=== PATIENT | female | born 1985 | race African-American/Black ===

== ENCOUNTER 2016-11-08 18:35 | Emergency (ER) | payer SELFPAY ==
[2016-11-08] MEDS ORDERED: METHYLPREDNISOLONE INJ 125 MG/2 ML SDV IV ONE (18:55)
[2016-11-08] MEDS ORDERED: ALBUTEROL SULFATE HFA (90 MCG/PUFF) 8 GM MDI (1 MDI/ER DISP) IH PRN (18:55)
[2016-11-08] MEDS ORDERED: ALBUTEROL SULFATE 0.083% NEB 2.5 MG/3 ML AMPUL NEB ONE (18:56)
--- NOTE | 2016-11-08 18:59 | ER Document Report ---
ED General - General Chief Complaint: Shortness Of Breath Stated Complaint: SHORTNESS OF BREATH Time Seen by Provider: 11/08/16 18:51 Notes: Patient is a 31-year-old female with past medical history of asthma, with prior severe exacerbations including intubation and ICU admission who presents with shortness of breath and wheezing. Patient states this started while she was at work. She was administered several nebulizers by EMS prior to arrival and states that this is significantly improved her symptoms. Nothing was noted to worsen her symptoms beyond attempted exertion. States this feels similar to prior asthma exacerbations but she wanted to come to the ER today due to how severe her asthma has become in the past when she has delayed treatment. She denies any significant symptoms at the time of my initial assessment beyond mild "tightness" in her chest. Denies any cough, fever or constitutional symptoms. States she has been taking her Symbicort as directed. TRAVEL OUTSIDE OF THE [place] IN LAST 30 DAYS: No - Related Data Allergies/Adverse Reactions: No Known Allergies Allergy (Verified 09/28/15 02:35) Past Medical History - General Information source: Patient - Social History Smoking Status: Never Smoker Frequency of alcohol use: Heavy Drug Abuse: None Lives with: Spouse/Significant other Family History: Reviewed & Not Pertinent, Other Pulmonary Medical History: Reports: Hx Asthma, Hx COPD, Hx Intubation, Hx Respiratory Failure Psychiatric Medical History: Denies: Hx Depression - Immunizations Hx Diphtheria, Pertussis, Tetanus Vaccination: Yes Review of Systems - Review of Systems Notes: Constitutional: Negative for fever. HENT: Negative for sore throat. Eyes: Negative for visual changes. Cardiovascular: Negative for chest pain. Respiratory: Positive for shortness of breath. Gastrointestinal: Negative for abdominal pain, vomiting or diarrhea. Genitourinary: Negative for dysuria. Musculoskeletal: Negative for back pain. Skin: Negative for rash. Neurological: Negative for headaches, weakness or numbness. 10 point ROS negative except as marked above and in HPI. Physical Exam - Vital signs Vitals: Temp Pulse Resp BP Pulse Ox 98.1 F 85 16 139/101 H 100 11/08/16 18:45 11/08/16 18:45 11/08/16 18:45 11/08/16 18:45 11/08/16 18:45 Interpretation: Normal Notes: PHYSICAL EXAMINATION: GENERAL: Well-appearing, well-nourished and in no acute distress. HEAD: Atraumatic, normocephalic. EYES: Pupils equal round and reactive to light, extraocular movements intact, sclera anicteric, conjunctiva are normal. ENT: nares patent, oropharynx clear without exudates. Moist mucous membranes. NECK: Normal range of motion, supple without lymphadenopathy LUNGS: Breath sounds clear to auscultation bilaterally and equal. Scant expiratory wheezing. HEART: Regular rate and rhythm without murmurs ABDOMEN: Soft, nontender, normoactive bowel sounds. No guarding, no rebound. No masses appreciated. EXTREMITIES: Normal range of motion, no pitting or edema. No cyanosis. NEUROLOGICAL: No focal neurological deficits. Moves all extremities spontaneously and on command. PSYCH: Normal mood, normal affect. SKIN: Warm, Dry, normal turgor, no rashes or lesions noted. Course - Re-evaluation Re-evalutation: 11/08/16 18:56 Patient presents with a mild exacerbation of their baseline asthma. Mild wheezing at time of presentation but vitals do not show significant hypoxemia or tachypnea. No retractions. Patient did clinically improve after receiving nebulizers here in the emergency department. No infectious symptoms to indicate a need for chest x-ray. Patient able to ambulate without any respiratory distress. Based on patient's overall reassuring assessment, I believe they are stable for outpatient management with steroids. I do not suspect an acute alternative pathology at this time based on history and exam including acute pulmonary embolus, ACS, pneumothorax, or aortic dissection. At this time will discharge with return precautions and follow-up recommendations. Verbal discharge instructions given a the bedside and opportunity for questions given. Medication warnings reviewed. Patient is in agreement with this plan and has verbalized understanding of return precautions and the need for primary care follow-up in the next 24-72 hours. - Vital Signs Vital signs: Temp Pulse Resp BP Pulse Ox 98.1 F 85 18 125/86 H 99 11/08/16 18:45 11/08/16 18:45 11/08/16 20:05 11/08/16 20:05 11/08/16 20:05 Discharge - Discharge Clinical Impression: Asthma exacerbation Condition: Fair Disposition: HOME, SELF-CARE Additional Instructions: You were seen for an asthma exacerbation. Your symptoms improved with treatment here in the emergency department. However, it is very important that you return to the emergency department immediately if you began to have worsening difficulty breathing that does not respond to your normal home nebulizers. You are also being sent home on a five-day course of steroids that you should start taking tomorrow. Please also follow closely with your primary care physician. you should also return to emergency department if you develop fever greater than 101, persistent cough, persistent vomiting, pass out, or any other symptoms that are concerning to you. Prescriptions: Prednisone [Deltasone 20 mg Tablet] 3 tab PO DAILY 5 Days Forms: Return to Work
[2016-11-08] MEDS: MAGNESIUM SULFATE/D5W 100 ML IV SCH ×2 (19:08→19:19)
[2016-11-08 21:16] VITALS: BP 125/86
== END 2016-11-08 21:00 | disposition home or self-care (01) ==
LOC: ER 18:35
DX: O99.519 Diseases of the respiratory system complicating pregnancy, unspecified trimester (principal); J44.9 Chronic obstructive pulmonary disease, unspecified; O26.899 Other specified pregnancy related conditions, unspecified trimester; R06.02 Shortness of breath; R07.89 Other chest pain; Z79.51 Long term (current) use of inhaled steroids; Z3A.00 Weeks of gestation of pregnancy not specified
CPT/HCPCS: 96376; 94640; 99285; 96374; 96375; J2930; J3475; J3490

== ENCOUNTER 2016-11-09 14:26 | Emergency (ER) | payer SELFPAY ==
--- NOTE | 2016-11-09 14:57 | ER Document Report ---
ED Medical Screen (RME) - General Chief Complaint: Nausea/Vomiting Stated Complaint: NAUSEA,DIZZY,ABDOMINAL PAIN Time Seen by Provider: 11/09/16 14:52 Mode of Arrival: Ambulatory Information source: Patient TRAVEL OUTSIDE OF THE [place] IN LAST 30 DAYS: No - HPI Onset: Yesterday Onset/Duration: Gradual Quality of pain: Dull Associated Symptoms: Cough (nonproductive), Hurts to breath, Shortness of breath Exacerbated by: Denies Relieved by: Denies Recently seen / treated by doctor: Yes - CARMELO EAntoine, LAST PM - Related Data Smoking: Non-smoker Frequency of alcohol use: None Drug Abuse: None Allergies/Adverse Reactions: No Known Allergies Allergy (Verified 11/09/16 14:30) Past Medical History - General Information source: Patient - Social History Cigarette use (# per day): No Chew tobacco use (# tins/day): No Frequency of alcohol use: None Drug Abuse: None Lives with: Spouse/Significant other - Past Medical History Cardiac Medical History: Reports: None Denies: Hx DVT, Hx Pulmonary Embolism Pulmonary Medical History: Reports: Hx Asthma, Hx COPD, Hx Intubation, Hx Respiratory Failure Endocrine Medical History: Reports: None Renal/ Medical History: Denies: Hx Peritoneal Dialysis GI Medical History: Reports: None Psychiatric Medical History: Denies: Hx Depression - Immunizations Hx Diphtheria, Pertussis, Tetanus Vaccination: Yes Review of Systems - Review of Systems Constitutional: See HPI EENT: No symptoms reported Cardiovascular: No symptoms reported Respiratory: See HPI Gastrointestinal: No symptoms reported Female Genitourinary: Last menstrual period - 10/05 Physical Exam - Vital signs Vitals: Temp Pulse Resp BP Pulse Ox 98.2 F 90 18 119/77 100 11/09/16 14:32 11/09/16 14:32 11/09/16 14:32 11/09/16 14:32 11/09/16 14:32 Interpretation: No: Tachycardic, Hypoxic, Tachypneic, Febrile - Respiratory Respiratory status: No respiratory distress Breath sounds: Normal. No: Rales, Wheezing Course - Vital Signs Vital signs: Temp Pulse Resp BP Pulse Ox 98.2 F 90 18 119/77 100 11/09/16 14:32 11/09/16 14:32 11/09/16 14:32 11/09/16 14:32 11/09/16 14:32
[2016-11-09 15:14] LABS: ABSOLUTE LYMPHOCYTES (AUTO) 1.9 10^3/uL (0.5-4.7); ABSOLUTE MONOCYTES (AUTO) 0.6 10^3/uL (0.1-1.4); ABSOLUTE NEUT (AUTO) 7.6 10^3/uL (1.7-8.2); BASOPHILS % (AUTO) 0.3 % (0-2); EOSINOPHILS % (AUTO) 0.4 % (0-6); HEMATOCRIT 39.9 % (36.0-47.0); HEMOGLOBIN 13.6 g/dL (12.0-15.5); HGB HCT DIFFERENCE 0.9; LYMPHOCYTES % (AUTO) 18.4 % (13-45); MEAN CORPUSCULAR HEMOGLOBIN 31.7 pg (27.0-33.4); MEAN CORPUSCULAR VOLUME 93 fl (80-97); MONOCYTES % (AUTO) 6.1 % (3-13); RED BLOOD COUNT 4.27 10^6/uL (3.72-5.28); RED CELL DISTRIBUTION WIDTH 12.7 % (11.5-14.0); SEGMENTED NEUTROPHILS % (AUTO) 74.8 % (42-78); WHITE BLOOD COUNT 10.2 10^3/uL (4.0-10.5)
--- NOTE | 2016-11-09 15:31 | ER Document Report ---
ED General - General Mode of Arrival: Ambulatory TRAVEL OUTSIDE OF THE [place] IN LAST 30 DAYS: No - HPI Onset: Other - Refer to HPI notes Similar symptoms previously: No Recently seen / treated by doctor: Yes - 11/08/16 [facility] <ANDRES RAMOS - Last Filed: 11/09/16 16:05> <LIAT KITCHEN - Last Filed: 11/09/16 19:41> - General Chief Complaint: Nausea/Vomiting Stated Complaint: NAUSEA,DIZZY,ABDOMINAL PAIN Time Seen by Provider: 11/09/16 14:52 Notes: Patient is a 31-year-old female presented emergency department with history of asthma with a chief complaint of nausea, vomiting and dizziness. Patient states she woke up this morning feeling like she was "hit by a bus." Patient complains of some nausea and dizziness along with abdominal pain and vomiting 2. Patient also states that her legs were tender/sore and she complains of a cough. Patient's last menstrual period was 10/05/2016 and she states she is not always regular. Patinet is Patient was seen in the emergency department last night (11/08/2016) for asthma exacerbation. Patient was given steroids and magnesium and discharged around 2130 last night. Patient has had asthma exacerbations in the past and was admitted to this facility's ICU with intubation/ventilator on 03/07/2016. Patient states that her breathing right now is normal and at baseline; she describes it as "tight" but states it is always tight. Patient's symptoms were gradually onset. Patient sees Dr. Rothman , pulmonology, for her asthma and does not have a PCP since she is waiting on her insurance card. Patient has no known allergies. (ANDRES RAMOS) - Related Data Allergies/Adverse Reactions: No Known Allergies Allergy (Verified 11/09/16 14:30) Past Medical History - General Information source: Patient - Social History Smoking Status: Never Smoker Cigarette use (# per day): No Chew tobacco use (# tins/day): No Smoking Education Provided: No Frequency of alcohol use: None Drug Abuse: None Lives with: Spouse/Significant other Family History: None - Past Medical History Cardiac Medical History: Reports: None Pulmonary Medical History: Reports: Hx Asthma, Hx COPD, Hx Intubation - 2015, Hx Respiratory Failure Endocrine Medical History: Reports: None GI Medical History: Reports: None Surgical Hx: Negative - Immunizations Hx Diphtheria, Pertussis, Tetanus Vaccination: Yes <ANDRES RAMOS - Last Filed: 11/09/16 16:05> Review of Systems - Review of Systems Constitutional: See HPI, Malaise EENT: No symptoms reported Cardiovascular: See HPI, Dizziness Respiratory: See HPI, Cough Gastrointestinal: See HPI, Abdominal pain, Nausea, Vomiting Genitourinary: No symptoms reported Female Genitourinary: No symptoms reported Musculoskeletal: No symptoms reported Skin: No symptoms reported Hematologic/Lymphatic: No symptoms reported Neurological/Psychological: No symptoms reported -: Yes All other systems reviewed and negative <ANDRES RAMOS - Last Filed: 11/09/16 16:05> Physical Exam - Vital signs Interpretation: Normal <ANDRES RAMOS - Last Filed: 11/09/16 16:05> <LIAT KITCHEN - Last Filed: 11/09/16 19:41> - Vital signs Vitals: Temp Pulse Resp BP Pulse Ox 98.2 F 90 18 119/77 100 11/09/16 14:32 11/09/16 14:32 11/09/16 14:32 11/09/16 14:32 11/09/16 14:32 - Notes Notes: GENERAL: Alert, interacts well. No acute distress. HEAD: Normocephalic, atraumatic. EYES: Appear normal. Pupils equal, round, and reactive to light. ENT: Moist mucus membranes, tongue midline, normal appearing oropharynx, TMs intact. NECK: Full range of motion. Supple. Trachea midline. LUNGS: Clear to auscultation bilaterally, no wheezes, rales, or rhonchi. No respiratory distress. HEART: Regular rate and rhythm. No murmurs, gallops, or rubs. ABDOMEN: Soft, non-tender. Non-distended. Normal bowel sounds. EXTREMITIES: Moves all 4 extremities spontaneously. Normal strength. No edema. NEUROLOGICAL: Alert and oriented x3. Normal speech. No focal neurological deficits. GSC 15. PSYCH: Normal affect, normal mood. SKIN: Warm, dry, normal turgor. No rashes or lesions noted. (ANDRES RAMOS) Course - Laboratory Result Diagrams: 11/09/16 15:05 11/09/16 15:05 <ANDRES RAMOS - Last Filed: 11/09/16 16:05> - Laboratory Result Diagrams: 11/09/16 15:05 11/09/16 15:05 - Diagnostic Test Radiology reviewed: Image reviewed, Reports reviewed - Mildly hyperinflated lungs, otherwise normal chest <LIAT KITCHEN - Last Filed: 11/09/16 19:41> - Vital Signs Vital signs: Temp Pulse Resp BP Pulse Ox 98.2 F 90 18 119/77 100 11/09/16 14:32 11/09/16 14:32 11/09/16 14:32 11/09/16 14:32 11/09/16 14:32 - Laboratory Laboratory results interpreted by me: 11/09/16 11/09/16 11/09/16 15:05 15:05 15:05 Carbon Dioxide 18 L Magnesium 2.4 H Total Protein 9.3 H Serum HCG, Qual POSITIVE H Beta HCG, Quant 88.25 H Discharge <ANDRES RAMOS - Last Filed: 11/09/16 16:05> <LIAT KITCHEN - Last Filed: 11/09/16 19:41> - Discharge Clinical Impression: Viral syndrome, Early stage of Condition: Stable Disposition: HOME, SELF-CARE Additional Instructions: Drink plenty of fluids. Take Tylenol for pain and aches if needed. Continue your regular medications. Follow-up with [facility] or the health department in 2 days to repeat your hormone level. RETURN TO THE EMERGENCY ROOM IF ANY NEW OR WORSENING SYMPTOMS. Referrals: [facility] [Provider Group] - 11/11/16 (Call Thursday for a Thursday appointment.) Scribe Attestation: 11/09/16 19:40 I personally performed the services described in the documentation, reviewed and edited the documentation which was dictated to the scribe in my presence, and it accurately records my words and actions. (LIAT KITCHEN) Scribe Documentation - Scribe Written by Yves:: Yves Joya, 11/09/2016 16:04 acting as scribe for :: Bossman <ANDRES RAMOS - Last Filed: 11/09/16 16:05>
[2016-11-09 15:33] LABS: ALANINE AMINOTRANSFERASE 25 U/L (9-52); ALKALINE PHOSPHATASE 52 U/L (38-126); ANION GAP 16 (5-19); ASPARTATE AMINO TRANSFERASE 20 U/L (14-36); BILIRUBIN,DIRECT 0.3 mg/dL (0.0-0.4); BILIRUBIN,TOTAL 0.4 mg/dL (0.2-1.3); BLOOD UREA NITROGEN 7 mg/dL (7-20); CARBON DIOXIDE 18 mmol/L (22-30); CHLORIDE 107 mmol/L (98-107); CREATININE RESULT 0.73 mg/dL (0.52-1.25); GLUCOSE 97 mg/dL (75-110); MAGNESIUM 2.4 mg/dL (1.6-2.3); POTASSIUM 4.2 mmol/L (3.6-5.0); TOTAL PROTEIN 9.3 g/dL (6.3-8.2)
[2016-11-09 15:42] LABS: ADD ON TESTING BLD IN LAB ACKNOWLEDGE
--- NOTE | 2016-11-09 16:45 | RADIOLOGY REPORT (SQ) ---
EXAM DESCRIPTION: CHEST SINGLE VIEW COMPLETED DATE/TIME: 11/09/2016 4:36 pm REASON FOR STUDY: asthma, SOB, pleuritic CP COMPARISON: 03/10/2016. NUMBER OF VIEWS: One view. TECHNIQUE: Single frontal radiographic view of the chest acquired. LIMITATIONS: None. FINDINGS: LUNGS AND PLEURA: Mildly hyperinflated but otherwise clear lungs. MEDIASTINUM AND HILAR STRUCTURES: No masses. Contour normal. HEART AND VASCULAR STRUCTURES: Heart normal in size. Normal vasculature. BONES: Mild scoliosis. HARDWARE: None in the chest. OTHER: No other significant finding. IMPRESSION: Beyond hyperinflation of the lungs which may be related to the patient's history of asth ma, negative study. TECHNICAL DOCUMENTATION: JOB ID: [id number] [employer]- All Rights Reserved
[2016-11-09 19:06] LABS: APPEARANCE,URINE CLEAR; BILIRUBIN,URINE NEGATIVE (NEGATIVE); GLUCOSE, URINE NEGATIVE (NEGATIVE); KETONES,URINE NEGATIVE (NEGATIVE); LEUKOCYTE ESTERASE,URINE NEGATIVE (NEGATIVE); NITRITE,URINE NEGATIVE (NEGATIVE); PROTEIN,URINE NEGATIVE (NEGATIVE); URINE SPECIFIC GRAVITY 1.023; UROBILINOGEN,URINE NEGATIVE mg/dL (<2.0)
--- NOTE | 2016-11-09 19:25 | RADIOLOGY REPORT (SQ) ---
EXAM DESCRIPTION: U/S OB TRANSVAGINAL W/O DOP COMPLETED DATE/TIME: 11/09/2016 7:16 pm REASON FOR STUDY: abd pain COMPARISON: None. TECHNIQUE: Transvaginal static and realtime grayscale images acquired of the pelvis. Additional jeremy cted spectral and color Doppler images recorded. All images stored on PACs. BHC.25 LIMITATIONS: None. FINDINGS: UTERUS: No visualized intrauterine . Mild fibroid uterus suggested. RIGHT ADNEXA: Normal ovary with normal vascular flow. No adnexal free fluid. No adnexal masses. LEFT ADNEXA: Normal ovary with normal vascular flow. No adnexal free fluid. No adnexal masses. Probable 2.5 cm corpus luteum. No suspicious lesion. FREE FLUID: None. OTHER: No other significant finding. IMPRESSION: NO VISUALIZED INTRA- OR EXTRAUTERINE . bHCG LEVEL TOO LOW TO EXPECT VISUALIZATION OF . ECTOPIC CANNOT BE EXCLUDED. FOLLOW-UP ULTRASOUND AND SERIAL BHCG LEVELS STRONGLY RECOMMENDED TO ACCURATELY ASSESS STATU S. TECHNICAL DOCUMENTATION: JOB ID: [id number]- All Rights Reserved
[2016-11-09 20:15] VITALS: BP 121/85
== END 2016-11-09 20:15 | disposition home or self-care (01) ==
LOC: ER 14:26
DX: B34.9 Viral infection, unspecified (principal); R11.2 Nausea with vomiting, unspecified; R42 Dizziness and giddiness; R10.9 Unspecified abdominal pain; R05 Cough; M79.604 Pain in right leg; M79.605 Pain in left leg; Z3A.01 Less than 8 weeks gestation of pregnancy
CPT/HCPCS: 36415; 71010; 76817; 80053; 81001; 83735; 84702; 84703; 85025; 99284

== ENCOUNTER 2016-12-07 08:36 | Emergency (ER) | payer SELFPAY ==
[2016-12-07 09:18] LABS: ABSOLUTE BASOPHILS # (AUTO) 0.1 10^3/uL (0.0-0.2); ABSOLUTE EOSINOPHILS # (AUTO) 0.4 10^3/uL (0.0-0.6); ABSOLUTE MONOCYTES (AUTO) 0.6 10^3/uL (0.1-1.4); ABSOLUTE NEUT (AUTO) 3.8 10^3/uL (1.7-8.2); BASOPHILS % (AUTO) 0.7 % (0-2); EOSINOPHILS % (AUTO) 5.7 % (0-6); HEMATOCRIT 34.9 % (36.0-47.0); HEMOGLOBIN 12.2 g/dL (12.0-15.5); HGB HCT DIFFERENCE 1.7; LYMPHOCYTES % (AUTO) 28.9 % (13-45); MEAN CORPUSCULAR HEMOGLOBIN 32.3 pg (27.0-33.4); MEAN CORPUSCULAR HGB CONC 34.9 g/dL (32.0-36.0); MEAN CORPUSCULAR VOLUME 92 fl (80-97); MONOCYTES % (AUTO) 9.1 % (3-13); RED BLOOD COUNT 3.78 10^6/uL (3.72-5.28); RED CELL DISTRIBUTION WIDTH 12.1 % (11.5-14.0); SEGMENTED NEUTROPHILS % (AUTO) 55.6 % (42-78); WHITE BLOOD COUNT 6.8 10^3/uL (4.0-10.5)
[2016-12-07 09:32] LABS: ALANINE AMINOTRANSFERASE 21 U/L (9-52); ALBUMIN 4.5 g/dL (3.5-5.0); ALKALINE PHOSPHATASE 65 U/L (38-126); ANION GAP 14 (5-19); ASPARTATE AMINO TRANSFERASE 15 U/L (14-36); BILIRUBIN,DIRECT 0.3 mg/dL (0.0-0.4); BILIRUBIN,TOTAL 0.5 mg/dL (0.2-1.3); BLOOD UREA NITROGEN 7 mg/dL (7-20); CALCIUM 10.3 mg/dL (8.4-10.2); CARBON DIOXIDE 18 mmol/L (22-30); CHLORIDE 105 mmol/L (98-107); CREATININE RESULT 0.64 mg/dL (0.52-1.25); GLUCOSE 87 mg/dL (75-110); POTASSIUM 4.1 mmol/L (3.6-5.0); SODIUM 137.4 mmol/L (137-145); TOTAL PROTEIN 8.6 g/dL (6.3-8.2)
[2016-12-07 09:33] LABS: APPEARANCE,URINE CLEAR; BILIRUBIN,URINE NEGATIVE (NEGATIVE); GLUCOSE, URINE NEGATIVE (NEGATIVE); KETONES,URINE NEGATIVE (NEGATIVE); LEUKOCYTE ESTERASE,URINE TRACE (NEGATIVE); NITRITE,URINE NEGATIVE (NEGATIVE); PROTEIN,URINE NEGATIVE (NEGATIVE); URINE SPECIFIC GRAVITY 1.018; UROBILINOGEN,URINE NEGATIVE mg/dL (<2.0)
[2016-12-07] MEDS ORDERED: ACETAMINOPHEN 325 MG TABLET PO ONE (09:47)
--- NOTE | 2016-12-07 09:47 | ER Document Report ---
ED General - General Chief Complaint: Abdominal Cramping Stated Complaint: ABDOMINAL PAIN Time Seen by Provider: 12/07/16 08:48 Mode of Arrival: Ambulatory Notes: 31 yr old female 7-9 weeks O+ presents with complaints of abd cramping like labor pain as well as spotting on thursday light pink. denies any previous hx of miscarriage, had an ultrasound performed a few weeks ago which was normal TRAVEL OUTSIDE OF THE [place] IN LAST 30 DAYS: No - HPI Onset: Other - 3 days Onset/Duration: Sudden Quality of pain: Cramping Severity: Mild Pain Level: 1 Associated symptoms: Other Exacerbated by: Denies Relieved by: Denies Similar symptoms previously: No Recently seen / treated by doctor: No - Related Data Allergies/Adverse Reactions: No Known Allergies Allergy (Verified 11/09/16 14:30) Past Medical History - Social History Smoking Status: Never Smoker Cigarette use (# per day): No Chew tobacco use (# tins/day): No Smoking Education Provided: No Frequency of alcohol use: Occasional Drug Abuse: None Family History: None - Past Medical History Cardiac Medical History: Denies: Hx DVT, Hx Pulmonary Embolism Pulmonary Medical History: Reports: Hx Asthma, Hx COPD, Hx Intubation - 2015, Hx Respiratory Failure Renal/ Medical History: Denies: Hx Peritoneal Dialysis Psychiatric Medical History: Denies: Hx Depression Surgical Hx: Negative - Immunizations Hx Diphtheria, Pertussis, Tetanus Vaccination: Yes Review of Systems - Review of Systems Notes: REVIEW OF SYSTEMS: CONSTITUTIONAL : Denies fever, chills, or sweats. Denies recent illness. EENT: Denies eye, ear, throat, or mouth pain or symptoms. Denies nasal or sinus congestion or discharge. Denies throat, tongue, or mouth swelling or difficulty swallowing. CARDIOVASCULAR: Denies chest pain. Denies palpitations or racing or irregular heart beat. Denies ankle edema. RESPIRATORY: Denies cough, cold, or chest congestion. Denies shortness of breath, difficulty breathing, or wheezing. GASTROINTESTINAL: Denies abdominal pain or distention. Denies nausea, vomiting , or diarrhea. Denies blood in vomitus, stools, or per rectum. Denies black, tarry stools. Denies constipation. GENITOURINARY: Denies difficulty urinating, painful urination, burning, frequency, blood in urine, or discharge. FEMALE GENITOURINARY: vag spotting , pelvic cramping MUSCULOSKELETAL: Denies back or neck pain or stiffness. Denies joint pain or swelling. SKIN: Denies rash, lesions or sores. HEMATOLOGIC : Denies easy bruising or bleeding. LYMPHATIC: Denies swollen, enlarged glands. NEUROLOGICAL: Denies confusion or altered mental status. Denies passing out or loss of consciousness. Denies dizziness or lightheadedness. Denies headache. Denies weakness or paralysis or loss of use of either side. Denies problems with gait or speech. Denies sensory loss, numbness, or tingling. Denies seizures. PSYCHIATRIC: Denies anxiety or stress. Denies depression, suicidal ideation, or homicidal ideation. ALL OTHER SYSTEMS REVIEWED AND NEGATIVE. PHYSICAL EXAMINATION: GENERAL: Well-appearing, well-nourished and in no acute distress. HEAD: Atraumatic, normocephalic. EYES: Pupils equal round and reactive to light, extraocular movements intact, conjunctiva are normal. ENT: Nares patent, oropharynx clear without exudates. Moist mucous membranes. NECK: Normal range of motion, supple without lymphadenopathy LUNGS: Breath sounds clear to auscultation bilaterally and equal. No wheezes rales or rhonchi. HEART: Regular rate and rhythm without murmurs ABDOMEN: Soft, nontender, nondistended abdomen. No guarding, no rebound. No masses appreciated. Female : deferred Musculoskeletal: Normal range of motion, no pitting or edema. No cyanosis. NEUROLOGICAL: Cranial nerves grossly intact. Normal speech, normal gait. Normal sensory, motor exams PSYCH: Normal mood, normal affect. SKIN: Warm, Dry, normal turgor, no rashes or lesions noted. Dictation was performed using [employer] voice recognition software Physical Exam - Vital signs Vitals: Temp Pulse Resp BP Pulse Ox 98.6 F 78 16 111/70 98 12/07/16 08:40 12/07/16 08:40 12/07/16 08:40 12/07/16 08:40 12/07/16 08:40 Course - Re-evaluation Re-evalutation: 12/07/16 09:50 lab work imaging pending, pt looks well, no rho krystal needed 12/07/16 11:06 Ultrasound notes a 7 week possibility of uterine fibroids noted report is given to patient otherwise she appears well admits to continued cramping but no life-threatening issues After performing a Medical Screening Examination, I estimate there is LOW risk for ACUTE APPENDICITIS, BOWEL OBSTRUCTION, ACUTE CHOLECYSTITIS, PERFORATED DIVERTICULITIS, INCARCERATED HERNIA, PANCREATITIS, PELVIC INFLAMMATORY DISEASE, PERFORATED ULCER, ECTOPIC , or TUBO-OVARIAN ABSCESS, thus I consider the discharge disposition reasonable. Also, there is no evidence or peritonitis , sepsis, or toxicity. I have reevaluated this patient multiple times and no significant life threatening changes are noted. The patient and I have discussed the diagnosis and risks, and we agree with discharging home with close follow-up with the understanding that symptoms and presentations can change. We also discussed returning to the Emergency Department immediately if new or worsening symptoms occur. We have discussed the symptoms which are most concerning (e.g., bloody stool, fever, changing or worsening pain, vomiting) that necessitate immediate return. - Vital Signs Vital signs: Temp Pulse Resp BP Pulse Ox 98.6 F 78 16 111/70 98 12/07/16 08:40 12/07/16 08:40 12/07/16 08:40 12/07/16 08:40 12/07/16 08:40 - Laboratory Result Diagrams: 12/07/16 09:04 12/07/16 09:04 Laboratory results interpreted by me: 12/07/16 12/07/16 12/07/16 09:04 09:04 09:04 Hct 34.9 L Carbon Dioxide 18 L Calcium 10.3 H Total Protein 8.6 H Beta HCG, Quant 465822.00 H Ur Leukocyte Esterase TRACE H - Diagnostic Test Radiology reviewed: Image reviewed, Reports reviewed - Pelvic results given to patient Discharge - Discharge Clinical Impression: Abdominal pain affecting Condition: Stable Disposition: HOME, SELF-CARE Instructions: Abdominal Pain ([facility]), Threatened Miscarriage ([facility]) Referrals: [facility] [Provider Group] - Follow up tomorrow
--- NOTE | 2016-12-07 11:03 | RADIOLOGY REPORT (SQ) ---
EXAM DESCRIPTION: U/S OB TRANSVAGINAL W/O DOP COMPLETED DATE/TIME: 12/07/2016 10:27 am REASON FOR STUDY: + preg pain COMPARISON: None. TECHNIQUE: Transvaginal static and realtime grayscale images acquired of the pelvis. Additional jeremy cted spectral and color Doppler images recorded. All images stored on PACs. bHC,300 LIMITATIONS: None. FINDINGS: FETUS: Living intrauterine . EGA: 7 weeks 2 day MUSA: 07/24/2017 FHR: 154 beats per minute. SUBCHORIONIC BLEED: No SIZE OF BLEED: Not applicable. UTERUS: There are multiple heterogeneous areas in the myometrium. Possibility of uterine fibroids ca nnot be excluded. Followup is recommended. CERVICAL LENGTH: 5.2 cm Closed. RIGHT ADNEXA: Normal ovary with normal vascular flow. No adnexal free fluid. No adnexal masses. LEFT ADNEXA: Normal ovary with normal vascular flow. No adnexal free fluid. Small cyst is identified measuring 1.8 x 1.6 x 1.0 cm FREE FLUID: Minimal amount of free fluid is identified in the posterior cul-de-sac. OTHER: No other significant finding. IMPRESSION: LIVING INTRAUTERINE . EGA 7 weeks 2 days Trimester of : First - 0 to 13 weeks. TECHNICAL DOCUMENTATION: JOB ID: [id number]- All Rights Reserved
[2016-12-07] MEDS ORDERED: CYCLOBENZAPRINE HCL 10 MG TABLET PO ONE (11:12)
[2016-12-07] MEDS ORDERED: METOCLOPRAMIDE HCL ORAL SOLN 10 MG/10 ML UDCUP PO ONE (11:12)
[2016-12-07 11:24] VITALS: BP 113/98
== END 2016-12-07 11:23 | disposition home or self-care (01) ==
LOC: ER 08:36
DX: O26.891 Other specified pregnancy related conditions, first trimester (principal); R10.9 Unspecified abdominal pain; O26.851 Spotting complicating pregnancy, first trimester; O99.511 Diseases of the respiratory system complicating pregnancy, first trimester; J44.9 Chronic obstructive pulmonary disease, unspecified; Z3A.01 Less than 8 weeks gestation of pregnancy
CPT/HCPCS: 36415; 76817; 80053; 81001; 84702; 85025; 99284

== ENCOUNTER 2016-12-08 16:45 | Emergency (ER) | payer BC ==
[2016-12-08] MEDS ORDERED: HYDROCODONE/ACETAMINOPHEN 5-325 MG TABLET PO ONE (17:42)
--- NOTE | 2016-12-08 17:44 | ER Document Report ---
ED Medical Screen (RME) - General Stated Complaint: ABDOMINAL PAIN Time Seen by Provider: 12/08/16 17:35 Notes: This 31-year-old female patient comes emergency room complaining of severe cramping in the pelvic area. She reports this started on Thursday 4 days ago. She was seen in the emergency room yesterday for the same symptoms and had an ultrasound showing a 7 week 2 day . She did not follow-up with [facility] today as she was instructed to. She did come by EMS to the emergency room today. There is no bleeding, there is no discharge. CBC and chemistries were normal yesterday. I have greeted and performed a rapid initial assessment of this patient. A comprehensive ED assessment and evaluation of the patient, analysis of test results and completion of the medical decision making process will be conducted by additional ED providers. TRAVEL OUTSIDE OF THE [place] IN LAST 30 DAYS: No - Related Data Allergies/Adverse Reactions: No Known Allergies Allergy (Verified 11/09/16 14:30) Past Medical History - Past Medical History Cardiac Medical History: Denies: Hx DVT, Hx Pulmonary Embolism Pulmonary Medical History: Reports: Hx Asthma, Hx COPD, Hx Intubation - 2015, Hx Respiratory Failure Renal/ Medical History: Denies: Hx Peritoneal Dialysis Psychiatric Medical History: Denies: Hx Depression - Immunizations Hx Diphtheria, Pertussis, Tetanus Vaccination: Yes Physical Exam - Vital signs Vitals: Temp Pulse Resp BP Pulse Ox 98.5 F 78 22 H 108/75 100 12/08/16 17:06 12/08/16 17:06 12/08/16 17:06 12/08/16 17:06 12/08/16 17:06 Course - Vital Signs Vital signs: Temp Pulse Resp BP Pulse Ox 98.5 F 78 22 H 108/75 100 12/08/16 17:06 12/08/16 17:06 12/08/16 17:06 12/08/16 17:06 12/08/16 17:06
[2016-12-08 19:35] LABS: APPEARANCE,URINE SLIGHTLY-CLOUDY; BILIRUBIN,URINE NEGATIVE (NEGATIVE); GLUCOSE, URINE NEGATIVE (NEGATIVE); KETONES,URINE NEGATIVE (NEGATIVE); LEUKOCYTE ESTERASE,URINE SMALL (NEGATIVE); NITRITE,URINE NEGATIVE (NEGATIVE); PROTEIN,URINE NEGATIVE (NEGATIVE); URINE SPECIFIC GRAVITY 1.028; UROBILINOGEN,URINE NEGATIVE mg/dL (<2.0)
[2016-12-08] MEDS ORDERED: DICYCLOMINE HCL 20 MG TABLET PO ONE (19:39)
--- NOTE | 2016-12-08 19:52 | ER Document Report ---
HPI - HPI Pain Level: 5 Notes: Patient is a 7 week 2-day female who presents the ED complaining of lower pelvic cramping 4-5 days. Patient was evaluated yesterday in the ED and had a negative workup. Patient did not follow-up with the women[facility] clinic as she was directed to. Patient states that the pain has not changed since her appointment yesterday. She is still eating and drinking without any difficulties. She denies any vaginal bleeding. Pt states she does have brown vaginal discharge. She denies any issues with constipation or diarrhea. Patient states that she has been taking Tylenol with minimal relief. He denies any drug allergies. Past medical history significant for asthma. Denies any headache, fever, URI, sore throat, chest pain, palpitations, syncope, cough, shortness of breath, wheeze, dyspnea, nausea/vomiting/diarrhea, urinary retention, dysuria, hematuria, loss of control of bowel or bladder, numbness/ tingling, saddle anesthesia, muscle paralysis/weakness, or rash. - ROS Notes: REVIEW OF SYSTEMS: CONSTITUTIONAL : Denies fever, chills, or sweats. Denies recent illness. EENT: Denies eye, ear, throat, or mouth pain or symptoms. Denies nasal or sinus congestion or discharge. Denies throat, tongue, or mouth swelling or difficulty swallowing. CARDIOVASCULAR: Denies chest pain. Denies palpitations or racing or irregular heart beat. Denies ankle edema. RESPIRATORY: Denies cough, cold, or chest congestion. Denies shortness of breath, difficulty breathing, or wheezing. GASTROINTESTINAL: see hpi GENITOURINARY: Denies difficulty urinating, painful urination, burning, frequency, blood in urine, or discharge. FEMALE GENITOURINARY: see hpi. MUSCULOSKELETAL: Denies back or neck pain or stiffness. Denies joint pain or swelling. SKIN: Denies rash, lesions or sores. NEUROLOGICAL: Denies confusion or altered mental status. Denies passing out or loss of consciousness. Denies dizziness or lightheadedness. Denies headache. Denies weakness or paralysis or loss of use of either side. Denies problems with gait or speech. Denies sensory loss, numbness, or tingling. Denies seizures. PSYCHIATRIC: Denies anxiety or stress. Denies depression, suicidal ideation, or homicidal ideation. ALL OTHER SYSTEMS REVIEWED AND NEGATIVE. Dictation was performed using [employer] voice recognition software - REPRODUCTIVE Reproductive: DENIES: : - DERM Skin Color: Normal Past Medical History - Social History Smoking Status: Unknown if Ever Smoked Family History: None - Past Medical History Cardiac Medical History: Denies: Hx DVT, Hx Pulmonary Embolism Pulmonary Medical History: Reports: Hx Asthma, Hx COPD, Hx Intubation - 2015, Hx Respiratory Failure Renal/ Medical History: Denies: Hx Peritoneal Dialysis Psychiatric Medical History: Denies: Hx Depression - Immunizations Hx Diphtheria, Pertussis, Tetanus Vaccination: Yes Vertical Provider Document - CONSTITUTIONAL Agree With Documented VS: Yes Notes: PHYSICAL EXAMINATION: GENERAL: Well-appearing, well-nourished and in no acute distress. LUNGS: Breath sounds clear to auscultation bilaterally and equal. No wheezes rales or rhonchi. HEART: Regular rate and rhythm without murmurs ABDOMEN: Soft,nondistended abdomen. No guarding, no rebound. No masses appreciated. Normal bowel sounds present. CVA tenderness negative bilaterally. + mild tenderness to Lower quadrants b/l. Female : No inguinal adenopathy. External genitalia without erythema, lesions , or masses. Vaginal mucosa pink with mild white discharge in canal. Cervix parous, pink, and without obvious discharge. Uterus is smooth. + mild b/l adnexal tenderness. Neg CMT. Musculoskeletal: FROM to passive/active. Strength 5+/5. Extremities: No cyanosis/clubbing/edema b/l. Peripheral pulses 2+. Capillary refill less than 3 seconds. NEUROLOGICAL: Normal speech. Normal sensory, motor exams PSYCH: Normal mood, normal affect. SKIN: Warm, Dry, normal turgor, no rashes or lesions noted. - INFECTION CONTROL TRAVEL OUTSIDE OF THE [place] IN LAST 30 DAYS: No - RESPIRATORY O2 Sat by Pulse Oximetry: 100 Course - Re-evaluation Re-evalutation: 12/08/16 21:03 Patient is an afebrile, well-hydrated, 31-year-old female who presents to the ED with trichomoniasis and bacterial vaginosis. Chlamydia and gonorrhea are pending. Vitals are stable. PE otherwise unremarkable at this time. Patient was evaluated yesterday and had an US that was unremarkable for acute pathology. patient is tolerating p.o. intake without any difficulties. Zithromax 1 g, Rocephin 250 mg IM given today due to pending labs. Advised patient to have partner treated as well. Conservative measures otherwise for symptoms. Recheck with the women's clinic in 2-3 days. Return to the ED with any worsening/concerning symptoms otherwise as reviewed in discharge. Patient is in agreement. Low suspicion for any acute appendicitis, bowel obstruction, acute cholecystitis , perforated diverticulitis, incarcerated hernia, pancreatitis, perforated ulcer , ectopic , tubo-ovarian abscess, sepsis, or peritonitis. - Vital Signs Vital signs: Temp Pulse Resp BP Pulse Ox 98.5 F 78 22 H 108/75 100 12/08/16 17:06 12/08/16 17:06 12/08/16 17:06 12/08/16 17:06 12/08/16 17:06 - Laboratory Laboratory results interpreted by me: 12/08/16 17:45 Ur Leukocyte Esterase SMALL H Procedures - Pelvic Exam Pelvic exam Time completed: 20:40 Cultures obtained: Yes Wet prep obtained: Yes Herpes culture obtained: No Bimanual exam performed: Yes Witnessed by: female PCT Discharge - Discharge Clinical Impression: Bacterial vaginosis, Trichomoniasis Instructions: Abdominal Pain ([facility]), Vaginosis, Bacterial ([facility]), Trichomonas Infection ([facility]) Additional Instructions: Maintain adequate fluid intake Take medication as directed Abstain from any sexual intercourse for at least 10 days Recheck with the women's clinic in 2-3 days Return to the ED with any worsening symptoms and/or development of fever, headache, chest pain, palpitations, syncope, shortness of breath, trouble breathing, abdominal pain, n/v/d, blood in stool/urine, vaginal bleeding, worsening pain, or other worsening symptoms that are concerning to you. Prescriptions: Metronidazole [Flagyl 500 mg Tablet] 500 mg PO BID #14 tablet [facility]errals: [facility] [Provider Group] - Follow up in 3-5 days
[2016-12-08] MEDS ORDERED: LIDOCAINE 1% INJ-PF (10 MG/ML) 30 ML SDV INJ ONE (21:02)
[2016-12-08] MEDS ORDERED: AZITHROMYCIN 250 MG TABLET PO ONE (21:02)
[2016-12-08] MEDS ORDERED: CEFTRIAXONE INJ 1000 MG VIAL IM ONE (21:02)
[2016-12-08 21:32] VITALS: BP 122/75
[2016-12-08 22:08] LABS: CHLAM PCR NOT DETECTED (NOT DETECT)
== END 2016-12-08 21:55 | disposition home or self-care (01) ==
LOC: ER 16:45
DX: N76.0 Acute vaginitis (principal); B96.89 Other specified bacterial agents as the cause of diseases classified elsewhere; A59.9 Trichomoniasis, unspecified; R10.2 Pelvic and perineal pain
CPT/HCPCS: 99284; 96372; 87210; 81001; 87491; 87591; J3490 ×2; J0696

== ENCOUNTER 2016-12-13 13:53 | Emergency (ER) | payer SELFPAY ==
[2016-12-13 13:59] VITALS: BP 113/73
[2016-12-13] MEDS ORDERED: NORMAL SALINE 1000 ML 1,000 ML IV ONE ×2 (14:17→17:51)
--- NOTE | 2016-12-13 14:18 | ER Document Report ---
ED GI/ - General Chief Complaint: Abdominal Pain Stated Complaint: ABDOMINAL PAIN Mode of Arrival: Ambulatory Information source: Patient Notes: Patient is currently 8 weeks and complains of lower pelvic cramping. Patient states that she has had the cramping over the past week. Patient states that she has not had a bowel movement in 9 days. Patient is concerned that her cramping is due to constipation. Patient was seen in the emergency department 5 days ago and was diagnosed with bacterial vaginosis and trichomonas. Patient states she has been compliant with taking her Flagyl. Patient also states that her partner has been treated for trichomonas as well. Patient denies any vaginal bleeding, discharge, or urinary symptoms. TRAVEL OUTSIDE OF THE [place] IN LAST 30 DAYS: No - HPI Patient complains to provider of: Pelvic pain, . No: Vaginal discharge , Vomiting Onset: Last week Timing/Duration: Persistent Quality of pain: Cramping Pain Level: 2 Context: Location: Pelvis Vaginal bleeding (Compared to normal period): None Menstrual period history: Sexual history: Active Associated symptoms: denies: Dysuria, Fever, Nausea, Urinary hesitancy, Urinary frequency, Urinary retention, Urinary urgency, Vaginal discharge, Vomiting Exacerbated by: Denies Relieved by: Denies Similar symptoms previously: Yes Recently seen / treated by doctor: Yes - Related Data Allergies/Adverse Reactions: No Known Allergies Allergy (Verified 12/13/16 14:11) Past Medical History - General Information source: Patient - Social History Smoking Status: Never Smoker Chew tobacco use (# tins/day): No Frequency of alcohol use: Occasional Drug Abuse: None 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 denies: Fever EENT: No symptoms reported Cardiovascular: No symptoms reported. denies: Chest pain Respiratory: No symptoms reported Gastrointestinal: Abdominal pain, Constipation. denies: Diarrhea, Nausea, Vomiting Genitourinary: No symptoms reported. denies: Dysuria, Flank pain Female Genitourinary: . denies: Vaginal discharge, Vaginal bleeding Musculoskeletal: No symptoms reported. denies: Back pain Skin: No symptoms reported Hematologic/Lymphatic: No symptoms reported Neurological/Psychological: No symptoms reported Physical Exam - Vital signs Vitals: Temp Pulse Resp BP Pulse Ox 98.6 F 85 14 113/73 100 12/13/16 13:55 12/13/16 13:55 12/13/16 13:55 12/13/16 13:55 12/13/16 13:55 - General General appearance: Appears well, Alert In distress: None - HEENT Head: Normocephalic, Atraumatic Eyes: Normal Nasal: Normal Mouth/Lips: Normal Mucous membranes: Normal Neck: Normal, Supple. No: Lymphadenopathy - Respiratory Respiratory status: No respiratory distress Chest status: Nontender Breath sounds: Normal. No: Rales, Rhonchi, Stridor, Wheezing Chest palpation: Normal - Cardiovascular Rhythm: Regular Heart sounds: S1 appreciated, S2 appreciated Murmur: No - Abdominal Inspection: Normal Distension: No distension Bowel sounds: Normal Tenderness: Tender - Lower pelvic. No: McBurney's point, Guarding Organomegaly: No organomegaly - Genitourinary External exam: Normal Speculum exam: Cervix closed, Vaginal discharge Bimanuel exam: Cervical motion tender. No: Adnexal tenderness - Back Back: Normal, Nontender. No: CVA tenderness - Extremities General upper extremity: Normal inspection, Normal ROM General lower extremity: Normal inspection, Normal ROM - Neurological Neuro grossly intact: Yes Cognition: Normal [place] Coma Scale Eye Opening: Spontaneous [place] Coma Scale Verbal: Oriented [place] Coma Scale Motor: Obeys Commands [place] Coma Scale Total: 15 - Psychological Associated symptoms: Normal affect, Normal mood - Skin Skin Temperature: Warm Skin Moisture: Dry Skin Color: Normal Course - Re-evaluation Re-evalutation: 12/13/16 18:[address] Cooper regarding pt presentation and exam findings. Discussed pt's +trichomonas results. Patient has not finished a full week of treatment at this time. Recommends having patient finish her Flagyl as previously prescribed and following up with her [facility] for further management. 12/13/16 18:52 Offered patient enema, patient declined, offered patient digital disimpaction, patient declined. Discussed worsening signs or symptoms that patient should return for. Patient verbalized understanding and agrees with plan of care. - Vital Signs Vital signs: Temp Pulse Resp BP Pulse Ox 98.6 F 85 14 113/73 100 12/13/16 13:55 12/13/16 13:55 12/13/16 13:55 12/13/16 13:55 12/13/16 13:55 - Laboratory Result Diagrams: 12/13/16 14:22 12/13/16 16:10 Laboratory results interpreted by me: 12/13/16 12/13/16 12/13/16 14:22 14:22 16:10 RBC 3.62 L Hgb 11.6 L Hct 33.4 L Eosinophils % 8.6 H Carbon Dioxide 19 L BUN 4 L Creatinine 0.50 L Beta HCG, Quant 600507.00 H Urine Urobilinogen 2.0 H Ur Leukocyte Esterase TRACE H Labs- Entire Visit 12/13/16 12/13/16 12/13/16 14:22 14:22 14:22 WBC 6.5 RBC 3.62 L Hgb 11.6 L Hct 33.4 L MCV 92 MCH 32.2 MCHC 34.9 RDW 12.1 Plt Count 292 Seg Neutrophils % 52.7 Lymphocytes % 26.0 Monocytes % 11.7 Eosinophils % 8.6 H Basophils % 1.0 Absolute Neutrophils 3.4 Absolute Lymphocytes 1.7 Absolute Monocytes 0.8 Absolute Eosinophils 0.6 Absolute Basophils 0.1 Sodium Cancelled Potassium Cancelled Chloride Cancelled Carbon Dioxide Cancelled Anion Gap Cancelled BUN Cancelled Creatinine Cancelled Est GFR ( Amer) Cancelled Est GFR (Non-Af Amer) Cancelled Glucose Cancelled Calcium Cancelled Total Bilirubin Cancelled Direct Bilirubin Cancelled Indirect Bilirubin Cancelled Neonat Total Bilirubin Cancelled AST Cancelled ALT Cancelled Alkaline Phosphatase Cancelled Total Protein Cancelled Albumin Cancelled Lipase Cancelled TSH Cancelled Beta HCG, Quant Cancelled Total Beta HCG Cancelled Urine Color Urine Appearance Urine pH Ur Specific Dawson Urine Protein Urine Glucose (UA) Urine Ketones Urine Blood Urine Nitrite Urine Bilirubin Urine Urobilinogen Ur Leukocyte Esterase Urine WBC (Auto) Urine RBC (Auto) Urine Bacteria (Auto) Squamous Epi Cells Auto Urine Mucus (Auto) Urine Ascorbic Acid Bacteria (Wet Prep) Trichomonas (Wet Prep) Vaginal WBC Vaginal RBC Vaginal Yeast Chlamydia DNA (PCR) N.gonorrhoeae DNA (PCR) 08/12/13/16 12/13/16 14:22 16:10 16:10 WBC RBC Hgb Hct MCV MCH MCHC RDW Plt Count Seg Neutrophils % Lymphocytes % Monocytes % Eosinophils % Basophils % Absolute Neutrophils Absolute Lymphocytes Absolute Monocytes Absolute Eosinophils Absolute Basophils Sodium 137.8 Potassium 4.3 Chloride 106 Carbon Dioxide 19 L Anion Gap 13 BUN 4 L Creatinine 0.50 L Est GFR ( Amer) > 60 Est GFR (Non-Af Amer) > 60 Glucose 77 Calcium 9.8 Total Bilirubin 0.4 Direct Bilirubin 0.4 Indirect Bilirubin Not Reportable Neonat Total Bilirubin Not Reportable AST 17 ALT 22 Alkaline Phosphatase 74 Total Protein 8.1 Albumin 4.2 Lipase 125.8 TSH 0.71 Beta HCG, Quant 480544.00 H Total Beta HCG POSITIVE Urine Color YELLOW Urine Appearance SLIGHTLY-CLOUDY Urine pH 6.0 Ur Specific Dawson 1.026 Urine Protein NEGATIVE Urine Glucose (UA) NEGATIVE Urine Ketones NEGATIVE Urine Blood NEGATIVE Urine Nitrite NEGATIVE Urine Bilirubin NEGATIVE Urine Urobilinogen 2.0 H Ur Leukocyte Esterase TRACE H Urine WBC (Auto) 3 Urine RBC (Auto) 2 Urine Bacteria (Auto) 1+ Squamous Epi Cells Auto 2 Urine Mucus (Auto) OCC Urine Ascorbic Acid NEGATIVE Bacteria (Wet Prep) Trichomonas (Wet Prep) Vaginal WBC Vaginal RBC Vaginal Yeast Chlamydia DNA (PCR) N.gonorrhoeae DNA (PCR) 12/13/16 12/13/16 16:27 16:27 WBC RBC Hgb Hct MCV MCH MCHC RDW Plt Count Seg Neutrophils % Lymphocytes % Monocytes % Eosinophils % Basophils % Absolute Neutrophils Absolute Lymphocytes Absolute Monocytes Absolute Eosinophils Absolute Basophils Sodium Potassium Chloride Carbon Dioxide Anion Gap BUN Creatinine Est GFR ( Amer) Est GFR (Non-Af Amer) Glucose Calcium Total Bilirubin Direct Bilirubin Indirect Bilirubin Neonat Total Bilirubin AST ALT Alkaline Phosphatase Total Protein Albumin Lipase TSH Beta HCG, Quant Total Beta HCG Urine Color Urine Appearance Urine pH Ur Specific Dawson Urine Protein Urine Glucose (UA) Urine Ketones Urine Blood Urine Nitrite Urine Bilirubin Urine Urobilinogen Ur Leukocyte Esterase Urine WBC (Auto) Urine RBC (Auto) Urine Bacteria (Auto) Squamous Epi Cells Auto Urine Mucus (Auto) Urine Ascorbic Acid Bacteria (Wet Prep) 3+ BACTERIA SEEN Trichomonas (Wet Prep) TRICHOMONAS SEEN Vaginal WBC FEW WBCS SEEN Vaginal RBC RARE RBCS SEEN Vaginal Yeast NO YEAST SEEN Chlamydia DNA (PCR) NOT DETECTED N.gonorrhoeae DNA (PCR) NOT DETECTED - Diagnostic Test Radiology reviewed: Reports reviewed Discharge - Discharge Clinical Impression: Trichomoniasis, Abdominal pain affecting Constipation Qualifiers: Constipation type: unspecified constipation type Qualified Code(s): K59.00 - Constipation, unspecified UTI (urinary tract infection) Qualifiers: Urinary tract infection type: site unspecified Hematuria presence: without hematuria Qualified Code(s): N39.0 - Urinary tract infection, site not specified Condition: Stable Disposition: HOME, SELF-CARE Instructions: Nitrofurantoin ([facility]), Pelvic Pain in ([facility]), Trichomonas Infection ([facility]), Urinary Tract Infection ([facility]) Additional Instructions: Return immediately for any new or worsening symptoms Followup with your primary care provider, call tomorrow to make a followup appointment Finished taking the Flagyl he were previously prescribed. Be certain that your partner has finished their course of treatment as well. No sexual intercourse until symptoms have resolved. Follow-up with your [facility] provider, call Thursday for a recheck. Your SCIENCE [facility]TER may want to recheck your trichomonas test to be certain that the infection has cleared after you have finished the medication. Stay well-hydrated, increase oral fluids and fiber in your diet to help with constipation symptoms Prescriptions: Nitrofurantoin/Nitrofuran Mac [Macrobid 100 mg Capsule] 100 mg PO BID #10 capsule Forms: Return to Work Referrals: [facility] [Provider Group] - 12/15/16
[2016-12-13 14:50] LABS: ABSOLUTE BASOPHILS # (AUTO) 0.1 10^3/uL (0.0-0.2); ABSOLUTE EOSINOPHILS # (AUTO) 0.6 10^3/uL (0.0-0.6); ABSOLUTE LYMPHOCYTES (AUTO) 1.7 10^3/uL (0.5-4.7); ABSOLUTE MONOCYTES (AUTO) 0.8 10^3/uL (0.1-1.4); ABSOLUTE NEUT (AUTO) 3.4 10^3/uL (1.7-8.2); EOSINOPHILS % (AUTO) 8.6 % (0-6); HEMATOCRIT 33.4 % (36.0-47.0); HEMOGLOBIN 11.6 g/dL (12.0-15.5); HGB HCT DIFFERENCE 1.4; MEAN CORPUSCULAR HEMOGLOBIN 32.2 pg (27.0-33.4); MEAN CORPUSCULAR HGB CONC 34.9 g/dL (32.0-36.0); MEAN CORPUSCULAR VOLUME 92 fl (80-97); MONOCYTES % (AUTO) 11.7 % (3-13); RED BLOOD COUNT 3.62 10^6/uL (3.72-5.28); RED CELL DISTRIBUTION WIDTH 12.1 % (11.5-14.0); SEGMENTED NEUTROPHILS % (AUTO) 52.7 % (42-78); WHITE BLOOD COUNT 6.5 10^3/uL (4.0-10.5)
[2016-12-13 16:05] LABS: APPEARANCE,URINE SLIGHTLY-CLOUDY; BILIRUBIN,URINE NEGATIVE (NEGATIVE); GLUCOSE, URINE NEGATIVE (NEGATIVE); KETONES,URINE NEGATIVE (NEGATIVE); LEUKOCYTE ESTERASE,URINE TRACE (NEGATIVE); NITRITE,URINE NEGATIVE (NEGATIVE); PROTEIN,URINE NEGATIVE (NEGATIVE); URINE SPECIFIC GRAVITY 1.026
[2016-12-13 16:39] LABS: ALANINE AMINOTRANSFERASE 22 U/L (9-52); ALBUMIN 4.2 g/dL (3.5-5.0); ALKALINE PHOSPHATASE 74 U/L (38-126); ANION GAP 13 (5-19); ASPARTATE AMINO TRANSFERASE 17 U/L (14-36); BILIRUBIN,DIRECT 0.4 mg/dL (0.0-0.4); BILIRUBIN,TOTAL 0.4 mg/dL (0.2-1.3); BLOOD UREA NITROGEN 4 mg/dL (7-20); CALCIUM 9.8 mg/dL (8.4-10.2); CARBON DIOXIDE 19 mmol/L (22-30); CHLORIDE 106 mmol/L (98-107); GLUCOSE 77 mg/dL (75-110); LIPASE 125.8 U/L (23-300); POTASSIUM 4.3 mmol/L (3.6-5.0); SODIUM 137.8 mmol/L (137-145); TOTAL PROTEIN 8.1 g/dL (6.3-8.2)
--- NOTE | 2016-12-13 18:05 | RADIOLOGY REPORT (SQ) ---
EXAM DESCRIPTION: U/S OB TRANSVAGINAL W/O DOP COMPLETED DATE/TIME: 12/13/2016 5:41 pm REASON FOR STUDY: pelvic pain COMPARISON: Ob ultrasound 11/27/2016, 11/09/2016 TECHNIQUE: Endovaginal static and realtime grayscale images acquired of the pelvis. Additional selec rosa elena spectral and color Doppler images recorded. All images stored on PACs. bHCG: Not available, last menses 10/15/2016 LIMITATIONS: None. FINDINGS: FETUS: Living intrauterine . EGA: 8 weeks 3 days by crown-rump length MUSA: 07/22/2017 FHR: 158 beats per minute. SUBCHORIONIC BLEED: No SIZE OF BLEED: Not applicable. UTERUS: Uterus measures about 14 x 8 x 9 cm in size, with a posterior uterine body fibroid, 6 x 5 cm in size, and anterior uterine body fibroid 2.4 cm in size. CERVICAL LENGTH: 5 cm Closed. RIGHT ADNEXA: Right ovary 4.7 x 2.1 x 2.4 cm in size. Normal ovary with normal vascular flow.No adne xal free fluid.No adnexal masses. LEFT ADNEXA: Left ovary 3.2 x 3.2 x 1.7 cm in size. Normal ovary with normal vascular flow.No adnexa l free fluid.No adnexal masses. FREE FLUID: None. OTHER: No other significant finding. IMPRESSION: LIVING INTRAUTERINE . EGA 8 weeks 3 days, embryo cardiac activity 158 beats per minute Trimester of : First - 0 to 13 weeks. TECHNICAL DOCUMENTATION: JOB ID: [id number] [employer]- All Rights Reserved
[2016-12-13 18:09] LABS: CHLAM PCR NOT DETECTED (NOT DETECT)
[2016-12-13] MEDS ORDERED: MAGNESIUM CITRATE 296 ML BOTTLE PO ONE (18:28)
[2016-12-13] MEDS ORDERED: NITROFURANTOIN MONOHYD/M-CRYST 100 MG CAPSULE PO ONE (18:33)
== END 2016-12-13 18:54 | disposition home or self-care (01) ==
LOC: ER 13:53
DX: O98.311 Other infections with a predominantly sexual mode of transmission complicating pregnancy, first trimester (principal); A59.01 Trichomonal vulvovaginitis; O23.41 Unspecified infection of urinary tract in pregnancy, first trimester; Z3A.09 9 weeks gestation of pregnancy; K59.00 Constipation, unspecified
CPT/HCPCS: 99284; 36415; 87086; 87210; 84702; 83690; 84443; 85025; 80053; 81001; 87491; 87591; 76817; J3490; J7030; J8499

== ENCOUNTER 2016-12-24 16:32 | Emergency (ER) | payer SELFPAY ==
[2016-12-24] MEDS ORDERED: IPRATROPIUM/ALBUTEROL 0.5-2.5 MG/3 ML AMPUL NEB ONE (17:13)
[2016-12-24] MEDS ORDERED: ACETAMINOPHEN 325 MG TABLET PO ONE (17:13)
--- NOTE | 2016-12-24 17:14 | ER Document Report ---
ED Respiratory Problem - General Chief Complaint: Breathing Difficulty Stated Complaint: BREATHING CONCERNS Time Seen by Provider: 12/24/16 17:06 Mode of Arrival: Medic Information source: Patient Notes: Pt is 10 weeks , with asthma who presents to the ER today via EMS with shortness of breath starting this morning and her albuterol inhaler did not help at home. She also complains of abdominal cramping worse on the left side. Denies vaginal bleeding or discharge, denies fever/chills. She admits to wheezing, denies productive cough. TRAVEL OUTSIDE OF THE [place] IN LAST 30 DAYS: No - Related Data Allergies/Adverse Reactions: No Known Allergies Allergy (Verified 12/13/16 14:11) Past Medical History - General Information source: Patient - Social History Smoking Status: Former Smoker Family History: None - Past Medical History Cardiac Medical History: Denies: Hx DVT, Hx Pulmonary Embolism Pulmonary Medical History: Reports: Hx Asthma, Hx COPD, Hx Intubation - 2015, Hx Respiratory Failure Renal/ Medical History: Denies: Hx Peritoneal Dialysis Psychiatric Medical History: Denies: Hx Depression - Immunizations Hx Diphtheria, Pertussis, Tetanus Vaccination: Yes Review of Systems - Review of Systems Constitutional: No symptoms reported EENT: No symptoms reported Cardiovascular: No symptoms reported Respiratory: See HPI Gastrointestinal: No symptoms reported Genitourinary: No symptoms reported Female Genitourinary: See HPI Musculoskeletal: No symptoms reported Skin: No symptoms reported Hematologic/Lymphatic: No symptoms reported Neurological/Psychological: No symptoms reported Physical Exam - Vital signs Vitals: Resp Pulse Ox 23 H 100 12/24/16 16:43 12/24/16 16:43 - Notes Notes: PHYSICAL EXAMINATION: GENERAL: anxious, mildly short of breath, but in no acute distress. HEAD: Atraumatic, normocephalic. EYES: Pupils equal round and reactive to light, extraocular movements intact, sclera anicteric, conjunctiva are normal. ENT: ear canals without erythema or foreign body, TMs pearly armstrong with good bony landmarks, nares patent, oropharynx clear without exudates. Moist mucous membranes. NECK: Normal range of motion, supple without lymphadenopathy LUNGS: mild-moderate wheezes bilaterally, no rales or rhonchi. HEART: Regular rate and rhythm without murmurs ABDOMEN: Soft, no tenderness. No guarding, no rebound BACK: no vertebral tenderness, normal ROM GI/: no CVA tenderness EXTREMITIES: Normal range of motion, no pitting edema. No cyanosis. NEUROLOGICAL: Cranial nerves grossly intact. Normal sensory/motor exams. PSYCH: Normal mood, normal affect. SKIN: Warm, Dry, normal turgor, no rashes or lesions noted Course - Re-evaluation Re-evalutation: 12/24/16 18:59 Ultrasound reveals live uterine gestation at 10 weeks with a rate of 169 bpm, also notes fibroids. No other abnormalities noted. Patient does feel much better and is satting 100% on room air since arrival at the emergency department. She did get another breathing treatment here in the emergency department. Chest x-ray was not performed due to patient's improvement of symptoms in . Vital signs are all normal here. - Vital Signs Vital signs: Temp Pulse Resp BP Pulse Ox 33 H 129/75 H 98 12/24/16 19:01 12/24/16 19:01 12/24/16 19:01 Discharge - Discharge Clinical Impression: Asthma exacerbation, Abdominal cramping affecting Condition: Stable Disposition: HOME, SELF-CARE Additional Instructions: Return immediately for any new or worsening symptoms. Follow up with primary care provider, call tomorrow to make followup appointment. Forms: Return to Work
--- NOTE | 2016-12-24 18:57 | RADIOLOGY REPORT (SQ) ---
EXAM DESCRIPTION: U/S [id number] TRNABD 1GES W/ODOP COMPLETED DATE/TIME: 12/24/2016 6:38 pm REASON FOR STUDY: painful cramping, llq COMPARISON: None. TECHNIQUE: Transabdominal static and realtime grayscale images acquired of the pelvis. Additional se lected spectral and color Doppler images recorded. All images stored on PACs. bHCG: Not available. LIMITATIONS: None. FINDINGS: FETUS: Living intrauterine . EGA: 10 weeks 0 days MUSA: 07/22/2016 FHR: 169 beats per minute. SUBCHORIONIC BLEED: No SIZE OF BLEED: Not applicable. UTERUS: The myometrium is quite heterogeneous with multiple generally small fibroids. The largest is posterior and measures 48 x 39 x 39 mm. CERVICAL LENGTH: 3.8 cm Closed. RIGHT ADNEXA: Normal ovary with normal vascular flow. 23 x 18 x 16 mm. No adnexal free fluid. No adnexal masses. LEFT ADNEXA: Normal ovary with normal vascular flow. 24 x 18 x 16 mm. No adnexal free fluid. No adnexal masses. FREE FLUID: None. OTHER: No other significant finding. IMPRESSION: 1. Live intrauterine gestation of 10 weeks with an estimated date of delivery of 017. 2. There are multiple uterine fibroids. Trimester of : First - 0 to 13 weeks. TECHNICAL DOCUMENTATION: JOB ID: [id number] [employer]- All Rights Reserved
[2016-12-24] MEDS ORDERED: ALBUTEROL SULFATE HFA (90 MCG/PUFF) 8 GM MDI (1 MDI/ER DISP) IH PRN (19:04)
[2016-12-24 19:13] VITALS: BP 129/75
== END 2016-12-24 19:10 | disposition home or self-care (01) ==
LOC: ER 16:32
DX: R06.02 Shortness of breath (principal); R10.9 Unspecified abdominal pain; Z87.891 Personal history of nicotine dependence
CPT/HCPCS: 94640; 99285; 76801; J3490; J7620

== ENCOUNTER 2017-08-02 21:25 | Observation (INO) | payer MEDICAID ==
[2017-08-02] MEDS ORDERED: KETAMINE HCL INJ 500 MG/10 ML VIAL ONE (21:38)
[2017-08-02] MEDS ORDERED: ALBUTEROL SULFATE 0.083% NEB 2.5 MG/3 ML AMPUL NEB ONE ×2 (21:39→21:54)
[2017-08-02] MEDS ORDERED: LORAZEPAM INJ 2 MG/1 ML VIAL ONE (21:45)
[2017-08-02] MEDS: MAGNESIUM SULFATE/D5W 1 GM/100 ML RTUPB IV SCH ×3 (21:50→22:58)
[2017-08-02] MEDS ORDERED: LORAZEPAM INJ 2 MG/1 ML VIAL IV ONE (21:54)
[2017-08-02] MEDS ORDERED: KETAMINE HCL INJ 500 MG/10 ML VIAL IV ONE (21:54)
[2017-08-02] MEDS ORDERED: LIDOCAINE 2% INJ-PF (20 MG/ML) 10 ML AMPUL NEB ONE (21:55)
[2017-08-02] MEDS ORDERED: MAGNESIUM SULFATE INJ 8 MEQ/2 ML IV ONE (21:57)
--- NOTE | 2017-08-02 22:01 | ER Document Report ---
ED General - General Mode of Arrival: Medic Information source: Patient, Emergency Med Personnel TRAVEL OUTSIDE OF THE [place] IN LAST 30 DAYS: No <PACO CRONIN - Last Filed: 08/03/17 00:09> <MEENA DELGADO - Last Filed: 08/03/17 00:39> - General Chief Complaint: Respiratory Distress Stated Complaint: RESPIRATORY DISTRESS Time Seen by Provider: 08/02/17 21:28 Notes: 32 y.o female with a PMHx of asthma, requiring multiple intubations in the past , and a mild HI a couple years ago presents to the ED via EMS with respiratory distress with cough and CP. EMS reports that her asthma had been acting up for the past few days and she has been using at home nebulizer treatments and albuterol. She reported to EMS using 3 albuterol treatments before EMS arrival. EMS reports giving Albuterol, Atrovent and Solumedrol en route. They report wheezing in lower left lung with good airflow en route. (PACO CRONIN) - Related Data Allergies/Adverse Reactions: No Known Allergies Allergy (Verified 12/13/16 14:11) Past Medical History - General Information source: Patient - Social History Smoking Status: Never Smoker Cigarette use (# per day): No Chew tobacco use (# tins/day): No Smoking Education Provided: No Frequency of alcohol use: Occasional Drug Abuse: None Family History: None Pulmonary Medical History: Reports: Hx Asthma, Hx COPD, Hx Intubation - 2015, Hx Respiratory Failure Renal/ Medical History: Denies: Hx Peritoneal Dialysis Psychiatric Medical History: Denies: Hx Depression - Immunizations Hx Diphtheria, Pertussis, Tetanus Vaccination: Yes <PACO CRONIN - Last Filed: 08/03/17 00:09> Review of Systems - Review of Systems Constitutional: No symptoms reported EENT: No symptoms reported Cardiovascular: See HPI, Chest pain Respiratory: See HPI, Cough, Short of breath Gastrointestinal: No symptoms reported Genitourinary: No symptoms reported Female Genitourinary: No symptoms reported Musculoskeletal: No symptoms reported Skin: No symptoms reported Hematologic/Lymphatic: No symptoms reported Neurological/Psychological: No symptoms reported -: Yes All other systems reviewed and negative <PACO CRONIN - Last Filed: 08/03/17 00:09> Physical Exam <PACO CRONIN - Last Filed: 08/03/17 00:09> <MEENA DELGADO - Last Filed: 08/03/17 00:39> - Vital signs Vitals: Resp Pulse Ox 20 100 08/02/17 21:54 08/02/17 21:54 - Notes Notes: PHYSICAL EXAM GENERAL: Alert, anxious. Severe respiratory distress, tripoding. Cannot speak. HEAD: Normocephalic, atraumatic. EYES: Pupils equal, round, and reactive to light. Extraocular movements intact. ENT: Oral mucosa moist, tongue midline. NECK: Full range of motion. Supple. Trachea midline. LUNGS: Moderate air movement. Prolonged expiratory phase. Expiratory wheezing. No rales, or rhonchi. HEART: Tachycardic rate and regular rhythm. No murmurs, gallops, or rubs. ABDOMEN: Soft, non-tender. Non-distended. Bowel sounds present in all 4 quadrants. No guarding, rebound, or rigidity. EXTREMITIES: Moves all 4 extremities spontaneously. No edema, radial and dorsalis pedis pulses 2/4 bilaterally. No cyanosis. NEUROLOGICAL: No facial droop. PSYCH: Anxious. SKIN: Warm, normal turgor. Diaphoretic. No rashes or lesions noted. (PACO CRONIN) Course - Laboratory Result Diagrams: 08/02/17 22:45 08/02/17 22:45 <PACO CRONIN - Last Filed: 08/03/17 00:09> - Laboratory Result Diagrams: 08/02/17 22:45 08/02/17 22:45 <MEENA DELGADO - Last Filed: 08/03/17 00:39> - Re-evaluation Re-evalutation: 08/03/17 00:16 I should have asked nonallergic H just appropriately good weight room patient in acute respiratory distress on arrival, transferred to BiPAP, given 20 mg of ketamine for anxiolysis and to help decrease her bronchospasm, also given 0.5 mg of Ativan for anxiety, given 7.5 more milligrams of albuterol, given 2 g of magnesium IV, patient was maintained on BiPAP, has become much more relaxed, bronchospasm has decreased, lidocaine was nebulized to decrease the bronchospasm as well and she responded well to this. Patient was rechecked and wheezing had resolved, observed for another 45 minutes and wheezing has now returned though she is not in any acute respiratory distress. Albuterol will be given again and hospitalist will be consulted for admission. CBC grossly unremarkable, she does have an eosinophilia, venous blood gas does not show any acidosis, chemistries show hypokalemia with potassium of 2.9, this is repleted IV, cardiac enzymes negative, chest x-ray shows no acute process. (MEENA DELGADO) - Vital Signs Vital signs: Temp Pulse Resp BP Pulse Ox 20 100 08/02/17 21:54 08/02/17 21:54 - Laboratory Laboratory results interpreted by me: 08/02/17 08/02/17 22:45 22:45 Monocytes % 2.0 L Eosinophils % 9.1 H Absolute Eosinophils 0.7 H Potassium 2.9 L* Glucose 165 H Creatine Kinase 258 H - EKG Interpretation by Me Additional EKG results interpreted by me: 08/03/17 00:17 EKG shows sinus tachycardia at a rate of 128, normal axis, normal intervals, no ST segment elevations or depressions, no T-wave inversions per my interpretation. (MEENA DELGADO) Critical Care Note - Critical Care Note Total time excluding time spent on procedures (mins): 45 <MEENA DELGADO - Last Filed: 08/03/17 00:39> Discharge <PACO CRONIN - Last Filed: 08/03/17 00:09> - Discharge Admitting Provider: Hospitalist - [facility] Unit Admitted: IMCU <MEENA DELGADO - Last Filed: 08/03/17 00:39> - Discharge Clinical Impression: Hypokalemia Asthma with status asthmaticus in adult Qualifiers: Asthma severity: severe Asthma persistence: persistent Qualified Code(s): J45.52 - Severe persistent asthma with status asthmaticus Condition: Fair Disposition: ADMITTED INPATIENT Scribe Attestation: 08/03/17 00:39 I personally performed the services described in the documentation, reviewed and edited the documentation which was dictated to the scribe in my presence, and it accurately records my words and actions. (MEENA DELGADO) Scribe Documentation - Scribe Written by Yves:: Yves Champagne 08/02/2017 2201 acting as scribe for :: Claire <PACO CRONIN - Last Filed: 08/03/17 00:09>
[2017-08-02] MEDS ORDERED: MAGNESIUM SULFATE/D5W 2 GM/200 ML RTUPB IV ONE (22:08)
--- NOTE | 2017-08-02 22:22 | RADIOLOGY REPORT (SQ) ---
EXAM DESCRIPTION: CHEST SINGLE VIEW COMPLETED DATE/TIME: 08/02/2017 10:11 pm REASON FOR STUDY: Asthma exacerbation, ?PTX COMPARISON: 11/09/2016. EXAM PARAMETERS: NUMBER OF VIEWS: One view. TECHNIQUE: Single frontal radiographic view of the chest acquired. RADIATION DOSE: NA LIMITATIONS: None. FINDINGS: LUNGS AND PLEURA: No opacities, masses or pneumothorax. No pleural effusion. MEDIASTINUM AND HILAR STRUCTURES: No masses. Contour normal. HEART AND VASCULAR STRUCTURES: Heart normal in size. Normal vasculature. BONES: No acute findings. HARDWARE: None in the chest. OTHER: No other significant finding. IMPRESSION: NO ACUTE RADIOGRAPHIC FINDING IN THE CHEST. TECHNICAL DOCUMENTATION: JOB ID: [id number] [employer]- All Rights Reserved Reading location - IP/workstation name: [email or web address]
--- NOTE | 2017-08-02 22:55 | EKG REPORT ---
SEVERITY:- OTHERWISE NORMAL ECG - SINUS TACHYCARDIA : Confirmed by: Kevin Huff 02-Aug-2017 22:54:27
[2017-08-02 23:09] LABS: VENOUS BLOOD BASE EXCESS -0.9 mmol/L; VENOUS BLOOD PCO2 46.2 mmHg (35-63); VENOUS BLOOD PH 7.35 (7.30-7.42)
[2017-08-02 23:31] LABS: ALANINE AMINOTRANSFERASE 22 U/L (9-52); ALBUMIN 4.6 g/dL (3.5-5.0); ALKALINE PHOSPHATASE 68 U/L (38-126); ANION GAP 12 (5-19); ASPARTATE AMINO TRANSFERASE 31 U/L (14-36); BILIRUBIN,DIRECT 0.3 mg/dL (0.0-0.4); BILIRUBIN,TOTAL 0.4 mg/dL (0.2-1.3); BLOOD UREA NITROGEN 10 mg/dL (7-20); CALCIUM 8.9 mg/dL (8.4-10.2); CARBON DIOXIDE 25 mmol/L (22-30); CHLORIDE 103 mmol/L (98-107); CREATINE KINASE 258 U/L (30-135); GLUCOSE 165 mg/dL (75-110); SODIUM 140.3 mmol/L (137-145); TOTAL PROTEIN 8.1 g/dL (6.3-8.2)
[2017-08-02 23:37] LABS: ABSOLUTE BASOPHILS # (AUTO) 0.1 10^3/uL (0.0-0.2); ABSOLUTE EOSINOPHILS # (AUTO) 0.7 10^3/uL (0.0-0.6); ABSOLUTE LYMPHOCYTES (AUTO) 1.1 10^3/uL (0.5-4.7); ABSOLUTE MONOCYTES (AUTO) 0.2 10^3/uL (0.1-1.4); ABSOLUTE NEUT (AUTO) 6.1 10^3/uL (1.7-8.2); BASOPHILS % (AUTO) 0.6 % (0-2); EOSINOPHILS % (AUTO) 9.1 % (0-6); HEMATOCRIT 40.4 % (36.0-47.0); HEMOGLOBIN 13.7 g/dL (12.0-15.5); LYMPHOCYTES % (AUTO) 13.7 % (13-45); MEAN CORPUSCULAR HEMOGLOBIN 31.6 pg (27.0-33.4); MEAN CORPUSCULAR HGB CONC 33.9 g/dL (32.0-36.0); MEAN CORPUSCULAR VOLUME 93 fl (80-97); PLATELET COUNT 248 10^3/uL (150-450); RED BLOOD COUNT 4.33 10^6/uL (3.72-5.28); RED CELL DISTRIBUTION WIDTH 13.5 % (11.5-14.0); SEGMENTED NEUTROPHILS % (AUTO) 74.6 % (42-78); TOTAL CELLS COUNTED % (AUTO) 100 %; WHITE BLOOD COUNT 8.1 10^3/uL (4.0-10.5)
[2017-08-02 23:38] LABS: POTASSIUM 2.9 mmol/L (3.6-5.0)
[2017-08-02 23:42] LABS: CREATINE KINASE MB 0.99 ng/mL (<4.55)
[2017-08-02 23:44] LABS: TROPONIN I < 0.012 ng/mL
[2017-08-03] MEDS: POTASSI CL 20 MEQ/50 ML RIDER 20 MEQ/50 ML RTUPB IV SCH ×3 (00:29→09:02)
[2017-08-03] MEDS ORDERED: ALBUTEROL SULFATE 0.083% NEB 2.5 MG/3 ML AMPUL NEB ONE (00:38)
[2017-08-03] MEDS ORDERED: IPRATROPIUM/ALBUTEROL 0.5-2.5 MG/3 ML AMPUL NEB PRN (01:15)
--- NOTE | 2017-08-03 02:59 | PDOC H&P ---
History of Present Illness Admission Date/PCP: 08/03/17 00:51 History of Present Illness: SHERLYN GALLOWAY is a 32 year old black female patient brought by EMS with chief complaint of shortness of breath, cough and chest pain. Reports that she has been her baseline state of friends up until several days when she starts to have shortness of breath which is increasing progressively, wheezing cough and chest pain. Patient has been using her home metered-dose inhaler albuterol to no avail. Past medical history significant for multiple intubation related to her asthmatic attacks. Patient started on BiPAP, doing and Solu-Medrol and she shows some improvement. She denies any palpitation, diaphoresis, nausea, vomiting, abdominal pain, diarrhea or any any urinary complaints. No history of orthopnea or paroxysmal nocturnal dyspnea no fascia or leg swelling. No headache or dizziness. Past Medical History Pulmonary Medical History: Reports: Asthma, Intubation - 03/07/2016, Respiratory Failure Psychiatric Medical History: Denies: Depression Past Surgical History Past Surgical History: Reports: None Social History Smoking Status: Never Smoker Frequency of Alcohol Use: Rare Hx Recreational Drug Use: No Drugs: None Hx Prescription Drug Abuse: No Family History Parental Family History Reviewed: Yes Children Family History Reviewed: Yes Sibling(s) Family History Reviewed.: Yes Medication/Allergy Home Medications: Albuterol Sulfate [Proair HFA] 2 puff IH Q4 PRN #3 hfa.aer.ad 03/12/16 Albuterol Sulfate [Ventolin 0.083% Neb 2.5 mg/3 mL Ampul] 2.5 mg NEB Q4HP PRN # 1 pkg 03/12/16 Amlodipine Besylate [Norvasc 2.5 mg Tablet] 2.5 mg PO DAILY #30 tablet 03/12/16 Fluticasone/Salmeterol [Advair 250-50 Diskus 14 Dose/Diskus] 1 inh IH Q12 #1 inhaler 03/12/16 Levofloxacin [Levaquin 750 mg Tablet] 750 mg PO DAILY #3 tablet 03/12/16 Prednisone 20 mg PO ASDIR #21 tablet 03/12/16 Prednisone [Deltasone 20 mg Tablet] 3 tab PO DAILY 5 Days tablet 11/08/16 Metronidazole [Flagyl 500 mg Tablet] 500 mg PO BID #14 tablet 12/08/16 Nitrofurantoin/Nitrofuran Mac [Macrobid 100 mg Capsule] 100 mg PO BID #10 capsule 12/13/16 Allergies/Adverse Reactions: No Known Allergies Allergy (Verified 12/13/16 14:11) Review of Systems Constitutional: PRESENT: as per HPI Eyes: PRESENT: as per HPI Cardiovascular: PRESENT: as per HPI Respiratory: PRESENT: as per HPI Neurological: PRESENT: as per HPI Physical Exam Vital Signs: Temp Pulse Resp BP Pulse Ox 18 99 08/03/17 00:40 08/03/17 00:40 Results Impressions: Chest X-Ray 08/02/17 21:54 IMPRESSION: NO ACUTE RADIOGRAPHIC FINDING IN THE CHEST. Assessment & Plan - Diagnosis (1) Asthma with status asthmaticus in adult Qualifiers: Asthma severity: severe Asthma persistence: persistent Qualified Code(s) : J45.52 - Severe persistent asthma with status asthmaticus Is this a current diagnosis for this admission?: Yes Plan: I will continue the BiPAP which he started in ER. Solu-Medrol 40 mg IV every 8 hours. DuoNeb every 3 hours. Scheduled. - Time Time Spent: 30 to 50 Minutes - Inpatient Certification Medical Necessity: Need Close Monitoring Due to Risk of Patient Decompensation
[2017-08-03] MEDS ORDERED: LANSOPRAZOLE 30 MG TAB.RAP.DR PO SCH (06:00)
[2017-08-03] MEDS ORDERED: METHYLPREDNISOLONE INJ 40 MG/1 ML SDV IV SCH (06:00)
[2017-08-03 07:28] LABS: ANION GAP 16 (5-19); BLOOD UREA NITROGEN 7 mg/dL (7-20); CALCIUM 8.9 mg/dL (8.4-10.2); CARBON DIOXIDE 20 mmol/L (22-30); CHLORIDE 104 mmol/L (98-107); GLUCOSE 188 mg/dL (75-110); SODIUM 139.9 mmol/L (137-145)
[2017-08-03 07:30] LABS: POTASSIUM 3.8 mmol/L (3.6-5.0)
[2017-08-03 09:18] VITALS: BP 140/92
[2017-08-03] MEDS ORDERED: ENOXAPARIN SODIUM INJ 40 MG/0.4 ML DISP.SYRIN SUBCUT SCH (10:00)
--- NOTE | 2017-08-03 15:36 | PDOC DISCHARGE SUMMARY ---
General - Admit/Disc Date/PCP Admission Date/Primary Care Provider: 08/03/17 00:51 Discharge Date: 08/03/17 - Discharge Diagnosis (1) Acute respiratory failure Is this a current diagnosis for this admission?: Yes (2) Asthma exacerbation Is this a current diagnosis for this admission?: Yes (3) Hypokalemia Is this a current diagnosis for this admission?: Yes (4) Anxiety Is this a current diagnosis for this admission?: Yes - Additional Information Resuscitation Status: Full Code Discharge Diet: As Tolerated Discharge Activity: Activity As Tolerated Home Medications: Albuterol Sulfate [Proair HFA Inhalation Aerosol 8.5 gm MDI] 1 puff IH Q4HP PRN 08/03/17 Budesonide/Formoterol Fumarate [Symbicort HFA 160-4.5 mcg Inhaler 6 gm] 1 puff IH BID 08/03/17 History of Present Illness History of Present Illness: SHERLYN GALLOWAY is a 32 year old female patient brought by EMS with chief complaint of shortness of breath, cough and chest pain. Reports that she has been her baseline state of friends up until several days when she starts to have shortness of breath which is increasing progressively, wheezing cough and chest pain. Patient has been using her home metered-dose inhaler albuterol to no avail. Past medical history significant for multiple intubation related to her asthmatic attacks. Patient started on BiPAP, doing and Solu-Medrol and she shows some improvement. She denies any palpitation, diaphoresis, nausea, vomiting, abdominal pain, diarrhea or any any urinary complaints. No history of orthopnea or paroxysmal nocturnal dyspnea no fascia or leg swelling. No headache or dizziness. Has been of long acting inhalers for more than 6 weeks. She has been under a lot of stress recently since relocated back to the area of [place]. She had seen Dr. Rothman Hospital Course Hospital Course: By the time patient was evaluated she reported feeling great and wanting to go home. Turns out that patient had been out of her regular inhalers, that is Symbicort and pro-air for more than 6 months. [place] and things did not worked out for her and her . She then returned back to [place] . Patient's physician is Dr. Rothman however she has not contacted him to get refill of medications. She admits that had been under stress because the tax of her car where still within. She got very upset. However she states that when she came into emergency room she was having an actual asthma attack. Patient therefore reports improvement and being back to baseline and wishes to be discharged. Potassium had been replaced. Since maximum benefit of hospitalization stay prompted to discharge Physical Exam Vital Signs: Temp Pulse Resp BP Pulse Ox 132 H 23 H 135/93 H 98 08/02/17 21:44 08/03/17 08:01 08/03/17 08:01 08/03/17 08:01 Intake & Output 08/02/17 08/03/17 08/04/17 06:59 06:59 06:59 Weight 65.771 kg General appearance: PRESENT: no acute distress, cooperative, thin Head exam: PRESENT: atraumatic, normocephalic Eye exam: PRESENT: conjunctiva pink, EOMI, PERRLA Ear exam: PRESENT: normal external ear exam Neck exam: PRESENT: full ROM. ABSENT: JVD, lymphadenopathy, tenderness Respiratory exam: PRESENT: clear to auscultation lilo Cardiovascular exam: PRESENT: RRR. ABSENT: diastolic murmur, systolic murmur Vascular exam: PRESENT: normal capillary refill GI/Abdominal exam: PRESENT: normal bowel sounds, soft. ABSENT: tenderness Extremities exam: PRESENT: full ROM. ABSENT: pedal edema Musculoskeletal exam: PRESENT: ambulatory Neurological exam: PRESENT: alert, awake, oriented to person, oriented to place , oriented to time, oriented to situation, CN II-XII grossly intact Psychiatric exam: PRESENT: appropriate affect, normal mood Skin exam: PRESENT: intact, normal color Results Laboratory Results: 08/03/17 06:42 08/03/17 06:42 Sodium 139.9 Potassium 3.8 Chloride 104 Carbon Dioxide 20 L Anion Gap 16 BUN 7 Creatinine 0.56 Est GFR ( Amer) > 60 Est GFR (Non-Af Amer) > 60 Glucose 188 H Calcium 8.9 Impressions: Chest X-Ray 08/02/17 21:54 IMPRESSION: NO ACUTE RADIOGRAPHIC FINDING IN THE CHEST. Qualifiers - * PATEINT BEING DISCHARGED WITH ANY OF THE FOLLOWING DIAGNOSIS?: No Plan Discharge Plan: Patient will be discharged home. She has been discharged on long acting and short acting inhalers. Has been instructed to follow up with Dr Rothman. Also to work on anxiety level
== END 2017-08-03 10:22 ==
LOC: ER 21:25 → EH 08-03 00:51 → INTOOBSV 08-03 00:51 → EH 08-03 09:26
PROVIDERS: ADMIT Internal Medicine; ATTEND Internal Medicine
DX: J96.00 Acute respiratory failure, unspecified whether with hypoxia or hypercapnia (principal); J45.51 Severe persistent asthma with (acute) exacerbation; E87.6 Hypokalemia; F41.9 Anxiety disorder, unspecified; Z73.3 Stress, not elsewhere classified; R00.0 Tachycardia, unspecified; D72.1 Eosinophilia; I25.2 Old myocardial infarction
CPT/HCPCS: 93005; 94640 ×2; 99291; 96375; 96365; 96367; 36415 ×2; 82553; 82550; 85025; 80048; 80053; 84484; 82803; 71045; 93010; 94660 ×2; G0378; J3490 ×2; J2920; J2060; J3475; J3480

== ENCOUNTER 2017-08-10 04:14 | Inpatient (IN) | payer MEDICAID ==
[2017-08-10] MEDS ORDERED: ALBUTEROL SULFATE 0.083% NEB 2.5 MG/3 ML AMPUL NEB ONE ×3 (04:19→05:38)
[2017-08-10] MEDS ORDERED: EPINEPHRINE INJ/PF 1 MG/1 ML AMPULE IM ONE (04:23)
[2017-08-10] MEDS ORDERED: KETAMINE HCL INJ 500 MG/10 ML VIAL IV ONE ×3 (04:24→05:18)
[2017-08-10] MEDS ORDERED: KETAMINE HCL INJ 500 MG/10 ML VIAL ONE (04:28)
[2017-08-10] MEDS ORDERED: MAGNESIUM SULFATE/D5W 2 GM/200 ML RTUPB IV ONE (04:28)
[2017-08-10] MEDS ORDERED: EPINEPHRINE INJ/PF 1 MG/1 ML AMPULE ONE (04:28)
[2017-08-10] MEDS: MAGNESIUM SULFATE/D5W 1 GM/100 ML RTUPB IV SCH ×3 (04:30→07:39)
--- NOTE | 2017-08-10 04:30 | ER Document Report ---
ED General - General Chief Complaint: Respiratory Distress Stated Complaint: RESPIRATORY DISTRESS Time Seen by Provider: 08/10/17 04:23 Notes: Patient is a 32-year-old female presents with complaint of difficulty breathing. She has a history of severe asthma. She has been admitted to the hospital many times. She has been intubated twice. Last time she was admitted she was admitted on BiPAP eventually discharged. He was just under a week ago. She denies any fevers. No vomiting. Start having difficulty breathing at night comes in severe distress. When paramedics arrived she was 79% on room air. Patient denies smoking however her her close to smell like marijuana therefore there is a chance that maybe she is around somebody who does smoke. Patient denies any chest pain. Patient does have a lot of anxiety per her records and most times need some anxiolytic control during her asthma exacerbations. TRAVEL OUTSIDE OF THE [place] IN LAST 30 DAYS: No - Related Data Allergies/Adverse Reactions: No Known Allergies Allergy (Verified 12/13/16 14:11) Past Medical History - Social History Smoking Status: Unknown if Ever Smoked Frequency of alcohol use: None Drug Abuse: None Family History: Hypertension - Past Medical History Cardiac Medical History: Reports: Hx Heart Attack Pulmonary Medical History: Reports: Hx Asthma, Hx COPD, Hx Intubation - 2015, Hx Respiratory Failure Renal/ Medical History: Denies: Hx Peritoneal Dialysis Psychiatric Medical History: Denies: Hx Depression - Immunizations Hx Diphtheria, Pertussis, Tetanus Vaccination: Yes Review of Systems - Review of Systems Notes: My Normal Review Basic REVIEW OF SYSTEMS: CONSTITUTIONAL : Denies fever, chills, or sweats. Denies recent illness. EENT: Denies eye, ear, throat, or mouth pain or symptoms. Denies nasal or sinus congestion. CARDIOVASCULAR: Denies chest pain. RESPIRATORY: Wheezing and difficulty breathing. GASTROINTESTINAL: Denies abdominal pain. Denies nausea, vomiting, or diarrhea. MUSCULOSKELETAL: Denies neck or back pain or joint pain or swelling. SKIN: Denies rash or skin lesions. NEUROLOGICAL: Denies altered mental status or loss of consciousness. Denies headache. Denies weakness or paralysis or loss of use of either side. Denies problems with gait or speech. Denies sensory or motor loss. ALL OTHER SYSTEMS REVIEWED AND NEGATIVE. Physical Exam - Vital signs Vitals: Resp Pulse Ox 27 H 99 08/10/17 04:15 08/10/17 04:15 - Notes Notes: General Appearance: Well nourished, alert, cooperative, severe acute distress, no obvious discomfort. Vitals: reviewed, See vital signs table. Head: no swelling or tenderness to the head Eyes: PERRL, EOMI, Conjuctiva clear Mouth: No decreasd moisture Throat: No tonsillar inflammation, No airway obstruction, Neck: Supple, no neck tenderness, No thyromegaly Lungs: She is wheezing. Speaks in 2-3 word sentences. Poor air movement. Accessory muscle use. Heart: Tachycardic rate, Regular rythm, No murmur, no rub Abdomen: Normal BS, soft, No rigidity, No abdominal tenderness, No guarding, no rebound, Extremities: strength 5/5 in all extremities, good pulses in all extremities, no swelling or tenderness in the extremities, no edema. Skin: warm, dry, appropriate color, no rash Neuro: speech clear, oriented x 3, normal affect, responds appropriately to questions. Course - Re-evaluation Re-evalutation: 08/10/17 04:28 Patient presents in severe respiratory distress with tight lung pineda. She able speak in 2-3 word sentences. Received Solu-Medrol from paramedics as well as several DuoNeb treatments. Of immediately placed on BiPAP, gave her 0.5 mg IM of epinephrine, give 50 mg of ketamine, started on ketamine drip, have started magnesium, and will do continuous albuterol treatments. She showed some improvement already with the ketamine. If she does not continue to improve further or if she starts having agitation she may need require intubation as she has required in the past. 08/10/17 04:49 At this time I feel the patient's lung auscultation is improving. She still has tightness and wheezing but she is moving air much better. She is able speak in full sentences but she is extremely anxious and keeps yelling and at times is pulling at her mask. She look at her records she does have previous history of anxiety and sometimes has recurrent medications for anxiolysis to help control her breathing. Her is at bedside. I talked to the patient and her about options such as intubation versus trying some anxiolytic medications. She is receiving ketamine at this is not controlling her anxiety at this time. The says that they would prefer not to intubate her and to try everything that they cannot intubate her. At this time we will trial the Ativan. I informed her this can decrease her respiratory rate and therefore we have to go slow be careful not to cause an adverse problem. I informed that this does not work and if she starts to decompensate in any way then we will have to do intubation. and patient agree with plan and will go forward with a small dose of Ativan try to control her anxiety and hopefully this will allow us to be able to better treat her. 08/10/17 05:45 Reevaluation the patient continued has some wheezing tightness to her lungs. She still has improved air movement compared to when she first arrived. She is a bit somnolent which I think could be related to Ativan however I want to make sure she is not further retaining CO2. The patient and really want to avoid intubation. I informed them that if she is retaining CO2 in any way despite the maximal treatment we have given her than we will most likely have to proceed with intubation. Clinically she is nowhere near the significant amount of stress that she was when she first arrived; however, being that she did not have to require some anxiolytics and her respiratory rate is not as high as I would like, I feel that I need to check a VBG to make sure she is clearing her CO2 appropriately. 08/10/17 06:34 Unfortunately patient's venous blood gas did show what I feared and that she is retaining CO2 and his respiratory acidosis. I did try to call the patient's at [phone]. I called twice and no one picked up. I therefore left a message. The and just left to take the kids to school. I talked to the patient and she still did not want to agree to intubation until I spoke with her mother. I called and spoke with her mother Gali at phone number [phone]. Patient's mother agreed to having her intubated. I went back and spoke the patient informed the patient that her mother agrees with my regulation of intubation and now patient agrees to be intubated. Patient was intubated on first attempt without any difficulty. 08/10/17 06:48 Since the patient patient is getting on the tube which is causing her but the vent. We will give her 6 mg of Versed and also started on a Versed drip on top of the propofol as are running. She still having times where she is getting in the tube. I therefore give her a dose of rocuronium to help control her ventilations. We will then get a repeat blood gas to make sure that she is improving. 08/10/17 06:54 Patient's respirations in a much more controlled. We have the vent set at 16 respirations per minute. Tidal volumes of 400. FiO2 is a 40%. Oxygen saturations are good. Her waveform on the ventilator does not show any signs of breath stacking. We will draw the ABG to make sure that her CO2 is clearing and that her acidosis is resolving. 08/10/17 06:55 08/10/17 07:27 Lung auscultation is improved on the ventilator. Patient is doing well since paralytic given. Just awaiting results of ABG before calling for admission. 08/10/17 07:31 Blood gas has improved significantly but the patient still has some CO2 retention and respiratory acidosis. I will increase the respiratory rate from 16-18. She does not appear to have any concerns or breath stacking her lung pineda are started clear. I did discuss the case with the hospitalist, Dr. Moura, who agrees to admit the patient. - Vital Signs Vital signs: Temp Pulse Resp BP Pulse Ox 21 H 201/149 H 97 08/10/17 04:46 08/10/17 04:46 08/10/17 04:46 - Laboratory Result Diagrams: 08/10/17 04:18 08/10/17 04:18 Laboratory results interpreted by me: 08/10/17 08/10/17 08/10/17 04:18 04:18 05:45 WBC 18.2 H Seg Neutrophils % 35.2 L Eosinophils % 12.5 H Absolute Lymphocytes 7.8 H Absolute Monocytes 1.5 H Absolute Eosinophils 2.3 H Carbonic Acid ABG pH ABG pCO2 VBG pH 7.09 L* VBG pCO2 87.6 H* Glucose 130 H 08/10/17 07:13 WBC Seg Neutrophils % Eosinophils % Absolute Lymphocytes Absolute Monocytes Absolute Eosinophils Carbonic Acid 1.46 H ABG pH 7.28 L ABG pCO2 48.6 H VBG pH VBG pCO2 Glucose - EKG Interpretation by Me Additional EKG results interpreted by me: 08/10/17 04:51 EKG is reviewed and interpreted by me. EKG shows sinus tachycardia with a rate of [address] segment elevation or depression. No ischemic T-wave inversions. [place] interval and QRS duration, QTc intervals are within normal range. Some leads a very difficult to interpret. Especially lead V3 due to large amount of artifact. Procedures - Intubation Orotracheal Airway evaluation: Normal anatomy Mallampati Classification: Class 1 Medications: Etomidate, Succinylcholine Intubation method: Orotracheal Blade type: Trevon Blade size: 3 Equipment used: Glidescope ETT size: 7.5 Breath Sounds after Intubation: Equal End tidal CO2 confirmed: Yes Intubation Complications: No complications Critical Care Note - Critical Care Note Total time excluding time spent on procedures (mins): 100 Comments: Critical care time for this patient not including time spent on procedures approximately 100 minutes due to frequent re-evaluations, discussion with family about treatment options, treatment of severe respiratory distress with asthma exacerbation, management of ventilator, management of sedation. Discharge - Discharge Clinical Impression: Respiratory acidosis Asthma Qualifiers: Asthma severity: severe Asthma persistence: unspecified Asthma complication type: with status asthmaticus Qualified Code(s): J45.902 - Unspecified asthma with status asthmaticus Respiratory failure Qualifiers: Chronicity: acute Respiratory failure complication: hypoxia and hypercapnia Qualified Code(s): J96.01 - Acute respiratory failure with hypoxia; J96.02 - Acute respiratory failure with hypercapnia; J96.02 - Acute respiratory failure with hypercapnia; J96.02 - Acute respiratory failure with hypercapnia Condition: Stable Disposition: ADMITTED INPATIENT Admitting Provider: Hospitalist Unit Admitted: ICU
[2017-08-10] MEDS ORDERED: ETOMIDATE INJ/PF 20 MG/10 ML SDV IV ONE (04:40)
--- NOTE | 2017-08-10 04:40 | RADIOLOGY REPORT (SQ) ---
EXAM DESCRIPTION: CHEST SINGLE VIEW CLINICAL HISTORY: 32 years Female, dyspnea COMPARISON: 4.12.18 NUMBER OF VIEWS/TECHNIQUE: 1/AP FINDINGS: Increased lung volume, clear parenchyma, normal cardiac silhouette, and mild dextroconvexity. IMPRESSION: No acute cardiopulmonary findings.
[2017-08-10 04:45] LABS: ABSOLUTE BASOPHILS # (AUTO) 0.1 10^3/uL (0.0-0.2); ABSOLUTE EOSINOPHILS # (AUTO) 2.3 10^3/uL (0.0-0.6); ABSOLUTE LYMPHOCYTES (AUTO) 7.8 10^3/uL (0.5-4.7); ABSOLUTE MONOCYTES (AUTO) 1.5 10^3/uL (0.1-1.4); ABSOLUTE NEUT (AUTO) 6.4 10^3/uL (1.7-8.2); BASOPHILS % (AUTO) 0.6 % (0-2); EOSINOPHILS % (AUTO) 12.5 % (0-6); HEMATOCRIT 42.5 % (36.0-47.0); HEMOGLOBIN 14.3 g/dL (12.0-15.5); LYMPHOCYTES % (AUTO) 43.2 % (13-45); MEAN CORPUSCULAR HEMOGLOBIN 31.7 pg (27.0-33.4); MEAN CORPUSCULAR HGB CONC 33.6 g/dL (32.0-36.0); MEAN CORPUSCULAR VOLUME 94 fl (80-97); MONOCYTES % (AUTO) 8.5 % (3-13); PLATELET COUNT 301 10^3/uL (150-450); RED CELL DISTRIBUTION WIDTH 13.2 % (11.5-14.0); SEGMENTED NEUTROPHILS % (AUTO) 35.2 % (42-78); TOTAL CELLS COUNTED % (AUTO) 100 %; WHITE BLOOD COUNT 18.2 10^3/uL (4.0-10.5)
[2017-08-10] MEDS ORDERED: LORAZEPAM INJ 2 MG/1 ML VIAL IV ONE ×2 (04:48→19:02)
[2017-08-10] MEDS ORDERED: LORAZEPAM INJ 2 MG/1 ML VIAL ONE (04:50)
[2017-08-10 04:53] LABS: ALANINE AMINOTRANSFERASE 29 U/L (9-52); ALKALINE PHOSPHATASE 60 U/L (38-126); ANION GAP 15 (5-19); ASPARTATE AMINO TRANSFERASE 21 U/L (14-36); BILIRUBIN,DIRECT 0.2 mg/dL (0.0-0.4); BILIRUBIN,TOTAL 0.3 mg/dL (0.2-1.3); BLOOD UREA NITROGEN 10 mg/dL (7-20); CALCIUM 9.2 mg/dL (8.4-10.2); CARBON DIOXIDE 27 mmol/L (22-30); CHLORIDE 103 mmol/L (98-107); GLUCOSE 130 mg/dL (75-110); POTASSIUM 4.6 mmol/L (3.6-5.0); SODIUM 144.7 mmol/L (137-145); TOTAL PROTEIN 8.2 g/dL (6.3-8.2)
[2017-08-10 05:57] LABS: VENOUS BLOOD BASE EXCESS -6.1 mmol/L; VENOUS BLOOD HCO3 25.9 mmol/L (20-32)
[2017-08-10 06:06] LABS: VENOUS BLOOD PCO2 87.6 mmHg (35-63); VENOUS BLOOD PH 7.09 (7.30-7.42)
--- NOTE | 2017-08-10 06:19 | EKG REPORT ---
SEVERITY:- OTHERWISE NORMAL ECG - SINUS TACHYCARDIA : Confirmed by: Jose Zafar MD 10-Aug-2017 06:18:46
[2017-08-10] MEDS ORDERED: PROPOFOL INJ 200 MG/20 ML VIAL IV ONE (06:38)
[2017-08-10] MEDS ORDERED: MIDAZOLAM 2 MG/2 ML INJ ONE (06:42)
[2017-08-10] MEDS ORDERED: MIDAZOLAM HCL 50 MG/100 ML RTUINJ IV ONE (06:44)
[2017-08-10] MEDS ORDERED: MIDAZOLAM 2 MG/2 ML INJ IV ONE ×2 (06:45→06:53)
[2017-08-10] MEDS ORDERED: MIDAZOLAM HCL 50 MG/100 ML RTUINJ IV PRN (06:45)
[2017-08-10] MEDS ORDERED: ROCURONIUM BROMIDE INJ 50 MG/5 ML VIAL IV ONE ×4 (06:48→09:27)
--- NOTE | 2017-08-10 07:06 | RADIOLOGY REPORT (SQ) ---
EXAM DESCRIPTION: CHEST SINGLE VIEW CLINICAL HISTORY: 32 years Female, POST INTUBATION COMPARISON: 08/10/17. NUMBER OF VIEWS/TECHNIQUE: 1/AP LIMITATIONS: None. FINDINGS: Adequate lung volume, clear parenchyma, normal cardiac silhouette, adequate appearing endotracheal tube tip is 3.5 cm from the sue, adequate appearing an enteric tube. No pneumothorax. No acute bone defect. IMPRESSION: Intubation. Else, no significant change.
[2017-08-10 07:20] LABS: ARTERIAL BLOOD BASE EXCESS -4.6 mmol/L; ARTERIAL BLOOD H2CO3 1.46 mmol/L (1.05-1.35); ARTERIAL BLOOD HCO3 22.4 mmol/L (20-26); ARTERIAL BLOOD O2 SATURATION 96.1 % (94-98); ARTERIAL BLOOD PCO2 48.6 mmHg (35-45); ARTERIAL BLOOD PH 7.28 (7.35-7.45); ARTERIAL BLOOD PO2 92.3 mmHg (80-100); ARTERIAL BLOOD TOTAL CO2 23.9 mmol/L (21-25)
[2017-08-10 07:27] LABS: ARTERIAL BLOOD FIO2 40%
[2017-08-10] MEDS: PROPOFOL 100 ML IV PRN ×5 (07:35→21:24)
[2017-08-10] MEDS ORDERED: METHYLPREDNISOLONE INJ 125 MG/2 ML SDV IV ONE (07:45)
[2017-08-10 08:33] LABS: APPEARANCE,URINE CLEAR; BILIRUBIN,URINE NEGATIVE (NEGATIVE); COLOR,URINE STRAW; GLUCOSE, URINE 50 mg/dL (NEGATIVE); KETONES,URINE TRACE mg/dL (NEGATIVE); LEUKOCYTE ESTERASE,URINE NEGATIVE (NEGATIVE); NITRITE,URINE NEGATIVE (NEGATIVE); PROTEIN,URINE NEGATIVE (NEGATIVE); URINE SPECIFIC GRAVITY 1.013; UROBILINOGEN,URINE NEGATIVE mg/dL (<2.0)
[2017-08-10] MEDS ORDERED: SUCCINYLCHOLINE CHLORIDE INJ 200 MG/10 ML VIAL ONE (09:27)
[2017-08-10] MEDS: IPRATROPIUM/ALBUTEROL 0.5-2.5 MG/3 ML AMPUL NEB SCH ×5 (09:44→19:51)
[2017-08-10] MEDS ORDERED: ENOXAPARIN SODIUM INJ 40 MG/0.4 ML DISP.SYRIN SUBCUT ONE (09:45)
--- NOTE | 2017-08-10 09:59 | PDOC H&P ---
History of Present Illness Admission Date/PCP: 08/10/17 07:38 PCP- Not recorded History of Present Illness: SHERLYN GALLOWAY is a 32 year old female with past medical history of Asthma with frequent exacerbations recently discharged on August 07 Anxiety Noncompliance with medication regimen Patient medications: Singulair Symbicort Prednisone Pro-air HFA as needed Albuterol nebulizer as needed She has had 2 recent hospitalizations and on her last admission it was discovered that she had not filled the prescriptions for Symbicort and pro-air. The patient had been instructed to follow-up with Dr. Rothman as an outpatient. She presented back to the hospital on August 10 with shortness of breath and severe distress satting 79% on room air. Per ER physician's report she was in severe respiratory distress with decreased air movement and only able to speak in 2-3 word sentences. She received Solu-Medrol by the paramedics as well as several DuoNeb treatments was placed on BiPAP given 0.5 mg of intramuscular epinephrine 50 mg of ketamine started on a ketamine drip and was given magnesium and continuous albuterol treatments. She improved slightly and the patient's stated that they would prefer not to intubate her. The patient had a lot of anxiety with no improvement with the ketamine drip and she was given Ativan. Reevaluation in approximately 45 minutes later revealed continued wheezing and tightness and venous blood gas showed CO2 retention and respiratory acidosis- and she was intubated. Past Medical History Pulmonary Medical History: Reports: Asthma, Intubation - 03/07/2016, Respiratory Failure Past Surgical History Past Surgical History: Reports: None Social History Information Source: [facility] Records Lives with: Family Smoking Status: Never Smoker Frequency of Alcohol Use: Rare Hx Recreational Drug Use: No Drugs: None Hx Prescription Drug Abuse: No Family History Family History: Other Parental Family History Reviewed: No - Patient intubated Children Family History Reviewed: No Sibling(s) Family History Reviewed.: No Medication/Allergy Home Medications: Albuterol Sulfate [Proair HFA Inhalation Aerosol 8.5 gm MDI] 1 puff IH Q4HP PRN 08/03/17 Budesonide/Formoterol Fumarate [Symbicort HFA 160-4.5 mcg Inhaler 6 gm] 1 puff IH Q12 08/03/17 Albuterol Sulfate [Albuterol Sulfate 2.5mg/3 mL] 1 vial IH RTQ4HP PRN 08/07/17 Montelukast Sodium [Singulair 10 mg Tablet] 10 mg PO QHS #30 tablet 08/07/17 Prednisone [Deltasone 20 mg Tablet] 20 mg PO DAILY 7 Days tab 08/07/17 Allergies/Adverse Reactions: No Known Allergies Allergy (Verified 12/13/16 14:11) Review of Systems ROS unobtainable: Due to endotracheal tube Physical Exam Vital Signs: Temp Pulse Resp BP Pulse Ox 12 163/131 H 96 08/10/17 07:41 08/10/17 07:41 08/10/17 07:41 General appearance: PRESENT: well-developed, well-nourished Head exam: PRESENT: normocephalic Eye exam: PRESENT: PERRLA. ABSENT: scleral icterus Mouth exam: PRESENT: other - Intubated Neck exam: ABSENT: tenderness Respiratory exam: PRESENT: symmetrical, wheezes Cardiovascular exam: PRESENT: RRR GI/Abdominal exam: PRESENT: normal bowel sounds, soft. ABSENT: tenderness Rectal exam: PRESENT: deferred Gentrourinary exam: PRESENT: indwelling catheter Extremities exam: ABSENT: calf tenderness, pedal edema Neurological exam: PRESENT: other - Sedated on vent Results Impressions: Chest X-Ray 08/10/17 06:48 IMPRESSION: Intubation. Else, no significant change. Assessment & Plan - Diagnosis (1) Respiratory failure Qualifiers: Chronicity: acute Respiratory failure complication: hypoxia and hypercapnia Qualified Code(s): J96.01 - Acute respiratory failure with hypoxia ; J96.02 - Acute respiratory failure with hypercapnia; J96.02 - Acute respiratory failure with hypercapnia; J96.02 - Acute respiratory failure with hypercapnia Is this a current diagnosis for this admission?: Yes Plan: Due to asthma exacerbation. See below (2) Anxiety Is this a current diagnosis for this admission?: Yes (3) Asthma with status asthmaticus in adult Qualifiers: Asthma severity: severe Asthma persistence: persistent Qualified Code(s) : J45.52 - Severe persistent asthma with status asthmaticus Is this a current diagnosis for this admission?: Yes Plan: Continue vent management. Pulmonology consult Steroids, bronchodilators. (4) DVT prophylaxis Is this a current diagnosis for this admission?: Yes Plan: Subcutaneous Lovenox (5) Non compliance w medication regimen Is this a current diagnosis for this admission?: No - Time Time Spent: 50 to 70 Minutes
[2017-08-10] MEDS ORDERED: BUDESONIDE/FORMOTEROL 160-4.5 MCG 60 PUFF/6 GM MDI IH SCH (10:00)
[2017-08-10 10:50] LABS: ARTERIAL BLOOD BASE EXCESS -0.6 mmol/L; ARTERIAL BLOOD FIO2 40%; ARTERIAL BLOOD H2CO3 1.18 mmol/L (1.05-1.35); ARTERIAL BLOOD O2 SATURATION 98.3 % (94-98); ARTERIAL BLOOD PCO2 39.1 mmHg (35-45); ARTERIAL BLOOD PH 7.41 (7.35-7.45); ARTERIAL BLOOD PO2 117.5 mmHg (80-100); ARTERIAL BLOOD TOTAL CO2 25.2 mmol/L (21-25)
[2017-08-10] MEDS: MIDAZOLAM HCL 50 MG/100 ML RTUINJ IV PRN ×3 (11:22→21:23)
[2017-08-10] MEDS: FAMOTIDINE INJ/PF 20 MG/2 ML SDV IV SCH ×2 (11:25→21:23)
[2017-08-10] MEDS: ENOXAPARIN SODIUM INJ 40 MG/0.4 ML DISP.SYRIN SUBCUT SCH (11:26)
--- NOTE | 2017-08-10 11:34 | PDOC CONSULTATION ---
Consultation Consult Date: 08/10/17 Attending physician:: JAXSON PETERSON Consult reason:: Acute respiratory failure History of Present Illness Admission Date/PCP: 08/10/17 07:38 History of Present Illness: SHERLYN GALLOWAY is a 32 year old female Well-known to [facility] long history of asthma with limited compliance presented increasing shortness of breath somewhat obtunded extremely tight with decreased air movement which did not respond to initial therapy and she was subsequently intubated. Currently she is intubated and sedated with elevated peak airway pressures and diffuse decrease in breath sounds with insp- exp wheezes Past Medical History Cardiac Medical History: Reports: Myocardial Infarction Pulmonary Medical History: Reports: Asthma, Chronic Obstructive Pulmonary Disease (COPD), Intubation - 03/07/2016, Respiratory Failure Psychiatric Medical History: Denies: Depression Past Surgical History Past Surgical History: Reports: None Social History Information Source: Dr. Rogers, [facility] Records Lives with: Family Smoking Status: Never Smoker Frequency of Alcohol Use: Rare Hx Recreational Drug Use: No Drugs: None Hx Prescription Drug Abuse: No - Advance Directive Resuscitation Status: Full Code Family History Parental Family History Reviewed: No Children Family History Reviewed: No Sibling(s) Family History Reviewed.: No Medication/Allergy Home Medications: Albuterol Sulfate [Proair HFA Inhalation Aerosol 8.5 gm MDI] 1 puff IH Q4HP PRN 08/03/17 Budesonide/Formoterol Fumarate [Symbicort HFA 160-4.5 mcg Inhaler 6 gm] 1 puff IH Q12 08/03/17 Albuterol Sulfate [Albuterol Sulfate 2.5mg/3 mL] 1 vial IH RTQ4HP PRN 08/07/17 Montelukast Sodium [Singulair 10 mg Tablet] 10 mg PO QHS #30 tablet 08/07/17 Prednisone [Deltasone 20 mg Tablet] 20 mg PO DAILY 7 Days tab 08/07/17 Allergies/Adverse Reactions: No Known Allergies Allergy (Verified 12/13/16 14:11) Review of Systems ROS unobtainable: Due to endotracheal tube Physical Exam Vital Signs: Temp Pulse Resp BP Pulse Ox 98.9 F 121 H 25 H 160/123 H 98 08/10/17 09:39 08/10/17 09:39 08/10/17 09:41 08/10/17 09:41 08/10/17 09:41 Intake & Output 08/09/17 08/10/17 08/11/17 06:59 06:59 06:59 Output Total 375 Balance -375 Weight 66.2 kg General appearance: PRESENT: disheveled, mild distress, thin, well-developed, well-nourished. ABSENT: cooperative Head exam: PRESENT: atraumatic, normocephalic Eye exam: PRESENT: conjunctiva pale. ABSENT: EOMI, nystagmus, periorbital swelling, scleral icterus Mouth exam: PRESENT: dry mucosa, neck supple, tongue midline, other - ET tube in place Neck exam: ABSENT: carotid bruit, JVD, lymphadenopathy, thyromegaly, tracheal deviation, tracheostomy Respiratory exam: PRESENT: decreased breath sounds, prolonged expiratory phas, rales, rhonchi, symmetrical, unlabored, wheezes. ABSENT: retraction, stridor, tachypnea Cardiovascular exam: PRESENT: RRR, +S1, +S2, tachycardia Pulses: PRESENT: normal radial pulses GI/Abdominal exam: PRESENT: diminished bowel sounds, soft Extremities exam: ABSENT: calf tenderness, clubbing, joint swelling Musculoskeletal exam: ABSENT: deformity, dislocation Neurological exam: ABSENT: awake, oriented to person Skin exam: PRESENT: dry, warm Results Laboratory Results: 08/10/17 08/10/17 08:10 09:50 Carbonic Acid 1.18 HCO3/H2CO3 Ratio 20:1 ABG pH 7.41 ABG pCO2 39.1 ABG pO2 117.5 H ABG HCO3 24.0 ABG O2 Saturation 98.3 H ABG Base Excess -0.6 FiO2 40% Urine Color STRAW Urine Appearance CLEAR Urine pH 6.0 Ur Specific [place] 1.013 Urine Protein NEGATIVE Urine Glucose (UA) 50 H Urine Ketones TRACE H Urine Blood NEGATIVE Urine Nitrite NEGATIVE Ur Leukocyte Esterase NEGATIVE Urine WBC (Auto) 1 Urine RBC (Auto) 0 Impressions: Chest X-Ray 08/10/17 06:48 IMPRESSION: Intubation. Else, no significant change. Assessment & Plan - Diagnosis (1) Asthma Qualifiers: Asthma severity: severe Asthma persistence: unspecified Asthma complication type: with status asthmaticus Qualified Code(s): J45.902 - Unspecified asthma with status asthmaticus Is this a current diagnosis for this admission?: Yes Plan: Add Pulmicort Generic Name Dose Route Start Last Admin Trade Name Freq PRN Reason Stop Dose Admin Methylprednisolone Sodium Succinate 60 mg 08/10/17 14:00 Solu-Medrol Inj/Pf 125 Mg/2 Ml Sdv IV 09/09/17 13:59 Q8 YURI Albuterol/Ipratropium 3 ml 08/10/17 08:00 08/10/17 09:44 Duoneb 3 Ml Ampul NEB 09/09/17 07:59 3 ml RTQ3 YURI Labs- All tests 24 hr 08/10/17 08/10/17 08/10/17 04:18 05:45 07:13 WBC 18.2 H Seg Neutrophils % 35.2 L Eosinophils % 12.5 H ABG pH 7.28 L ABG pCO2 48.6 H ABG pO2 92.3 VBG pH 7.09 L* VBG pCO2 87.6 H* FiO2 40% 08/10/17 09:50 WBC Seg Neutrophils % Eosinophils % ABG pH 7.41 ABG pCO2 39.1 ABG pO2 117.5 H VBG pH VBG pCO2 FiO2 40% Generic Name Dose Route Start Last Admin Trade Name Freq PRN Reason Stop Dose Admin Famotidine 20 mg 08/10/17 10:00 Pepcid Inj/Pf 20 Mg/2 Ml Sdv IV 09/09/17 09:59 Q12 YURI (2) Acute respiratory failure Qualifiers: Respiratory failure complication: hypoxia Qualified Code(s): J96.01 - Acute respiratory failure with hypoxia Plan: Decreased pulmonary airway pressures ;decreased tidal volume; increased respiratory rate;decrease I-time, normalize pH (3) Non compliance w medication regimen Is this a current diagnosis for this admission?: Yes - Time Total Critical Time (Minutes): 75
[2017-08-10] MEDS ORDERED: METHYLPREDNISOLONE INJ 125 MG/2 ML SDV IV SCH (14:00)
[2017-08-10] MEDS: METHYLPREDNISOLONE INJ 125 MG/2 ML SDV IV SCH ×2 (18:00→23:49)
[2017-08-10] MEDS: ACETAMINOPHEN 325 MG TABLET PO PRN (18:15)
--- NOTE | 2017-08-10 18:43 | RADIOLOGY REPORT (SQ) ---
EXAM DESCRIPTION: CHEST SINGLE VIEW COMPLETED DATE/TIME: 08/10/2017 6:34 pm REASON FOR STUDY: resp failure COMPARISON: None. EXAM PARAMETERS: NUMBER OF VIEWS: One view. TECHNIQUE: Single frontal radiographic view of the chest acquired. RADIATION DOSE: NA LIMITATIONS: None. FINDINGS: LUNGS AND PLEURA: No opacities, masses or pneumothorax. No pleural effusion. MEDIASTINUM AND HILAR STRUCTURES: No masses. Contour normal. HEART AND VASCULAR STRUCTURES: Heart normal in size. Normal vasculature. BONES: Scoliosis. HARDWARE: An endotracheal tube has its tip 3 cm above the sue. OTHER: No other significant finding. IMPRESSION: Intubation. No acute pulmonary findings. TECHNICAL DOCUMENTATION: JOB ID: [id number] [employer]- All Rights Reserved Reading location - IP/workstation name: [email or web address]
[2017-08-10] MEDS: NORMAL SALINE 500 ML with ROCURONIUM BROMIDE 500 MG IV PRN ×2 (18:45)
[2017-08-10 19:12] LABS: ARTERIAL BLOOD BASE EXCESS -2.8 mmol/L; ARTERIAL BLOOD FIO2 30%; ARTERIAL BLOOD H2CO3 0.89 mmol/L (1.05-1.35); ARTERIAL BLOOD O2 SATURATION 94.8 % (94-98); ARTERIAL BLOOD PCO2 29.5 mmHg (35-45); ARTERIAL BLOOD PH 7.45 (7.35-7.45); ARTERIAL BLOOD PO2 69.2 mmHg (80-100); ARTERIAL BLOOD TOTAL CO2 20.9 mmol/L (21-25)
[2017-08-10 19:36] LABS: A TYPE INFLUENZA AG NEGATIVE (NEGATIVE); B INFLUENZA AG NEGATIVE (NEGATIVE)
[2017-08-10] MEDS: BUDESONIDE NEB 0.5 MG/2 ML AMPUL NEB SCH (19:51)
[2017-08-10] MEDS: AMPICILLIN SODIUM/SULBACTAM NA 1.5 GM in NORMAL SALINE 100 ML IV SCH (20:06)
[2017-08-10] MEDS: RINGERS SOLUTION,LACTATED 1,000 ML IV PRN (21:45)
[2017-08-11] MEDS: PROPOFOL 100 ML IV PRN ×5 (01:20→21:30)
[2017-08-11] MEDS: IPRATROPIUM/ALBUTEROL 0.5-2.5 MG/3 ML AMPUL NEB SCH ×4 (02:02→19:44)
[2017-08-11] MEDS: AMPICILLIN SODIUM/SULBACTAM NA 1.5 GM in NORMAL SALINE 100 ML IV SCH ×4 (03:38→21:29)
[2017-08-11] MEDS: MIDAZOLAM HCL 50 MG/100 ML RTUINJ IV PRN ×4 (04:01→21:30)
[2017-08-11 04:06] LABS: HEMATOCRIT 39.5 % (36.0-47.0); HEMOGLOBIN 13.4 g/dL (12.0-15.5); MEAN CORPUSCULAR VOLUME 94 fl (80-97); PLATELET COUNT 201 10^3/uL (150-450); RED BLOOD COUNT 4.19 10^6/uL (3.72-5.28); RED CELL DISTRIBUTION WIDTH 13.3 % (11.5-14.0); WHITE BLOOD COUNT 15.1 10^3/uL (4.0-10.5)
[2017-08-11 04:19] LABS: ALANINE AMINOTRANSFERASE 27 U/L (9-52); ALBUMIN 4.5 g/dL (3.5-5.0); ALKALINE PHOSPHATASE 61 U/L (38-126); ANION GAP 11 (5-19); ASPARTATE AMINO TRANSFERASE 24 U/L (14-36); BILIRUBIN,DIRECT 0.4 mg/dL (0.0-0.4); BILIRUBIN,TOTAL 0.4 mg/dL (0.2-1.3); BLOOD UREA NITROGEN 5 mg/dL (7-20); CALCIUM 9.6 mg/dL (8.4-10.2); CARBON DIOXIDE 24 mmol/L (22-30); CHLORIDE 105 mmol/L (98-107); GLUCOSE 165 mg/dL (75-110); PHOSPHORUS 4.1 mg/dL (2.5-4.5); POTASSIUM 4.6 mmol/L (3.6-5.0); SODIUM 140.2 mmol/L (137-145)
[2017-08-11 04:22] LABS: ABSOLUTE LYMPHOCYTES# (MANUAL) 0.9 10^3/uL (0.5-4.7); ABSOLUTE MONOCYTES # (MANUAL) 0.2 10^3/uL (0.1-1.4); BASOPHILS % (MANUAL) 0 % (0-2); EOSINOPHILS % (MANUAL) 0 % (0-6); LYMPHOCYTES % (MANUAL) 6 % (13-45); MONOCYTES % (MANUAL) 1 % (3-13); SEGMENTED NEUTROPHILS % (MAN) 93 % (42-78); TOTAL CELLS COUNTED 100
[2017-08-11 04:23] LABS: PLATELET COMMENT ADEQUATE
[2017-08-11 04:24] LABS: TOXIC GRANULATION SLIGHT; TOXIC VACUOLATION PRESENT
[2017-08-11 04:25] LABS: RBC MORPHOLOGY COMMENT NORMO-CYTIC/CHROMIC
[2017-08-11] MEDS: METHYLPREDNISOLONE INJ 125 MG/2 ML SDV IV SCH ×3 (05:25→18:00)
[2017-08-11 05:45] LABS: ARTERIAL BLOOD BASE EXCESS -0.7 mmol/L; ARTERIAL BLOOD H2CO3 1.16 mmol/L (1.05-1.35); ARTERIAL BLOOD HCO3 23.7 mmol/L (20-26); ARTERIAL BLOOD O2 SATURATION 99.1 % (94-98); ARTERIAL BLOOD PCO2 38.4 mmHg (35-45); ARTERIAL BLOOD PH 7.41 (7.35-7.45); ARTERIAL BLOOD PO2 167.2 mmHg (80-100); ARTERIAL BLOOD TOTAL CO2 24.9 mmol/L (21-25)
[2017-08-11 05:48] LABS: ARTERIAL BLOOD FIO2 50%
--- NOTE | 2017-08-11 06:28 | RADIOLOGY REPORT (SQ) ---
EXAM DESCRIPTION: CHEST SINGLE VIEW CLINICAL HISTORY: Mechanical ventilation. Endotracheal tube. Respiratory failure. COMPARISON: 08/10/2017 FINDINGS: Single frontal view of the chest. Cardia mediastinal silhouette is stable. Endotracheal tube with tip 5 cm above the sue. NG tube with tip below the diaphragm. No consolidation, pneumothorax, or pleural effusion. No displaced rib fractures identified. Upper abdominal soft tissues are unremarkable. IMPRESSION: 1. No significant interval change.
[2017-08-11] MEDS: BUDESONIDE NEB 0.5 MG/2 ML AMPUL NEB SCH ×2 (08:13→19:44)
[2017-08-11 08:55] LABS: TROPONIN I < 0.012 ng/mL
[2017-08-11] MEDS: FAMOTIDINE INJ/PF 20 MG/2 ML SDV IV SCH ×2 (09:04→21:29)
[2017-08-11] MEDS: ENOXAPARIN SODIUM INJ 40 MG/0.4 ML DISP.SYRIN SUBCUT SCH (09:04)
--- NOTE | 2017-08-11 09:22 | EKG REPORT ---
SEVERITY:- ABNORMAL ECG - SINUS TACHYCARDIA ST ELEVATION SUGGESTS PERICARDITIS VS EARLY REPOL CHANGES : Confirmed by: Kevin Huff 11-Aug-2017 09:20:56
[2017-08-11] MEDS: RINGERS SOLUTION,LACTATED 1,000 ML IV PRN ×2 (13:05→21:29)
--- NOTE | 2017-08-11 17:27 | PDOC PROGRESS REPORT ---
Subjective Progress Note for:: 08/11/17 Subjective:: Remains sedated on vent. EKG from 08/[address] elevations suspicious of possible pericarditis. Repeat EKG from today did not show these. An echocardiogram had been ordered to rule out pericarditis or a pericardial effusion. Reason For Visit: ASTHMA,RESPIRATORY FAILURE,RESPIRATORY ACIDOSIS Physical Exam Vital Signs: Temp Pulse Resp BP Pulse Ox 97.9 F 105 H 20 115/83 93 08/11/17 12:14 08/11/17 13:34 08/11/17 13:34 08/11/17 12:14 08/11/17 16:10 Intake & Output 08/10/17 08/11/17 08/12/17 06:59 06:59 06:59 Intake Total 2945 Output Total 3600 500 Balance -655 -500 Weight 65.1 kg General appearance: PRESENT: well-nourished Head exam: PRESENT: normocephalic Eye exam: ABSENT: scleral icterus Ear exam: PRESENT: normal external ear exam Mouth exam: PRESENT: other - Intubated Neck exam: ABSENT: tenderness Respiratory exam: PRESENT: symmetrical, unlabored, wheezes Cardiovascular exam: PRESENT: RRR GI/Abdominal exam: PRESENT: normal bowel sounds, soft. ABSENT: other Rectal exam: PRESENT: deferred Extremities exam: ABSENT: calf tenderness - sedated on vent, pedal edema Skin exam: ABSENT: rash Results Laboratory Results: 08/11/17 03:58 08/11/17 03:58 08/10/17 08/11/17 08/11/17 18:00 03:58 03:58 WBC 15.1 H RBC 4.19 Hgb 13.4 Hct 39.5 MCV 94 MCH 32.0 MCHC 34.0 RDW 13.3 Plt Count 201 Seg Neutrophils % Not Reportable Lymphocytes % Not Reportable Monocytes % Not Reportable Eosinophils % Not Reportable Basophils % Not Reportable Absolute Neutrophils Not Reportable Absolute Lymphocytes Not Reportable Absolute Monocytes Not Reportable Absolute Eosinophils Not Reportable Absolute Basophils Not Reportable Carbonic Acid 0.89 L HCO3/H2CO3 Ratio 22:1 ABG pH 7.45 ABG pCO2 29.5 L ABG pO2 69.2 L ABG HCO3 20.0 ABG O2 Saturation 94.8 ABG Base Excess -2.8 FiO2 30% Sodium 140.2 Potassium 4.6 Chloride 105 Carbon Dioxide 24 Anion Gap 11 BUN 5 L Creatinine 0.60 Est GFR ( Amer) > 60 Est GFR (Non-Af Amer) > 60 Glucose 165 H Calcium 9.6 Phosphorus 4.1 Magnesium 2.7 H Total Bilirubin 0.4 AST 24 ALT 27 Alkaline Phosphatase 61 Total Protein 8.0 Albumin 4.5 TSH Fluid Type Fluid Source Fluid Color Fluid Appearance Fluid Viscosity Fluid WBC Fluid RBC 08/11/17 08/11/17 08/11/17 03:58 05:35 14:20 WBC RBC Hgb Hct MCV MCH MCHC RDW Plt Count Seg Neutrophils % Lymphocytes % Monocytes % Eosinophils % Basophils % Absolute Neutrophils Absolute Lymphocytes Absolute Monocytes Absolute Eosinophils Absolute Basophils Carbonic Acid 1.16 HCO3/H2CO3 Ratio 20:1 ABG pH 7.41 ABG pCO2 38.4 ABG pO2 167.2 H ABG HCO3 23.7 ABG O2 Saturation 99.1 H ABG Base Excess -0.7 FiO2 50% Sodium Potassium Chloride Carbon Dioxide Anion Gap BUN Creatinine Est GFR ( Amer) Est GFR (Non-Af Amer) Glucose Calcium Phosphorus Magnesium Total Bilirubin AST ALT Alkaline Phosphatase Total Protein Albumin TSH 0.11 L Fluid Type Cancelled Fluid Source Cancelled Fluid Color Cancelled Fluid Appearance Cancelled Fluid Viscosity Cancelled Fluid WBC Cancelled Fluid RBC Cancelled 08/10/17 08:10 Catheterized Urine Urine Culture - Final Group B Beta Streptococcus 08/11/17 08/11/17 08/11/17 03:58 08:16 08:16 Creatine Kinase 452 H CK-MB (CK-2) 3.40 Troponin I < 0.012 NT-Pro-B Natriuret Pep 234 H Impressions: Chest X-Ray 08/11/17 06:00 IMPRESSION: 1. No significant interval change. Assessment & Plan - Diagnosis (1) Respiratory failure Qualifiers: Chronicity: acute Respiratory failure complication: hypoxia and hypercapnia Qualified Code(s): J96.01 - Acute respiratory failure with hypoxia ; J96.02 - Acute respiratory failure with hypercapnia; J96.02 - Acute respiratory failure with hypercapnia; J96.02 - Acute respiratory failure with hypercapnia Is this a current diagnosis for this admission?: Yes Plan: Due to asthma exacerbation. See below (2) Anxiety Is this a current diagnosis for this admission?: Yes (3) Asthma with status asthmaticus in adult Qualifiers: Asthma severity: severe Asthma persistence: persistent Qualified Code(s) : J45.52 - Severe persistent asthma with status asthmaticus Is this a current diagnosis for this admission?: Yes Plan: Continue vent management. Pulmonology consult Steroids, bronchodilators. (4) DVT prophylaxis Is this a current diagnosis for this admission?: Yes Plan: Subcutaneous Lovenox (5) Non compliance w medication regimen Is this a current diagnosis for this admission?: Yes (6) ETOH abuse Is this a current diagnosis for this admission?: Yes Plan: Ativan as needed for signs of withdrawal such as tachycardia. IV thiamine. - Time Time Spent with patient: 35 or more minutes
[2017-08-11] MEDS ORDERED: METHYLPREDNISOLONE INJ 125 MG/2 ML SDV IV SCH (18:00)
[2017-08-11] MEDS ORDERED: FUROSEMIDE INJ/PF 20 MG/2 ML SDV ONE (19:16)
--- NOTE | 2017-08-11 19:21 | XCELERA REPORT ---
[address] [address] Transthoracic Echocardiogram Report Name: SHERLYN GALLOWAY Age: 32 yrs Gender: Female : 1985 Patient Status: Inpatient Patient Location: ICU^606^A Study Date: 08/11/2017 09:07 AM Height: 68 in Weight: 143 lb BSA: 1.8 m2 Procedure: A complete two-dimensional transthoracic echocardiogram was performed (2D, M-mode, spectral and color flow Doppler). The study was technically difficult with many images being suboptimal in quality. Reason For Study: pericarditis abn EKG Ordering Physician: GUILLERMO MADRID Performed By: Kerri Morris Interpretation Summary The left ventricular ejection fraction is normal. There is borderline concentric left ventricular hypertrophy. The left ventricle is grossly normal size. Doppler measurements suggest impaired left ventricular relaxation, which is associated with grade I/IV or mild diastolic dysfunction Wall motion cannot be accurately commented on, but no definite regional wall motion abnormalities noted. Right ventricular function cannot be assessed due to poor image quality. The right ventricle is not well visualized secondary to technical limitations The left atrial size is normal. Right atrium not well visualized secondary to technical limitations There is a trace amount of mitral regurgitation There is no mitral valve stenosis. No aortic regurgitation is present. There is no aortic valve stenosis There is no tricuspid stenosis. No tricuspid regurgitation. The aortic root is not well visualized but is probably normal size. The inferior vena cava was not well visualized There is no pericardial effusion. MMode/2D Measurements & Calculations RVDd: 2.3 cm LVIDd: 3.1 cm FS: 37.5 % Ao root diam: 1.9 cm IVSd: 0.97 cm LVIDs: 2.0 cm EDV(Teich): 38.5 ml LVPWd: 0.75 cm ESV(Teich): 12.0 ml Ao root area: 2.8 cm2 EF(Teich): 69.0 % Doppler Measurements & Calculations MV E max lashay: MV dec slope: Ao V2 max: LV V1 max P.4 cm/sec 115.1 cm/sec 3.7 mmHg MV A max lashay: 425.1 cm/sec2 Ao max PG: LV V1 max: 96.5 cm/sec MV dec time: 5.3 mmHg 96.3 cm/sec MV E/A: 0.70 0.16 sec PA V2 max: 131.8 cm/sec PA max P.9 mmHg Left Ventricle The left ventricle is grossly normal size. There is borderline concentric left ventricular hypertrophy. The left ventricular ejection fraction is normal. Doppler measurements suggest impaired left ventricular relaxation, which is associated with grade I/IV or mild diastolic dysfunction. Wall motion cannot be accurately commented on, but no definite regional wall motion abnormalities noted. Right Ventricle The right ventricle is not well visualized secondary to technical limitations. Right ventricular function cannot be assessed due to poor image quality. Atria Right atrium not well visualized secondary to technical limitations. The left atrial size is normal. Interarterial septum not well visualized and not well dopplered. Cannot comment on ASD/PFO presence. Mitral Valve The mitral valve is grossly normal. There is no mitral valve stenosis. There is a trace amount of mitral regurgitation. Aortic Valve The aortic valve opens well. There is no aortic valve stenosis. No aortic regurgitation is present. Tricuspid Valve The tricuspid valve is not well visualized secondary to technical limitations. There is no tricuspid stenosis. No tricuspid regurgitation. Pulmonic Valve The pulmonic valve is not well visualized. Great Vessels The aortic root is not well visualized but is probably normal size. The inferior vena cava was not well visualized. Effusions There is no pericardial effusion. : GUILLERMO MADRID > Kevin Huff
[2017-08-11] MEDS ORDERED: FUROSEMIDE INJ/PF 20 MG/2 ML SDV IV ONE (20:00)
[2017-08-11] MEDS ORDERED: NOREPINEPHRINE BITARTRATE INJ/PF 4 MG/4 ML SDV IV ONE (20:03)
--- NOTE | 2017-08-11 21:02 | EKG REPORT ---
SEVERITY:- ABNORMAL ECG - SINUS TACHYCARDIA ST ELEVATION SUGGESTS PERICARDITIS VS EARLY REPOL CHANGES : Confirmed by: Kevin Huff 11-Aug-2017 21:01:25
[2017-08-11] MEDS: THIAMINE HCL 100 MG in NORMAL SALINE 50 ML IV SCH (21:29)
[2017-08-12] MEDS: IPRATROPIUM/ALBUTEROL 0.5-2.5 MG/3 ML AMPUL NEB SCH ×4 (01:42→20:13)
[2017-08-12] MEDS: PROPOFOL 100 ML IV PRN ×6 (01:47→21:58)
[2017-08-12] MEDS: METHYLPREDNISOLONE INJ 125 MG/2 ML SDV IV SCH ×3 (02:02→17:35)
[2017-08-12] MEDS: AMPICILLIN SODIUM/SULBACTAM NA 1.5 GM in NORMAL SALINE 100 ML IV SCH ×4 (02:03→20:12)
[2017-08-12 04:21] LABS: ALANINE AMINOTRANSFERASE 24 U/L (9-52); ALKALINE PHOSPHATASE 50 U/L (38-126); ANION GAP 11 (5-19); ASPARTATE AMINO TRANSFERASE 17 U/L (14-36); BILIRUBIN,DIRECT 0.3 mg/dL (0.0-0.4); BILIRUBIN,TOTAL 0.3 mg/dL (0.2-1.3); BLOOD UREA NITROGEN 10 mg/dL (7-20); CALCIUM 9.3 mg/dL (8.4-10.2); CARBON DIOXIDE 26 mmol/L (22-30); CHLORIDE 105 mmol/L (98-107); GLUCOSE 133 mg/dL (75-110); POTASSIUM 4.2 mmol/L (3.6-5.0); SODIUM 142.1 mmol/L (137-145); TOTAL PROTEIN 7.1 g/dL (6.3-8.2)
[2017-08-12 04:30] LABS: HEMATOCRIT 39.3 % (36.0-47.0); HEMOGLOBIN 13.3 g/dL (12.0-15.5); MEAN CORPUSCULAR HEMOGLOBIN 31.7 pg (27.0-33.4); MEAN CORPUSCULAR HGB CONC 33.8 g/dL (32.0-36.0); MEAN CORPUSCULAR VOLUME 94 fl (80-97); PLATELET COUNT 180 10^3/uL (150-450); RED CELL DISTRIBUTION WIDTH 13.5 % (11.5-14.0); WHITE BLOOD COUNT 15.7 10^3/uL (4.0-10.5)
[2017-08-12 04:37] LABS: FREE T4 (FREE THYROXINE) 1.05 ng/dL (0.78-2.19)
[2017-08-12 04:51] LABS: THYROID STIMULATING HORMONE 0.03 uIU/mL (0.47-4.68)
[2017-08-12 04:54] LABS: ABSOLUTE LYMPHOCYTES# (MANUAL) 0.8 10^3/uL (0.5-4.7); ABSOLUTE MONOCYTES # (MANUAL) 0.6 10^3/uL (0.1-1.4); ABSOLUTE NEUTROPHILS# (MANUAL) 14.3 10^3/uL (1.7-8.2); BASOPHILS % (MANUAL) 0 % (0-2); EOSINOPHILS % (MANUAL) 0 % (0-6); LYMPHOCYTES % (MANUAL) 5 % (13-45); MONOCYTES % (MANUAL) 4 % (3-13); SEGMENTED NEUTROPHILS % (MAN) 91 % (42-78); TOTAL CELLS COUNTED 100
[2017-08-12 04:56] LABS: PLATELET COMMENT ADEQUATE; PLATELET LARGE PRESENT; POIKILOCYTOSIS SLIGHT; SCHISTOCYTES SLIGHT; TEAR DROP CELLS SLIGHT; TOXIC GRANULATION 1+; TOXIC VACUOLATION PRESENT
[2017-08-12 05:00] LABS: ARTERIAL BLOOD BASE EXCESS 2.1 mmol/L; ARTERIAL BLOOD FIO2 30%; ARTERIAL BLOOD H2CO3 1.23 mmol/L (1.05-1.35); ARTERIAL BLOOD HCO3 26.6 mmol/L (20-26); ARTERIAL BLOOD O2 SATURATION 96.8 % (94-98); ARTERIAL BLOOD PCO2 40.9 mmHg (35-45); ARTERIAL BLOOD PH 7.43 (7.35-7.45); ARTERIAL BLOOD PO2 86.4 mmHg (80-100); ARTERIAL BLOOD TOTAL CO2 27.9 mmol/L (21-25)
[2017-08-12] MEDS: MIDAZOLAM HCL 50 MG/100 ML RTUINJ IV PRN ×2 (05:48→13:52)
[2017-08-12] MEDS: NORMAL SALINE 500 ML with ROCURONIUM BROMIDE 500 MG IV PRN ×2 (05:49)
--- NOTE | 2017-08-12 07:19 | RADIOLOGY REPORT (SQ) ---
EXAM DESCRIPTION: CHEST SINGLE VIEW CLINICAL HISTORY: resp failure COMPARISON: 08/11/2017 FINDINGS: Single frontal view of the chest. Cardia mediastinal silhouette is stable. Endotracheal tube with tip 5 cm above the sue. NG tube with tip below the diaphragm. No consolidation, pneumothorax, or pleural effusion. No displaced rib fractures identified. Upper abdominal soft tissues are unremarkable. IMPRESSION: 1. Stable appearance of the chest. Electronically signed by: Ger Gonzalez 08/12/2017 6:17 AM
[2017-08-12] MEDS: ACETAMINOPHEN 325 MG TABLET PO PRN ×2 (08:17→21:48)
[2017-08-12] MEDS: BUDESONIDE NEB 0.5 MG/2 ML AMPUL NEB SCH ×2 (08:28→20:13)
--- NOTE | 2017-08-12 08:52 | Operative Report ---
Operative Report DATE OF SURGERY: 08/11/17 Operative Report: hypotensive needs pressor;cvp PREOPERATIVE DIAGNOSIS: resp lailure POSTOPERATIVE DIAGNOSIS: same OPERATION: fiber optic bronchoscopy SURGEON: GUILLERMO MADRID ANESTHESIA: GA TISSUE REMOVED OR ALTERED: LLL lavage fluid COMPLICATIONS: na ESTIMATED BLOOD LOSS: na INTRAOPERATIVE FINDINGS: n/a
[2017-08-12] MEDS: FAMOTIDINE INJ/PF 20 MG/2 ML SDV IV SCH ×2 (09:52→21:36)
[2017-08-12] MEDS: ENOXAPARIN SODIUM INJ 40 MG/0.4 ML DISP.SYRIN SUBCUT SCH (09:52)
[2017-08-12] MEDS ORDERED: NITROGLYCERIN 2% OINTMENT 1 GM PACKET TP ONE (11:00)
--- NOTE | 2017-08-12 11:40 | PDOC PROGRESS REPORT ---
Subjective Progress Note for:: 08/12/17 Subjective:: 32 yr old female with severe asthma and medication non compliance who presented with status asthmaticus requiring intubation. Remains sedated on vent. Continue steroids and antibiotics and vent support. Pulmonology input appreciated. EKG showed some diffuse ST segment elevation concerning for possible pericarditis. Echo showed mild diastolic dysfunction and no pericardial effusion, will request cardiology evaluation Reason For Visit: ASTHMA,RESPIRATORY FAILURE,RESPIRATORY ACIDOSIS Physical Exam Vital Signs: Temp Pulse Resp BP Pulse Ox 98.1 F 98 20 124/87 H 100 08/12/17 10:00 08/12/17 10:00 08/12/17 10:00 08/12/17 10:00 08/12/17 10:00 Intake & Output 08/11/17 08/12/17 08/13/17 06:59 06:59 06:59 Intake Total 2945 4102 Output Total 3600 3075 240 Balance -655 1027 -240 Weight 65.1 kg 66.1 kg 78.8 kg General appearance: PRESENT: well-developed, well-nourished Head exam: PRESENT: normocephalic Eye exam: ABSENT: scleral icterus Ear exam: PRESENT: normal external ear exam Throat exam: PRESENT: other - sedated on vent Neck exam: PRESENT: other - sedated on vent Respiratory exam: PRESENT: rhonchi, symmetrical, wheezes Cardiovascular exam: PRESENT: RRR GI/Abdominal exam: PRESENT: normal bowel sounds, soft. ABSENT: tenderness Rectal exam: PRESENT: deferred Extremities exam: ABSENT: calf tenderness, pedal edema Neurological exam: PRESENT: other - sedated on vent Psychiatric exam: PRESENT: other - sedated on vent Results Laboratory Results: 08/12/17 03:56 08/12/17 03:56 08/11/17 08/12/17 08/12/17 14:20 03:56 03:56 WBC RBC Hgb Hct MCV MCH MCHC RDW Plt Count Seg Neutrophils % Lymphocytes % Monocytes % Eosinophils % Basophils % Absolute Neutrophils Absolute Lymphocytes Absolute Monocytes Absolute Eosinophils Absolute Basophils Carbonic Acid HCO3/H2CO3 Ratio ABG pH ABG pCO2 ABG pO2 ABG HCO3 ABG O2 Saturation ABG Base Excess FiO2 Sodium 142.1 Potassium 4.2 Chloride 105 Carbon Dioxide 26 Anion Gap 11 BUN 10 Creatinine 0.54 Est GFR ( Amer) > 60 Est GFR (Non-Af Amer) > 60 Glucose 133 H Calcium 9.3 Magnesium 2.5 H Total Bilirubin 0.3 AST 17 ALT 24 Alkaline Phosphatase 50 Total Protein 7.1 Albumin 4.0 TSH 0.03 L Free T4 1.05 Fluid Type Cancelled Fluid Source Cancelled Fluid Color Cancelled Fluid Appearance Cancelled Fluid Viscosity Cancelled Fluid WBC Cancelled Fluid RBC Cancelled 08/12/17 08/12/17 03:56 04:40 WBC 15.7 H RBC 4.20 Hgb 13.3 Hct 39.3 MCV 94 MCH 31.7 MCHC 33.8 RDW 13.5 Plt Count 180 Seg Neutrophils % Not Reportable Lymphocytes % Not Reportable Monocytes % Not Reportable Eosinophils % Not Reportable Basophils % Not Reportable Absolute Neutrophils Not Reportable Absolute Lymphocytes Not Reportable Absolute Monocytes Not Reportable Absolute Eosinophils Not Reportable Absolute Basophils Not Reportable Carbonic Acid 1.23 HCO3/H2CO3 Ratio 21:1 ABG pH 7.43 ABG pCO2 40.9 ABG pO2 86.4 ABG HCO3 26.6 H ABG O2 Saturation 96.8 ABG Base Excess 2.1 FiO2 30% Sodium Potassium Chloride Carbon Dioxide Anion Gap BUN Creatinine Est GFR ( Amer) Est GFR (Non-Af Amer) Glucose Calcium Magnesium Total Bilirubin AST ALT Alkaline Phosphatase Total Protein Albumin TSH Free T4 Fluid Type Fluid Source Fluid Color Fluid Appearance Fluid Viscosity Fluid WBC Fluid RBC 08/10/17 18:00 Tracheal Aspirate Gram Stain - Final 08/10/17 18:00 Tracheal Aspirate Sputum Culture - Final NORMAL JOS 08/10/17 08:10 Catheterized Urine Urine Culture - Final Group B Beta Streptococcus 08/11/17 08/11/17 08/11/17 03:58 08:16 08:16 Creatine Kinase 452 H CK-MB (CK-2) 3.40 Troponin I < 0.012 NT-Pro-B Natriuret Pep 234 H 08/12/17 03:56 Creatine Kinase CK-MB (CK-2) Troponin I NT-Pro-B Natriuret Pep 80 Impressions: Chest X-Ray 08/12/17 06:00 IMPRESSION: 1. Stable appearance of the chest. Assessment & Plan - Diagnosis (1) Respiratory failure Qualifiers: Chronicity: acute Respiratory failure complication: hypoxia and hypercapnia Qualified Code(s): J96.01 - Acute respiratory failure with hypoxia ; J96.02 - Acute respiratory failure with hypercapnia; J96.02 - Acute respiratory failure with hypercapnia; J96.02 - Acute respiratory failure with hypercapnia Is this a current diagnosis for this admission?: Yes Plan: Due to asthma exacerbation. Cont vent support with sedation vacations and trials of wean (2) Anxiety Is this a current diagnosis for this admission?: Yes Plan: Ativan IV as needed for tachycardia/agitation (3) Asthma with status asthmaticus in adult Qualifiers: Asthma severity: severe Asthma persistence: persistent Qualified Code(s) : J45.52 - Severe persistent asthma with status asthmaticus Is this a current diagnosis for this admission?: Yes Plan: Continue vent management. Pulmonology consult appreciated Steroids, bronchodilators. (4) DVT prophylaxis Is this a current diagnosis for this admission?: Yes Plan: Subcutaneous Lovenox (5) Non compliance w medication regimen Is this a current diagnosis for this admission?: Yes (6) ETOH abuse Is this a current diagnosis for this admission?: Yes Plan: Ativan as needed for signs of withdrawal such as tachycardia. IV thiamine. - Time Time Spent with patient: 35 or more minutes
--- NOTE | 2017-08-12 11:53 | PDOC CONSULTATION ---
Consultation Consult Date: 08/12/17 Attending physician:: JAXSON PETERSON Consult reason:: Abnormal EKG, suspicion of pericarditis History of Present Illness Admission Date/PCP: 08/10/17 07:38 Patient complains of: Currently intubated because of respiratory distress History of Present Illness: SHERLYN GALLOAWY is a 32 year old female, who was admitted to the emergency department with severe respiratory distress not responding to usual treatment. Patient subsequently was intubated and sedated. Currently also receiving some paralyzing agent. Patient unable to give any history. Yesterday's EKG showed ST segment elevation with concavity upward consistent with pericarditis. However could well be early repolarization changes. I was asked to evaluate patient for possible pericarditis. Patient cannot give any history and not able to indicate whether she has any chest pain or not. A 2D echo which was ordered was reviewed. No evidence of pericardial effusion was noted. Past Medical History Cardiac Medical History: Reports: Myocardial Infarction Pulmonary Medical History: Reports: Asthma, Chronic Obstructive Pulmonary Disease (COPD), Intubation - 03/07/2016, Respiratory Failure Psychiatric Medical History: Denies: Depression Past Surgical History Past Surgical History: Reports: None Social History Information Source: [facility] Records Lives with: Family Smoking Status: Never Smoker Frequency of Alcohol Use: Rare Hx Recreational Drug Use: No Drugs: None Hx Prescription Drug Abuse: No - Advance Directive Resuscitation Status: Full Code Surrogate healthcare decision maker:: Patient's mother is the surrogate decision-maker Family History Family History: Other - No family member available to confirm family history Parental Family History Reviewed: No Children Family History Reviewed: No Sibling(s) Family History Reviewed.: No Medication/Allergy Home Medications: Unobtainable [Unobtainable] 08/14/17 Allergies/Adverse Reactions: No Known Allergies Allergy (Verified 12/13/16 14:11) Review of Systems ROS unobtainable: Due to endotracheal tube Physical Exam Vital Signs: Temp Pulse Resp BP Pulse Ox 97.9 F 98 20 134/96 H 100 08/12/17 11:15 08/12/17 10:00 08/12/17 11:15 08/12/17 11:15 08/12/17 11:15 Intake & Output 08/11/17 08/12/17 08/13/17 06:59 06:59 06:59 Intake Total 2945 4102 Output Total 3600 3075 240 Balance -655 1027 -240 Weight 65.1 kg 66.1 kg 78.8 kg Exam: GENERAL: well-nourished and in no acute distress. Patient is intubated and sedated. Orientation cannot be checked HEAD: Atraumatic, normocephalic. EYES: Pupils equal round and reactive to light, extraocular movements could not be checked, sclera anicteric, conjunctiva are normal. ENT: TMs normal, nares patent, oropharynx clear without exudates. Moist mucous membranes. No oral ulcerations or bleeding gums noted NECK: supple without lymphadenopathy or JVD. Trachea is central. No cervical or axillary lymphadenopathy noted. Carotids are 2+ LUNGS: Breath sounds mostly clear to auscultation patient is noted to have extensive bilateral wheezing and bibasal crackles at the extreme bases CHEST: Palpation of the chest wall shows no significant chest wall tenderness or abnormalities. HEART: [place] [employer], No PSH, 2/6 VAISHNAVI aortic area, 1/6 mae systolic murmur mitral area , no rubs or gallops. ABDOMEN: Soft, no significant tenderness appreciated, normoactive bowel sounds. No guarding, no rebound. No rigidity noted . No masses appreciated. EXTREMITIES: Pedal pulses are 1-2+, no calf tenderness noted, 1+ pedal edema noted. No clubbing or cyanosis. NEUROLOGICAL: The patient cannot participate in the neurological exam but no facial asymmetry noted. Extremities slightly hypotonic PSYCH: This cannot be evaluated. Patient cannot participate. SKIN: No significant ecchymosis, rash, or signs of pruritus noted. MUSCULOSKELETAL EXAM: No significant joint swelling noted. Patient cannot participate in musculoskeletal exam Results Laboratory Results: 08/12/17 03:56 08/12/17 03:56 08/11/17 08/12/17 08/12/17 14:20 03:56 03:56 WBC RBC Hgb Hct MCV MCH MCHC RDW Plt Count Seg Neutrophils % Lymphocytes % Monocytes % Eosinophils % Basophils % Absolute Neutrophils Absolute Lymphocytes Absolute Monocytes Absolute Eosinophils Absolute Basophils Carbonic Acid HCO3/H2CO3 Ratio ABG pH ABG pCO2 ABG pO2 ABG HCO3 ABG O2 Saturation ABG Base Excess FiO2 Sodium 142.1 Potassium 4.2 Chloride 105 Carbon Dioxide 26 Anion Gap 11 BUN 10 Creatinine 0.54 Est GFR ( Amer) > 60 Est GFR (Non-Af Amer) > 60 Glucose 133 H Calcium 9.3 Magnesium 2.5 H Total Bilirubin 0.3 AST 17 ALT 24 Alkaline Phosphatase 50 Total Protein 7.1 Albumin 4.0 TSH 0.03 L Free T4 1.05 Fluid Type Cancelled Fluid Source Cancelled Fluid Color Cancelled Fluid Appearance Cancelled Fluid Viscosity Cancelled Fluid WBC Cancelled Fluid RBC Cancelled 08/12/17 08/12/17 03:56 04:40 WBC 15.7 H RBC 4.20 Hgb 13.3 Hct 39.3 MCV 94 MCH 31.7 MCHC 33.8 RDW 13.5 Plt Count 180 Seg Neutrophils % Not Reportable Lymphocytes % Not Reportable Monocytes % Not Reportable Eosinophils % Not Reportable Basophils % Not Reportable Absolute Neutrophils Not Reportable Absolute Lymphocytes Not Reportable Absolute Monocytes Not Reportable Absolute Eosinophils Not Reportable Absolute Basophils Not Reportable Carbonic Acid 1.23 HCO3/H2CO3 Ratio 21:1 ABG pH 7.43 ABG pCO2 40.9 ABG pO2 86.4 ABG HCO3 26.6 H ABG O2 Saturation 96.8 ABG Base Excess 2.1 FiO2 30% Sodium Potassium Chloride Carbon Dioxide Anion Gap BUN Creatinine Est GFR ( Amer) Est GFR (Non-Af Amer) Glucose Calcium Magnesium Total Bilirubin AST ALT Alkaline Phosphatase Total Protein Albumin TSH Free T4 Fluid Type Fluid Source Fluid Color Fluid Appearance Fluid Viscosity Fluid WBC Fluid RBC 08/10/17 18:00 Tracheal Aspirate Gram Stain - Final 08/10/17 18:00 Tracheal Aspirate Sputum Culture - Final NORMAL JOS 08/10/17 08:10 Catheterized Urine Urine Culture - Final Group B Beta Streptococcus 08/11/17 08/11/17 08/11/17 03:58 08:16 08:16 Creatine Kinase 452 H CK-MB (CK-2) 3.40 Troponin I < 0.012 NT-Pro-B Natriuret Pep 234 H 08/12/17 03:56 Creatine Kinase CK-MB (CK-2) Troponin I NT-Pro-B Natriuret Pep 80 EKG Comments: Sinus tachycardia with ST elevation consistent with pericarditis versus early repolarization. Impressions: Chest X-Ray 08/12/17 06:00 IMPRESSION: 1. Stable appearance of the chest. Assessment & Plan - Diagnosis (1) Acute respiratory failure Qualifiers: Respiratory failure complication: hypoxia Qualified Code(s): J96.01 - Acute respiratory failure with hypoxia (2) Asthma with status asthmaticus in adult Qualifiers: Asthma severity: severe Asthma persistence: persistent Qualified Code(s) : J45.52 - Severe persistent asthma with status asthmaticus Is this a current diagnosis for this admission?: Yes (3) Abnormal electrocardiogram Is this a current diagnosis for this admission?: Yes (4) Pericarditis Qualifiers: Pericarditis type: unspecified type Chronicity: unspecified Qualified Code(s): I31.9 - Disease of pericardium, unspecified Is this a current diagnosis for this admission?: Yes - Notes Notes: Acute respiratory failure: Patient is intubated and being artificially ventilated. Patient also on paralytic agents. Asthma with status asthmaticus: Patient being treated adequately. However still has some wheezing. Abnormal electrocardiogram and suspected acute pericarditis: This abnormalities consistent with acute pericarditis but could well be from early repolarization changes, favor pericarditis however for proper diagnosis, we need to out of 3 criteria being met which includes chest pain, unfortunately this patient is intubated and sedated, EKG changes or a friction rub. I did not hear a friction rub. Therefore cannot establish diagnosis of acute pericarditis. Other way to establish diagnosis would be a contrasted CT or MRI which can sometimes show inflammation. At this point recommend just empiric management. Will recommend repeating EKG every few days to look for any evolving changes. Acute pericarditis usually involves over 1-2 weeks showing T-wave inversion later on. Fortunately cardiac enzymes were noted to be negative. - Time Time Spent: 30 to 50 Minutes - CODE STATUS was discussed, patient remains full code. Surrogate decision-maker unchanged. Multiple medical problems were addressed. More than 50% of the time spent coordinating care, discussing management plans with involved caregivers. Management plans discussed with involved personnels. Medical decision making was of moderate to high complexity , patient's has multiple comorbidities. Medications reviewed and adjusted accordingly: Yes
[2017-08-12] MEDS: RINGERS SOLUTION,LACTATED 1,000 ML IV PRN (12:50)
--- NOTE | 2017-08-12 13:12 | PDOC PROGRESS REPORT ---
Subjective Progress Note for:: 08/11/17 Subjective:: Intubated and sedated Reason For Visit: ASTHMA,RESPIRATORY FAILURE,RESPIRATORY ACIDOSIS Physical Exam Vital Signs: Temp Pulse Resp BP Pulse Ox 97.9 F 105 H 20 115/83 97 08/11/17 12:14 08/11/17 13:34 08/11/17 13:34 08/11/17 12:14 08/11/17 13:34 Intake & Output 08/10/17 08/11/17 08/12/17 06:59 06:59 06:59 Intake Total 2945 Output Total 3600 500 Balance -655 -500 Weight 65.1 kg General appearance: PRESENT: no acute distress, well-developed, well-nourished. ABSENT: cooperative, disheveled Head exam: PRESENT: atraumatic, normocephalic Eye exam: PRESENT: conjunctiva pale. ABSENT: EOMI, nystagmus, periorbital swelling, scleral icterus Mouth exam: PRESENT: dry mucosa, neck supple, tongue midline, other - ET tube in place Neck exam: ABSENT: carotid bruit, JVD, lymphadenopathy, thyromegaly, tracheal deviation, tracheostomy Respiratory exam: PRESENT: decreased breath sounds, prolonged expiratory phas, rhonchi, symmetrical, unlabored, wheezes. ABSENT: rales, retraction, stridor, tachypnea Cardiovascular exam: PRESENT: RRR, +S1, +S2, tachycardia Pulses: PRESENT: normal radial pulses GI/Abdominal exam: PRESENT: diminished bowel sounds, soft Extremities exam: ABSENT: clubbing, joint swelling Musculoskeletal exam: ABSENT: ambulatory, deformity, dislocation Neurological exam: ABSENT: awake, oriented to person Skin exam: PRESENT: dry, warm Results Laboratory Results: 08/11/17 03:58 08/11/17 03:58 08/10/17 08/11/17 08/11/17 18:00 03:58 03:58 WBC 15.1 H RBC 4.19 Hgb 13.4 Hct 39.5 MCV 94 MCH 32.0 MCHC 34.0 RDW 13.3 Plt Count 201 Seg Neutrophils % Not Reportable Lymphocytes % Not Reportable Monocytes % Not Reportable Eosinophils % Not Reportable Basophils % Not Reportable Absolute Neutrophils Not Reportable Absolute Lymphocytes Not Reportable Absolute Monocytes Not Reportable Absolute Eosinophils Not Reportable Absolute Basophils Not Reportable Carbonic Acid 0.89 L HCO3/H2CO3 Ratio 22:1 ABG pH 7.45 ABG pCO2 29.5 L ABG pO2 69.2 L ABG HCO3 20.0 ABG O2 Saturation 94.8 ABG Base Excess -2.8 FiO2 30% Sodium 140.2 Potassium 4.6 Chloride 105 Carbon Dioxide 24 Anion Gap 11 BUN 5 L Creatinine 0.60 Est GFR ( Amer) > 60 Est GFR (Non-Af Amer) > 60 Glucose 165 H Calcium 9.6 Phosphorus 4.1 Magnesium 2.7 H Total Bilirubin 0.4 AST 24 ALT 27 Alkaline Phosphatase 61 Total Protein 8.0 Albumin 4.5 TSH 08/11/17 08/11/17 03:58 05:35 WBC RBC Hgb Hct MCV MCH MCHC RDW Plt Count Seg Neutrophils % Lymphocytes % Monocytes % Eosinophils % Basophils % Absolute Neutrophils Absolute Lymphocytes Absolute Monocytes Absolute Eosinophils Absolute Basophils Carbonic Acid 1.16 HCO3/H2CO3 Ratio 20:1 ABG pH 7.41 ABG pCO2 38.4 ABG pO2 167.2 H ABG HCO3 23.7 ABG O2 Saturation 99.1 H ABG Base Excess -0.7 FiO2 50% Sodium Potassium Chloride Carbon Dioxide Anion Gap BUN Creatinine Est GFR ( Amer) Est GFR (Non-Af Amer) Glucose Calcium Phosphorus Magnesium Total Bilirubin AST ALT Alkaline Phosphatase Total Protein Albumin TSH 0.11 L 08/10/17 08:10 Catheterized Urine Urine Culture - Final Group B Beta Streptococcus 08/11/17 08/11/17 08/11/17 03:58 08:16 08:16 Creatine Kinase 452 H CK-MB (CK-2) 3.40 Troponin I < 0.012 NT-Pro-B Natriuret Pep 234 H Impressions: Chest X-Ray 08/11/17 06:00 IMPRESSION: 1. No significant interval change. Assessment & Plan - Diagnosis (1) Asthma Qualifiers: Asthma severity: severe Asthma persistence: unspecified Asthma complication type: with status asthmaticus Qualified Code(s): J45.902 - Unspecified asthma with status asthmaticus Is this a current diagnosis for this admission?: Yes Plan: Course variable intermittently airway pressures and wheezing decline only to resume again we will maximize steroid therapy and add Singulair (2) Acute respiratory failure Qualifiers: Respiratory failure complication: hypoxia Qualified Code(s): J96.01 - Acute respiratory failure with hypoxia Is this a current diagnosis for this admission?: Yes Plan: Oxygenation and ventilation adequate at this time (3) Non compliance w medication regimen Is this a current diagnosis for this admission?: Yes - Time Total Critical Time (Minutes): 45
--- NOTE | 2017-08-12 13:14 | PDOC PROGRESS REPORT ---
Subjective Progress Note for:: 08/12/17 Subjective:: Intubated and sedated Reason For Visit: ASTHMA,RESPIRATORY FAILURE,RESPIRATORY ACIDOSIS Physical Exam Vital Signs: Temp Pulse Resp BP Pulse Ox 97.2 F 101 H 22 H 103/57 L 98 08/12/17 08:23 08/12/17 08:23 08/12/17 08:23 08/12/17 08:23 08/12/17 08:23 Intake & Output 08/11/17 08/12/17 08/13/17 06:59 06:59 06:59 Intake Total 2945 4102 Output Total 3600 3075 60 Balance -655 1027 -60 Weight 65.1 kg 66.1 kg 78.8 kg General appearance: PRESENT: no acute distress, well-developed, well-nourished. ABSENT: cooperative, disheveled Head exam: PRESENT: atraumatic, normocephalic Eye exam: PRESENT: conjunctiva pale. ABSENT: EOMI, nystagmus, periorbital swelling, scleral icterus Mouth exam: PRESENT: dry mucosa, neck supple, tongue midline, other - ET tube in place Neck exam: ABSENT: carotid bruit, JVD, lymphadenopathy, thyromegaly, tracheal deviation, tracheostomy Respiratory exam: PRESENT: decreased breath sounds, prolonged expiratory phas, rhonchi, symmetrical, unlabored, wheezes. ABSENT: rales, retraction, stridor, tachypnea Cardiovascular exam: PRESENT: RRR, +S1, +S2, tachycardia Pulses: PRESENT: normal radial pulses GI/Abdominal exam: PRESENT: diminished bowel sounds, soft Gentrourinary exam: PRESENT: indwelling catheter Extremities exam: ABSENT: clubbing, full ROM, joint swelling Musculoskeletal exam: ABSENT: ambulatory, deformity, dislocation, full ROM Neurological exam: ABSENT: awake, oriented to person Skin exam: PRESENT: dry, warm Results Laboratory Results: 08/12/17 03:56 08/12/17 03:56 08/11/17 08/12/17 08/12/17 14:20 03:56 03:56 WBC RBC Hgb Hct MCV MCH MCHC RDW Plt Count Seg Neutrophils % Lymphocytes % Monocytes % Eosinophils % Basophils % Absolute Neutrophils Absolute Lymphocytes Absolute Monocytes Absolute Eosinophils Absolute Basophils Carbonic Acid HCO3/H2CO3 Ratio ABG pH ABG pCO2 ABG pO2 ABG HCO3 ABG O2 Saturation ABG Base Excess FiO2 Sodium 142.1 Potassium 4.2 Chloride 105 Carbon Dioxide 26 Anion Gap 11 BUN 10 Creatinine 0.54 Est GFR ( Amer) > 60 Est GFR (Non-Af Amer) > 60 Glucose 133 H Calcium 9.3 Magnesium 2.5 H Total Bilirubin 0.3 AST 17 ALT 24 Alkaline Phosphatase 50 Total Protein 7.1 Albumin 4.0 TSH 0.03 L Free T4 1.05 Fluid Type Cancelled Fluid Source Cancelled Fluid Color Cancelled Fluid Appearance Cancelled Fluid Viscosity Cancelled Fluid WBC Cancelled Fluid RBC Cancelled 08/12/17 08/12/17 03:56 04:40 WBC 15.7 H RBC 4.20 Hgb 13.3 Hct 39.3 MCV 94 MCH 31.7 MCHC 33.8 RDW 13.5 Plt Count 180 Seg Neutrophils % Not Reportable Lymphocytes % Not Reportable Monocytes % Not Reportable Eosinophils % Not Reportable Basophils % Not Reportable Absolute Neutrophils Not Reportable Absolute Lymphocytes Not Reportable Absolute Monocytes Not Reportable Absolute Eosinophils Not Reportable Absolute Basophils Not Reportable Carbonic Acid 1.23 HCO3/H2CO3 Ratio 21:1 ABG pH 7.43 ABG pCO2 40.9 ABG pO2 86.4 ABG HCO3 26.6 H ABG O2 Saturation 96.8 ABG Base Excess 2.1 FiO2 30% Sodium Potassium Chloride Carbon Dioxide Anion Gap BUN Creatinine Est GFR ( Amer) Est GFR (Non-Af Amer) Glucose Calcium Magnesium Total Bilirubin AST ALT Alkaline Phosphatase Total Protein Albumin TSH Free T4 Fluid Type Fluid Source Fluid Color Fluid Appearance Fluid Viscosity Fluid WBC Fluid RBC 08/10/17 08:10 Catheterized Urine Urine Culture - Final Group B Beta Streptococcus 08/11/17 08/11/17 08/11/17 03:58 08:16 08:16 Creatine Kinase 452 H CK-MB (CK-2) 3.40 Troponin I < 0.012 NT-Pro-B Natriuret Pep 234 H 08/12/17 03:56 Creatine Kinase CK-MB (CK-2) Troponin I NT-Pro-B Natriuret Pep 80 Impressions: Chest X-Ray 08/12/17 06:00 IMPRESSION: 1. Stable appearance of the chest. Assessment & Plan - Diagnosis (1) Asthma Qualifiers: Asthma severity: severe Asthma persistence: unspecified Asthma complication type: with status asthmaticus Qualified Code(s): J45.902 - Unspecified asthma with status asthmaticus Is this a current diagnosis for this admission?: Yes Plan: Course variable intermittently airway pressures and wheezing decline only to resume again we will maximize steroid therapy and add Singulair (2) Acute respiratory failure Qualifiers: Respiratory failure complication: hypoxia Qualified Code(s): J96.01 - Acute respiratory failure with hypoxia Is this a current diagnosis for this admission?: Yes Plan: Oxygenation and ventilation adequate at this time (3) Non compliance w medication regimen Is this a current diagnosis for this admission?: Yes - Time Total Critical Time (Minutes): 40
[2017-08-12] MEDS: LORAZEPAM INJ 2 MG/1 ML VIAL IV PRN (20:12)
[2017-08-12] MEDS: THIAMINE HCL 100 MG in NORMAL SALINE 50 ML IV SCH (21:36)
[2017-08-12] MEDS: MONTELUKAST SODIUM 10 MG TABLET PO SCH (21:36)
--- NOTE | 2017-08-12 22:28 | EKG REPORT ---
SEVERITY:- ABNORMAL ECG - SINUS RHYTHM ST ELEVATION SUGGESTS PERICARDITIS : Confirmed by: Kevin Huff 12-Aug-2017 22:28:12
[2017-08-13] MEDS: LORAZEPAM INJ 2 MG/1 ML VIAL IV PRN (00:02)
[2017-08-13] MEDS: MIDAZOLAM HCL 50 MG/100 ML RTUINJ IV PRN ×4 (01:17→17:39)
[2017-08-13] MEDS: RINGERS SOLUTION,LACTATED 1,000 ML IV PRN ×2 (01:17→15:19)
[2017-08-13] MEDS: PROPOFOL 100 ML IV PRN ×5 (01:18→21:46)
[2017-08-13] MEDS: METHYLPREDNISOLONE INJ 125 MG/2 ML SDV IV SCH ×3 (01:19→17:02)
[2017-08-13] MEDS: AMPICILLIN SODIUM/SULBACTAM NA 1.5 GM in NORMAL SALINE 100 ML IV SCH ×4 (02:06→20:51)
[2017-08-13] MEDS: IPRATROPIUM/ALBUTEROL 0.5-2.5 MG/3 ML AMPUL NEB SCH ×4 (02:11→20:06)
[2017-08-13] MEDS: HYDRALAZINE HCL INJ/PF 20 MG/1 ML SDV IV PRN (02:40)
[2017-08-13] MEDS: NORMAL SALINE 500 ML with ROCURONIUM BROMIDE 500 MG IV PRN ×4 (03:02→20:51)
[2017-08-13 05:20] LABS: ALANINE AMINOTRANSFERASE 18 U/L (9-52); ALBUMIN 3.9 g/dL (3.5-5.0); ALKALINE PHOSPHATASE 52 U/L (38-126); ANION GAP 10 (5-19); ASPARTATE AMINO TRANSFERASE 32 U/L (14-36); BILIRUBIN,DIRECT 0.3 mg/dL (0.0-0.4); BILIRUBIN,TOTAL 0.3 mg/dL (0.2-1.3); BLOOD UREA NITROGEN 11 mg/dL (7-20); CALCIUM 9.4 mg/dL (8.4-10.2); CARBON DIOXIDE 30 mmol/L (22-30); CHLORIDE 104 mmol/L (98-107); GLUCOSE 115 mg/dL (75-110); HEMATOCRIT 39.9 % (36.0-47.0); HEMOGLOBIN 13.4 g/dL (12.0-15.5); MEAN CORPUSCULAR HEMOGLOBIN 31.8 pg (27.0-33.4); MEAN CORPUSCULAR HGB CONC 33.6 g/dL (32.0-36.0); MEAN CORPUSCULAR VOLUME 95 fl (80-97); PLATELET COUNT 171 10^3/uL (150-450); RED BLOOD COUNT 4.23 10^6/uL (3.72-5.28); RED CELL DISTRIBUTION WIDTH 13.8 % (11.5-14.0); TOTAL PROTEIN 7.4 g/dL (6.3-8.2); WHITE BLOOD COUNT 14.6 10^3/uL (4.0-10.5)
[2017-08-13 06:12] LABS: ABSOLUTE LYMPHOCYTES# (MANUAL) 0.4 10^3/uL (0.5-4.7); ABSOLUTE MONOCYTES # (MANUAL) 0.9 10^3/uL (0.1-1.4); ABSOLUTE NEUTROPHILS# (MANUAL) 13.3 10^3/uL (1.7-8.2); BAND NEUTROPHILS % (MANUAL) 1 % (3-5); BASOPHILS % (MANUAL) 0 % (0-2); EOSINOPHILS % (MANUAL) 0 % (0-6); LYMPHOCYTES % (MANUAL) 3 % (13-45); MONOCYTES % (MANUAL) 6 % (3-13); SEGMENTED NEUTROPHILS % (MAN) 90 % (42-78); TOTAL CELLS COUNTED 100
[2017-08-13 06:14] LABS: ANISOCYTOSIS SLIGHT; PLATELET COMMENT ADEQUATE; TOXIC GRANULATION SLIGHT
[2017-08-13 06:23] LABS: ARTERIAL BLOOD BASE EXCESS 4.3 mmol/L; ARTERIAL BLOOD FIO2 40%; ARTERIAL BLOOD H2CO3 1.29 mmol/L (1.05-1.35); ARTERIAL BLOOD HCO3 28.8 mmol/L (20-26); ARTERIAL BLOOD O2 SATURATION 98.4 % (94-98); ARTERIAL BLOOD PCO2 42.7 mmHg (35-45); ARTERIAL BLOOD PH 7.45 (7.35-7.45); ARTERIAL BLOOD PO2 117.6 mmHg (80-100); ARTERIAL BLOOD TOTAL CO2 30.1 mmol/L (21-25)
--- NOTE | 2017-08-13 06:38 | RADIOLOGY REPORT (SQ) ---
EXAM DESCRIPTION: CHEST SINGLE VIEW CLINICAL HISTORY: resp fail. Intubated patient. COMPARISON: 08/12/2017 FINDINGS: Single frontal view of the chest. Cardiomediastinal silhouette is stable. Endotracheal tube with tip 5 cm above the sue. NG tube with tip below the diaphragm. No consolidation, pneumothorax, or pleural effusion. No displaced rib fractures identified. Upper abdominal soft tissues are unremarkable. IMPRESSION: 1. Stable appearance of the chest. Electronically signed by: Ger Gonzalez 08/13/2017 5:36 AM CDT
[2017-08-13] MEDS: BUDESONIDE NEB 0.5 MG/2 ML AMPUL NEB SCH ×2 (07:46→20:06)
[2017-08-13] MEDS: FAMOTIDINE INJ/PF 20 MG/2 ML SDV IV SCH ×2 (09:34→21:45)
[2017-08-13] MEDS: LOSARTAN POTASSIUM 25 MG TABLET PO SCH (09:46)
[2017-08-13] MEDS: ENOXAPARIN SODIUM INJ 40 MG/0.4 ML DISP.SYRIN SUBCUT SCH (09:52)
--- NOTE | 2017-08-13 10:59 | PDOC PROGRESS REPORT ---
Subjective Progress Note for:: 08/13/17 Subjective:: Patient about the same and has made some progress. There is no significant change in general condition. Patient having a central line placed today. Patient remains intubated, sedated, patient however looks comfortable and in acute distress. Medications reviewed. Reason For Visit: ASTHMA,RESPIRATORY FAILURE,RESPIRATORY ACIDOSIS Physical Exam Vital Signs: Temp Pulse Resp BP Pulse Ox 98.2 F 95 20 154/109 H 100 08/13/17 10:00 08/13/17 08:00 08/13/17 10:00 08/13/17 09:46 08/13/17 10:00 Intake & Output 08/12/17 08/13/17 08/14/17 06:59 06:59 06:59 Intake Total 4102 4024 Output Total 3075 2220 295 Balance 1027 1804 -295 Weight 66.1 kg 68.3 kg Exam: GENERAL: well-nourished and in no acute distress. Patient is intubated and sedated. Orientation cannot be checked HEAD: Atraumatic, normocephalic. EYES: Pupils equal round and reactive to light, extraocular movements could not be checked, sclera anicteric, conjunctiva are normal. ENT: TMs normal, nares patent, oropharynx clear without exudates. Moist mucous membranes. No oral ulcerations or bleeding gums noted NECK: supple without lymphadenopathy or JVD. Trachea is central. No cervical or axillary lymphadenopathy noted. Carotids are 2+ LUNGS: Breath sounds mostly clear to auscultation patient is noted to have bibasal crackles at the extreme bases. Bilateral wheezing noted. CHEST: Palpation of the chest wall shows no significant chest wall tenderness or abnormalities. HEART: [place] [employer], No PSH, 2/6 VAISHNAVI aortic area, 1/6 mae systolic murmur mitral area , no rubs or gallops. ABDOMEN: Soft, no significant tenderness appreciated, normoactive bowel sounds. No guarding, no rebound. No rigidity noted . No masses appreciated. EXTREMITIES: Pedal pulses are 1-2+, no calf tenderness noted, 1+ pedal edema noted. No clubbing or cyanosis. NEUROLOGICAL: The patient cannot participate in the neurological exam but no facial asymmetry noted. Extremities slightly hypotonic PSYCH: This cannot be evaluated. Patient cannot participate. SKIN: No significant ecchymosis, rash, or signs of pruritus noted. MUSCULOSKELETAL EXAM: No significant joint swelling noted. Patient cannot participate in musculoskeletal exam Results Laboratory Results: 08/13/17 04:45 08/13/17 04:45 08/13/17 08/13/17 08/13/17 04:45 04:45 06:05 WBC 14.6 H RBC 4.23 Hgb 13.4 Hct 39.9 MCV 95 MCH 31.8 MCHC 33.6 RDW 13.8 Plt Count 171 Seg Neutrophils % Not Reportable Lymphocytes % Not Reportable Monocytes % Not Reportable Eosinophils % Not Reportable Basophils % Not Reportable Absolute Neutrophils Not Reportable Absolute Lymphocytes Not Reportable Absolute Monocytes Not Reportable Absolute Eosinophils Not Reportable Absolute Basophils Not Reportable Carbonic Acid 1.29 HCO3/H2CO3 Ratio 22:1 ABG pH 7.45 ABG pCO2 42.7 ABG pO2 117.6 H ABG HCO3 28.8 H ABG O2 Saturation 98.4 H ABG Base Excess 4.3 FiO2 40% Sodium 144.0 Potassium 4.0 Chloride 104 Carbon Dioxide 30 Anion Gap 10 BUN 11 Creatinine 0.54 Est GFR ( Amer) > 60 Est GFR (Non-Af Amer) > 60 Glucose 115 H Calcium 9.4 Magnesium 2.8 H Total Bilirubin 0.3 AST 32 ALT 18 Alkaline Phosphatase 52 Total Protein 7.4 Albumin 3.9 08/11/17 14:20 Bronchial Washings Gram Stain - Final 08/10/17 18:00 Tracheal Aspirate Gram Stain - Final 08/10/17 18:00 Tracheal Aspirate Sputum Culture - Final NORMAL JOS 08/11/17 08/11/17 08/11/17 03:58 08:16 08:16 Creatine Kinase 452 H CK-MB (CK-2) 3.40 Troponin I < 0.012 NT-Pro-B Natriuret Pep 234 H 08/12/17 03:56 Creatine Kinase CK-MB (CK-2) Troponin I NT-Pro-B Natriuret Pep 80 EKG Comments: Shows sinus rhythm with intermittent sinus tachycardia Impressions: Chest X-Ray 08/13/17 06:00 IMPRESSION: 1. Stable appearance of the chest. Assessment & Plan - Diagnosis (1) Acute respiratory failure Qualifiers: Respiratory failure complication: hypoxia Qualified Code(s): J96.01 - Acute respiratory failure with hypoxia (2) Asthma with status asthmaticus in adult Qualifiers: Asthma severity: severe Asthma persistence: persistent Qualified Code(s) : J45.52 - Severe persistent asthma with status asthmaticus Is this a current diagnosis for this admission?: Yes (3) Abnormal electrocardiogram Is this a current diagnosis for this admission?: Yes (4) Pericarditis Qualifiers: Pericarditis type: unspecified type Chronicity: unspecified Qualified Code(s): I31.9 - Disease of pericardium, unspecified Is this a current diagnosis for this admission?: Yes - Notes Notes: Patient continues to be in respiratory failure being intubated and ventilated artificially. Patient still in asthmaticus. Continue current therapy. Pulmonary following. Abnormal EKG with concern of pericarditis. Will continue to repeat EKG every other day to look for any evolving changes. Currently no clinical signs of tamponade or restriction from the pericardium. - Time Time with patient: 15-25 minutes - More than 50% of the time spent coordinating care, discussing management plans with involved caregivers. Management plans discussed with involved personnels. Medical decision making was of moderate to high complexity, patient's has multiple comorbidities. Medications reviewed and adjusted accordingly: Yes
--- NOTE | 2017-08-13 11:40 | PDOC PROGRESS REPORT ---
Subjective Progress Note for:: 08/13/17 Subjective:: 32 yr old female with severe asthma and medication non compliance who presented with status asthmaticus requiring intubation. Remains sedated on vent. Continue steroids and antibiotics and vent support. She is on versed gtt, propofol gtt and rocuronium gtt. Pulmonology input appreciated. EKG showed some diffuse ST segment elevation concerning for possible pericarditis. Echo showed mild diastolic dysfunction and no pericardial effusion, cardiology evaluation appreciated Reason For Visit: ASTHMA,RESPIRATORY FAILURE,RESPIRATORY ACIDOSIS Physical Exam Vital Signs: Temp Pulse Resp BP Pulse Ox 98.2 F 95 20 154/109 H 98 08/13/17 10:00 08/13/17 08:00 08/13/17 10:00 08/13/17 09:46 08/13/17 11:24 Intake & Output 08/12/17 08/13/17 08/14/17 06:59 06:59 06:59 Intake Total 4102 4024 Output Total 3075 2220 295 Balance 1027 1804 -295 Weight 66.1 kg 68.3 kg General appearance: PRESENT: other - sedated on vent Head exam: PRESENT: normocephalic Eye exam: ABSENT: scleral icterus Ear exam: PRESENT: normal external ear exam Mouth exam: PRESENT: other - intubated Neck exam: ABSENT: JVD Respiratory exam: PRESENT: rhonchi, symmetrical, wheezes Cardiovascular exam: PRESENT: RRR GI/Abdominal exam: PRESENT: normal bowel sounds, soft. ABSENT: tenderness Rectal exam: PRESENT: deferred Extremities exam: ABSENT: pedal edema Neurological exam: PRESENT: other - sedated on vent Psychiatric exam: PRESENT: other - sedated on vent Focused psych exam: PRESENT: other - sedated on vent Results Laboratory Results: 08/13/17 04:45 08/13/17 04:45 08/13/17 08/13/17 08/13/17 04:45 04:45 06:05 WBC 14.6 H RBC 4.23 Hgb 13.4 Hct 39.9 MCV 95 MCH 31.8 MCHC 33.6 RDW 13.8 Plt Count 171 Seg Neutrophils % Not Reportable Lymphocytes % Not Reportable Monocytes % Not Reportable Eosinophils % Not Reportable Basophils % Not Reportable Absolute Neutrophils Not Reportable Absolute Lymphocytes Not Reportable Absolute Monocytes Not Reportable Absolute Eosinophils Not Reportable Absolute Basophils Not Reportable Carbonic Acid 1.29 HCO3/H2CO3 Ratio 22:1 ABG pH 7.45 ABG pCO2 42.7 ABG pO2 117.6 H ABG HCO3 28.8 H ABG O2 Saturation 98.4 H ABG Base Excess 4.3 FiO2 40% Sodium 144.0 Potassium 4.0 Chloride 104 Carbon Dioxide 30 Anion Gap 10 BUN 11 Creatinine 0.54 Est GFR ( Amer) > 60 Est GFR (Non-Af Amer) > 60 Glucose 115 H Calcium 9.4 Magnesium 2.8 H Total Bilirubin 0.3 AST 32 ALT 18 Alkaline Phosphatase 52 Total Protein 7.4 Albumin 3.9 08/11/17 14:20 Bronchial Washings Gram Stain - Final 08/10/17 18:00 Tracheal Aspirate Gram Stain - Final 08/10/17 18:00 Tracheal Aspirate Sputum Culture - Final NORMAL JOS 08/11/17 08/11/17 08/11/17 03:58 08:16 08:16 Creatine Kinase 452 H CK-MB (CK-2) 3.40 Troponin I < 0.012 NT-Pro-B Natriuret Pep 234 H 08/12/17 03:56 Creatine Kinase CK-MB (CK-2) Troponin I NT-Pro-B Natriuret Pep 80 Impressions: Chest X-Ray 08/13/17 06:00 IMPRESSION: 1. Stable appearance of the chest. Assessment & Plan - Diagnosis (1) Respiratory failure Qualifiers: Chronicity: acute Respiratory failure complication: hypoxia and hypercapnia Qualified Code(s): J96.01 - Acute respiratory failure with hypoxia ; J96.02 - Acute respiratory failure with hypercapnia; J96.02 - Acute respiratory failure with hypercapnia; J96.02 - Acute respiratory failure with hypercapnia Is this a current diagnosis for this admission?: Yes Plan: Due to asthma exacerbation. Cont vent support with sedation vacations and trials of wean (2) Anxiety Is this a current diagnosis for this admission?: Yes Plan: Ativan IV as needed for tachycardia/agitation (3) Asthma with status asthmaticus in adult Qualifiers: Asthma severity: severe Asthma persistence: persistent Qualified Code(s) : J45.52 - Severe persistent asthma with status asthmaticus Is this a current diagnosis for this admission?: Yes Plan: Continue vent management. Pulmonology consult appreciated Steroid dose increased, continue bronchodilators and antibiotics (4) DVT prophylaxis Is this a current diagnosis for this admission?: Yes Plan: Subcutaneous Lovenox (5) Non compliance w medication regimen Is this a current diagnosis for this admission?: Yes (6) ETOH abuse Is this a current diagnosis for this admission?: Yes Plan: Ativan as needed for signs of withdrawal such as tachycardia. IV thiamine. (7) On tube feeding diet Is this a current diagnosis for this admission?: Yes Plan: Private Security Guard consult - Time Time Spent with patient: 35 or more minutes
--- NOTE | 2017-08-13 12:44 | RADIOLOGY REPORT (SQ) ---
EXAM DESCRIPTION: CHEST SINGLE VIEW COMPLETED DATE/TIME: 08/13/2017 12:14 pm REASON FOR STUDY: Post Attempt Line Placement COMPARISON: 08/13/2017 EXAM PARAMETERS: NUMBER OF VIEWS: One view. TECHNIQUE: Single frontal radiographic view of the chest acquired. RADIATION DOSE: NA LIMITATIONS: None. FINDINGS: LUNGS AND PLEURA: There has been interval development of an approximately 30 to 40% pneumo thorax on the right. The left lung remains clear and well expanded MEDIASTINUM AND HILAR STRUCTURES: No masses. Contour normal. HEART AND VASCULAR STRUCTURES: Heart normal in size. Normal vasculature. BONES: No acute findings. HARDWARE: Endotracheal tube is unchanged in position with its tip the level of the thoracic inlet. N G tube is again seen in course to the abdomen. OTHER: No other significant finding. IMPRESSION: Interval development of an approximately 30 to 40% pneumothorax on the right. Other fin dings as noted above COMMENT: Pertinent findings on the imaging study reported as a CRITICAL RESULT to GUILLERMO MADRID MD at12:35 on 08/13/2017. Category of Critical Result: Right-sided pneumothorax TECHNICAL DOCUMENTATION: JOB ID: [id number] [employer]- All Rights Reserved Reading location - IP/workstation name: [email or web address]
--- NOTE | 2017-08-13 13:45 | Operative Report ---
Bedside Procedure - History of Present Illness History of Present Illness: status asthmaticus poor venous access Indication for Procedure: poor venous access vasoactive drugs Date: 08/13/17 - Central Line Left Internal jugular Time completed: 12:35 Consent obtained: Yes Central line pre-insertion: Sterile PPE donned, Betadine prep applied, Chloraprep applied, Sterile drapes applied Central line lumen type: Triple Anesthetic type: 2% Lidocaine Ultrasound guided: Yes Line secured with sutures: No Complications: Yes - unable to pass dialator f/u cxr 30-40% r pneumothorax surgery -> chest tube Notes: 08/13/17 22:20 chest tube placed per surgery
--- NOTE | 2017-08-13 14:52 | RADIOLOGY REPORT (SQ) ---
EXAM DESCRIPTION: CHEST SINGLE VIEW COMPLETED DATE/TIME: 08/13/2017 2:32 pm REASON FOR STUDY: Central Line Placement Pneumothorax COMPARISON: 08/13/2017 at 1158 hours. EXAM PARAMETERS: NUMBER OF VIEWS: One view. TECHNIQUE: Single frontal radiographic view of the chest acquired. RADIATION DOSE: NA LIMITATIONS: None. FINDINGS: LUNGS AND PLEURA: No opacities, masses or pneumothorax. No pleural effusion. MEDIASTINUM AND HILAR STRUCTURES: No masses. Contour normal. HEART AND VASCULAR STRUCTURES: Heart normal in size. Normal vasculature. BONES: No acute findings. HARDWARE: Right-sided chest tube which makes a sharp 90 bend. Distal end in the right base midline. Stable endotracheal tube, nasogastric tube, and central line. OTHER: No other significant finding. IMPRESSION: INTERVAL PLACEMENT OF RIGHT CHEST TUBE DESCRIBED. THE RIGHT PNEUMOTHORAX HAS RESOLVE D. OTHERWISE STABLE APPEARANCE OF THE CHEST. TECHNICAL DOCUMENTATION: JOB ID: [id number] [employer]- All Rights Reserved Reading location - IP/workstation name: [email or web address]
[2017-08-13] MEDS ORDERED: NORMAL SALINE INJ/PF 0.9% 10 ML SDV IV PRN (16:22)
[2017-08-13] MEDS: MONTELUKAST SODIUM 10 MG TABLET PO SCH (21:45)
[2017-08-13] MEDS: THIAMINE HCL 100 MG in NORMAL SALINE 50 ML IV SCH (21:45)
--- NOTE | 2017-08-13 22:19 | PDOC PROGRESS REPORT ---
Subjective Progress Note for:: 08/13/17 Subjective:: Intubated and sedated Reason For Visit: ASTHMA,RESPIRATORY FAILURE,RESPIRATORY ACIDOSIS Physical Exam Vital Signs: Temp Pulse Resp BP Pulse Ox 98.2 F 95 20 154/109 H 100 08/13/17 10:00 08/13/17 08:00 08/13/17 10:00 08/13/17 09:46 08/13/17 10:00 Intake & Output 08/12/17 08/13/17 08/14/17 06:59 06:59 06:59 Intake Total 4102 4024 Output Total 3075 2220 295 Balance 1027 1804 -295 Weight 66.1 kg 68.3 kg General appearance: PRESENT: no acute distress, well-developed, well-nourished. ABSENT: cooperative, disheveled Head exam: PRESENT: atraumatic, normocephalic Eye exam: PRESENT: conjunctiva pale. ABSENT: EOMI, nystagmus, periorbital swelling, scleral icterus Mouth exam: PRESENT: dry mucosa, neck supple, tongue midline, other - ET tube Neck exam: ABSENT: carotid bruit, JVD, lymphadenopathy, thyromegaly, tracheal deviation, tracheostomy Respiratory exam: PRESENT: decreased breath sounds, prolonged expiratory phas, rales, rhonchi, symmetrical, unlabored, wheezes. ABSENT: retraction, stridor, tachypnea Cardiovascular exam: PRESENT: RRR, +S1, +S2, tachycardia Pulses: PRESENT: normal radial pulses GI/Abdominal exam: PRESENT: diminished bowel sounds, soft Extremities exam: ABSENT: clubbing, full ROM, joint swelling, pedal edema Musculoskeletal exam: ABSENT: deformity, dislocation Neurological exam: ABSENT: awake, oriented to person Skin exam: PRESENT: dry, warm Results Laboratory Results: 08/13/17 04:45 08/13/17 04:45 08/13/17 08/13/17 08/13/17 04:45 04:45 06:05 WBC 14.6 H RBC 4.23 Hgb 13.4 Hct 39.9 MCV 95 MCH 31.8 MCHC 33.6 RDW 13.8 Plt Count 171 Seg Neutrophils % Not Reportable Lymphocytes % Not Reportable Monocytes % Not Reportable Eosinophils % Not Reportable Basophils % Not Reportable Absolute Neutrophils Not Reportable Absolute Lymphocytes Not Reportable Absolute Monocytes Not Reportable Absolute Eosinophils Not Reportable Absolute Basophils Not Reportable Carbonic Acid 1.29 HCO3/H2CO3 Ratio 22:1 ABG pH 7.45 ABG pCO2 42.7 ABG pO2 117.6 H ABG HCO3 28.8 H ABG O2 Saturation 98.4 H ABG Base Excess 4.3 FiO2 40% Sodium 144.0 Potassium 4.0 Chloride 104 Carbon Dioxide 30 Anion Gap 10 BUN 11 Creatinine 0.54 Est GFR ( Amer) > 60 Est GFR (Non-Af Amer) > 60 Glucose 115 H Calcium 9.4 Magnesium 2.8 H Total Bilirubin 0.3 AST 32 ALT 18 Alkaline Phosphatase 52 Total Protein 7.4 Albumin 3.9 08/11/17 14:20 Bronchial Washings Gram Stain - Final 08/10/17 18:00 Tracheal Aspirate Gram Stain - Final 08/10/17 18:00 Tracheal Aspirate Sputum Culture - Final NORMAL JOS 08/11/17 08/11/17 08/11/17 03:58 08:16 08:16 Creatine Kinase 452 H CK-MB (CK-2) 3.40 Troponin I < 0.012 NT-Pro-B Natriuret Pep 234 H 08/12/17 03:56 Creatine Kinase CK-MB (CK-2) Troponin I NT-Pro-B Natriuret Pep 80 Impressions: Chest X-Ray 08/13/17 06:00 IMPRESSION: 1. Stable appearance of the chest. Assessment & Plan - Diagnosis (1) Asthma Qualifiers: Asthma severity: severe Asthma persistence: unspecified Asthma complication type: with status asthmaticus Qualified Code(s): J45.902 - Unspecified asthma with status asthmaticus Is this a current diagnosis for this admission?: Yes Plan: Course variable intermittently airway pressures and wheezing decline only to resume again we will maximize steroid therapy and add Singulair (2) Acute respiratory failure Qualifiers: Respiratory failure complication: hypoxia Qualified Code(s): J96.01 - Acute respiratory failure with hypoxia Is this a current diagnosis for this admission?: Yes Plan: Oxygenation and ventilation adequate at this time (3) Non compliance w medication regimen Is this a current diagnosis for this admission?: Yes (4) Pneumothorax on right Is this a current diagnosis for this admission?: Yes Plan: chest tube placed per surgery - Time Total Critical Time (Minutes): 55
[2017-08-14] MEDS: LEVALBUTEROL HCL NEB 0.63 MG/3 ML AMPUL NEB PRN ×2 (00:07→23:59)
[2017-08-14] MEDS: IPRATROPIUM/ALBUTEROL 0.5-2.5 MG/3 ML AMPUL NEB SCH ×4 (01:39→20:26)
[2017-08-14] MEDS: RINGERS SOLUTION,LACTATED 1,000 ML IV PRN ×2 (01:47→17:07)
[2017-08-14] MEDS: MIDAZOLAM HCL 50 MG/100 ML RTUINJ IV PRN ×5 (01:47→21:34)
[2017-08-14] MEDS: METHYLPREDNISOLONE INJ 125 MG/2 ML SDV IV SCH ×3 (01:48→17:08)
[2017-08-14] MEDS: AMPICILLIN SODIUM/SULBACTAM NA 1.5 GM in NORMAL SALINE 100 ML IV SCH ×3 (02:05→14:54)
[2017-08-14] MEDS: PROPOFOL 100 ML IV PRN ×3 (02:05→23:10)
[2017-08-14] MEDS: HYDRALAZINE HCL INJ/PF 20 MG/1 ML SDV IV PRN ×2 (03:22→22:22)
[2017-08-14 05:42] LABS: ARTERIAL BLOOD BASE EXCESS 2.3 mmol/L; ARTERIAL BLOOD H2CO3 1.19 mmol/L (1.05-1.35); ARTERIAL BLOOD HCO3 26.5 mmol/L (20-26); ARTERIAL BLOOD O2 SATURATION 95.5 % (94-98); ARTERIAL BLOOD PCO2 39.6 mmHg (35-45); ARTERIAL BLOOD PH 7.44 (7.35-7.45); ARTERIAL BLOOD PO2 74.3 mmHg (80-100); ARTERIAL BLOOD TOTAL CO2 27.7 mmol/L (21-25)
[2017-08-14 05:46] LABS: ARTERIAL BLOOD FIO2 40%; HEMATOCRIT 36.6 % (36.0-47.0); HEMOGLOBIN 12.3 g/dL (12.0-15.5); MEAN CORPUSCULAR HEMOGLOBIN 31.5 pg (27.0-33.4); MEAN CORPUSCULAR HGB CONC 33.6 g/dL (32.0-36.0); MEAN CORPUSCULAR VOLUME 94 fl (80-97); PLATELET COUNT 180 10^3/uL (150-450); RED CELL DISTRIBUTION WIDTH 13.2 % (11.5-14.0)
[2017-08-14 06:00] LABS: ALANINE AMINOTRANSFERASE 26 U/L (9-52); ALBUMIN 3.6 g/dL (3.5-5.0); ALKALINE PHOSPHATASE 44 U/L (38-126); ANION GAP 10 (5-19); ASPARTATE AMINO TRANSFERASE 17 U/L (14-36); BILIRUBIN,DIRECT 0.2 mg/dL (0.0-0.4); BILIRUBIN,TOTAL 0.2 mg/dL (0.2-1.3); BLOOD UREA NITROGEN 13 mg/dL (7-20); CALCIUM 9.1 mg/dL (8.4-10.2); CARBON DIOXIDE 26 mmol/L (22-30); CHLORIDE 107 mmol/L (98-107); GLUCOSE 125 mg/dL (75-110); POTASSIUM 3.8 mmol/L (3.6-5.0); TOTAL PROTEIN 6.7 g/dL (6.3-8.2)
[2017-08-14 06:23] LABS: ABSOLUTE LYMPHOCYTES# (MANUAL) 0.2 10^3/uL (0.5-4.7); ABSOLUTE MONOCYTES # (MANUAL) 0.3 10^3/uL (0.1-1.4); ABSOLUTE NEUTROPHILS# (MANUAL) 10.5 10^3/uL (1.7-8.2); BASOPHILS % (MANUAL) 0 % (0-2); EOSINOPHILS % (MANUAL) 0 % (0-6); LYMPHOCYTES % (MANUAL) 2 % (13-45); MONOCYTES % (MANUAL) 3 % (3-13); SEGMENTED NEUTROPHILS % (MAN) 95 % (42-78); TOTAL CELLS COUNTED 100
[2017-08-14 06:25] LABS: PLATELET COMMENT ADEQUATE; PLATELET LARGE PRESENT; TOXIC GRANULATION SLIGHT
--- NOTE | 2017-08-14 07:25 | RADIOLOGY REPORT (SQ) ---
EXAM DESCRIPTION: CHEST SINGLE VIEW CLINICAL HISTORY: resp failure. Intubated patient. COMPARISON: 08/12/2017 FINDINGS: Single frontal view of the chest. Cardiomediastinal silhouette is stable. Endotracheal tube with tip 5 cm above the sue. NG tube with tip below the diaphragm. Right-sided chest tube is unchanged. No consolidation, pneumothorax, or pleural effusion. No displaced rib fractures identified. Upper abdominal soft tissues are unremarkable. IMPRESSION: 1. Support tubes and lines are unchanged. No right-sided pneumothorax identified. Electronically signed by: Ger Gonzalez 08/14/2017 6:24 AM CDT
[2017-08-14] MEDS: BUDESONIDE NEB 0.5 MG/2 ML AMPUL NEB SCH ×2 (08:19→20:26)
--- NOTE | 2017-08-14 09:32 | RADIOLOGY REPORT (SQ) ---
EXAM DESCRIPTION: CHEST SINGLE VIEW COMPLETED DATE/TIME: 08/14/2017 9:18 am REASON FOR STUDY: pneumothorax COMPARISON: 08/14/2017 at 0634 hours. EXAM PARAMETERS: NUMBER OF VIEWS: One view. TECHNIQUE: Single frontal radiographic view of the chest acquired. RADIATION DOSE: NA LIMITATIONS: None. FINDINGS: LUNGS AND PLEURA: Small right apical pneumothorax, less than 10%. Lungs otherwise clear. No pleural effusion. MEDIASTINUM AND HILAR STRUCTURES: No masses. Contour normal. HEART AND VASCULAR STRUCTURES: Heart normal in size. Normal vasculature. BONES: No acute findings. Scoliosis. HARDWARE: Stable right chest tube. Stable endotracheal tube, nasogastric tube, and central line. OTHER: No other significant finding. IMPRESSION: STABLE LIFE LINES AND HARDWARE. STABLE RIGHT CHEST TUBE. SMALL LESS THAN 10 % RIGHT AP ICAL PNEUMOTHORAX. TECHNICAL DOCUMENTATION: JOB ID: [id number] [employer]- All Rights Reserved Reading location - IP/workstation name: [facility]
[2017-08-14] MEDS: LOSARTAN POTASSIUM 25 MG TABLET PO SCH (10:02)
[2017-08-14] MEDS: ENOXAPARIN SODIUM INJ 40 MG/0.4 ML DISP.SYRIN SUBCUT SCH (10:03)
[2017-08-14] MEDS: FAMOTIDINE INJ/PF 20 MG/2 ML SDV IV SCH ×2 (10:06→21:40)
--- NOTE | 2017-08-14 10:21 | EKG REPORT ---
SEVERITY:- ABNORMAL ECG - SINUS TACHYCARDIA NONSPECIFIC T ABNORMALITIES, ANTERIOR LEADS : Confirmed by: Kevin Huff 14-Aug-2017 10:20:31
[2017-08-14] MEDS: ACETAMINOPHEN 325 MG TABLET PO PRN (12:56)
--- NOTE | 2017-08-14 13:14 | PDOC PROGRESS REPORT ---
Subjective Progress Note for:: 08/14/17 Subjective:: This is a 32 years old black female patient with recurrent admission for respiratory distress. Patient has history of asthma which is poorly controlled. Patient has also history of status asthmaticus and respiratory failure for which she had been intubated twice. During this admission patient presented with severe respiratory distress with O2 saturation of 79% she was given several rounds of DuoNeb Solu-Medrol she was put on BiPAP despite all of this major patient continued to desaturate and at this point emergency intubation was done. Currently patient is intubated and she is on medical mechanical ventilation. Reason For Visit: ASTHMA,RESPIRATORY FAILURE,RESPIRATORY ACIDOSIS Physical Exam Vital Signs: Temp Pulse Resp BP Pulse Ox 98.1 F 95 20 162/117 H 99 08/14/17 12:00 08/14/17 12:00 08/14/17 12:00 08/14/17 12:00 08/14/17 12:00 Intake & Output 08/13/17 08/14/17 08/15/17 06:59 06:59 06:59 Intake Total 4024 4305 Output Total 2220 2320 750 Balance 1804 1984 -750 Weight 68.3 kg 70 kg General appearance: PRESENT: mild distress Neck exam: PRESENT: other - Mild subcutaneous emphysema at the insertion site of central catheter. Respiratory exam: PRESENT: rhonchi - Bilateral Cardiovascular exam: PRESENT: tachycardia - Heart rate of 130 Results Laboratory Results: 08/14/17 05:25 08/14/17 05:25 08/14/17 08/14/17 08/14/17 05:25 05:25 05:25 WBC 11.0 H RBC 3.90 Hgb 12.3 Hct 36.6 MCV 94 MCH 31.5 MCHC 33.6 RDW 13.2 Plt Count 180 Seg Neutrophils % Not Reportable Lymphocytes % Not Reportable Monocytes % Not Reportable Eosinophils % Not Reportable Basophils % Not Reportable Absolute Neutrophils Not Reportable Absolute Lymphocytes Not Reportable Absolute Monocytes Not Reportable Absolute Eosinophils Not Reportable Absolute Basophils Not Reportable Carbonic Acid 1.19 HCO3/H2CO3 Ratio 22:1 ABG pH 7.44 ABG pCO2 39.6 ABG pO2 74.3 L ABG HCO3 26.5 H ABG O2 Saturation 95.5 ABG Base Excess 2.3 FiO2 40% Sodium 143.0 Potassium 3.8 Chloride 107 Carbon Dioxide 26 Anion Gap 10 BUN 13 Creatinine 0.48 L Est GFR ( Amer) > 60 Est GFR (Non-Af Amer) > 60 Glucose 125 H Calcium 9.1 Magnesium 2.6 H Total Bilirubin 0.2 AST 17 ALT 26 Alkaline Phosphatase 44 Total Protein 6.7 Albumin 3.6 08/11/17 14:20 Bronchial Washings Gram Stain - Final 08/11/17 14:20 Bronchial Washings Bronchial Washings Culture - Final Streptococcus Pneumoniae Normal Jody 08/11/17 20:45 Cade Catheter Legionella Urinary Antigen - Final 08/11/17 14:20 Bronchial Washings Fungal Smear - Final 08/11/17 14:20 Bronchial Washings Fungal Smear - Final 08/11/17 14:20 Bronchial Washings Chlamydia pneumoniae (PCR) - Final 08/11/17 14:20 Bronchial Washings AFB Smear Concentration - Final 08/11/17 14:20 Bronchial Washings Acid Fast Bacilli Smear - Final 08/11/17 08/11/17 08/11/17 03:58 08:16 08:16 Creatine Kinase 452 H CK-MB (CK-2) 3.40 Troponin I < 0.012 NT-Pro-B Natriuret Pep 234 H 08/12/17 03:56 Creatine Kinase CK-MB (CK-2) Troponin I NT-Pro-B Natriuret Pep 80 Impressions: Chest X-Ray 08/14/17 08:00 IMPRESSION: STABLE LIFE LINES AND HARDWARE. STABLE RIGHT CHEST TUBE. SMALL LESS THAN 10 % RIGHT APICAL PNEUMOTHORAX. Assessment & Plan - Diagnosis (1) ETOH abuse Is this a current diagnosis for this admission?: Yes Plan: I will associate professor of counseling the patient when she is extubated (2) Pneumothorax on right Is this a current diagnosis for this admission?: Yes Plan: Resolving (3) Acute respiratory failure Qualifiers: Respiratory failure complication: hypoxia Qualified Code(s): J96.01 - Acute respiratory failure with hypoxia Is this a current diagnosis for this admission?: Yes Plan: Patient has been intubated and on mechanical ventilation. She is being followed by baby stroller rental clerk. (4) Asthma with status asthmaticus in adult Qualifiers: Asthma severity: severe Asthma persistence: persistent Qualified Code(s) : J45.52 - Severe persistent asthma with status asthmaticus Is this a current diagnosis for this admission?: Yes Plan: Has subsided with intubation and mechanical ventilation.
[2017-08-14] MEDS: NORMAL SALINE 500 ML with ROCURONIUM BROMIDE 500 MG IV PRN ×2 (13:38)
[2017-08-14] MEDS ORDERED: METOPROLOL TARTRATE 50 MG TABLET NG SCH (18:00)
[2017-08-14] MEDS: AMPICILLIN SODIUM/SULBACTAM NA 1.5 GM in NORMAL SALINE 50 ML IV SCH (20:47)
[2017-08-14] MEDS ORDERED: MIDAZOLAM HCL 50 MG/100 ML RTUINJ IV ONE (21:35)
[2017-08-14] MEDS: THIAMINE HCL 100 MG in NORMAL SALINE 50 ML IV SCH (21:36)
[2017-08-14] MEDS: METOPROLOL TARTRATE 50 MG TABLET NG SCH (21:37)
[2017-08-14] MEDS: MONTELUKAST SODIUM 10 MG TABLET PO SCH (21:39)
[2017-08-14] MEDS: FENTANYL CITRATE INJ/PF 100 MCG/2 ML AMPUL IV PRN (23:38)
[2017-08-15] MEDS: MIDAZOLAM HCL 50 MG/100 ML RTUINJ IV PRN ×2 (00:05→06:08)
[2017-08-15] MEDS: IPRATROPIUM/ALBUTEROL 0.5-2.5 MG/3 ML AMPUL NEB SCH ×4 (01:59→20:02)
[2017-08-15] MEDS: AMPICILLIN SODIUM/SULBACTAM NA 1.5 GM in NORMAL SALINE 50 ML IV SCH ×4 (02:08→22:23)
[2017-08-15] MEDS: METHYLPREDNISOLONE INJ 125 MG/2 ML SDV IV SCH ×3 (02:10→17:01)
[2017-08-15] MEDS: PROPOFOL 100 ML IV PRN ×4 (04:27→21:02)
[2017-08-15 04:43] LABS: ALANINE AMINOTRANSFERASE 25 U/L (9-52); ALBUMIN 3.3 g/dL (3.5-5.0); ALKALINE PHOSPHATASE 37 U/L (38-126); ANION GAP 11 (5-19); ASPARTATE AMINO TRANSFERASE 17 U/L (14-36); BILIRUBIN,DIRECT 0.2 mg/dL (0.0-0.4); BILIRUBIN,TOTAL 0.2 mg/dL (0.2-1.3); BLOOD UREA NITROGEN 15 mg/dL (7-20); CALCIUM 8.8 mg/dL (8.4-10.2); CARBON DIOXIDE 26 mmol/L (22-30); CHLORIDE 106 mmol/L (98-107); GLUCOSE 124 mg/dL (75-110); HEMATOCRIT 34.6 % (36.0-47.0); HEMOGLOBIN 11.8 g/dL (12.0-15.5); MEAN CORPUSCULAR HGB CONC 33.9 g/dL (32.0-36.0); MEAN CORPUSCULAR VOLUME 94 fl (80-97); PLATELET COUNT 182 10^3/uL (150-450); POTASSIUM 3.8 mmol/L (3.6-5.0); RED BLOOD COUNT 3.67 10^6/uL (3.72-5.28); RED CELL DISTRIBUTION WIDTH 13.6 % (11.5-14.0); SODIUM 143.2 mmol/L (137-145); TOTAL PROTEIN 6.1 g/dL (6.3-8.2); WHITE BLOOD COUNT 8.1 10^3/uL (4.0-10.5)
[2017-08-15 04:44] LABS: INTERNATIONAL RATION (INR) 0.94; PARTIAL THROMBOPLASTIN TIME 23.5 SEC (23.5-35.8); PROTHROMBIN TIME 13.1 SEC (11.4-15.4)
[2017-08-15 05:09] LABS: ABSOLUTE LYMPHOCYTES# (MANUAL) 0.8 10^3/uL (0.5-4.7); ABSOLUTE MONOCYTES # (MANUAL) 0.4 10^3/uL (0.1-1.4); ABSOLUTE NEUTROPHILS# (MANUAL) 6.9 10^3/uL (1.7-8.2); BASOPHILS % (MANUAL) 0 % (0-2); EOSINOPHILS % (MANUAL) 0 % (0-6); LYMPHOCYTES % (MANUAL) 10 % (13-45); MONOCYTES % (MANUAL) 5 % (3-13); SEGMENTED NEUTROPHILS % (MAN) 85 % (42-78); TOTAL CELLS COUNTED 100
[2017-08-15 05:10] LABS: PLATELET COMMENT ADEQUATE; RBC MORPHOLOGY COMMENT NORMO-CYTIC/CHROMIC
[2017-08-15 05:16] LABS: ARTERIAL BLOOD BASE EXCESS 0.8 mmol/L; ARTERIAL BLOOD H2CO3 1.11 mmol/L (1.05-1.35); ARTERIAL BLOOD HCO3 24.7 mmol/L (20-26); ARTERIAL BLOOD O2 SATURATION 95.4 % (94-98); ARTERIAL BLOOD PCO2 36.9 mmHg (35-45); ARTERIAL BLOOD PH 7.44 (7.35-7.45); ARTERIAL BLOOD PO2 73.4 mmHg (80-100); ARTERIAL BLOOD TOTAL CO2 25.8 mmol/L (21-25)
[2017-08-15 05:18] LABS: ARTERIAL BLOOD FIO2 35%
[2017-08-15] MEDS: RINGERS SOLUTION,LACTATED 1,000 ML IV PRN ×2 (06:06→17:00)
[2017-08-15] MEDS: NORMAL SALINE 500 ML with ROCURONIUM BROMIDE 500 MG IV PRN ×4 (06:10→23:29)
--- NOTE | 2017-08-15 06:59 | RADIOLOGY REPORT (SQ) ---
EXAM DESCRIPTION: CHEST SINGLE VIEW CLINICAL HISTORY: resp failure/pneumo. Intubated patient. COMPARISON: 08/14/2017 FINDINGS: Single frontal view of the chest. Cardiomediastinal silhouette is stable. Endotracheal tube with tip 5 cm above the sue. NG tube with tip below the diaphragm. Right subclavian central venous catheter with tip in the SVC. Right-sided chest tube is unchanged. No consolidation, pneumothorax, or pleural effusion. No displaced rib fractures identified. Upper abdominal soft tissues are unremarkable. IMPRESSION: 1. Support tubes and lines are unchanged. No right-sided pneumothorax identified. Electronically signed by: Ger Gonzalez 08/15/2017 5:57 AM CDT
[2017-08-15] MEDS: FENTANYL CITRATE INJ/PF 100 MCG/2 ML AMPUL IV PRN ×3 (08:12→22:28)
[2017-08-15] MEDS: BUDESONIDE NEB 0.5 MG/2 ML AMPUL NEB SCH ×2 (08:32→20:02)
--- NOTE | 2017-08-15 09:54 | PDOC PROGRESS REPORT ---
Subjective Progress Note for:: 08/14/17 Subjective:: Patient was seen on morning rounds on the of this month. Patient about the same and has made some progress. There is no significant change in general condition. Patient remains intubated, sedated, patient however looks comfortable and in acute distress. Telemetry strips shows patient maintaining sinus tachycardia. Medications reviewed. Reason For Visit: ASTHMA,RESPIRATORY FAILURE,RESPIRATORY ACIDOSIS Physical Exam Vital Signs: Temp Pulse Resp BP Pulse Ox 98.4 F 103 H 24 H 129/88 H 93 08/15/17 06:19 08/15/17 08:32 08/15/17 08:32 08/15/17 06:19 08/15/17 08:32 Intake & Output 08/14/17 08/15/17 08/16/17 06:59 06:59 06:59 Intake Total 4305 4209 Output Total 2320 2757 Balance 1984 145 Weight 70 kg 71.2 kg Exam: GENERAL: well-nourished and in no acute distress. Patient is intubated and sedated. Orientation cannot be checked HEAD: Atraumatic, normocephalic. EYES: Pupils equal round and reactive to light, extraocular movements could not be checked, sclera anicteric, conjunctiva are normal. ENT: TMs normal, nares patent, oropharynx clear without exudates. Moist mucous membranes. No oral ulcerations or bleeding gums noted NECK: supple without lymphadenopathy or JVD. Trachea is central. No cervical or axillary lymphadenopathy noted. Carotids are 2+ LUNGS: Breath sounds mostly clear to auscultation patient is noted to have bilateral mild wheezing, improved since yesterday CHEST: Palpation of the chest wall shows no significant chest wall tenderness or abnormalities. HEART: [employer], No PSH, 2/6 VAISHNAVI aortic area, 1/6 mae systolic murmur mitral area , no rubs or gallops. ABDOMEN: Soft, no significant tenderness appreciated, normoactive bowel sounds. No guarding, no rebound. No rigidity noted . No masses appreciated. EXTREMITIES: Pedal pulses are 1-2+, no calf tenderness noted, 1+ pedal edema noted. No clubbing or cyanosis. NEUROLOGICAL: The patient cannot participate in the neurological exam but no facial asymmetry noted. Extremities slightly hypotonic PSYCH: This cannot be evaluated. Patient cannot participate. SKIN: No significant ecchymosis, rash, or signs of pruritus noted. MUSCULOSKELETAL EXAM: No significant joint swelling noted. Patient cannot participate in musculoskeletal exam Results Laboratory Results: 08/15/17 04:18 08/15/17 04:18 08/15/17 08/15/17 08/15/17 04:18 04:18 05:00 WBC 8.1 RBC 3.67 L Hgb 11.8 L Hct 34.6 L MCV 94 MCH 32.0 MCHC 33.9 RDW 13.6 Plt Count 182 Seg Neutrophils % Not Reportable Lymphocytes % Not Reportable Monocytes % Not Reportable Eosinophils % Not Reportable Basophils % Not Reportable Absolute Neutrophils Not Reportable Absolute Lymphocytes Not Reportable Absolute Monocytes Not Reportable Absolute Eosinophils Not Reportable Absolute Basophils Not Reportable Carbonic Acid 1.11 HCO3/H2CO3 Ratio 22:1 ABG pH 7.44 ABG pCO2 36.9 ABG pO2 73.4 L ABG HCO3 24.7 ABG O2 Saturation 95.4 ABG Base Excess 0.8 FiO2 35% Sodium 143.2 Potassium 3.8 Chloride 106 Carbon Dioxide 26 Anion Gap 11 BUN 15 Creatinine 0.51 L Est GFR ( Amer) > 60 Est GFR (Non-Af Amer) > 60 Glucose 124 H Calcium 8.8 Magnesium 2.3 Total Bilirubin 0.2 AST 17 ALT 25 Alkaline Phosphatase 37 L Total Protein 6.1 L Albumin 3.3 L 08/10/17 08:44 Blood Blood Culture - Final NO GROWTH IN 5 DAYS 08/11/17 14:20 Bronchial Washings Gram Stain - Final 08/11/17 14:20 Bronchial Washings Bronchial Washings Culture - Final Streptococcus Pneumoniae Normal Jody 08/11/17 08/11/17 08/11/17 03:58 08:16 08:16 Creatine Kinase 452 H CK-MB (CK-2) 3.40 Troponin I < 0.012 NT-Pro-B Natriuret Pep 234 H 08/12/17 03:56 Creatine Kinase CK-MB (CK-2) Troponin I NT-Pro-B Natriuret Pep 80 EKG Comments: Twelve-lead EKG reviewed. Showed some evolving T-wave changes indicative of acute pericarditis. Impressions: Chest X-Ray 08/15/17 06:00 IMPRESSION: 1. Support tubes and lines are unchanged. No right-sided pneumothorax identified. Assessment & Plan - Diagnosis (1) Acute respiratory failure Qualifiers: Respiratory failure complication: hypoxia Qualified Code(s): J96.01 - Acute respiratory failure with hypoxia Is this a current diagnosis for this admission?: Yes (2) Asthma with status asthmaticus in adult Qualifiers: Asthma severity: severe Asthma persistence: persistent Qualified Code(s) : J45.52 - Severe persistent asthma with status asthmaticus Is this a current diagnosis for this admission?: Yes (3) Abnormal electrocardiogram Is this a current diagnosis for this admission?: Yes (4) Pericarditis Qualifiers: Pericarditis type: unspecified type Chronicity: unspecified Qualified Code(s): I31.9 - Disease of pericardium, unspecified Is this a current diagnosis for this admission?: Yes (5) Hypertension Qualifiers: Hypertension type: essential hypertension Qualified Code(s): I10 - Essential (primary) hypertension Is this a current diagnosis for this admission?: Yes (6) Tachycardia Is this a current diagnosis for this admission?: Yes - Notes Notes: Patient still had significant respiratory distress and is still intubated and sedated. Patient still has significant wheezing. Pericarditis: This is being suspected. Patient is showing some EKG changes indicative of pericarditis but will repeat EKG every other day. Patient being intubated is not able to complain of any chest pain. Tachycardia: Secondary to respiratory distress and metabolic reason. Possible withdrawal. Hypertension: Blood pressure under reasonable control. - Time Time with patient: 15-25 minutes - CODE STATUS was discussed, patient remains full code. Surrogate decision-maker unchanged. Multiple medical problems were addressed. More than 50% of the time spent coordinating care, discussing management plans with involved caregivers. Management plans discussed with involved personnels. Medical decision making was of moderate to high complexity , patient's has multiple comorbidities. Medications reviewed and adjusted accordingly: Yes
[2017-08-15] MEDS: FAMOTIDINE INJ/PF 20 MG/2 ML SDV IV SCH ×2 (10:15→22:25)
[2017-08-15] MEDS: METOPROLOL TARTRATE 50 MG TABLET NG SCH ×2 (10:15→22:26)
[2017-08-15] MEDS: ENOXAPARIN SODIUM INJ 40 MG/0.4 ML DISP.SYRIN SUBCUT SCH (10:16)
[2017-08-15] MEDS: LOSARTAN POTASSIUM 25 MG TABLET PO SCH (10:16)
--- NOTE | 2017-08-15 12:03 | PDOC PROGRESS REPORT ---
Subjective Progress Note for:: 08/15/17 Subjective:: I see patient lying in bed. She is intubated and she is on full mechanical support. She tried to open her eyes when I called him. Currently patient is off propofol. Her repeat chest x-ray reported as no residual pneumothorax. Reason For Visit: ASTHMA,RESPIRATORY FAILURE,RESPIRATORY ACIDOSIS Physical Exam Vital Signs: Temp Pulse Resp BP Pulse Ox 98.4 F 103 H 24 H 129/88 H 93 08/15/17 06:19 08/15/17 08:32 08/15/17 08:32 08/15/17 06:19 08/15/17 08:32 Intake & Output 08/14/17 08/15/17 08/16/17 06:59 06:59 06:59 Intake Total 4305 4209 Output Total 2320 2757 300 Balance 1985 1452 -300 Weight 70 kg 71.2 kg General appearance: PRESENT: no acute distress Head exam: PRESENT: atraumatic, normocephalic Respiratory exam: PRESENT: clear to auscultation lilo. ABSENT: rales, rhonchi, wheezes Cardiovascular exam: PRESENT: RRR Results Laboratory Results: 08/15/17 04:18 08/15/17 04:18 08/15/17 08/15/17 08/15/17 04:18 04:18 05:00 WBC 8.1 RBC 3.67 L Hgb 11.8 L Hct 34.6 L MCV 94 MCH 32.0 MCHC 33.9 RDW 13.6 Plt Count 182 Seg Neutrophils % Not Reportable Lymphocytes % Not Reportable Monocytes % Not Reportable Eosinophils % Not Reportable Basophils % Not Reportable Absolute Neutrophils Not Reportable Absolute Lymphocytes Not Reportable Absolute Monocytes Not Reportable Absolute Eosinophils Not Reportable Absolute Basophils Not Reportable Carbonic Acid 1.11 HCO3/H2CO3 Ratio 22:1 ABG pH 7.44 ABG pCO2 36.9 ABG pO2 73.4 L ABG HCO3 24.7 ABG O2 Saturation 95.4 ABG Base Excess 0.8 FiO2 35% Sodium 143.2 Potassium 3.8 Chloride 106 Carbon Dioxide 26 Anion Gap 11 BUN 15 Creatinine 0.51 L Est GFR ( Amer) > 60 Est GFR (Non-Af Amer) > 60 Glucose 124 H Calcium 8.8 Magnesium 2.3 Total Bilirubin 0.2 AST 17 ALT 25 Alkaline Phosphatase 37 L Total Protein 6.1 L Albumin 3.3 L 08/10/17 08:44 Blood Blood Culture - Final NO GROWTH IN 5 DAYS 08/11/17 14:20 Bronchial Washings Gram Stain - Final 08/11/17 14:20 Bronchial Washings Bronchial Washings Culture - Final Streptococcus Pneumoniae Normal Jody 08/11/17 08/11/17 08/11/17 03:58 08:16 08:16 Creatine Kinase 452 H CK-MB (CK-2) 3.40 Troponin I < 0.012 NT-Pro-B Natriuret Pep 234 H 08/12/17 03:56 Creatine Kinase CK-MB (CK-2) Troponin I NT-Pro-B Natriuret Pep 80 Impressions: Chest X-Ray 08/15/17 06:00 IMPRESSION: 1. Support tubes and lines are unchanged. No right-sided pneumothorax identified. Assessment & Plan - Diagnosis (1) ETOH abuse Is this a current diagnosis for this admission?: Yes Plan: I will aids counselor the patient when she is extubated (2) Pneumothorax on right Is this a current diagnosis for this admission?: Yes Plan: Her latest chest x-ray reported as no residual pneumothorax. (3) Acute respiratory failure Qualifiers: Respiratory failure complication: hypoxia Qualified Code(s): J96.01 - Acute respiratory failure with hypoxia Is this a current diagnosis for this admission?: Yes Plan: Patient has been intubated and on mechanical ventilation. She is being followed by mill representative. (4) Asthma with status asthmaticus in adult Qualifiers: Asthma severity: severe Asthma persistence: persistent Qualified Code(s) : J45.52 - Severe persistent asthma with status asthmaticus Is this a current diagnosis for this admission?: Yes Plan: Has subsided with intubation and mechanical ventilation.
[2017-08-15] MEDS: NITROGLYCERIN 2% OINTMENT 1 GM PACKET TP SCH (17:01)
[2017-08-15] MEDS: MONTELUKAST SODIUM 10 MG TABLET PO SCH (22:27)
[2017-08-15] MEDS: THIAMINE HCL 100 MG in NORMAL SALINE 50 ML IV SCH (22:27)
[2017-08-15] MEDS: LORAZEPAM INJ 2 MG/1 ML VIAL IV PRN (22:28)
[2017-08-15] MEDS: HYDRALAZINE HCL INJ/PF 20 MG/1 ML SDV IV PRN (22:28)
[2017-08-16] MEDS: IPRATROPIUM/ALBUTEROL 0.5-2.5 MG/3 ML AMPUL NEB SCH ×4 (02:01→19:56)
[2017-08-16] MEDS: NITROGLYCERIN 2% OINTMENT 1 GM PACKET TP SCH ×4 (02:08→17:09)
[2017-08-16] MEDS: METHYLPREDNISOLONE INJ 125 MG/2 ML SDV IV SCH ×3 (02:09→17:09)
[2017-08-16] MEDS: PROPOFOL 100 ML IV PRN ×5 (02:09→21:54)
[2017-08-16] MEDS: AMPICILLIN SODIUM/SULBACTAM NA 1.5 GM in NORMAL SALINE 50 ML IV SCH ×4 (02:09→21:54)
[2017-08-16] MEDS: MIDAZOLAM HCL 50 MG/100 ML RTUINJ IV PRN ×2 (05:44→15:26)
[2017-08-16] MEDS: RINGERS SOLUTION,LACTATED 1,000 ML IV PRN ×2 (05:45→17:15)
[2017-08-16 05:49] LABS: ARTERIAL BLOOD BASE EXCESS 0.7 mmol/L; ARTERIAL BLOOD H2CO3 1.04 mmol/L (1.05-1.35); ARTERIAL BLOOD HCO3 24.1 mmol/L (20-26); ARTERIAL BLOOD O2 SATURATION 97.5 % (94-98); ARTERIAL BLOOD PCO2 34.4 mmHg (35-45); ARTERIAL BLOOD PH 7.46 (7.35-7.45); ARTERIAL BLOOD PO2 91.8 mmHg (80-100); ARTERIAL BLOOD TOTAL CO2 25.2 mmol/L (21-25)
[2017-08-16 05:54] LABS: ARTERIAL BLOOD FIO2 35%
[2017-08-16 05:55] LABS: HEMATOCRIT 32.3 % (36.0-47.0); HEMOGLOBIN 10.9 g/dL (12.0-15.5); MEAN CORPUSCULAR HEMOGLOBIN 32.1 pg (27.0-33.4); MEAN CORPUSCULAR HGB CONC 33.8 g/dL (32.0-36.0); MEAN CORPUSCULAR VOLUME 95 fl (80-97); PLATELET COUNT 176 10^3/uL (150-450); RED CELL DISTRIBUTION WIDTH 13.1 % (11.5-14.0)
[2017-08-16 06:03] LABS: ALANINE AMINOTRANSFERASE 31 U/L (9-52); ALBUMIN 3.1 g/dL (3.5-5.0); ALKALINE PHOSPHATASE 38 U/L (38-126); ANION GAP 8 (5-19); ASPARTATE AMINO TRANSFERASE 19 U/L (14-36); BLOOD UREA NITROGEN 14 mg/dL (7-20); CALCIUM 8.4 mg/dL (8.4-10.2); CARBON DIOXIDE 26 mmol/L (22-30); CHLORIDE 108 mmol/L (98-107); GLUCOSE 110 mg/dL (75-110); POTASSIUM 3.4 mmol/L (3.6-5.0); TOTAL PROTEIN 5.7 g/dL (6.3-8.2)
[2017-08-16 06:07] LABS: BILIRUBIN,TOTAL < 0.1 mg/dL (0.2-1.3)
[2017-08-16 06:17] LABS: ABSOLUTE LYMPHOCYTES# (MANUAL) 1.3 10^3/uL (0.5-4.7); ABSOLUTE MONOCYTES # (MANUAL) 1.2 10^3/uL (0.1-1.4); ABSOLUTE NEUTROPHILS# (MANUAL) 7.5 10^3/uL (1.7-8.2); BASOPHILS % (MANUAL) 0 % (0-2); EOSINOPHILS % (MANUAL) 0 % (0-6); LYMPHOCYTES % (MANUAL) 13 % (13-45); MONOCYTES % (MANUAL) 12 % (3-13); SEGMENTED NEUTROPHILS % (MAN) 75 % (42-78); TOTAL CELLS COUNTED 100
[2017-08-16 06:19] LABS: BURR CELLS SLIGHT; OVALOCYTES SLIGHT; PLATELET COMMENT ADEQUATE; POIKILOCYTOSIS 1+; TEAR DROP CELLS SLIGHT
--- NOTE | 2017-08-16 07:00 | RADIOLOGY REPORT (SQ) ---
EXAM DE EXAM DESCRIPTION: CHEST SINGLE VIEW CLINICAL HISTORY: resp failure status asmaticus. Intubated patient. COMPARISON: 08/15/2017 FINDINGS: Single frontal view of the chest. Cardiomediastinal silhouette is stable. Endotracheal tube with tip 5 cm above the sue. NG tube with tip below the diaphragm. Right subclavian central venous catheter with tip in the SVC. Right-sided chest tube is unchanged. No consolidation, pneumothorax, or pleural effusion. No displaced rib fractures identified. Upper abdominal soft tissues are unremarkable. IMPRESSION: 1. Support tubes and lines are unchanged. No right-sided pneumothorax identified. Electronically signed by: Ger Gonzalez 08/16/2017 5:58 AM CDT [employer]- All Rights Reserved
[2017-08-16] MEDS: BUDESONIDE NEB 0.5 MG/2 ML AMPUL NEB SCH ×2 (08:19→19:56)
[2017-08-16] MEDS: ENOXAPARIN SODIUM INJ 40 MG/0.4 ML DISP.SYRIN SUBCUT SCH (09:00)
[2017-08-16] MEDS: FAMOTIDINE INJ/PF 20 MG/2 ML SDV IV SCH ×2 (09:00→23:23)
[2017-08-16] MEDS: LOSARTAN POTASSIUM 50 MG TABLET PO SCH (09:24)
--- NOTE | 2017-08-16 09:30 | EKG REPORT ---
SEVERITY:- ABNORMAL ECG - SINUS RHYTHM ST ELEVATION SUGGESTS PERICARDITIS VS EARLY REPOLARIZATION CHANGES : Confirmed by: Kevin Huff 16-Aug-2017 09:30:05
[2017-08-16] MEDS ORDERED: METOPROLOL TARTRATE 50 MG TABLET PO SCH (10:00)
[2017-08-16] MEDS ORDERED: CLONIDINE HCL 0.2 MG TABLET PO ONE (12:30)
[2017-08-16] MEDS: FENTANYL CITRATE INJ/PF 100 MCG/2 ML AMPUL IV PRN (13:25)
[2017-08-16] MEDS: HYDRALAZINE HCL INJ/PF 20 MG/1 ML SDV IV PRN (13:26)
--- NOTE | 2017-08-16 13:49 | PDOC PROGRESS REPORT ---
Subjective Progress Note for:: 08/16/17 Subjective:: Patient was seen on morning rounds on the of this month. Patient about the same and has made some progress. There is no significant change in general condition. Wheezing is noted to be much less. Patient remains intubated, sedated, patient however looks comfortable and in acute distress. Telemetry strips shows patient maintaining sinus tachycardia. This is improved. Twelve-lead EKG reviewed. Shows upright T waves now. Therefore difficult to say if patient has acute pericarditis on not. Medications reviewed. Reason For Visit: ASTHMA,RESPIRATORY FAILURE,RESPIRATORY ACIDOSIS Physical Exam Vital Signs: Temp Pulse Resp BP Pulse Ox 97.3 F 101 H 20 147/107 H 96 08/16/17 10:01 08/16/17 08:20 08/16/17 10:01 08/16/17 10:01 08/16/17 12:00 Intake & Output 08/15/17 08/16/17 08/17/17 06:59 06:59 06:59 Intake Total 4209 3861 Output Total 2757 3730 775 Balance 1452 131 -775 Weight 71.2 kg 72.3 kg Exam: GENERAL: well-nourished and in no acute distress. Patient is intubated and sedated. Orientation cannot be checked HEAD: Atraumatic, normocephalic. EYES: Pupils equal round and reactive to light, extraocular movements could not be checked, sclera anicteric, conjunctiva are normal. ENT: TMs normal, nares patent, oropharynx clear without exudates. Moist mucous membranes. No oral ulcerations or bleeding gums noted NECK: supple without lymphadenopathy or JVD. Trachea is central. No cervical or axillary lymphadenopathy noted. Carotids are 2+ LUNGS: Breath sounds mostly clear to auscultation patient is noted to have bibasal crackles at the extreme bases CHEST: Palpation of the chest wall shows no significant chest wall tenderness or abnormalities. HEART: [place] HOT SHOT, No PSH, 2/6 VAISHNAVI aortic area, 1/6 mae systolic murmur mitral area , no rubs or gallops. ABDOMEN: Soft, no significant tenderness appreciated, normoactive bowel sounds. No guarding, no rebound. No rigidity noted . No masses appreciated. EXTREMITIES: Pedal pulses are 1-2+, no calf tenderness noted, 1+ pedal edema noted. No clubbing or cyanosis. NEUROLOGICAL: The patient cannot participate in the neurological exam but no facial asymmetry noted. Extremities slightly hypotonic PSYCH: This cannot be evaluated. Patient cannot participate. SKIN: No significant ecchymosis, rash, or signs of pruritus noted. MUSCULOSKELETAL EXAM: No significant joint swelling noted. Patient cannot participate in musculoskeletal exam Results Laboratory Results: 08/16/17 05:33 08/16/17 05:33 08/16/17 08/16/17 08/16/17 05:33 05:33 05:33 WBC 10.0 RBC 3.40 L Hgb 10.9 L Hct 32.3 L MCV 95 MCH 32.1 MCHC 33.8 RDW 13.1 Plt Count 176 Seg Neutrophils % Not Reportable Lymphocytes % Not Reportable Monocytes % Not Reportable Eosinophils % Not Reportable Basophils % Not Reportable Absolute Neutrophils Not Reportable Absolute Lymphocytes Not Reportable Absolute Monocytes Not Reportable Absolute Eosinophils Not Reportable Absolute Basophils Not Reportable Carbonic Acid 1.04 L HCO3/H2CO3 Ratio 23:1 ABG pH 7.46 H ABG pCO2 34.4 L ABG pO2 91.8 ABG HCO3 24.1 ABG O2 Saturation 97.5 ABG Base Excess 0.7 FiO2 35% Sodium 142.0 Potassium 3.4 L Chloride 108 H Carbon Dioxide 26 Anion Gap 8 BUN 14 Creatinine 0.49 L Est GFR ( Amer) > 60 Est GFR (Non-Af Amer) > 60 Glucose 110 Calcium 8.4 Magnesium 2.2 Total Bilirubin < 0.1 L AST 19 ALT 31 Alkaline Phosphatase 38 Total Protein 5.7 L Albumin 3.1 L 08/11/17 08/11/17 08/11/17 03:58 08:16 08:16 Creatine Kinase 452 H CK-MB (CK-2) 3.40 Troponin I < 0.012 NT-Pro-B Natriuret Pep 234 H 08/12/17 03:56 Creatine Kinase CK-MB (CK-2) Troponin I NT-Pro-B Natriuret Pep 80 Impressions: Chest X-Ray 08/16/17 06:00 IMPRESSION: 1. Support tubes and lines are unchanged. No right-sided pneumothorax identified. Assessment & Plan - Diagnosis (1) Acute respiratory failure Qualifiers: Respiratory failure complication: hypoxia Qualified Code(s): J96.01 - Acute respiratory failure with hypoxia Is this a current diagnosis for this admission?: Yes (2) Asthma with status asthmaticus in adult Qualifiers: Asthma severity: severe Asthma persistence: persistent Qualified Code(s) : J45.52 - Severe persistent asthma with status asthmaticus Is this a current diagnosis for this admission?: Yes (3) Abnormal electrocardiogram Is this a current diagnosis for this admission?: Yes (4) Pericarditis Qualifiers: Pericarditis type: unspecified type Chronicity: unspecified Qualified Code(s): I31.9 - Disease of pericardium, unspecified Is this a current diagnosis for this admission?: Yes (5) Hypertension Qualifiers: Hypertension type: essential hypertension Qualified Code(s): I10 - Essential (primary) hypertension Is this a current diagnosis for this admission?: Yes (6) Tachycardia Is this a current diagnosis for this admission?: Yes - Notes Notes: Twelve-lead EKGs were obtained. Multiple were obtained. Its difficult to assess based on EKG whether patient had acute pericarditis or not. Cannot rule it out completely. As regards hypertension, blood pressure seems reasonably well controlled. As regards pulmonary status, this is being well managed by the hospitalist in conjunction with digital data analyst. At this point will sign off. Please reconsult if needed. Will recommend obtaining an EKG sometimes next week to look for any evolving changes. - Time Time with patient: 15-25 minutes - CODE STATUS was discussed, patient remains full code. Surrogate decision-maker unchanged. Multiple medical problems were addressed. More than 50% of the time spent coordinating care, discussing management plans with involved caregivers. Management plans discussed with involved personnels. Medical decision making was of moderate to high complexity , patient's has multiple comorbidities. Medications reviewed and adjusted accordingly: Yes
--- NOTE | 2017-08-16 13:57 | PDOC PROGRESS REPORT ---
Subjective Subjective:: This is a 32 years old black female patient with recurrent admission for respiratory distress. Patient has history of asthma which is poorly controlled due to medical noncompliance. Patient has also history of alcohol abuse, status asthmaticus and respiratory failure for which she had been intubated at different occasions. During this admission patient presented with severe respiratory distress with O2 saturation of 79% she was given several rounds of DuoNeb Solu-Medrol she was put on BiPAP despite all of this major patient continued to desaturate and at this point emergency intubation was required. Currently patient is intubated and she is on medical mechanical ventilation. Reason For Visit: ASTHMA,RESPIRATORY FAILURE,RESPIRATORY ACIDOSIS Physical Exam Vital Signs: Temp Pulse Resp BP Pulse Ox 97.3 F 101 H 20 147/107 H 96 08/16/17 10:01 08/16/17 08:20 08/16/17 10:01 08/16/17 10:01 08/16/17 12:00 Intake & Output 08/15/17 08/16/17 08/17/17 06:59 06:59 06:59 Intake Total 4209 3861 Output Total 2757 3730 775 Balance 1452 131 -775 Weight 71.2 kg 72.3 kg Respiratory exam: PRESENT: clear to auscultation lilo Cardiovascular exam: PRESENT: tachycardia Results Laboratory Results: 08/16/17 05:33 08/16/17 05:33 08/16/17 08/16/17 08/16/17 05:33 05:33 05:33 WBC 10.0 RBC 3.40 L Hgb 10.9 L Hct 32.3 L MCV 95 MCH 32.1 MCHC 33.8 RDW 13.1 Plt Count 176 Seg Neutrophils % Not Reportable Lymphocytes % Not Reportable Monocytes % Not Reportable Eosinophils % Not Reportable Basophils % Not Reportable Absolute Neutrophils Not Reportable Absolute Lymphocytes Not Reportable Absolute Monocytes Not Reportable Absolute Eosinophils Not Reportable Absolute Basophils Not Reportable Carbonic Acid 1.04 L HCO3/H2CO3 Ratio 23:1 ABG pH 7.46 H ABG pCO2 34.4 L ABG pO2 91.8 ABG HCO3 24.1 ABG O2 Saturation 97.5 ABG Base Excess 0.7 FiO2 35% Sodium 142.0 Potassium 3.4 L Chloride 108 H Carbon Dioxide 26 Anion Gap 8 BUN 14 Creatinine 0.49 L Est GFR ( Amer) > 60 Est GFR (Non-Af Amer) > 60 Glucose 110 Calcium 8.4 Magnesium 2.2 Total Bilirubin < 0.1 L AST 19 ALT 31 Alkaline Phosphatase 38 Total Protein 5.7 L Albumin 3.1 L 08/11/17 08/11/17 08/11/17 03:58 08:16 08:16 Creatine Kinase 452 H CK-MB (CK-2) 3.40 Troponin I < 0.012 NT-Pro-B Natriuret Pep 234 H 08/12/17 03:56 Creatine Kinase CK-MB (CK-2) Troponin I NT-Pro-B Natriuret Pep 80 Impressions: Chest X-Ray 08/16/17 06:00 IMPRESSION: 1. Support tubes and lines are unchanged. No right-sided pneumothorax identified. Assessment & Plan - Diagnosis (1) ETOH abuse Is this a current diagnosis for this admission?: Yes Plan: I will prison classification counselor the patient when she is extubated (2) Pneumothorax on right Is this a current diagnosis for this admission?: Yes Plan: Her latest chest x-ray reported as no residual pneumothorax. (3) Acute respiratory failure Qualifiers: Respiratory failure complication: hypoxia Qualified Code(s): J96.01 - Acute respiratory failure with hypoxia Is this a current diagnosis for this admission?: Yes Plan: Patient has been intubated and on mechanical ventilation. She is being followed by loader helper sorting yard. (4) Asthma with status asthmaticus in adult Qualifiers: Asthma severity: severe Asthma persistence: persistent Qualified Code(s) : J45.52 - Severe persistent asthma with status asthmaticus Is this a current diagnosis for this admission?: Yes Plan: Has subsided with intubation and mechanical ventilation.
--- NOTE | 2017-08-16 15:44 | PDOC PROGRESS REPORT ---
Subjective Progress Note for:: 08/14/17 Subjective:: Intubated and sedated Reason For Visit: ASTHMA,RESPIRATORY FAILURE,RESPIRATORY ACIDOSIS Physical Exam Vital Signs: Temp Pulse Resp BP Pulse Ox 98.8 F 100 20 129/88 H 100 08/14/17 07:50 08/14/17 07:50 08/14/17 07:50 08/14/17 07:50 08/14/17 07:50 Intake & Output 08/13/17 08/14/17 08/15/17 06:59 06:59 06:59 Intake Total 4024 4305 Output Total 2220 2320 375 Balance [id number] Weight 68.3 kg 70 kg General appearance: PRESENT: no acute distress, thin. ABSENT: cooperative, disheveled Head exam: PRESENT: atraumatic, normocephalic Eye exam: PRESENT: conjunctiva pale. ABSENT: nystagmus, periorbital swelling, scleral icterus Mouth exam: PRESENT: neck supple, tongue midline, other - ET tube in placeET tube in place Neck exam: PRESENT: tracheal deviation, tracheostomy. ABSENT: carotid bruit, JVD, lymphadenopathy, thyromegaly Respiratory exam: PRESENT: decreased breath sounds, prolonged expiratory phas, rales, rhonchi, symmetrical, unlabored, wheezes. ABSENT: retraction, stridor Cardiovascular exam: PRESENT: RRR, +S1, +S2, tachycardia Pulses: PRESENT: normal radial pulses GI/Abdominal exam: PRESENT: diminished bowel sounds, soft Extremities exam: ABSENT: clubbing, joint swelling Musculoskeletal exam: ABSENT: deformity, dislocation Neurological exam: ABSENT: awake, oriented to person Skin exam: PRESENT: dry, warm Results Laboratory Results: 08/14/17 05:25 08/14/17 05:25 08/14/17 08/14/17 08/14/17 05:25 05:25 05:25 WBC 11.0 H RBC 3.90 Hgb 12.3 Hct 36.6 MCV 94 MCH 31.5 MCHC 33.6 RDW 13.2 Plt Count 180 Seg Neutrophils % Not Reportable Lymphocytes % Not Reportable Monocytes % Not Reportable Eosinophils % Not Reportable Basophils % Not Reportable Absolute Neutrophils Not Reportable Absolute Lymphocytes Not Reportable Absolute Monocytes Not Reportable Absolute Eosinophils Not Reportable Absolute Basophils Not Reportable Carbonic Acid 1.19 HCO3/H2CO3 Ratio 22:1 ABG pH 7.44 ABG pCO2 39.6 ABG pO2 74.3 L ABG HCO3 26.5 H ABG O2 Saturation 95.5 ABG Base Excess 2.3 FiO2 40% Sodium 143.0 Potassium 3.8 Chloride 107 Carbon Dioxide 26 Anion Gap 10 BUN 13 Creatinine 0.48 L Est GFR ( Amer) > 60 Est GFR (Non-Af Amer) > 60 Glucose 125 H Calcium 9.1 Magnesium 2.6 H Total Bilirubin 0.2 AST 17 ALT 26 Alkaline Phosphatase 44 Total Protein 6.7 Albumin 3.6 08/11/17 14:20 Bronchial Washings Gram Stain - Final 08/11/17 14:20 Bronchial Washings Bronchial Washings Culture - Final Streptococcus Pneumoniae Normal Jody 08/11/17 20:45 Cade Catheter Legionella Urinary Antigen - Final 08/11/17 14:20 Bronchial Washings Fungal Smear - Final 08/11/17 14:20 Bronchial Washings Fungal Smear - Final 08/11/17 14:20 Bronchial Washings Chlamydia pneumoniae (PCR) - Final 08/11/17 14:20 Bronchial Washings AFB Smear Concentration - Final 08/11/17 14:20 Bronchial Washings Acid Fast Bacilli Smear - Final 08/11/17 08/11/17 08/11/17 03:58 08:16 08:16 Creatine Kinase 452 H CK-MB (CK-2) 3.40 Troponin I < 0.012 NT-Pro-B Natriuret Pep 234 H 08/12/17 03:56 Creatine Kinase CK-MB (CK-2) Troponin I NT-Pro-B Natriuret Pep 80 Impressions: Chest X-Ray 08/14/17 06:00 IMPRESSION: 1. Support tubes and lines are unchanged. No right-sided pneumothorax identified. Assessment & Plan - Diagnosis (1) Asthma Qualifiers: Asthma severity: severe Asthma persistence: unspecified Asthma complication type: with status asthmaticus Qualified Code(s): J45.902 - Unspecified asthma with status asthmaticus Is this a current diagnosis for this admission?: Yes Plan: Increased breath sounds wheezing waxes and wanes but it remains persistent (2) Acute respiratory failure Qualifiers: Respiratory failure complication: hypoxia Qualified Code(s): J96.01 - Acute respiratory failure with hypoxia Is this a current diagnosis for this admission?: Yes Plan: Oxygenation(Still requires high FiO2) and ventilation adequate at this time (3) Non compliance w medication regimen Is this a current diagnosis for this admission?: Yes (4) Pneumothorax on right Is this a current diagnosis for this admission?: Yes Plan: No air leak Pleur-evac to waterseal - Time Total Critical Time (Minutes): 45 Within: within 72 hours
--- NOTE | 2017-08-16 15:47 | PDOC PROGRESS REPORT ---
Subjective Progress Note for:: 08/15/17 Subjective:: Intubated and sedated Reason For Visit: ASTHMA,RESPIRATORY FAILURE,RESPIRATORY ACIDOSIS Physical Exam Vital Signs: Temp Pulse Resp BP Pulse Ox 98.4 F 103 H 24 H 129/88 H 93 08/15/17 06:19 08/15/17 08:32 08/15/17 08:32 08/15/17 06:19 08/15/17 08:32 Intake & Output 08/14/17 08/15/17 08/16/17 06:59 06:59 06:59 Intake Total 4305 4209 Output Total 2320 2757 300 Balance 1984 1452 -300 Weight 70 kg 71.2 kg General appearance: PRESENT: no acute distress, thin. ABSENT: cooperative Head exam: PRESENT: atraumatic, normocephalic Eye exam: PRESENT: conjunctiva pale. ABSENT: nystagmus, periorbital swelling, scleral icterus Mouth exam: PRESENT: dry mucosa, neck supple, tongue midline, other - ET tube in place Neck exam: ABSENT: carotid bruit, JVD, lymphadenopathy, thyromegaly, tracheal deviation, tracheostomy Respiratory exam: PRESENT: decreased breath sounds, prolonged expiratory phas, rales, rhonchi, symmetrical, unlabored, wheezes. ABSENT: retraction, stridor Cardiovascular exam: PRESENT: RRR, +S1, +S2, tachycardia Pulses: PRESENT: normal radial pulses GI/Abdominal exam: PRESENT: diminished bowel sounds, soft Extremities exam: ABSENT: clubbing, joint swelling Musculoskeletal exam: ABSENT: deformity, dislocation Neurological exam: ABSENT: awake, oriented to person Skin exam: PRESENT: dry, warm Results Laboratory Results: 08/15/17 04:18 08/15/17 04:18 08/15/17 08/15/17 08/15/17 04:18 04:18 05:00 WBC 8.1 RBC 3.67 L Hgb 11.8 L Hct 34.6 L MCV 94 MCH 32.0 MCHC 33.9 RDW 13.6 Plt Count 182 Seg Neutrophils % Not Reportable Lymphocytes % Not Reportable Monocytes % Not Reportable Eosinophils % Not Reportable Basophils % Not Reportable Absolute Neutrophils Not Reportable Absolute Lymphocytes Not Reportable Absolute Monocytes Not Reportable Absolute Eosinophils Not Reportable Absolute Basophils Not Reportable Carbonic Acid 1.11 HCO3/H2CO3 Ratio 22:1 ABG pH 7.44 ABG pCO2 36.9 ABG pO2 73.4 L ABG HCO3 24.7 ABG O2 Saturation 95.4 ABG Base Excess 0.8 FiO2 35% Sodium 143.2 Potassium 3.8 Chloride 106 Carbon Dioxide 26 Anion Gap 11 BUN 15 Creatinine 0.51 L Est GFR ( Amer) > 60 Est GFR (Non-Af Amer) > 60 Glucose 124 H Calcium 8.8 Magnesium 2.3 Total Bilirubin 0.2 AST 17 ALT 25 Alkaline Phosphatase 37 L Total Protein 6.1 L Albumin 3.3 L 08/10/17 08:44 Blood Blood Culture - Final NO GROWTH IN 5 DAYS 08/11/17 14:20 Bronchial Washings Gram Stain - Final 08/11/17 14:20 Bronchial Washings Bronchial Washings Culture - Final Streptococcus Pneumoniae Normal Jody 08/11/17 08/11/17 08/11/17 03:58 08:16 08:16 Creatine Kinase 452 H CK-MB (CK-2) 3.40 Troponin I < 0.012 NT-Pro-B Natriuret Pep 234 H 08/12/17 03:56 Creatine Kinase CK-MB (CK-2) Troponin I NT-Pro-B Natriuret Pep 80 Impressions: Chest X-Ray 08/15/17 06:00 IMPRESSION: 1. Support tubes and lines are unchanged. No right-sided pneumothorax identified. Assessment & Plan - Diagnosis (1) Asthma Qualifiers: Asthma severity: severe Asthma persistence: unspecified Asthma complication type: with status asthmaticus Qualified Code(s): J45.902 - Unspecified asthma with status asthmaticus Is this a current diagnosis for this admission?: Yes Plan: Increased breath sounds wheezing waxes and wanes but it remains persistent Airway pressures in the mid to upper 20s initially had been high 40s (2) Acute respiratory failure Qualifiers: Respiratory failure complication: hypoxia Qualified Code(s): J96.01 - Acute respiratory failure with hypoxia Is this a current diagnosis for this admission?: Yes Plan: Oxygenation(Still requires high FiO2) and ventilation adequate at this time (3) Non compliance w medication regimen Is this a current diagnosis for this admission?: Yes (4) Pneumothorax on right Is this a current diagnosis for this admission?: Yes Plan: No air leak Pleur-evac to waterseal - Time Total Critical Time (Minutes): 45
--- NOTE | 2017-08-16 15:51 | PDOC PROGRESS REPORT ---
Subjective Progress Note for:: 08/16/17 Subjective:: Intubated and sedated;Becomes tachypneic and increased tachycardic during sedation vacation Reason For Visit: ASTHMA,RESPIRATORY FAILURE,RESPIRATORY ACIDOSIS Physical Exam Vital Signs: Temp Pulse Resp BP Pulse Ox 98.1 F 84 20 162/116 H 99 08/16/17 06:01 08/16/17 02:01 08/16/17 06:01 08/16/17 06:01 08/16/17 06:01 Intake & Output 08/15/17 08/16/17 08/17/17 06:59 06:59 06:59 Intake Total 4209 3861 Output Total 2757 3730 Balance 1452 131 Weight 71.2 kg 72.3 kg General appearance: PRESENT: no acute distress, disheveled, thin. ABSENT: cooperative Head exam: PRESENT: atraumatic, normocephalic Eye exam: PRESENT: conjunctiva pale. ABSENT: EOMI, nystagmus, periorbital swelling, scleral icterus Mouth exam: PRESENT: dry mucosa, neck supple, tongue midline, other - ET tube in place Neck exam: ABSENT: carotid bruit, JVD, lymphadenopathy, thyromegaly, tracheal deviation, tracheostomy Respiratory exam: PRESENT: decreased breath sounds, prolonged expiratory phas, rales, rhonchi, symmetrical, wheezes. ABSENT: retraction, stridor, tachypnea Cardiovascular exam: PRESENT: RRR, +S1, +S2, tachycardia Pulses: PRESENT: normal radial pulses GI/Abdominal exam: PRESENT: diminished bowel sounds, soft Extremities exam: ABSENT: clubbing, joint swelling Musculoskeletal exam: ABSENT: deformity, dislocation Neurological exam: ABSENT: awake, oriented to person Skin exam: PRESENT: dry, warm Results Laboratory Results: 08/16/17 05:33 08/16/17 05:33 08/16/17 08/16/17 08/16/17 05:33 05:33 05:33 WBC 10.0 RBC 3.40 L Hgb 10.9 L Hct 32.3 L MCV 95 MCH 32.1 MCHC 33.8 RDW 13.1 Plt Count 176 Seg Neutrophils % Not Reportable Lymphocytes % Not Reportable Monocytes % Not Reportable Eosinophils % Not Reportable Basophils % Not Reportable Absolute Neutrophils Not Reportable Absolute Lymphocytes Not Reportable Absolute Monocytes Not Reportable Absolute Eosinophils Not Reportable Absolute Basophils Not Reportable Carbonic Acid 1.04 L HCO3/H2CO3 Ratio 23:1 ABG pH 7.46 H ABG pCO2 34.4 L ABG pO2 91.8 ABG HCO3 24.1 ABG O2 Saturation 97.5 ABG Base Excess 0.7 FiO2 35% Sodium 142.0 Potassium 3.4 L Chloride 108 H Carbon Dioxide 26 Anion Gap 8 BUN 14 Creatinine 0.49 L Est GFR ( Amer) > 60 Est GFR (Non-Af Amer) > 60 Glucose 110 Calcium 8.4 Magnesium 2.2 Total Bilirubin < 0.1 L AST 19 ALT 31 Alkaline Phosphatase 38 Total Protein 5.7 L Albumin 3.1 L 08/10/17 08:44 Blood Blood Culture - Final NO GROWTH IN 5 DAYS 08/11/17 08/11/17 08/11/17 03:58 08:16 08:16 Creatine Kinase 452 H CK-MB (CK-2) 3.40 Troponin I < 0.012 NT-Pro-B Natriuret Pep 234 H 08/12/17 03:56 Creatine Kinase CK-MB (CK-2) Troponin I NT-Pro-B Natriuret Pep 80 Impressions: Chest X-Ray 08/16/17 06:00 IMPRESSION: 1. Support tubes and lines are unchanged. No right-sided pneumothorax identified. Assessment & Plan - Diagnosis (1) Asthma Qualifiers: Asthma severity: severe Asthma persistence: unspecified Asthma complication type: with status asthmaticus Qualified Code(s): J45.902 - Unspecified asthma with status asthmaticus Is this a current diagnosis for this admission?: Yes Plan: Increased breath sounds wheezing waxes and wanes but it remains persistent Airway pressures in the mid to upper 20s initially had been high 40s (2) Acute respiratory failure Qualifiers: Respiratory failure complication: hypoxia Qualified Code(s): J96.01 - Acute respiratory failure with hypoxia Is this a current diagnosis for this admission?: Yes Plan: Oxygenation(Still requires high FiO2) and ventilation adequate at this time (3) Non compliance w medication regimen Is this a current diagnosis for this admission?: Yes (4) Pneumothorax on right Is this a current diagnosis for this admission?: Yes Plan: No air leak Pleur-evac to waterseal - Time Total Critical Time (Minutes): 40
[2017-08-16] MEDS: CLONIDINE HCL 0.2 MG TABLET PO SCH (23:23)
[2017-08-16] MEDS: MONTELUKAST SODIUM 10 MG TABLET PO SCH (23:24)
[2017-08-16] MEDS: THIAMINE HCL 100 MG in NORMAL SALINE 50 ML IV SCH (23:24)
[2017-08-17] MEDS: IPRATROPIUM/ALBUTEROL 0.5-2.5 MG/3 ML AMPUL NEB SCH ×4 (01:31→20:22)
[2017-08-17] MEDS: NITROGLYCERIN 2% OINTMENT 1 GM PACKET TP SCH ×3 (05:02→12:05)
[2017-08-17] MEDS: AMPICILLIN SODIUM/SULBACTAM NA 1.5 GM in NORMAL SALINE 50 ML IV SCH ×3 (05:05→14:34)
[2017-08-17] MEDS: CLONIDINE HCL 0.2 MG TABLET PO SCH ×3 (05:07→22:14)
[2017-08-17] MEDS: METHYLPREDNISOLONE INJ 125 MG/2 ML SDV IV SCH ×3 (05:08→18:11)
[2017-08-17 05:29] LABS: ARTERIAL BLOOD BASE EXCESS 2.9 mmol/L; ARTERIAL BLOOD O2 SATURATION 98.9 % (94-98); ARTERIAL BLOOD PH 7.54 (7.35-7.45); ARTERIAL BLOOD TOTAL CO2 25.9 mmol/L (21-25)
[2017-08-17 05:30] LABS: ARTERIAL BLOOD FIO2 35%
[2017-08-17 05:32] LABS: HEMATOCRIT 29.3 % (36.0-47.0); HEMOGLOBIN 10.1 g/dL (12.0-15.5); MEAN CORPUSCULAR HEMOGLOBIN 32.4 pg (27.0-33.4); MEAN CORPUSCULAR HGB CONC 34.5 g/dL (32.0-36.0); MEAN CORPUSCULAR VOLUME 94 fl (80-97); PLATELET COUNT 179 10^3/uL (150-450); RED BLOOD COUNT 3.12 10^6/uL (3.72-5.28); RED CELL DISTRIBUTION WIDTH 13.2 % (11.5-14.0); WHITE BLOOD COUNT 9.3 10^3/uL (4.0-10.5)
[2017-08-17 05:40] LABS: ANION GAP 10 (5-19); BLOOD UREA NITROGEN 13 mg/dL (7-20); CALCIUM 8.5 mg/dL (8.4-10.2); CARBON DIOXIDE 25 mmol/L (22-30); CHLORIDE 106 mmol/L (98-107); GLUCOSE 113 mg/dL (75-110); POTASSIUM 3.3 mmol/L (3.6-5.0)
[2017-08-17 05:56] LABS: ABSOLUTE LYMPHOCYTES# (MANUAL) 1.4 10^3/uL (0.5-4.7); ABSOLUTE MONOCYTES # (MANUAL) 0.6 10^3/uL (0.1-1.4); ABSOLUTE NEUTROPHILS# (MANUAL) 7.3 10^3/uL (1.7-8.2); BASOPHILS % (MANUAL) 0 % (0-2); EOSINOPHILS % (MANUAL) 0 % (0-6); LYMPHOCYTES % (MANUAL) 15 % (13-45); MONOCYTES % (MANUAL) 6 % (3-13); SEGMENTED NEUTROPHILS % (MAN) 79 % (42-78); TOTAL CELLS COUNTED 100
[2017-08-17 05:59] LABS: PLATELET CLUMPS PRESENT; PLATELET COMMENT ADEQUATE; SCHISTOCYTES SLIGHT; TOXIC GRANULATION SLIGHT; TOXIC VACUOLATION PRESENT
[2017-08-17] MEDS: PROPOFOL 100 ML IV PRN ×2 (07:17→11:47)
[2017-08-17] MEDS: BUDESONIDE NEB 0.5 MG/2 ML AMPUL NEB SCH ×2 (07:52→20:22)
--- NOTE | 2017-08-17 08:57 | RADIOLOGY REPORT (SQ) ---
EXAM DESCRIPTION: CHEST SINGLE VIEW COMPLETED DATE/TIME: 08/17/2017 6:09 am REASON FOR STUDY: resp failure COMPARISON: 08/16/2017 EXAM PARAMETERS: NUMBER OF VIEWS: One view. TECHNIQUE: Single frontal radiographic view of the chest acquired. RADIATION DOSE: NA LIMITATIONS: None. FINDINGS: LUNGS AND PLEURA: No opacities, masses or pneumothorax. No pleural effusion. MEDIASTINUM AND HILAR STRUCTURES: No masses. Contour normal. HEART AND VASCULAR STRUCTURES: Heart normal in size. Normal vasculature. BONES: No acute findings. HARDWARE: Right sided chest tube, right subclavian central venous cathete, endotracheal and nasogast fadi tubes, unchanged findings. OTHER: Bilateral nipple rings, unchanged findings. IMPRESSION: 1 Stable examination of the chest. No change in the support tubes and lines. 2. No right-sided pneumothorax identified. TECHNICAL DOCUMENTATION: JOB ID: [id number] [employer]- All Rights Reserved Reading location - IP/workstation name: [email or web address]
[2017-08-17] MEDS: LOSARTAN POTASSIUM 50 MG TABLET PO SCH (09:15)
[2017-08-17] MEDS: ENOXAPARIN SODIUM INJ 40 MG/0.4 ML DISP.SYRIN SUBCUT SCH (09:16)
[2017-08-17] MEDS: FAMOTIDINE INJ/PF 20 MG/2 ML SDV IV SCH ×2 (09:16→22:15)
[2017-08-17] MEDS ORDERED: DEXAMETHASONE SOD PHOSPHATE INJ 4 MG/1 ML VIAL ONE (09:56)
[2017-08-17] MEDS ORDERED: POTASSIUM CHLORIDE 20 MEQ/15 ML UDCUP NG SCH (10:00)
[2017-08-17] MEDS ORDERED: DEXAMETHASONE SOD PHOSPHATE INJ 4 MG/1 ML VIAL IV ONE (10:30)
[2017-08-17] MEDS ORDERED: DEXTROSE 5%-NORMAL SALINE 1,000 ML IV PRN (11:47)
[2017-08-17] MEDS ORDERED: LEVALBUTEROL HCL NEB 1.25 MG/3 ML AMPUL NEB ONE (13:30)
[2017-08-17] MEDS ORDERED: MAGNESIUM SULFATE/D5W 1 GM/100 ML RTUPB IV ONE (13:30)
[2017-08-17] MEDS ORDERED: POTASSI CL 40 MEQ/D5-1/2NS 1L 1000 ML IV PRN (14:00)
--- NOTE | 2017-08-17 14:00 | PDOC PROGRESS REPORT ---
Subjective Progress Note for:: 08/17/17 Subjective:: Intubated and sedated but arousable Reason For Visit: ASTHMA,RESPIRATORY FAILURE,RESPIRATORY ACIDOSIS Physical Exam Vital Signs: Temp Pulse Resp BP Pulse Ox 97.3 F 68 20 135/102 H 99 08/17/17 08:00 08/17/17 08:00 08/17/17 08:00 08/17/17 08:00 08/17/17 08:00 Intake & Output 08/16/17 08/17/17 08/18/17 06:59 06:59 06:59 Intake Total 3861 2472 Output Total 3739 2359 145 Balance 131 -913 -145 Weight 72.3 kg 72.7 kg General appearance: PRESENT: no acute distress, disheveled, thin. ABSENT: cooperative Head exam: PRESENT: atraumatic, normocephalic Eye exam: PRESENT: conjunctiva pale, EOMI. ABSENT: nystagmus, periorbital swelling, scleral icterus Mouth exam: PRESENT: dry mucosa, neck supple, tongue midline, other - ET tube in place Neck exam: ABSENT: carotid bruit, JVD, lymphadenopathy, thyromegaly, tracheal deviation Respiratory exam: PRESENT: prolonged expiratory phas, rhonchi, symmetrical, unlabored. ABSENT: decreased breath sounds, rales, retraction, stridor, tachypnea, wheezes Cardiovascular exam: PRESENT: RRR, +S1, +S2, systolic murmur Pulses: PRESENT: normal radial pulses GI/Abdominal exam: PRESENT: diminished bowel sounds, soft Extremities exam: ABSENT: calf tenderness, clubbing, joint swelling Musculoskeletal exam: ABSENT: ambulatory, deformity, dislocation Neurological exam: PRESENT: awake. ABSENT: oriented to person, oriented to place, oriented to time, oriented to situation Skin exam: PRESENT: dry, warm Results Laboratory Results: 08/17/17 05:15 08/17/17 05:15 08/17/17 08/17/17 08/17/17 05:15 05:15 05:15 WBC 9.3 RBC 3.12 L Hgb 10.1 L Hct 29.3 L MCV 94 MCH 32.4 MCHC 34.5 RDW 13.2 Plt Count 179 Seg Neutrophils % Not Reportable Lymphocytes % Not Reportable Monocytes % Not Reportable Eosinophils % Not Reportable Basophils % Not Reportable Absolute Neutrophils Not Reportable Absolute Lymphocytes Not Reportable Absolute Monocytes Not Reportable Absolute Eosinophils Not Reportable Absolute Basophils Not Reportable Carbonic Acid 0.90 L HCO3/H2CO3 Ratio 27:1 ABG pH 7.54 H ABG pCO2 30.0 L ABG pO2 129.0 H ABG HCO3 25.0 ABG O2 Saturation 98.9 H ABG Base Excess 2.9 FiO2 35% Sodium 141.0 Potassium 3.3 L Chloride 106 Carbon Dioxide 25 Anion Gap 10 BUN 13 Creatinine 0.49 L Est GFR ( Amer) > 60 Est GFR (Non-Af Amer) > 60 Glucose 113 H Calcium 8.5 Magnesium 1.9 08/11/17 08/11/17 08/11/17 03:58 08:16 08:16 Creatine Kinase 452 H CK-MB (CK-2) 3.40 Troponin I < 0.012 NT-Pro-B Natriuret Pep 234 H 08/12/17 03:56 Creatine Kinase CK-MB (CK-2) Troponin I NT-Pro-B Natriuret Pep 80 Assessment & Plan - Diagnosis (1) Asthma Qualifiers: Asthma severity: severe Asthma persistence: unspecified Asthma complication type: with status asthmaticus Qualified Code(s): J45.902 - Unspecified asthma with status asthmaticus Is this a current diagnosis for this admission?: Yes Plan: No wheezing significantly improved (2) Acute respiratory failure Qualifiers: Respiratory failure complication: hypoxia Qualified Code(s): J96.01 - Acute respiratory failure with hypoxia Is this a current diagnosis for this admission?: Yes Plan: Respiratory rate, airway pressures, minute ventilation, FiO2 all suggest successful extubation will proceed with extubation assessment of weaning parameters would be difficult as demonstrated by patient's mental status( agitation) during sedation medications (3) Non compliance w medication regimen Is this a current diagnosis for this admission?: Yes (4) Pneumothorax on right Is this a current diagnosis for this admission?: Yes Plan: No air leak Pleur-evac to waterseal - Time Total Critical Time (Minutes): 55
--- NOTE | 2017-08-17 17:28 | PDOC PROGRESS REPORT ---
Subjective Progress Note for:: 08/17/17 Subjective:: Unable to obtain since intubated and sedated Review of system Unable to obtain since intubated and sedated All significant laboratories and diagnostics have been reviewed Reason For Visit: ASTHMA,RESPIRATORY FAILURE,RESPIRATORY ACIDOSIS Physical Exam Vital Signs: Temp Pulse Resp BP Pulse Ox 97.3 F 68 20 135/102 H 99 08/17/17 08:00 08/17/17 08:00 08/17/17 08:00 08/17/17 08:00 08/17/17 08:00 Intake & Output 08/16/17 08/17/17 08/18/17 06:59 06:59 06:59 Intake Total 3861 3882 Output Total 3730 2015 145 Balance 131 -913 -145 Weight 72.3 kg 72.7 kg General appearance: PRESENT: other - Sedated Head exam: PRESENT: atraumatic, normocephalic Eye exam: PRESENT: conjunctiva pink, EOMI, PERRLA Ear exam: PRESENT: normal external ear exam Mouth exam: PRESENT: moist Neck exam: ABSENT: JVD, lymphadenopathy, thyromegaly Respiratory exam: PRESENT: clear to auscultation lilo Cardiovascular exam: PRESENT: RRR. ABSENT: diastolic murmur, systolic murmur Vascular exam: PRESENT: normal capillary refill GI/Abdominal exam: PRESENT: normal bowel sounds, soft. ABSENT: tenderness Extremities exam: ABSENT: joint swelling, pedal edema Neurological exam: PRESENT: other - Sedated Psychiatric exam: PRESENT: other - Sedated Skin exam: PRESENT: normal color Results Laboratory Results: 08/17/17 05:15 08/17/17 05:15 08/17/17 08/17/17 08/17/17 05:15 05:15 05:15 WBC 9.3 RBC 3.12 L Hgb 10.1 L Hct 29.3 L MCV 94 MCH 32.4 MCHC 34.5 RDW 13.2 Plt Count 179 Seg Neutrophils % Not Reportable Lymphocytes % Not Reportable Monocytes % Not Reportable Eosinophils % Not Reportable Basophils % Not Reportable Absolute Neutrophils Not Reportable Absolute Lymphocytes Not Reportable Absolute Monocytes Not Reportable Absolute Eosinophils Not Reportable Absolute Basophils Not Reportable Carbonic Acid 0.90 L HCO3/H2CO3 Ratio 27:1 ABG pH 7.54 H ABG pCO2 30.0 L ABG pO2 129.0 H ABG HCO3 25.0 ABG O2 Saturation 98.9 H ABG Base Excess 2.9 FiO2 35% Sodium 141.0 Potassium 3.3 L Chloride 106 Carbon Dioxide 25 Anion Gap 10 BUN 13 Creatinine 0.49 L Est GFR ( Amer) > 60 Est GFR (Non-Af Amer) > 60 Glucose 113 H Calcium 8.5 Magnesium 1.9 08/11/17 08/11/17 08/11/17 03:58 08:16 08:16 Creatine Kinase 452 H CK-MB (CK-2) 3.40 Troponin I < 0.012 NT-Pro-B Natriuret Pep 234 H 08/12/17 03:56 Creatine Kinase CK-MB (CK-2) Troponin I NT-Pro-B Natriuret Pep 80 Assessment & Plan - Diagnosis (1) Asthma exacerbation Qualifiers: Asthma severity: severe Asthma persistence: persistent Qualified Code(s) : J45.51 - Severe persistent asthma with (acute) exacerbation Is this a current diagnosis for this admission?: Yes Plan: Patient again was released from the hospital and did not get her medications filled in. His states that patient has been under a lot of stress. At present time patient is intubated and being managed by Dr. Rothman who knows patient very well (2) Acute respiratory failure Qualifiers: Respiratory failure complication: hypoxia Qualified Code(s): J96.01 - Acute respiratory failure with hypoxia Is this a current diagnosis for this admission?: Yes Plan: Continue his ventilatory support and Dr. Rothman managing ventilator (3) Pneumothorax on right Is this a current diagnosis for this admission?: Yes Plan: As per Dr. Rothman (4) Anxiety Is this a current diagnosis for this admission?: Yes Plan: Will be referred to psych once of ventilatory support (5) Hypokalemia Is this a current diagnosis for this admission?: Yes Plan: Replace orally and trend (6) Hypertension Qualifiers: Hypertension type: essential hypertension Qualified Code(s): I10 - Essential (primary) hypertension Is this a current diagnosis for this admission?: Yes Plan: Discontinue losartan since week hyper sensitive in the black population. To place patient on Norvasc and hydralazine orally. Will keep hydralazine IV for rescue. Will decrease clonidine interval to every 12 hours - Time Time Spent with patient: 15-24 minutes Medications reviewed and adjusted accordingly: Yes Anticipated discharge: Home Within: within 72 hours - Inpatient Certification Based on my medical assessment, after consideration of the patient's comorbidities, presenting symptoms, or acuity I expect that the services needed warrant INPATIENT care.: Yes I certify that my determination is in accordance with my understanding of Medicare's requirements for reasonable and necessary INPATIENT services [42 CFR 412.3e].: Yes Medical Necessity: Need Close Monitoring Due to Risk of Patient Decompensation, Need for Nebulizer Therapy and Monitoring of Response
[2017-08-17] MEDS: AMLODIPINE BESYLATE 10 MG TABLET PO SCH (18:10)
[2017-08-17] MEDS: HYDRALAZINE HCL 25 MG TABLET PO SCH (22:14)
[2017-08-17] MEDS: THIAMINE HCL 100 MG in NORMAL SALINE 50 ML IV SCH (22:15)
[2017-08-17] MEDS: MONTELUKAST SODIUM 10 MG TABLET PO SCH (22:15)
[2017-08-18] MEDS: IPRATROPIUM/ALBUTEROL 0.5-2.5 MG/3 ML AMPUL NEB SCH ×4 (02:10→20:11)
[2017-08-18] MEDS: METHYLPREDNISOLONE INJ 125 MG/2 ML SDV IV SCH (02:59)
[2017-08-18] MEDS: HYDRALAZINE HCL 25 MG TABLET PO SCH (05:49)
[2017-08-18 06:11] LABS: ABSOLUTE LYMPHOCYTES (AUTO) 0.9 10^3/uL (0.5-4.7); ABSOLUTE MONOCYTES (AUTO) 0.6 10^3/uL (0.1-1.4); ABSOLUTE NEUT (AUTO) 9.5 10^3/uL (1.7-8.2); BASOPHILS % (AUTO) 0.1 % (0-2); HEMATOCRIT 33.3 % (36.0-47.0); HEMOGLOBIN 11.1 g/dL (12.0-15.5); LYMPHOCYTES % (AUTO) 7.9 % (13-45); MEAN CORPUSCULAR HEMOGLOBIN 31.7 pg (27.0-33.4); MEAN CORPUSCULAR HGB CONC 33.5 g/dL (32.0-36.0); MEAN CORPUSCULAR VOLUME 95 fl (80-97); MONOCYTES % (AUTO) 5.6 % (3-13); PLATELET COUNT 207 10^3/uL (150-450); RED BLOOD COUNT 3.52 10^6/uL (3.72-5.28); SEGMENTED NEUTROPHILS % (AUTO) 86.4 % (42-78); TOTAL CELLS COUNTED % (AUTO) 100 %; WHITE BLOOD COUNT 10.9 10^3/uL (4.0-10.5)
[2017-08-18 06:16] LABS: ARTERIAL BLOOD BASE EXCESS 1.5 mmol/L; ARTERIAL BLOOD H2CO3 1.02 mmol/L (1.05-1.35); ARTERIAL BLOOD HCO3 24.7 mmol/L (20-26); ARTERIAL BLOOD O2 SATURATION 98.2 % (94-98); ARTERIAL BLOOD PCO2 33.8 mmHg (35-45); ARTERIAL BLOOD PH 7.48 (7.35-7.45); ARTERIAL BLOOD PO2 105.9 mmHg (80-100); ARTERIAL BLOOD TOTAL CO2 25.7 mmol/L (21-25)
[2017-08-18 06:17] LABS: ARTERIAL BLOOD FIO2 ROOM AIR
[2017-08-18 06:30] LABS: ANION GAP 10 (5-19); BLOOD UREA NITROGEN 5 mg/dL (7-20); CALCIUM 9.2 mg/dL (8.4-10.2); CARBON DIOXIDE 28 mmol/L (22-30); CHLORIDE 103 mmol/L (98-107); GLUCOSE 134 mg/dL (75-110); POTASSIUM 3.4 mmol/L (3.6-5.0); SODIUM 141.2 mmol/L (137-145)
[2017-08-18] MEDS ORDERED: METHYLPREDNISOLONE INJ 125 MG/2 ML SDV IV SCH (08:11)
[2017-08-18] MEDS ORDERED: HYDRALAZINE HCL 25 MG TABLET PO SCH (08:11)
[2017-08-18] MEDS: BUDESONIDE NEB 0.5 MG/2 ML AMPUL NEB SCH (08:23)
--- NOTE | 2017-08-18 08:42 | RADIOLOGY REPORT (SQ) ---
EXAM DESCRIPTION: CHEST SINGLE VIEW CLINICAL HISTORY: 32 years Female, asthma/pneumothorax COMPARISON: 4.23.18 NUMBER OF VIEWS/TECHNIQUE: 1/AP LIMITATIONS: None. FINDINGS: Mild patchiness of the left lower lung field. 78 degree kinked appearance of the right chest tube. Right subclavian central line tip at the SVC. Interval extubation. No pneumothorax. No acute bone defect. IMPRESSION: New small left lower lobar pneumonia/atelectasis. Kinked appearance of the right chest tube. No pneumothorax. Interval extubation.
[2017-08-18] MEDS ORDERED: HYDRALAZINE HCL 50 MG TABLET PO ONE (09:30)
[2017-08-18] MEDS: MULTIVITAMIN TABLET PO SCH (11:13)
[2017-08-18] MEDS: THIAMINE HCL 100 MG TABLET PO SCH (11:13)
[2017-08-18] MEDS: METHYLPREDNISOLONE INJ 40 MG/1 ML SDV IV SCH ×2 (11:18→17:48)
[2017-08-18] MEDS: ENOXAPARIN SODIUM INJ 40 MG/0.4 ML DISP.SYRIN SUBCUT SCH (11:19)
[2017-08-18] MEDS: CLONIDINE HCL 0.2 MG TABLET PO SCH ×2 (11:23→21:07)
[2017-08-18] MEDS: FLUTICASONE/SALMETEROL DISKUS 250-50 MCG/DOSE IH SCH ×2 (11:33→21:05)
[2017-08-18] MEDS ORDERED: POTASSIUM CHLORIDE 10 MEQ TABLET.SA PO ONE (13:30)
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
[2017-08-18] MEDS: HYDRALAZINE HCL 50 MG TABLET PO SCH ×2 (15:29→21:06)
[2017-08-18] MEDS: AMLODIPINE BESYLATE 10 MG TABLET PO SCH (17:48)
--- NOTE | 2017-08-18 18:16 | PDOC PROGRESS REPORT ---
Subjective Progress Note for:: 08/18/17 Subjective:: Awake alert Reason For Visit: ASTHMA,RESPIRATORY FAILURE,RESPIRATORY ACIDOSIS Physical Exam Vital Signs: Temp Pulse Resp BP Pulse Ox 98.2 F 85 18 132/97 H 99 08/18/17 08:00 08/18/17 08:25 08/18/17 08:25 08/18/17 08:00 08/18/17 08:25 Intake & Output 08/17/17 08/18/17 08/19/17 06:59 06:59 06:59 Intake Total 2472 2481 Output Total 3385 7415 500 Balance -913 -4934 -500 Weight 72.7 kg 68.2 kg General appearance: PRESENT: no acute distress, cooperative, disheveled, thin, well-developed Head exam: PRESENT: atraumatic, normocephalic Eye exam: PRESENT: conjunctiva pale, EOMI. ABSENT: nystagmus, periorbital swelling, scleral icterus Mouth exam: PRESENT: moist, neck supple, tongue midline Neck exam: ABSENT: carotid bruit, JVD, lymphadenopathy, thyromegaly, tracheal deviation, tracheostomy Respiratory exam: PRESENT: decreased breath sounds, prolonged expiratory phas, rales, rhonchi, unlabored, other - Right chest tube to waterseal Cardiovascular exam: PRESENT: RRR, +S1, +S2, systolic murmur, tachycardia Pulses: PRESENT: normal radial pulses GI/Abdominal exam: PRESENT: diminished bowel sounds, soft Extremities exam: ABSENT: calf tenderness, clubbing, joint swelling, pedal edema Musculoskeletal exam: ABSENT: deformity, dislocation Neurological exam: PRESENT: alert, awake Psychiatric exam: PRESENT: other - Remorseful over recent events Skin exam: PRESENT: dry, warm Results Laboratory Results: 08/18/17 06:00 08/18/17 06:00 08/18/17 08/18/17 08/18/17 06:00 06:00 06:00 WBC 10.9 H RBC 3.52 L Hgb 11.1 L Hct 33.3 L MCV 95 MCH 31.7 MCHC 33.5 RDW 13.0 Plt Count 207 Seg Neutrophils % 86.4 H Lymphocytes % 7.9 L Monocytes % 5.6 Eosinophils % 0.0 Basophils % 0.1 Absolute Neutrophils 9.5 H Absolute Lymphocytes 0.9 Absolute Monocytes 0.6 Absolute Eosinophils 0.0 Absolute Basophils 0.0 Carbonic Acid 1.02 L HCO3/H2CO3 Ratio 24:1 ABG pH 7.48 H ABG pCO2 33.8 L ABG pO2 105.9 H ABG HCO3 24.7 ABG O2 Saturation 98.2 H ABG Base Excess 1.5 FiO2 ROOM AIR Sodium 141.2 Potassium 3.4 L Chloride 103 Carbon Dioxide 28 Anion Gap 10 BUN 5 L Creatinine 0.43 L Est GFR ( Amer) > 60 Est GFR (Non-Af Amer) > 60 Glucose 134 H Calcium 9.2 08/11/17 08/11/17 08/11/17 03:58 08:16 08:16 Creatine Kinase 452 H CK-MB (CK-2) 3.40 Troponin I < 0.012 NT-Pro-B Natriuret Pep 234 H 08/12/17 03:56 Creatine Kinase CK-MB (CK-2) Troponin I NT-Pro-B Natriuret Pep 80 Assessment & Plan - Diagnosis (1) Asthma Qualifiers: Asthma severity: severe Asthma persistence: unspecified Asthma complication type: with status asthmaticus Qualified Code(s): J45.902 - Unspecified asthma with status asthmaticus Is this a current diagnosis for this admission?: Yes (2) Acute respiratory failure Qualifiers: Respiratory failure complication: hypoxia Qualified Code(s): J96.01 - Acute respiratory failure with hypoxia Is this a current diagnosis for this admission?: Yes (3) Non compliance w medication regimen Is this a current diagnosis for this admission?: Yes (4) Pneumothorax on right Is this a current diagnosis for this admission?: Yes - Time Total Critical Time (Minutes): 35
--- NOTE | 2017-08-18 19:34 | PDOC PROGRESS REPORT ---
Subjective Progress Note for:: 08/18/17 Subjective:: Feels well. No complaints Reason For Visit: ASTHMA,RESPIRATORY FAILURE,RESPIRATORY ACIDOSIS Physical Exam Vital Signs: Temp Pulse Resp BP Pulse Ox 98.4 F 90 20 131/90 H 99 08/18/17 18:00 08/18/17 16:00 08/18/17 18:00 08/18/17 17:12 08/18/17 18:00 Intake & Output 08/17/17 08/18/17 08/19/17 06:59 06:59 06:59 Intake Total 2472 2481 60 Output Total 3385 7415 2145 Balance -913 -4934 -2085 Weight 72.7 kg 68.2 kg General appearance: PRESENT: no acute distress, cooperative Respiratory exam: PRESENT: clear to auscultation lilo, other - Right sided chest tube in place. No air leak. Site looks clean. Cardiovascular exam: PRESENT: RRR Results Laboratory Results: 08/18/17 06:00 08/18/17 06:00 08/18/17 08/18/17 08/18/17 06:00 06:00 06:00 WBC 10.9 H RBC 3.52 L Hgb 11.1 L Hct 33.3 L MCV 95 MCH 31.7 MCHC 33.5 RDW 13.0 Plt Count 207 Seg Neutrophils % 86.4 H Lymphocytes % 7.9 L Monocytes % 5.6 Eosinophils % 0.0 Basophils % 0.1 Absolute Neutrophils 9.5 H Absolute Lymphocytes 0.9 Absolute Monocytes 0.6 Absolute Eosinophils 0.0 Absolute Basophils 0.0 Carbonic Acid 1.02 L HCO3/H2CO3 Ratio 24:1 ABG pH 7.48 H ABG pCO2 33.8 L ABG pO2 105.9 H ABG HCO3 24.7 ABG O2 Saturation 98.2 H ABG Base Excess 1.5 FiO2 ROOM AIR Sodium 141.2 Potassium 3.4 L Chloride 103 Carbon Dioxide 28 Anion Gap 10 BUN 5 L Creatinine 0.43 L Est GFR ( Amer) > 60 Est GFR (Non-Af Amer) > 60 Glucose 134 H Calcium 9.2 08/11/17 08/11/17 08/11/17 03:58 08:16 08:16 Creatine Kinase 452 H CK-MB (CK-2) 3.40 Troponin I < 0.012 NT-Pro-B Natriuret Pep 234 H 04/18/18 03:56 Creatine Kinase CK-MB (CK-2) Troponin I NT-Pro-B Natriuret Pep 80 Impressions: Chest X-Ray 08/18/17 06:00 IMPRESSION: Right lower chest tube unchanged. No right pneumothorax. Assessment & Plan - Diagnosis (1) Pneumothorax on right Is this a current diagnosis for this admission?: Yes Plan: Resolved. Chest tube without air leak. Patient extubated. Right-sided chest tube removed without difficulty. Dressings applied. Stat portable chest x-ray was ordered.
--- NOTE | 2017-08-18 20:08 | RADIOLOGY REPORT (SQ) ---
EXAM DESCRIPTION: CHEST SINGLE VIEW COMPLETED DATE/TIME: 08/18/2017 7:49 pm REASON FOR STUDY: s/p chest tube pull COMPARISON: 08/18/2017 EXAM PARAMETERS: NUMBER OF VIEWS: One view. TECHNIQUE: Single frontal radiographic view of the chest acquired. RADIATION DOSE: NA LIMITATIONS: None. FINDINGS: LUNGS AND PLEURA: No pneumothorax. No infiltrate. Subsegmental atelectasis in the left b ase. MEDIASTINUM AND HILAR STRUCTURES: No masses. Contour normal. HEART AND VASCULAR STRUCTURES: Heart normal in size. Normal vasculature. BONES: No acute findings. HARDWARE: Chest tube is been removed on the right. A right subclavian catheter has its tip in the prater perior vena cava. OTHER: No other significant finding. IMPRESSION: No pneumothorax status post chest tube removal. Right subclavian catheter remains in pl [place]. TECHNICAL DOCUMENTATION: JOB ID: [id number] [employer]- All Rights Reserved Reading location - IP/workstation name: [email or web address]
[2017-08-18] MEDS: MONTELUKAST SODIUM 10 MG TABLET PO SCH (21:06)
[2017-08-19] MEDS: METHYLPREDNISOLONE INJ 40 MG/1 ML SDV IV SCH ×3 (01:10→23:35)
[2017-08-19] MEDS: IPRATROPIUM/ALBUTEROL 0.5-2.5 MG/3 ML AMPUL NEB SCH ×4 (02:16→20:40)
[2017-08-19] MEDS: HYDRALAZINE HCL 50 MG TABLET PO SCH ×3 (05:38→22:45)
[2017-08-19 06:02] LABS: ABSOLUTE LYMPHOCYTES (AUTO) 1.5 10^3/uL (0.5-4.7); ABSOLUTE MONOCYTES (AUTO) 0.7 10^3/uL (0.1-1.4); ABSOLUTE NEUT (AUTO) 12.6 10^3/uL (1.7-8.2); BASOPHILS % (AUTO) 0.2 % (0-2); HEMATOCRIT 34.4 % (36.0-47.0); HEMOGLOBIN 11.6 g/dL (12.0-15.5); MEAN CORPUSCULAR HEMOGLOBIN 31.9 pg (27.0-33.4); MEAN CORPUSCULAR HGB CONC 33.7 g/dL (32.0-36.0); MEAN CORPUSCULAR VOLUME 95 fl (80-97); MONOCYTES % (AUTO) 4.9 % (3-13); PLATELET COUNT 250 10^3/uL (150-450); RED BLOOD COUNT 3.63 10^6/uL (3.72-5.28); RED CELL DISTRIBUTION WIDTH 12.9 % (11.5-14.0); SEGMENTED NEUTROPHILS % (AUTO) 84.9 % (42-78); TOTAL CELLS COUNTED % (AUTO) 100 %; WHITE BLOOD COUNT 14.8 10^3/uL (4.0-10.5)
[2017-08-19 06:24] LABS: ANION GAP 11 (5-19); BLOOD UREA NITROGEN 13 mg/dL (7-20); CALCIUM 9.5 mg/dL (8.4-10.2); CARBON DIOXIDE 28 mmol/L (22-30); CHLORIDE 101 mmol/L (98-107); GLUCOSE 118 mg/dL (75-110); POTASSIUM 4.2 mmol/L (3.6-5.0); SODIUM 139.7 mmol/L (137-145)
[2017-08-19] MEDS ORDERED: METHYLPREDNISOLONE INJ 40 MG/1 ML SDV IV SCH (07:00)
--- NOTE | 2017-08-19 07:26 | RADIOLOGY REPORT (SQ) ---
EXAM DESCRIPTION: CHEST SINGLE VIEW CLINICAL HISTORY: 32 years Female, resp fail COMPARISON: One day prior. NUMBER OF VIEWS/TECHNIQUE: 1/AP FINDINGS: Moderate bandlike opacity of the left lower lobe. Moderate scoliotic curvature. Right subclavian central line tip at the SVC. No pneumothorax. No acute bone defect. IMPRESSION: No significant change.
[2017-08-19] MEDS ORDERED: POTASSIUM CHLORIDE 10 MEQ TABLET.SA PO SCH (10:00)
[2017-08-19] MEDS: MULTIVITAMIN TABLET PO SCH (10:08)
[2017-08-19] MEDS: ENOXAPARIN SODIUM INJ 40 MG/0.4 ML DISP.SYRIN SUBCUT SCH (10:08)
[2017-08-19] MEDS: CLONIDINE HCL 0.2 MG TABLET PO SCH ×2 (10:09→22:46)
[2017-08-19] MEDS: POTASSIUM CHLORIDE 10 MEQ TABLET.SA PO SCH (10:09)
[2017-08-19] MEDS: THIAMINE HCL 100 MG TABLET PO SCH (10:09)
[2017-08-19] MEDS: FLUTICASONE/SALMETEROL DISKUS 250-50 MCG/DOSE IH SCH ×2 (10:11→23:33)
--- NOTE | 2017-08-19 11:36 | PDOC PROGRESS REPORT ---
Subjective Progress Note for:: 08/19/17 Subjective:: Awake alert emotional petulant Reason For Visit: ASTHMA,RESPIRATORY FAILURE,RESPIRATORY ACIDOSIS Physical Exam Vital Signs: Temp Pulse Resp BP Pulse Ox 98.2 F 85 12 120/80 98 08/19/17 06:00 08/19/17 02:16 08/19/17 06:00 08/19/17 04:00 08/19/17 06:00 Intake & Output 08/18/17 08/19/17 08/20/17 06:59 06:59 06:59 Intake Total 2481 70 Output Total 7415 3195 Balance -4826 -4448 Weight 68.2 kg 66.8 kg General appearance: PRESENT: no acute distress, disheveled, thin, well-developed Head exam: PRESENT: atraumatic, normocephalic Eye exam: PRESENT: conjunctiva pale, EOMI. ABSENT: nystagmus, periorbital swelling, scleral icterus Mouth exam: PRESENT: moist, neck supple Neck exam: ABSENT: carotid bruit, JVD, lymphadenopathy, thyromegaly, tracheal deviation, tracheostomy Respiratory exam: PRESENT: decreased breath sounds, prolonged expiratory phas, rhonchi, symmetrical, unlabored, wheezes. ABSENT: rales, retraction, stridor, tachypnea Cardiovascular exam: PRESENT: RRR, +S1, +S2 Pulses: PRESENT: normal radial pulses GI/Abdominal exam: PRESENT: diminished bowel sounds, soft Extremities exam: ABSENT: calf tenderness, clubbing, joint swelling Musculoskeletal exam: PRESENT: dislocation. ABSENT: deformity Neurological exam: PRESENT: alert, awake Psychiatric exam: PRESENT: anxious Focused psych exam: PRESENT: restlessness Skin exam: PRESENT: dry, warm Results Laboratory Results: 08/19/17 05:22 08/19/17 05:22 08/19/17 08/19/17 05:22 05:22 WBC 14.8 H RBC 3.63 L Hgb 11.6 L Hct 34.4 L MCV 95 MCH 31.9 MCHC 33.7 RDW 12.9 Plt Count 250 Seg Neutrophils % 84.9 H Lymphocytes % 10.0 L Monocytes % 4.9 Eosinophils % 0.0 Basophils % 0.2 Absolute Neutrophils 12.6 H Absolute Lymphocytes 1.5 Absolute Monocytes 0.7 Absolute Eosinophils 0.0 Absolute Basophils 0.0 Sodium 139.7 Potassium 4.2 Chloride 101 Carbon Dioxide 28 Anion Gap 11 BUN 13 Creatinine 0.45 L Est GFR ( Amer) > 60 Est GFR (Non-Af Amer) > 60 Glucose 118 H Calcium 9.5 08/11/17 08/11/17 08/11/17 03:58 08:16 08:16 Creatine Kinase 452 H CK-MB (CK-2) 3.40 Troponin I < 0.012 NT-Pro-B Natriuret Pep 234 H 08/12/17 03:56 Creatine Kinase CK-MB (CK-2) Troponin I NT-Pro-B Natriuret Pep 80 Impressions: Chest X-Ray 08/19/17 06:00 IMPRESSION: No significant change. Assessment & Plan - Diagnosis (1) Asthma Qualifiers: Asthma severity: severe Asthma persistence: unspecified Asthma complication type: with status asthmaticus Qualified Code(s): J45.902 - Unspecified asthma with status asthmaticus Is this a current diagnosis for this admission?: Yes Plan: significantly improved (2) Acute respiratory failure Qualifiers: Respiratory failure complication: hypoxia Qualified Code(s): J96.01 - Acute respiratory failure with hypoxia Is this a current diagnosis for this admission?: No (3) Non compliance w medication regimen Is this a current diagnosis for this admission?: Yes (4) Pneumothorax on right Is this a current diagnosis for this admission?: Yes - Time Total Critical Time (Minutes): 35
--- NOTE | 2017-08-19 17:26 | PDOC PROGRESS REPORT ---
Subjective Progress Note for:: 08/19/17 Subjective:: Patient extubated on August 17 and has been doing well afterwards. Patient is insisting that wants to go home. Started crying and throwing a fit. Patient was made aware that due to her recurrent admissions and her not following advice , in addition of being concern of her returning back under similar circumstances , we were moving his lower. Had to exit the room since she was upset. Talk to Dr. Rothman and he is requesting a psychiatric consult and agree Review of system All organ systems evaluated and negative except as in subjective All significant laboratories and diagnostics have been reviewed Reason For Visit: ASTHMA,RESPIRATORY FAILURE,RESPIRATORY ACIDOSIS Physical Exam Vital Signs: Temp Pulse Resp BP Pulse Ox 98.2 F 85 12 120/80 98 08/19/17 06:00 08/19/17 02:16 08/19/17 06:00 08/19/17 04:00 08/19/17 06:00 Intake & Output 08/17/17 08/18/17 08/19/17 06:59 06:59 06:59 Intake Total 2472 2481 70 Output Total 3385 7415 3195 [facility] -[phone] Weight 72.7 kg 68.2 kg 66.8 kg General appearance: PRESENT: well-developed, well-nourished Head exam: PRESENT: atraumatic, normocephalic Eye exam: PRESENT: conjunctiva pink, EOMI, PERRLA Ear exam: PRESENT: normal external ear exam Mouth exam: PRESENT: moist Neck exam: PRESENT: full ROM. ABSENT: JVD, lymphadenopathy, tenderness Respiratory exam: PRESENT: crackles, decreased breath sounds Cardiovascular exam: PRESENT: RRR. ABSENT: diastolic murmur, systolic murmur Vascular exam: PRESENT: normal capillary refill GI/Abdominal exam: PRESENT: normal bowel sounds, soft. ABSENT: tenderness Extremities exam: PRESENT: full ROM. ABSENT: pedal edema Musculoskeletal exam: PRESENT: ambulatory Neurological exam: PRESENT: alert, awake, oriented to person, oriented to place , oriented to time, oriented to situation, CN II-XII grossly intact Psychiatric exam: PRESENT: appropriate affect, normal mood Skin exam: PRESENT: normal color Results Laboratory Results: 08/19/17 05:22 08/19/17 05:22 08/19/17 08/19/17 05:22 05:22 WBC 14.8 H RBC 3.63 L Hgb 11.6 L Hct 34.4 L MCV 95 MCH 31.9 MCHC 33.7 RDW 12.9 Plt Count 250 Seg Neutrophils % 84.9 H Lymphocytes % 10.0 L Monocytes % 4.9 Eosinophils % 0.0 Basophils % 0.2 Absolute Neutrophils 12.6 H Absolute Lymphocytes 1.5 Absolute Monocytes 0.7 Absolute Eosinophils 0.0 Absolute Basophils 0.0 Sodium 139.7 Potassium 4.2 Chloride 101 Carbon Dioxide 28 Anion Gap 11 BUN 13 Creatinine 0.45 L Est GFR ( Amer) > 60 Est GFR (Non-Af Amer) > 60 Glucose 118 H Calcium 9.5 08/11/17 08/11/17 08/11/17 03:58 08:16 08:16 Creatine Kinase 452 H CK-MB (CK-2) 3.40 Troponin I < 0.012 NT-Pro-B Natriuret Pep 234 H 08/12/17 03:56 Creatine Kinase CK-MB (CK-2) Troponin I NT-Pro-B Natriuret Pep 80 Assessment & Plan - Diagnosis (1) Asthma exacerbation Qualifiers: Asthma severity: severe Asthma persistence: persistent Qualified Code(s) : J45.51 - Severe persistent asthma with (acute) exacerbation Is this a current diagnosis for this admission?: Yes Plan: Patient again was released from the hospital and did not get her medications filled in. Continue weaning off IV steroids. Continue Advair on DuoNeb's as needed (2) Acute respiratory failure Qualifiers: Respiratory failure complication: hypoxia Qualified Code(s): J96.01 - Acute respiratory failure with hypoxia Is this a current diagnosis for this admission?: Yes Plan: Resolved (3) Pneumothorax on right Is this a current diagnosis for this admission?: Yes Plan: Chest tube removed on August 18 and tolerated procedure well (4) Anxiety Is this a current diagnosis for this admission?: Yes Plan: Will be referred to psych (5) Hypokalemia Is this a current diagnosis for this admission?: Yes Plan: Replaced (6) Hypertension Qualifiers: Hypertension type: essential hypertension Qualified Code(s): I10 - Essential (primary) hypertension Is this a current diagnosis for this admission?: Yes Plan: Continue Norvasc and hydralazine since good response (7) Cocaine abuse Is this a current diagnosis for this admission?: Yes Plan: Patient educated about effects of cocaine use such as heart attack, stroke, intestinal infarction inclusive (8) ETOH abuse Is this a current diagnosis for this admission?: Yes Plan: Patient motivated to drink. She was educated about quitting drinking alcohol - Time Time Spent with patient: 15-24 minutes Medications reviewed and adjusted accordingly: Yes Anticipated discharge: Home Within: within 48 hours - Inpatient Certification Based on my medical assessment, after consideration of the patient's comorbidities, presenting symptoms, or acuity I expect that the services needed warrant INPATIENT care.: Yes I certify that my determination is in accordance with my understanding of Medicare's requirements for reasonable and necessary INPATIENT services [42 CFR 412.3e].: Yes Medical Necessity: Need Close Monitoring Due to Risk of Patient Decompensation, Need for Nebulizer Therapy and Monitoring of Response
[2017-08-19] MEDS: AMLODIPINE BESYLATE 10 MG TABLET PO SCH (18:08)
[2017-08-19] MEDS ORDERED: MAGNESIUM HYDROXIDE SUSP 30 ML UDCUP PO PRN (20:27)
[2017-08-19] MEDS ORDERED: DOCUSATE SODIUM 100 MG CAPSULE PO ONE (21:00)
[2017-08-19] MEDS: MONTELUKAST SODIUM 10 MG TABLET PO SCH (23:34)
[2017-08-20] MEDS: IPRATROPIUM/ALBUTEROL 0.5-2.5 MG/3 ML AMPUL NEB SCH ×4 (02:46→20:09)
[2017-08-20] MEDS: HYDRALAZINE HCL 50 MG TABLET PO SCH ×3 (05:45→21:03)
[2017-08-20 06:11] LABS: HEMOGLOBIN 11.4 g/dL (12.0-15.5); MEAN CORPUSCULAR HEMOGLOBIN 31.4 pg (27.0-33.4); MEAN CORPUSCULAR HGB CONC 33.5 g/dL (32.0-36.0); MEAN CORPUSCULAR VOLUME 94 fl (80-97); PLATELET COUNT 267 10^3/uL (150-450); RED BLOOD COUNT 3.63 10^6/uL (3.72-5.28); RED CELL DISTRIBUTION WIDTH 12.9 % (11.5-14.0); WHITE BLOOD COUNT 12.9 10^3/uL (4.0-10.5)
[2017-08-20 06:25] LABS: ANION GAP 10 (5-19); BLOOD UREA NITROGEN 15 mg/dL (7-20); CALCIUM 9.4 mg/dL (8.4-10.2); CARBON DIOXIDE 28 mmol/L (22-30); CHLORIDE 100 mmol/L (98-107); GLUCOSE 113 mg/dL (75-110); POTASSIUM 4.4 mmol/L (3.6-5.0); SODIUM 138.3 mmol/L (137-145)
[2017-08-20 06:42] LABS: ABSOLUTE LYMPHOCYTES# (MANUAL) 2.1 10^3/uL (0.5-4.7); ABSOLUTE MONOCYTES # (MANUAL) 0.6 10^3/uL (0.1-1.4); ABSOLUTE NEUTROPHILS# (MANUAL) 10.2 10^3/uL (1.7-8.2); BAND NEUTROPHILS % (MANUAL) 1 % (3-5); BASOPHILS % (MANUAL) 0 % (0-2); EOSINOPHILS % (MANUAL) 0 % (0-6); LYMPHOCYTES % (MANUAL) 16 % (13-45); METAMYELOCYTES % (MANUAL) 1 % (0); MONOCYTES % (MANUAL) 5 % (3-13); SEGMENTED NEUTROPHILS % (MAN) 77 % (42-78); TOTAL CELLS COUNTED 100
[2017-08-20 06:48] LABS: ANISOCYTOSIS SLIGHT; HYPOCHROMASIA SLIGHT; PLATELET COMMENT ADEQUATE; TOXIC VACUOLATION PRESENT
[2017-08-20] MEDS ORDERED: PREDNISONE 20 MG TABLET PO SCH (10:00)
[2017-08-20] MEDS: MULTIVITAMIN TABLET PO SCH (10:05)
[2017-08-20] MEDS: ENOXAPARIN SODIUM INJ 40 MG/0.4 ML DISP.SYRIN SUBCUT SCH (10:05)
[2017-08-20] MEDS: POTASSIUM CHLORIDE 10 MEQ TABLET.SA PO SCH (10:09)
[2017-08-20] MEDS: DOCUSATE SODIUM 100 MG CAPSULE PO SCH ×2 (10:09→17:37)
[2017-08-20] MEDS: THIAMINE HCL 100 MG TABLET PO SCH (10:10)
[2017-08-20] MEDS: FLUTICASONE/SALMETEROL DISKUS 250-50 MCG/DOSE IH SCH ×2 (10:16→21:02)
[2017-08-20] MEDS: METHYLPREDNISOLONE INJ 40 MG/1 ML SDV IV SCH (10:16)
[2017-08-20] MEDS: CLONIDINE HCL 0.2 MG TABLET PO SCH ×2 (10:16→21:02)
--- NOTE | 2017-08-20 11:47 | PDOC PROGRESS REPORT ---
Subjective Progress Note for:: 08/20/17 Subjective:: Awake alert emotional petulant Reason For Visit: ASTHMA,RESPIRATORY FAILURE,RESPIRATORY ACIDOSIS Physical Exam Vital Signs: Temp Pulse Resp BP Pulse Ox 98.0 F 72 16 94/54 L 98 08/20/17 04:00 08/20/17 02:45 08/20/17 04:00 08/20/17 04:00 08/20/17 04:00 Intake & Output 08/19/17 08/20/17 08/21/17 06:59 06:59 06:59 Intake Total 70 Output Total 3195 1420 Balance -3125 -1420 Weight 66.8 kg 65.4 kg General appearance: PRESENT: no acute distress, cooperative, thin, well- developed, well-nourished Head exam: PRESENT: atraumatic, normocephalic Eye exam: PRESENT: conjunctiva pale, EOMI. ABSENT: nystagmus, periorbital swelling, scleral icterus Mouth exam: PRESENT: moist, neck supple, tongue midline Neck exam: ABSENT: carotid bruit, JVD, lymphadenopathy, thyromegaly, tracheal deviation, tracheostomy Respiratory exam: PRESENT: prolonged expiratory phas, rhonchi, symmetrical, unlabored. ABSENT: rales, retraction, stridor, tachypnea Cardiovascular exam: PRESENT: RRR, +S1, +S2, systolic murmur. ABSENT: tachycardia Pulses: PRESENT: normal radial pulses GI/Abdominal exam: PRESENT: diminished bowel sounds, soft Extremities exam: PRESENT: full ROM. ABSENT: calf tenderness, clubbing, joint swelling Musculoskeletal exam: PRESENT: ambulatory. ABSENT: deformity, dislocation Neurological exam: PRESENT: alert, awake Psychiatric exam: PRESENT: normal mood Skin exam: PRESENT: dry, warm Results Laboratory Results: 08/20/17 05:50 08/20/17 05:50 08/20/17 08/20/17 05:50 05:50 WBC 12.9 H RBC 3.63 L Hgb 11.4 L Hct 34.0 L MCV 94 MCH 31.4 MCHC 33.5 RDW 12.9 Plt Count 267 Seg Neutrophils % Not Reportable Lymphocytes % Not Reportable Monocytes % Not Reportable Eosinophils % Not Reportable Basophils % Not Reportable Absolute Neutrophils Not Reportable Absolute Lymphocytes Not Reportable Absolute Monocytes Not Reportable Absolute Eosinophils Not Reportable Absolute Basophils Not Reportable Sodium 138.3 Potassium 4.4 Chloride 100 Carbon Dioxide 28 Anion Gap 10 BUN 15 Creatinine 0.37 L Est GFR ( Amer) > 60 Est GFR (Non-Af Amer) > 60 Glucose 113 H Calcium 9.4 Magnesium 2.0 08/11/17 08/11/17 08/11/17 03:58 08:16 08:16 Creatine Kinase 452 H CK-MB (CK-2) 3.40 Troponin I < 0.012 NT-Pro-B Natriuret Pep 234 H 08/12/17 03:56 Creatine Kinase CK-MB (CK-2) Troponin I NT-Pro-B Natriuret Pep 80 Impressions: Chest X-Ray 08/19/17 06:00 IMPRESSION: No significant change. Assessment & Plan - Diagnosis (1) Asthma Qualifiers: Asthma severity: severe Asthma persistence: unspecified Asthma complication type: with status asthmaticus Qualified Code(s): J45.902 - Unspecified asthma with status asthmaticus Is this a current diagnosis for this admission?: Yes Plan: improved (2) Acute respiratory failure Qualifiers: Respiratory failure complication: hypoxia Qualified Code(s): J96.01 - Acute respiratory failure with hypoxia Is this a current diagnosis for this admission?: Yes Plan: Resolved (3) Non compliance w medication regimen Is this a current diagnosis for this admission?: Yes (4) Pneumothorax on right Is this a current diagnosis for this admission?: Yes - Time Total Critical Time (Minutes): 35
--- NOTE | 2017-08-20 14:55 | PDOC PROGRESS REPORT ---
Subjective Progress Note for:: 08/20/17 Subjective:: Patient extubated on August 17 and has been doing well afterwards. No complaints and is amenable to stay at least one day extra . Review of system All organ systems evaluated and negative except as in subjective All significant laboratories and diagnostics have been reviewed Reason For Visit: ASTHMA,RESPIRATORY FAILURE,RESPIRATORY ACIDOSIS Physical Exam Vital Signs: Temp Pulse Resp BP Pulse Ox 98.0 F 72 16 94/54 L 98 08/20/17 04:00 08/20/17 02:45 08/20/17 04:00 08/20/17 04:00 08/20/17 04:00 Intake & Output 08/19/17 08/20/17 08/21/17 06:59 06:59 06:59 Intake Total 70 Output Total 3195 1420 Balance -3125 -1420 Weight 66.8 kg 65.4 kg General appearance: PRESENT: no acute distress, cooperative, well-developed, well-nourished Head exam: PRESENT: atraumatic, normocephalic Eye exam: PRESENT: conjunctiva pink, EOMI, periorbital swelling, PERRLA Mouth exam: PRESENT: moist Neck exam: PRESENT: full ROM. ABSENT: JVD, lymphadenopathy, tenderness Respiratory exam: PRESENT: clear to auscultation lilo Cardiovascular exam: PRESENT: RRR. ABSENT: diastolic murmur, systolic murmur Vascular exam: PRESENT: normal capillary refill GI/Abdominal exam: PRESENT: normal bowel sounds, soft. ABSENT: tenderness Extremities exam: PRESENT: full ROM. ABSENT: pedal edema Musculoskeletal exam: PRESENT: ambulatory Neurological exam: PRESENT: alert, awake, oriented to person, oriented to place , oriented to time, oriented to situation, CN II-XII grossly intact Psychiatric exam: PRESENT: depressed Skin exam: PRESENT: normal color Results Laboratory Results: 08/20/17 05:50 08/20/17 05:50 08/20/17 08/20/17 05:50 05:50 WBC 12.9 H RBC 3.63 L Hgb 11.4 L Hct 34.0 L MCV 94 MCH 31.4 MCHC 33.5 RDW 12.9 Plt Count 267 Seg Neutrophils % Not Reportable Lymphocytes % Not Reportable Monocytes % Not Reportable Eosinophils % Not Reportable Basophils % Not Reportable Absolute Neutrophils Not Reportable Absolute Lymphocytes Not Reportable Absolute Monocytes Not Reportable Absolute Eosinophils Not Reportable Absolute Basophils Not Reportable Sodium 138.3 Potassium 4.4 Chloride 100 Carbon Dioxide 28 Anion Gap 10 BUN 15 Creatinine 0.37 L Est GFR ( Amer) > 60 Est GFR (Non-Af Amer) > 60 Glucose 113 H Calcium 9.4 Magnesium 2.0 08/11/17 08/11/17 08/11/17 03:58 08:16 08:16 Creatine Kinase 452 H CK-MB (CK-2) 3.40 Troponin I < 0.012 NT-Pro-B Natriuret Pep 234 H 08/12/17 03:56 Creatine Kinase CK-MB (CK-2) Troponin I NT-Pro-B Natriuret Pep 80 Impressions: Chest X-Ray 08/19/17 06:00 IMPRESSION: No significant change. Assessment & Plan - Diagnosis (1) Asthma exacerbation Qualifiers: Asthma severity: severe Asthma persistence: persistent Qualified Code(s) : J45.51 - Severe persistent asthma with (acute) exacerbation Is this a current diagnosis for this admission?: Yes Plan: Patient again was released from the hospital and did not get her medications filled in. Transition to oral steroids. Continue Advair and DuoNeb's as needed (2) Acute respiratory failure Qualifiers: Respiratory failure complication: hypoxia Qualified Code(s): J96.01 - Acute respiratory failure with hypoxia Is this a current diagnosis for this admission?: Yes Plan: Resolved (3) Pneumothorax on right Is this a current diagnosis for this admission?: Yes Plan: Chest tube removed on August 18 and tolerated procedure well (4) Anxiety Is this a current diagnosis for this admission?: Yes Plan: Will order effexor (5) Hypokalemia Is this a current diagnosis for this admission?: Yes Plan: Replaced (6) Hypertension Qualifiers: Hypertension type: essential hypertension Qualified Code(s): I10 - Essential (primary) hypertension Is this a current diagnosis for this admission?: Yes Plan: Continue Norvasc and decrease hydralazine since good response (7) Cocaine abuse Is this a current diagnosis for this admission?: Yes Plan: Patient educated about effects of cocaine use such as heart attack, stroke, intestinal infarction inclusive (8) ETOH abuse Is this a current diagnosis for this admission?: Yes Plan: Patient motivated to drink. She was educated about quitting drinking alcohol - Time Time Spent with patient: 15-24 minutes Medications reviewed and adjusted accordingly: Yes Anticipated discharge: Home Within: within 48 hours - Inpatient Certification Based on my medical assessment, after consideration of the patient's comorbidities, presenting symptoms, or acuity I expect that the services needed warrant INPATIENT care.: Yes I certify that my determination is in accordance with my understanding of Medicare's requirements for reasonable and necessary INPATIENT services [42 CFR 412.3e].: Yes Medical Necessity: Need Close Monitoring Due to Risk of Patient Decompensation, Need for Nebulizer Therapy and Monitoring of Response
--- NOTE | 2017-08-20 16:37 | PSYCHOLOGICAL NOTE ---
Psych Note - Psych Note Psych Note: Reason for consult: manipulative, self destructive Patient spoke with attending nurse who disclosed that the patient became very upset when hearing that she would not be discharged started kicking her feet and having a temper tantrum. Patient disclosed at "I had a temper tantrum... a Hissy fit because I am a big baby.... I wanted to go home... but I know I have to stay her for another 3 days." She states that she is an only child and identifies as the reasoning behind her concerning behavior when told that she would not be discharged today. Patient disclosed that she only takes albuterol and Symbicort unless prednisone is prescribed to her. Patient denies suicidal and homicidal ideation. Patient correctly answers orientation questions. Patient states that she just does not like being in the hospital. Chart review conducted Patient's chart indicates she has [place] events and has signed out AMA on multiple occasions because she felt better. Patient is alert and orientated to person, place, time and circumstance. Mood is euthymic with congruent affect. Delusions are absent and behaviors congruent with intact reality based presentation i.e. organized and linear thought processes. Eye contact was well-maintained. Conversational speech was within normal rate, tone and prosody. Intellectual abilities appear to be within the average range. Attention and concentration are good. Insight, judgment, impulse control are fair. V15.81 (Z91.19) nonadherence to medical treatment Impression\\plan: Patient is considered cleared from acute psychiatric services. Patient does not meet IVC criteria per [place] GS 122C. Patient denies suicidal and homicidal ideation. Patient discloses that she had a "temper tantrum" when she found out she was not able to leave and identifies this as normal behavior because she is a "only child." Patient appears to have a similar trend in past visits to other hospitals signing out AMA after she feels she is been there long enough. Patient was able to answer all orientation questions correctly. There is no behaviors indicating psychosis. Dr. Bowman was consulted and the care and management this patient; attending physician is in agreement with recommendations and disposition.
[2017-08-20] MEDS ORDERED: VENLAFAXINE HCL 37.5 MG CAP.SR.24H PO ONE (17:00)
[2017-08-20] MEDS: AMLODIPINE BESYLATE 10 MG TABLET PO SCH (17:07)
[2017-08-20] MEDS: MONTELUKAST SODIUM 10 MG TABLET PO SCH (21:02)
[2017-08-20] MEDS ORDERED: QUETIAPINE FUMARATE 25 MG TABLET PO SCH (22:00)
[2017-08-21] MEDS: IPRATROPIUM/ALBUTEROL 0.5-2.5 MG/3 ML AMPUL NEB SCH ×2 (02:35→08:49)
[2017-08-21] MEDS: HYDRALAZINE HCL 50 MG TABLET PO SCH (05:51)
[2017-08-21] MEDS ORDERED: LEVOFLOXACIN 500 MG TABLET PO ONE (09:02)
[2017-08-21] MEDS ORDERED: ALBUTEROL SULFATE HFA (90 MCG/PUFF) 200 PUFF/8.5 GM MDI IH PRN (09:27)
[2017-08-21] MEDS: DOCUSATE SODIUM 100 MG CAPSULE PO SCH (09:29)
[2017-08-21] MEDS: ENOXAPARIN SODIUM INJ 40 MG/0.4 ML DISP.SYRIN SUBCUT SCH (09:29)
[2017-08-21] MEDS ORDERED: ALBUTEROL SULFATE HFA (90 MCG/PUFF) 200 PUFF/8.5 GM MDI IH SCH (09:30)
[2017-08-21] MEDS: FLUTICASONE/SALMETEROL DISKUS 250-50 MCG/DOSE IH SCH (09:31)
[2017-08-21] MEDS: POTASSIUM CHLORIDE 10 MEQ TABLET.SA PO SCH (09:35)
[2017-08-21] MEDS: MULTIVITAMIN TABLET PO SCH (09:35)
[2017-08-21] MEDS: THIAMINE HCL 100 MG TABLET PO SCH (09:35)
[2017-08-21] MEDS: CLONIDINE HCL 0.2 MG TABLET PO SCH (09:40)
[2017-08-21 09:52] VITALS: BP 116/76
[2017-08-21] MEDS ORDERED: VENLAFAXINE HCL 37.5 MG CAP.SR.24H PO SCH (10:00)
[2017-08-21] MEDS ORDERED: PREDNISONE 10 MG TABLET PO SCH (10:00)
[2017-08-21] MEDS ORDERED: LEVOFLOXACIN 500 MG TABLET PO SCH (10:00)
--- NOTE | 2017-08-21 10:43 | PDOC PROGRESS REPORT ---
Subjective Progress Note for:: 08/21/17 Subjective:: Awake alert emotional petulant Reason For Visit: ASTHMA,RESPIRATORY FAILURE,RESPIRATORY ACIDOSIS Physical Exam Vital Signs: Temp Pulse Resp BP Pulse Ox 98.1 F 72 17 116/76 100 08/21/17 09:56 08/21/17 09:56 08/21/17 09:56 08/21/17 09:56 08/21/17 09:56 Intake & Output 08/20/17 08/21/17 08/22/17 06:59 06:59 06:59 Intake Total 1400 Output Total 1420 2000 Balance -1420 -600 Weight 65.4 kg 65.5 kg General appearance: PRESENT: no acute distress, cooperative, thin. ABSENT: disheveled Head exam: PRESENT: atraumatic, normocephalic Eye exam: PRESENT: conjunctiva pale, EOMI. ABSENT: nystagmus, periorbital swelling, scleral icterus Mouth exam: PRESENT: dry mucosa, neck supple, tongue midline Neck exam: ABSENT: carotid bruit, JVD, lymphadenopathy, thyromegaly, tracheal deviation, tracheostomy Respiratory exam: PRESENT: prolonged expiratory phas, symmetrical, unlabored. ABSENT: rales, retraction, rhonchi, stridor, tachypnea, wheezes Cardiovascular exam: PRESENT: RRR, +S1, +S2 Pulses: PRESENT: normal radial pulses GI/Abdominal exam: PRESENT: diminished bowel sounds, soft Extremities exam: PRESENT: full ROM. ABSENT: calf tenderness, clubbing, joint swelling, pedal edema Musculoskeletal exam: PRESENT: ambulatory, full ROM, normal inspection Neurological exam: PRESENT: alert, awake Psychiatric exam: PRESENT: normal mood Skin exam: PRESENT: dry, warm Results Laboratory Results: 08/20/17 05:50 08/20/17 05:50 08/11/17 08/11/17 08/11/17 03:58 08:16 08:16 Creatine Kinase 452 H CK-MB (CK-2) 3.40 Troponin I < 0.012 NT-Pro-B Natriuret Pep 234 H 08/12/17 03:56 Creatine Kinase CK-MB (CK-2) Troponin I NT-Pro-B Natriuret Pep 80 Impressions: Chest X-Ray 08/19/17 06:00 IMPRESSION: No significant change. Assessment & Plan - Diagnosis (1) Asthma Qualifiers: Asthma severity: severe Asthma persistence: unspecified Asthma complication type: with status asthmaticus Qualified Code(s): J45.902 - Unspecified asthma with status asthmaticus Is this a current diagnosis for this admission?: Yes Plan: improved (2) Acute respiratory failure Qualifiers: Respiratory failure complication: hypoxia Qualified Code(s): J96.01 - Acute respiratory failure with hypoxia Is this a current diagnosis for this admission?: No (3) Non compliance w medication regimen Is this a current diagnosis for this admission?: Yes (4) Pneumothorax on right Is this a current diagnosis for this admission?: Yes
[2017-08-21] MEDS ORDERED: HYDRALAZINE HCL 10 MG TABLET PO SCH (14:00)
--- NOTE | 2017-08-21 18:47 | PDOC DISCHARGE SUMMARY ---
General - Admit/Disc Date/PCP Admission Date/Primary Care Provider: 08/10/17 07:38 Discharge Date: 08/21/17 - Discharge Diagnosis (1) Streptococcus pneumoniae infection Is this a current diagnosis for this admission?: Yes Summary: Streptococcus pneumoniae grew from tracheal aspirate. Patient went bronchoscopy while intubated. She is being discharged with 5 days of Levaquin. He states she is back to her baseline from a respiratory perspective. (2) Acute respiratory failure Is this a current diagnosis for this admission?: Yes Summary: Multifactorial, hypoxemic respiratory failure acute. She was admitted with status asthmaticus and was intubated. She also was found to have a pneumonia. He was followed closely by pulmonology. He underwent bronchoscopy secondary to slow improvement. She is now doing well postextubation and ready for discharge. (3) Anxiety Is this a current diagnosis for this admission?: Yes Summary: Patient uses cocaine. It is difficult to know whether anxiety is related to cocaine use or an underlying psychiatric disorder. Patient states that she has a mental health provider locally and that she will seek care from the provider (4) Asthma with status asthmaticus in adult Is this a current diagnosis for this admission?: Yes Summary: Status post extubation, patient cannot afford any of her medications, she will present to Dr. Rothman's office after discharge to see if there are samples available. I have written her prescriptions for Singulair, duo nebs, albuterol inhaler, prednisone. (5) Cocaine abuse Is this a current diagnosis for this admission?: Yes Summary: Importance of cessation was discussed with patient. It is unclear how receptive she is at this time. (6) ETOH abuse Is this a current diagnosis for this admission?: Yes Summary: Importance of cessation was discussed with this patient. Unclear how receptive she has at this time. (7) Hypertension Is this a current diagnosis for this admission?: Yes Summary: Patient states that she has underlying hypertension and has been diagnosed with and treated for this in the past. Blood pressure was extremely elevated during this hospitalization and this morning the patient was on hydralazine 50 mg p.o. every 8 hours, clonidine 0.2 mg every 12 hours and Norvasc 10 mg daily. She was slightly hypotensive so I discharged her on Norvasc 5 mg daily, hydralazine 10 mg p.o. every 8 hours and clonidine 0.2 every 12 hours. I have asked her to go to the local drugstore and check her blood pressure daily. We have given her parameters for what constitutes low and high blood pressure. She is asked to hold her blood pressure medications if her pressures are low. We have also tried to strategize with her about how to get into primary care. (8) Pneumothorax on right Is this a current diagnosis for this admission?: Yes Summary: After central line placement, she had chest tube placed for the pneumothorax. Chest tube has been discontinued. Wound site is clean dry and intact. Wound care instructions have been given to the patient. She is stable from the surgical perspective for discharge. (9) Poverty status Is this a current diagnosis for this admission?: Yes Summary: Patient has very few resources. We have tried to help her with Medicaid application. Her mother is going to try to help her obtain some of her medications. He also tried to assist her with how to seek out primary care given her lack of resources. Dr. Rothman's office will help with sample medications if he can. We have asked her to return to medical care with any concerning symptoms or if she cannot get her prescription since filled. - Additional Information Resuscitation Status: Full Code Discharge Diet: Regular Discharge Activity: Balance Activity w/Rest Prescriptions: Albuterol Sulfate [Proair HFA Inhalation Aerosol 8.5 gm MDI] 2 puff IH Q6HP PRN 30 Days #1 hfa.[email or web address] PRN Reason: Albuterol Sulfate [Proair HFA Inhalation Aerosol 8.5 gm MDI] 2 puff IH Q4 20 Days hfa.aer.ad Amlodipine Besylate [Norvasc 10 mg Tablet] 5 mg PO QPM 30 Days tablet Clonidine HCl [Catapres 0.2 mg Tablet] 0.2 mg PO Q12 30 Days tablet Hydralazine HCl [Apresoline 10 mg Tablet] 10 mg PO Q8 15 Days #45 tablet Ipratropium/Albuterol Sulfate [Duoneb 3 ml Ampul] 3 ml NEB RTQ6 15 Days #60 vial.neb Levofloxacin [Levaquin 500 mg Tablet] 500 mg PO DAILY 4 Days #4 tablet Montelukast Sodium [Singulair 10 mg Tablet] 10 mg PO QHS 30 Days #30 tablet Prednisone [Deltasone 10 mg Tablet] 20 mg PO DAILY 5 Days #5 tablet Home Medications: Albuterol Sulfate [Proair HFA Inhalation Aerosol 8.5 gm MDI] 2 puff IH Q4 20 Days hfa.aer.ad 08/21/17 Albuterol Sulfate [Proair HFA Inhalation Aerosol 8.5 gm MDI] 2 puff IH Q6HP PRN 30 Days #1 hfa.aer.ad 08/21/17 Amlodipine Besylate [Norvasc 10 mg Tablet] 5 mg PO QPM 30 Days tablet 08/21/17 Clonidine HCl [Catapres 0.2 mg Tablet] 0.2 mg PO Q12 30 Days tablet 08/21/17 Hydralazine HCl [Apresoline 10 mg Tablet] 10 mg PO Q8 15 Days #45 tablet Ipratropium/Albuterol Sulfate [Duoneb 3 ml Ampul] 3 ml NEB RTQ6 15 Days #60 vial.neb 08/21/17 Levofloxacin [Levaquin 500 mg Tablet] 500 mg PO DAILY 4 Days #4 tablet 08/21/17 Montelukast Sodium [Singulair 10 mg Tablet] 10 mg PO QHS 30 Days #30 tablet Prednisone [Deltasone 10 mg Tablet] 20 mg PO DAILY 5 Days #5 tablet 08/21/17 History of Present Illness Patient complains of: Severe respiratory distress History of Present Illness: SHERLYN GALLOWAY is a 32 year old female with past medical history of Asthma with frequent exacerbations recently discharged on August 07 Anxiety Noncompliance with medication regimen Patient medications: Singulair Symbicort Prednisone Pro-air HFA as needed Albuterol nebulizer as needed She has had 2 recent hospitalizations and on her last admission it was discovered that she had not filled the prescriptions for Symbicort and pro-air. The patient had been instructed to follow-up with Dr. Rothman as an outpatient. She presented back to the hospital on August 10 with shortness of breath and severe distress satting 79% on room air. Per ER physician's report she was in severe respiratory distress with decreased air movement and only able to speak in 2-3 word sentences. She received Solu-Medrol by the paramedics as well as several DuoNeb treatments was placed on BiPAP given 0.5 mg of intramuscular epinephrine 50 mg of ketamine started on a ketamine drip and was given magnesium and continuous albuterol treatments. She improved slightly and the patient's stated that they would prefer not to intubate her. The patient had a lot of anxiety with no improvement with the ketamine drip and she was given Ativan. Reevaluation in approximately 45 minutes later revealed continued wheezing and tightness and venous blood gas showed CO2 retention and respiratory acidosis- and she was intubated. Physical Exam Vital Signs: Temp Pulse Resp BP Pulse Ox 98.1 F 72 17 116/76 100 08/21/17 09:56 08/21/17 09:56 08/21/17 09:56 08/21/17 09:56 08/21/17 09:56 Intake & Output 08/20/17 08/21/17 08/22/17 06:59 06:59 06:59 Intake Total 1400 Output Total 1420 2000 Balance -1420 -600 Weight 65.4 kg 65.5 kg General appearance: PRESENT: no acute distress, cooperative Head exam: PRESENT: atraumatic, normocephalic Eye exam: PRESENT: EOMI. ABSENT: scleral icterus Ear exam: PRESENT: normal external ear exam Mouth exam: PRESENT: moist, neck supple, other - Right IJ central line in place without complication Neck exam: ABSENT: lymphadenopathy, tenderness Respiratory exam: PRESENT: clear to auscultation lilo, decreased breath sounds, unlabored. ABSENT: rales, rhonchi, wheezes Cardiovascular exam: PRESENT: RRR. ABSENT: systolic murmur Pulses: PRESENT: normal radial pulses GI/Abdominal exam: PRESENT: normal bowel sounds, soft. ABSENT: distended, tenderness Rectal exam: PRESENT: deferred Extremities exam: ABSENT: pedal edema, tenderness Musculoskeletal exam: PRESENT: other - Extremities normal. Patient has dressing in place over site of right sided chest tube that has been removed. No complications around the site. Neurological exam: PRESENT: alert, awake, oriented to person, oriented to place , oriented to situation, CN II-XII grossly intact Psychiatric exam: PRESENT: agitated Skin exam: PRESENT: dry, warm Results Laboratory Results: 08/20/17 05:50 08/20/17 05:50 08/11/17 08/11/17 08/11/17 03:58 08:16 08:16 Creatine Kinase 452 H CK-MB (CK-2) 3.40 Troponin I < 0.012 NT-Pro-B Natriuret Pep 234 H 08/12/17 03:56 Creatine Kinase CK-MB (CK-2) Troponin I NT-Pro-B Natriuret Pep 80 Impressions: Chest X-Ray 08/19/17 06:00 IMPRESSION: No significant change. Qualifiers - * PATIENT BEING DISCHARGED WITH ANY OF THE FOLLOWING DIAGNOSIS: No
--- NOTE | 2017-10-08 09:44 | Operative Report ---
Operative Report DATE OF SURGERY: 08/11/17 Operative Report: patient intubated;status asthmatics poorly responding to medical treatment, patient may have a atypical infection PREOPERATIVE DIAGNOSIS: resp lailure POSTOPERATIVE DIAGNOSIS: same OPERATION: fiber optic bronchoscopy SURGEON: GUILLERMO MADRID ANESTHESIA: GA TISSUE REMOVED OR ALTERED: LLL lavage fluid non purulent may contain viral, fungal or orther elements not yet diagnosed COMPLICATIONS: none ESTIMATED BLOOD LOSS: na INTRAOPERATIVE FINDINGS: n/a
--- NOTE | 2017-10-08 14:53 | Operative Report ---
Bedside Procedure - History of Present Illness History of Present Illness: This addendum to the original note on 08/13/2017 regarding central line placement right anterior cervical triangle was prepped and draped in a sterile fashion the area was anesthetized after 3 attempts to identify and penetrate the right internal jugular artery no success was obtained therefore we stopped the procedure. We surgery to inserted central line subsequent chest x-ray did show a pneumothorax on the right and this was resolved with chest tube placement per surgery Indication for Procedure: addendum poor venous Date: 08/13/17 Surgeon: GUILLERMO MADRID
== END 2017-08-21 10:15 | disposition home or self-care (01) | DRG 167 ==
LOC: ER 04:14 → EH 07:38 → ICU 09:52
PROVIDERS: ADMIT Internal Medicine; ATTEND Internal Medicine
PROC: 5A1955Z Respiratory Ventilation, Greater than 96 Consecutive Hours (ICD-10-PCS; principal; 2017-08-10)
PROC: 0BH17EZ Insertion of Endotracheal Airway into Trachea, Via Natural or Artificial Opening (ICD-10-PCS; 2017-08-10)
PROC: 0B9J8ZX Drainage of Left Lower Lung Lobe, Via Natural or Artificial Opening Endoscopic, Diagnostic (ICD-10-PCS; 2017-08-11)
PROC: 02HV33Z Insertion of Infusion Device into Superior Vena Cava, Percutaneous Approach (ICD-10-PCS; 2017-08-13)
PROC: 0W9930Z Drainage of Right Pleural Cavity with Drainage Device, Percutaneous Approach (ICD-10-PCS; 2017-08-13)
PROC: 0WJ63ZZ Inspection of Neck, Percutaneous Approach (ICD-10-PCS; 2017-08-13)
DX: J96.01 Acute respiratory failure with hypoxia (principal); J45.52 Severe persistent asthma with status asthmaticus; J93.9 Pneumothorax, unspecified; J96.02 Acute respiratory failure with hypercapnia; B95.3 Streptococcus pneumoniae as the cause of diseases classified elsewhere; F41.9 Anxiety disorder, unspecified; F10.10 Alcohol abuse, uncomplicated; J44.9 Chronic obstructive pulmonary disease, unspecified; E87.6 Hypokalemia; I10 Essential (primary) hypertension; F14.10 Cocaine abuse, uncomplicated; I87.2 Venous insufficiency (chronic) (peripheral); Z79.51 Long term (current) use of inhaled steroids; Z91.14 Patient's other noncompliance with medication regimen; Z59.6 Low income; Z59.7 Insufficient social insurance and welfare support; Z79.52 Long term (current) use of systemic steroids; Z79.899 Other long term (current) drug therapy; I25.2 Old myocardial infarction
CPT/HCPCS: 36415; 51702; 71045; 80048; 80053; 81001; 81025; 82550; 82553; 82803; 82962; 83036; 83735; 83880; 84100; 84439; 84443; 84484; 85025; 85610; 85730; 86701; 87015; 87040; 87070; 87086; 87088; 87101; 87116; 87186; 87205; 87206; 87486; 87804; 88104; 93005; 93010; 93306; 94002; 94003; 94640; 94660; 94799; 96365; 96366; 96372; 96375; 99291; 99292; C1751; J0171; J0295; J0330; J0360; J1100; J1642; J1650; J1940; J2060; J2250; J2704; J2920; J2930; J3010; J3411; J3475; J3480; J3490; J7040; J7120; J7512; J7614; J7620; S0028

== ENCOUNTER 2017-10-24 15:32 | Emergency (ER) | payer SELFPAY ==
[2017-10-24] MEDS ORDERED: LIDOCAINE 1% INJ-PF (10 MG/ML) 30 ML SDV INJ ONE (16:23)
[2017-10-24] MEDS ORDERED: AZITHROMYCIN 250 MG TABLET PO ONE (16:23)
[2017-10-24] MEDS ORDERED: CEFTRIAXONE INJ 250 MG VIAL IM ONE (16:23)
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
[2017-10-24 17:18] LABS: ABSOLUTE EOSINOPHILS # (AUTO) 0.3 10^3/uL (0.0-0.6); ABSOLUTE LYMPHOCYTES (AUTO) 2.2 10^3/uL (0.5-4.7); ABSOLUTE MONOCYTES (AUTO) 0.4 10^3/uL (0.1-1.4); ABSOLUTE NEUT (AUTO) 2.2 10^3/uL (1.7-8.2); BASOPHILS % (AUTO) 0.8 % (0-2); EOSINOPHILS % (AUTO) 6.3 % (0-6); HEMATOCRIT 35.9 % (36.0-47.0); HEMOGLOBIN 12.3 g/dL (12.0-15.5); LYMPHOCYTES % (AUTO) 42.7 % (13-45); MEAN CORPUSCULAR HEMOGLOBIN 31.1 pg (27.0-33.4); MEAN CORPUSCULAR HGB CONC 34.2 g/dL (32.0-36.0); MEAN CORPUSCULAR VOLUME 91 fl (80-97); MONOCYTES % (AUTO) 7.5 % (3-13); PLATELET COUNT 221 10^3/uL (150-450); RED BLOOD COUNT 3.95 10^6/uL (3.72-5.28); RED CELL DISTRIBUTION WIDTH 13.3 % (11.5-14.0); SEGMENTED NEUTROPHILS % (AUTO) 42.7 % (42-78); TOTAL CELLS COUNTED % (AUTO) 100 %; WHITE BLOOD COUNT 5.2 10^3/uL (4.0-10.5)
[2017-10-24 17:32] LABS: ANION GAP 13 (5-19)
[2017-10-24 18:15] LABS: ALANINE AMINOTRANSFERASE 25 U/L (9-52); ALBUMIN 4.5 g/dL (3.5-5.0); ALKALINE PHOSPHATASE 54 U/L (38-126); ASPARTATE AMINO TRANSFERASE 25 U/L (14-36); BILIRUBIN,DIRECT 0.2 mg/dL (0.0-0.4); BILIRUBIN,TOTAL 0.2 mg/dL (0.2-1.3); BLOOD UREA NITROGEN 9 mg/dL (7-20); CALCIUM 8.8 mg/dL (8.4-10.2); CARBON DIOXIDE 27 mmol/L (22-30); CHLORIDE 109 mmol/L (98-107); GLUCOSE 91 mg/dL (75-110); POTASSIUM 3.6 mmol/L (3.6-5.0); SODIUM 148.8 mmol/L (137-145)
[2017-10-24 18:46] LABS: RBCS (WET MOUNT) NO RBCS SEEN; T.VAGINALIS (WET MOUNT) NO TRICHOMONAS SEEN; WBCS (WET MOUNT) RARE WBCS SEEN; YEAST (WET MOUNT) NO YEAST SEEN
[2017-10-24] MEDS ORDERED: RALTEGRAVIR 400 MG TAB (6 TAB/ER DISP) PO PRN (18:46)
[2017-10-24] MEDS ORDERED: EMTRICITABINE/TENOFOVIR 200-300 MG TAB (3 TAB/ER DISP) PO PRN (18:46)
[2017-10-24] MEDS ORDERED: METRONIDAZOLE 500 MG TABLET PO ONE (18:47)
[2017-10-24] MEDS ORDERED: PROMETHAZINE HCL 25 MG TABLET PO ONE (18:51)
[2017-10-24 20:17] LABS: CHLAM PCR NOT DETECTED (NOT DETECT); GON PCR NOT DETECTED (NOT DETECT)
[2017-10-24 21:04] VITALS: BP 137/96
[2017-10-26 14:38] LABS: HEPATITIS A AB IGM Negative (Negative); HEPATITIS B CORE AB IGM Negative (Negative); HEPATITS B SURFACE ANTIGEN Negative (Negative)
[2017-10-26 14:55] LABS: HEPATITIS C VIRUS ANTIBODY <0.1 s/co ratio (0.0-0.9)
== END 2017-10-24 19:40 | disposition home or self-care (01) ==
LOC: ER 15:32
DX: T76.21XA Adult sexual abuse, suspected, initial encounter (principal); R11.0 Nausea; J44.9 Chronic obstructive pulmonary disease, unspecified
CPT/HCPCS: 99285; 96372; 36415; 87210; 84703; 85025; 80053; 86701; 87491; 87591; 80074; J3490; J0696

== ENCOUNTER 2018-01-22 12:14 | Emergency (ER) | payer SELFPAY ==
--- NOTE | 2018-01-22 12:46 | ER Document Report ---
ED General - General Chief Complaint: Shortness Of Breath Stated Complaint: DIFFICULTY BREATHING Time Seen by Provider: 01/22/18 12:43 TRAVEL OUTSIDE OF THE [place] IN LAST 30 DAYS: No - HPI Notes: Patient is a 33-year-old female that presents to the emergency department for chief complaint of asthma exacerbation. Patient presents by EMS with asthma exacerbation. She has history of asthma and has been intubated in the past. Her last admission with intubation was July 2017. She states she has had increased shortness of breath over the last few days but it became more severe today. She used 8 nebulized albuterol treatments at home this morning and 1 around 1130 with minimal improvement. Patient was given DuoNeb, Solu-Medrol, and magnesium by EMS and states she is feeling much better now. She denies any recent illness, fevers, cough and congestion. She denies any chest pain. Past Medical History: Asthma Past Surgical History: Negative Social History: Denies tobacco and drug use. 4-6 alcohol beverages daily Family History: Reviewed and noncontributory for presenting illness Allergies: Reviewed, see documented allergy list. REVIEW OF SYSTEMS: CONSTITUTIONAL : No fever No chills No diaphoresis No recent illness EENT: No vision changes No congestion No sore throat CARDIOVASCULAR: No chest pain No palpitations RESPIRATORY: shortness of breath No cough No difficulty breathing GASTROINTESTINAL: No abdominal pain No nausea No vomiting No diarrhea GENITOURINARY: No dysuria No hematuria No difficulty urinating MUSCULOSKELETAL: No back pain No leg pain No arm pain SKIN: No rashes No lesions LYMPHATIC: No swollen, enlarged glands. NEUROLOGICAL: No lightheadedness No headache No weakness No paresthesias PSYCHIATRIC: No anxiety No depression PHYSICAL EXAMINATION: Vital signs reviewed, nursing noted reviewed. GENERAL: Well-appearing, well-nourished and in no acute distress. HEAD: Atraumatic, normocephalic. EYES: Eyes appear normal, extraocular movements intact, sclera anicteric, conjunctiva are normal. ENT: nares patent, oropharynx clear without exudates. Moist mucous membranes. NECK: Normal range of motion, supple without lymphadenopathy LUNGS: Diffuse wheezing and diminished breath sounds bilaterally. No accessory muscle use. Speaking in full sentences. HEART: Regular rate and rhythm without murmurs ABDOMEN: Soft, nontender, normoactive bowel sounds. No rebound, guarding, or rigidity. No masses appreciated. EXTREMITIES: Nontender, good range of motion, no pitting or edema. NEUROLOGICAL: No focal neurological deficits. Moves all extremities spontaneously Motor and sensory grossly intact on exam. PSYCH: Normal mood, normal affect. SKIN: Warm, Dry, normal turgor, no rashes or lesions noted on exposed skin - Related Data Allergies/Adverse Reactions: No Known Allergies Allergy (Verified 10/24/17 15:36) Past Medical History - Social History Smoking Status: Never Smoker Chew tobacco use (# tins/day): No Frequency of alcohol use: None Drug Abuse: None Family History: Reviewed & Not Pertinent, Other - No family member available to confirm family history Patient has suicidal ideation: No Patient has homicidal ideation: No - Past Medical History Cardiac Medical History: Reports: Hx Heart Attack Pulmonary Medical History: Reports: Hx Asthma, Hx COPD, Hx Intubation - 2015, Hx Respiratory Failure Renal/ Medical History: Denies: Hx Peritoneal Dialysis Psychiatric Medical History: Denies: Hx Depression Past Surgical History: Reports: Other - Chest tube - Immunizations Hx Diphtheria, Pertussis, Tetanus Vaccination: Yes Review of Systems - Review of Systems Notes: Dictated Physical Exam - Vital signs Vitals: Temp Resp Pulse Ox 98.7 F 11 L 100 01/22/18 12:18 01/22/18 12:18 01/22/18 12:18 - Notes Notes: Dictated Course - Re-evaluation Re-evalutation: 01/22/18 12:45 Vitals reviewed and stable. Nursing notes reviewed. Patient is oxygenating at 100% on room air. She is conversational and laughing in the room and in no acute distress. She received Solu-Medrol and DuoNeb by EMS just prior to arrival 01/22/18 13:27 Patient reevaluated and is still oxygenating at 100% on room air. She is in no acute respiratory distress. She is speaking in full sentences and appears comfortable. I did offer her admission to the hospital because of the quantity of albuterol she required for symptomatic improvement and her history of intubation in the past. She does not wish to be admitted to the hospital at this time. She was told to continue using her albuterol inhaler every 2-4 hours for the next day and then every 4 hours after that. She will return to the emergency room if she is having any increase in her shortness of breath. She will start taking prednisone daily. Chest x-ray today showed no pneumonia and she is not having any symptoms of pneumonia, antibiotics not currently indicated. Patient discharged home in stable condition. Chest X-Ray 01/22/18 12:43 IMPRESSION: NO ACUTE RADIOGRAPHIC FINDING IN THE CHEST. - Vital Signs Vital signs: Temp Pulse Resp BP Pulse Ox 98.7 F 11 L 100 01/22/18 12:18 01/22/18 12:18 01/22/18 12:18 Discharge - Discharge Clinical Impression: Asthma exacerbation Qualifiers: Asthma severity: moderate Asthma persistence: unspecified Qualified Code(s): J45.901 - Unspecified asthma with (acute) exacerbation Condition: Stable Disposition: HOME, SELF-CARE Instructions: Asthma ([facility]) Additional Instructions: Please return to the emergency department if you have any worsening, or concern of your symptoms. Please return to the emergency department if you develop chest pain, difficulty breathing, severe abdominal pain, or ongoing vomiting. Please follow-up with your primary care physician in 2-3 days and any other recommended physicians. If prescribed, take all medications as directed. If you have any questions or concerns do not hesitate to return the emergency department for evaluation. Use your albuterol nebulized inhaler at home every 2-4 hours for the next 24 hours and then every 4 hours as needed after that. Begin taking prednisone prescription tomorrow morning Prescriptions: Prednisone [Deltasone 20 mg Tablet] 2 tab PO DAILY 5 Days tablet Referrals: NAHOMI BLACK FNP-C [Primary Care Provider] - Follow up in 3-5 days
--- NOTE | 2018-01-22 13:19 | RADIOLOGY REPORT (SQ) ---
EXAM DESCRIPTION: CHEST SINGLE VIEW COMPLETED DATE/TIME: 01/22/2018 1:09 pm REASON FOR STUDY: shortness of breath COMPARISON: 03/10/2016 EXAM PARAMETERS: NUMBER OF VIEWS: One view. TECHNIQUE: Single frontal radiographic view of the chest acquired. RADIATION DOSE: NA LIMITATIONS: None. FINDINGS: LUNGS AND PLEURA: No opacities, masses or pneumothorax. No pleural effusion. MEDIASTINUM AND HILAR STRUCTURES: No masses. Contour normal. HEART AND VASCULAR STRUCTURES: Heart normal in size. Normal vasculature. BONES: Scoliosis. HARDWARE: None in the chest. OTHER: No other significant finding. IMPRESSION: NO ACUTE RADIOGRAPHIC FINDING IN THE CHEST. TECHNICAL DOCUMENTATION: JOB ID: [id number] [email or web address]- All Rights Reserved Reading location - IP/workstation name: [email or web address]
[2018-01-22 14:39] VITALS: BP 128/68
== END 2018-01-22 14:05 | disposition home or self-care (01) ==
LOC: ER 12:14
DX: J45.901 Unspecified asthma with (acute) exacerbation (principal); I25.2 Old myocardial infarction
CPT/HCPCS: 71045; 99285

== ENCOUNTER 2018-02-20 22:00 | Emergency (ER) | payer SELFPAY ==
[2018-02-20] MEDS ORDERED: MAGNESIUM SULFATE/D5W 1 GM/100 ML RTUPB IV ONE (22:12)
[2018-02-20] MEDS ORDERED: IPRATROPIUM/ALBUTEROL 0.5-2.5 MG/3 ML AMPUL NEB ONE (22:12)
--- NOTE | 2018-02-20 22:12 | ER Document Report ---
ED Respiratory Problem - General Stated Complaint: SHORTNESS OF BREATH Time Seen by Provider: 02/20/18 22:03 Information source: Patient Cannot obtain history due to: Unstable vital signs Notes: Patient is a 33-year-old female with a history of asthma who comes in with respiratory distress. Patient was in severe distress according to EMS. She was given 1 DuoNeb, 1 albuterol nebulizer, Solu-Medrol, and magnesium. Patient is improved but still has some wheezing. She has been intubated 3 times in the past for asthma exacerbations. She does not smoke and she never has. Denies any other medical problems. Denies fever or cough. States that she gets triggered by certain environmental things which she is not sure what did at this time. Denies any upper respiratory symptoms recently. No new medications or other triggers identified by patient. TRAVEL OUTSIDE OF THE [place] IN LAST 30 DAYS: No - HPI Patient complains to provider of: Short of breath Onset: This evening Duration: Continuous Quality of pain: Dull Severity: Mild Pain Level: 1 Context: Hx asthma Short of Breath: Moderate Associated symptoms: None Similar symptoms previously: Yes Recently seen / treated by doctor: Yes - Sees Dr. Rothman - Related Data Allergies/Adverse Reactions: No Known Allergies Allergy (Verified 10/24/17 15:36) Past Medical History - Social History Smoking Status: Never Smoker Cigarette use (# per day): No Chew tobacco use (# tins/day): No Frequency of alcohol use: None Drug Abuse: None Family History: Reviewed & Not Pertinent, Other - No family member available to confirm family history - Past Medical History Cardiac Medical History: Reports: Hx Heart Attack Pulmonary Medical History: Reports: Hx Asthma, Hx COPD, Hx Intubation - 2015, Hx Respiratory Failure Renal/ Medical History: Denies: Hx Peritoneal Dialysis Psychiatric Medical History: Denies: Hx Depression Past Surgical History: Reports: Other - Chest tube - Immunizations Hx Diphtheria, Pertussis, Tetanus Vaccination: Yes Review of Systems - Review of Systems Constitutional: No symptoms reported EENT: No symptoms reported Cardiovascular: See HPI, Chest pain Respiratory: See HPI Gastrointestinal: No symptoms reported Genitourinary: No symptoms reported Female Genitourinary: No symptoms reported Musculoskeletal: No symptoms reported Skin: No symptoms reported Hematologic/Lymphatic: No symptoms reported Neurological/Psychological: No symptoms reported Physical Exam - Vital signs Vitals: Resp Pulse Ox 16 99 02/20/18 22:10 02/20/18 22:10 Interpretation: Normal - General General appearance: Appears well, Alert - HEENT Head: Normocephalic, Atraumatic Eyes: Normal Pupils: PERRL - Respiratory Respiratory status: Respiratory distress - mild Chest status: Nontender Breath sounds: Decreased air movement, Wheezing Chest palpation: Normal - Cardiovascular Rhythm: Regular Heart sounds: Normal auscultation Murmur: No - Abdominal Inspection: Normal Distension: No distension Bowel sounds: Normal Tenderness: Nontender Organomegaly: No organomegaly - Back Back: Normal, Nontender - Extremities General upper extremity: Normal inspection, Nontender, Normal color, Normal ROM , Normal temperature General lower extremity: Normal inspection, Nontender, Normal color, Normal ROM , Normal temperature, Normal weight bearing. No: Ramya's sign - Neurological Neuro grossly intact: Yes Cognition: Normal Orientation: AAOx4 Duane Coma Scale Eye Opening: Spontaneous Clear Coma Scale Verbal: Oriented Duane Coma Scale Motor: Obeys Commands Duane Coma Scale Total: 15 Speech: Normal Motor strength normal: LUE, RUE, LLE, RLE Sensory: Normal - Psychological Associated symptoms: Normal affect, Normal mood - Skin Skin Temperature: Warm Skin Moisture: Diaphoretic Skin Color: Normal Course - Re-evaluation Re-evalutation: 02/20/18 23:20 Patient still wheezing. Received Solu-Medrol, nebs, magnesium about an hour and 40 minutes ago. Walk to the department and drops her oxygen saturation to 85% becomes very short of breath. She will be given another nebulizer treatment. Given her current respiratory status and history of severe asthma with patient, will need to be admitted until her symptoms have resolved. Patient is agreeable to this plan. Discussed with the hospitalist will admit the patient. - Vital Signs Vital signs: Temp Pulse Resp BP Pulse Ox 17 138/99 H 99 02/20/18 22:19 02/20/18 22:19 02/20/18 22:19 - Laboratory Result Diagrams: 02/20/18 22:10 02/20/18 22:10 Laboratory results interpreted by me: 02/20/18 02/20/18 02/20/18 22:10 22:10 22:10 Seg Neutrophils % 23.0 L Lymphocytes % 57.5 H Eosinophils % 12.1 H Absolute Neutrophils 1.4 L Absolute Eosinophils 0.7 H VBG pH 7.28 L Sodium 148.3 H Chloride 108 H Carbon Dioxide 21 L Total Protein 9.2 H Albumin 5.2 H Critical Care Note - Critical Care Note Total time excluding time spent on procedures (mins): 35 - Evaluation and management of respiratory distress with multiple re-evaluations, coordination of admission, counseling of patient Discharge - Discharge Clinical Impression: Hypoxia Asthma exacerbation Qualifiers: Asthma severity: moderate Asthma persistence: persistent Qualified Code(s): J45.41 - Moderate persistent asthma with (acute) exacerbation Condition: Stable Disposition: ADMITTED INPATIENT Admitting Provider: Hospitalist Unit Admitted: Telemetry Referrals: NAHOMI LBACK FNP-C [Primary Care Provider] - Follow up as needed
[2018-02-20 22:31] LABS: ABSOLUTE BASOPHILS # (AUTO) 0.1 10^3/uL (0.0-0.2); ABSOLUTE EOSINOPHILS # (AUTO) 0.7 10^3/uL (0.0-0.6); ABSOLUTE LYMPHOCYTES (AUTO) 3.5 10^3/uL (0.5-4.7); ABSOLUTE MONOCYTES (AUTO) 0.4 10^3/uL (0.1-1.4); ABSOLUTE NEUT (AUTO) 1.4 10^3/uL (1.7-8.2); BASOPHILS % (AUTO) 1.3 % (0-2); EOSINOPHILS % (AUTO) 12.1 % (0-6); HEMATOCRIT 39.4 % (36.0-47.0); HEMOGLOBIN 13.6 g/dL (12.0-15.5); LYMPHOCYTES % (AUTO) 57.5 % (13-45); MEAN CORPUSCULAR HEMOGLOBIN 32.3 pg (27.0-33.4); MEAN CORPUSCULAR HGB CONC 34.5 g/dL (32.0-36.0); MEAN CORPUSCULAR VOLUME 94 fl (80-97); MONOCYTES % (AUTO) 6.1 % (3-13); PLATELET COUNT 254 10^3/uL (150-450); RED CELL DISTRIBUTION WIDTH 13.9 % (11.5-14.0); TOTAL CELLS COUNTED % (AUTO) 100 %; WHITE BLOOD COUNT 6.1 10^3/uL (4.0-10.5)
[2018-02-20 22:32] LABS: VENOUS BLOOD BASE EXCESS -0.9 mmol/L; VENOUS BLOOD HCO3 26.9 mmol/L (20-32); VENOUS BLOOD PCO2 58.1 mmHg (35-63); VENOUS BLOOD PH 7.28 (7.30-7.42)
[2018-02-20 22:53] LABS: ALANINE AMINOTRANSFERASE 18 U/L (9-52); ALBUMIN 5.2 g/dL (3.5-5.0); ALKALINE PHOSPHATASE 67 U/L (38-126); ASPARTATE AMINO TRANSFERASE 27 U/L (14-36); BILIRUBIN,DIRECT 0.2 mg/dL (0.0-0.4); BILIRUBIN,TOTAL 0.4 mg/dL (0.2-1.3); BLOOD UREA NITROGEN 10 mg/dL (7-20); CALCIUM 9.8 mg/dL (8.4-10.2); CARBON DIOXIDE 21 mmol/L (22-30); GLUCOSE 93 mg/dL (75-110); POTASSIUM 3.8 mmol/L (3.6-5.0); TOTAL PROTEIN 9.2 g/dL (6.3-8.2)
[2018-02-20 22:58] LABS: ANION GAP 19 (5-19); CHLORIDE 108 mmol/L (98-107); SODIUM 148.3 mmol/L (137-145)
[2018-02-20] MEDS ORDERED: ALBUTEROL SULFATE 0.083% NEB 2.5 MG/3 ML AMPUL NEB ONE (23:17)
[2018-02-20] MEDS ORDERED: ACETAMINOPHEN 325 MG TABLET PO PRN (23:37)
[2018-02-20] MEDS ORDERED: IPRATROPIUM/ALBUTEROL 0.5-2.5 MG/3 ML AMPUL NEB PRN (23:37)
[2018-02-20] MEDS ORDERED: MAG HYDROX/AL HYDROX/SIMETH SUSP 30 ML UDCUP PO PRN (23:37)
[2018-02-20] MEDS ORDERED: CLONIDINE HCL 0.2 MG TABLET PO ONE (23:45)
[2018-02-20] MEDS ORDERED: SULFAMETHOXAZOLE/TRIMETHOPRIM 800-160 MG TABLET PO ONE (23:45)
[2018-02-20] MEDS ORDERED: FLUTICASONE NASAL SPRAY 50 MCG/SPRY 120 SPRAY/16 GM NASL ONE (23:45)
--- NOTE | 2018-02-20 23:48 | RADIOLOGY REPORT (SQ) ---
CLINICAL HISTORY: SOB COMPARISON: None. TECHNIQUE: XR CHEST 1 VIEW 02/20/2018 10:04 PM CDT FINDINGS: Cardiac silhouette is normal in size. Lungs are clear without consolidation, atelectasis, mass or edema. There is no pleural effusion. There is no pneumothorax. There are no acute osseous findings. IMPRESSION: Clear lungs.
[2018-02-21] MEDS ORDERED: ALBUTEROL SULFATE HFA (90 MCG/PUFF) 200 PUFF/8.5 GM MDI IH ONE (00:28)
[2018-02-21 01:08] VITALS: BP 118/80
--- NOTE | 2018-02-21 01:09 | ER Document Report ---
ED General - General Chief Complaint: Breathing Difficulty Stated Complaint: SHORTNESS OF BREATH Time Seen by Provider: 02/20/18 22:03 Notes: This patient was seen and evaluated by Dr. Eason. This is her patient. I have a note on her chart. All the discharge information should be on that other note that was performed by Dr. Mcpherson. He is referred to Dr. King' s note for full H&P and progress and disposition notes. TRAVEL OUTSIDE OF THE [place] IN LAST 30 DAYS: No - Related Data Allergies/Adverse Reactions: No Known Allergies Allergy (Verified 10/24/17 15:36) Past Medical History - General Information source: Patient - Social History Smoking Status: Never Smoker Cigarette use (# per day): No Chew tobacco use (# tins/day): No Frequency of alcohol use: None Drug Abuse: None Family History: Reviewed & Not Pertinent, Other - No family member available to confirm family history Patient has suicidal ideation: No Patient has homicidal ideation: No - Past Medical History Cardiac Medical History: Reports: Hx Heart Attack Pulmonary Medical History: Reports: Hx Asthma, Hx COPD, Hx Intubation - 2015, Hx Respiratory Failure Renal/ Medical History: Denies: Hx Peritoneal Dialysis Psychiatric Medical History: Denies: Hx Depression Past Surgical History: Reports: Other - Chest tube - Immunizations Hx Diphtheria, Pertussis, Tetanus Vaccination: Yes Physical Exam - Vital signs Vitals: Resp Pulse Ox 16 99 02/20/18 22:10 02/20/18 22:10 Course - Vital Signs Vital signs: Temp Pulse Resp BP Pulse Ox 18 118/80 100 02/21/18 01:01 02/21/18 00:01 02/21/18 01:01 - Laboratory Result Diagrams: 02/20/18 22:10 02/20/18 22:10 Laboratory results interpreted by me: 02/20/18 02/20/18 02/20/18 22:10 22:10 22:10 Seg Neutrophils % 23.0 L Lymphocytes % 57.5 H Eosinophils % 12.1 H Absolute Neutrophils 1.4 L Absolute Eosinophils 0.7 H VBG pH 7.28 L Sodium 148.3 H Chloride 108 H Carbon Dioxide 21 L Total Protein 9.2 H Albumin 5.2 H Discharge - Discharge Clinical Impression: Asthma exacerbation Qualifiers: Asthma severity: moderate Asthma persistence: unspecified Qualified Code(s): J45.901 - Unspecified asthma with (acute) exacerbation Condition: Good Disposition: HOME, SELF-CARE Additional Instructions: Please use your inhaler as 2 puffs every 2-4 hours for wheezing. please return to the ER immediately if you have wheezing not improved with your inhaler, difficulty breathing, fevers, or feel unwell. Prescriptions: Prednisone [Deltasone 20 mg Tablet] 3 tab PO DAILY 4 Days tablet Referrals: NAHOMI BLACK FNP-C [NO LOCAL MD] - 02/22/18
[2018-02-21] MEDS ORDERED: HEPARIN SOD (PORCINE) 5,000 UNIT/ML 1 ML SYRINGE SUBCUT SCH (06:00)
[2018-02-21] MEDS ORDERED: HYDRALAZINE HCL 10 MG TABLET PO SCH (06:00)
--- NOTE | 2018-02-21 09:52 | EKG REPORT ---
SEVERITY:- NORMAL ECG - SINUS RHYTHM : Confirmed by: Kevin Huff 21-Feb-2018 09:51:45
[2018-02-21] MEDS ORDERED: EMTRICITABINE/TENOFOVIR 200-300 MG TABLET PO SCH (10:00)
[2018-02-21] MEDS ORDERED: FLUTICASONE NASAL SPRAY 50 MCG/SPRY 120 SPRAY/16 GM NASL SCH (10:00)
[2018-02-21] MEDS ORDERED: CLONIDINE HCL 0.2 MG TABLET PO SCH (10:00)
[2018-02-21] MEDS ORDERED: PREDNISONE 20 MG TABLET PO SCH (10:00)
[2018-02-21] MEDS ORDERED: SULFAMETHOXAZOLE/TRIMETHOPRIM 800-160 MG TABLET PO SCH (10:00)
[2018-02-21] MEDS ORDERED: AMLODIPINE BESYLATE 10 MG TABLET PO SCH (18:00)
[2018-02-21] MEDS ORDERED: MONTELUKAST SODIUM 10 MG TABLET PO SCH (22:00)
== END 2018-02-21 01:16 | disposition home or self-care (01) ==
LOC: ER 22:00 → INTOOBSV 23:55 → EH 23:55 → UNDOADMOB 23:55 → ER 02-21 01:16
DX: J45.41 Moderate persistent asthma with (acute) exacerbation (principal); J44.9 Chronic obstructive pulmonary disease, unspecified; Z79.899 Other long term (current) drug therapy; R09.02 Hypoxemia; R07.9 Chest pain, unspecified; R61 Generalized hyperhidrosis
CPT/HCPCS: 93005; 94640 ×2; 99291; 36415; 82962; 85025; 80053; 84484; 82803; 83605; 71045; 93010; J7620

== ENCOUNTER 2018-08-04 11:06 | Inpatient (IN) | payer MEDICAID ==
[2018-08-04] MEDS ORDERED: IPRATROPIUM/ALBUTEROL 0.5-2.5 MG/3 ML AMPUL NEB ONE ×4 (11:20→13:18)
--- NOTE | 2018-08-04 11:23 | ER Document Report ---
ED Medical Screen (RME) - General Chief Complaint: Asthma Exacerbation Stated Complaint: COUGH Time Seen by Provider: 08/04/18 11:18 Mode of Arrival: Ambulatory Information source: Patient Notes: Patient presents emergency department with difficulty breathing. Reports history of severe asthma. Has been intubated multiple times. Patient reports the symptoms for the past 4 days and now she is coughing up blood. Unsure of fever no complaints of vomiting diarrhea. Patient is 13 weeks . O2 sat is 99% on room air at this time posterior wheezes. I have greeted and performed a rapid initial assessment of this patient. A comprehensive ED assessment and evaluation of the patient, analysis of test results and completion of the medical decision making process will be conducted by additional ED providers. Dictation of this chart was performed using voice recognition software; therefore, there may be some unintended grammatical errors. TRAVEL OUTSIDE OF THE [place] IN LAST 30 DAYS: No - Related Data Allergies/Adverse Reactions: No Known Allergies Allergy (Verified 10/24/17 15:36) Past Medical History - Past Medical History Cardiac Medical History: Reports: Hx Heart Attack Pulmonary Medical History: Reports: Hx Asthma, Hx COPD, Hx Intubation - 03/07/2016, Hx Respiratory Failure Renal/ Medical History: Denies: Hx Peritoneal Dialysis Psychiatric Medical History: Denies: Hx Depression Past Surgical History: Reports: Other - Chest tube - Immunizations Hx Diphtheria, Pertussis, Tetanus Vaccination: Yes History of Influenza Vaccine for 01/2017 - 06/2017 Season: Refused Physical Exam - Vital signs Vitals: Temp Pulse Resp BP Pulse Ox 98.8 F 126 H 24 H 108/71 99 08/04/18 11:13 08/04/18 11:13 08/04/18 11:13 08/04/18 11:13 08/04/18 11:13 Course - Vital Signs Vital signs: Temp Pulse Resp BP Pulse Ox 98.8 F 126 H 24 H 108/71 99 08/04/18 11:13 08/04/18 11:13 08/04/18 11:13 08/04/18 11:13 08/04/18 11:13
[2018-08-04 11:50] LABS: ABSOLUTE EOSINOPHILS # (AUTO) 0.5 10^3/uL (0.0-0.6); ABSOLUTE LYMPHOCYTES (AUTO) 1.3 10^3/uL (0.5-4.7); ABSOLUTE MONOCYTES (AUTO) 0.7 10^3/uL (0.1-1.4); ABSOLUTE NEUT (AUTO) 5.8 10^3/uL (1.7-8.2); BASOPHILS % (AUTO) 0.5 % (0-2); EOSINOPHILS % (AUTO) 6.5 % (0-6); HEMATOCRIT 34.1 % (36.0-47.0); LYMPHOCYTES % (AUTO) 15.4 % (13-45); MEAN CORPUSCULAR HEMOGLOBIN 32.5 pg (27.0-33.4); MEAN CORPUSCULAR HGB CONC 35.4 g/dL (32.0-36.0); MEAN CORPUSCULAR VOLUME 92 fl (80-97); PLATELET COUNT 209 10^3/uL (150-450); RED BLOOD COUNT 3.71 10^6/uL (3.72-5.28); RED CELL DISTRIBUTION WIDTH 11.9 % (11.5-14.0); SEGMENTED NEUTROPHILS % (AUTO) 69.6 % (42-78); TOTAL CELLS COUNTED % (AUTO) 100 %; WHITE BLOOD COUNT 8.4 10^3/uL (4.0-10.5)
[2018-08-04 12:59] LABS: ALANINE AMINOTRANSFERASE 13 U/L (9-52); ALBUMIN 4.1 g/dL (3.5-5.0); ALKALINE PHOSPHATASE 61 U/L (38-126); ASPARTATE AMINO TRANSFERASE 23 U/L (14-36); BILIRUBIN,DIRECT 0.2 mg/dL (0.0-0.4); BILIRUBIN,TOTAL 0.4 mg/dL (0.2-1.3); BLOOD UREA NITROGEN 8 mg/dL (7-20); CALCIUM 9.3 mg/dL (8.4-10.2); CARBON DIOXIDE 19 mmol/L (22-30); CHLORIDE 107 mmol/L (98-107); GLUCOSE 88 mg/dL (75-110); POTASSIUM 3.7 mmol/L (3.6-5.0); TOTAL PROTEIN 8.2 g/dL (6.3-8.2)
[2018-08-04 13:01] LABS: ANION GAP 11 (5-19); SODIUM 137.1 mmol/L (137-145)
[2018-08-04] MEDS ORDERED: MAGNESIUM SULFATE/D5W 1 GM/100 ML RTUPB IV ONE (13:13)
[2018-08-04] MEDS: MAGNESIUM SULFATE/D5W 1 GM/100 ML RTUPB IV SCH ×2 (13:25→14:39)
[2018-08-04] MEDS ORDERED: METHYLPREDNISOLONE INJ 125 MG/2 ML SDV IV ONE (13:27)
--- NOTE | 2018-08-04 13:42 | ER Document Report ---
ED General - General Mode of Arrival: Ambulatory TRAVEL OUTSIDE OF THE [place] IN LAST 30 DAYS: No <KIARRA CARBAJAL - Last Filed: 08/04/18 17:09> <DERIAN NOLASCO - Last Filed: 08/04/18 17:45> - General Chief Complaint: Asthma Exacerbation Stated Complaint: COUGH Time Seen by Provider: 08/04/18 11:18 Notes: 33-year-old female with history of severe asthma currently 13 weeks presents to the emergency department with difficulty breathing. Has been intubated multiple times. Patient reports the symptoms for the past 4 days and now she is coughing up blood-tinged sputum. SpO2 99% on room air at this time. Patient has been using her albuterol nebulizer excessively for the last 36 hours. In triage she got DuoNeb x1. I immediately went into the room to do an assessment and she was moving air, her left side was clear to auscultation in her right side she had inspiratory and expiratory wheezing but was moving air. Unsure of fever but no complaints of vomiting or diarrhea. No shortness of breath or chest pain (KIARRA CARBAJAL) - Related Data Allergies/Adverse Reactions: No Known Allergies Allergy (Verified 08/04/18 11:28) Past Medical History - General Information source: Patient - Social History Smoking Status: Never Smoker Chew tobacco use (# tins/day): No Frequency of alcohol use: None Drug Abuse: None Family History: Reviewed & Not Pertinent, Other - No family member available to confirm family history Patient has suicidal ideation: No Patient has homicidal ideation: No - Past Medical History Cardiac Medical History: Reports: Hx Heart Attack Pulmonary Medical History: Reports: Hx Asthma, Hx COPD, Hx Intubation - 03/07/2016, Hx Respiratory Failure Renal/ Medical History: Denies: Hx Peritoneal Dialysis Psychiatric Medical History: Denies: Hx Depression Past Surgical History: Reports: Other - Chest tube - Immunizations Hx Diphtheria, Pertussis, Tetanus Vaccination: Yes <KIARRA CARBAJAL - Last Filed: 08/04/18 17:09> Review of Systems - Review of Systems Constitutional: See HPI EENT: No symptoms reported Cardiovascular: See HPI Respiratory: See HPI Gastrointestinal: See HPI Genitourinary: No symptoms reported Female Genitourinary: No symptoms reported Musculoskeletal: No symptoms reported Skin: No symptoms reported Hematologic/Lymphatic: No symptoms reported Neurological/Psychological: No symptoms reported <RAVENKIARRA - Last Filed: 08/04/18 17:09> Physical Exam <RAVENKIARRA - Last Filed: 08/04/18 17:09> - Vital signs Vitals: Temp Pulse Resp BP Pulse Ox 98.8 F 126 H 24 H 108/71 99 08/04/18 11:13 08/04/18 11:13 08/04/18 11:13 08/04/18 11:13 08/04/18 11:13 - Notes Notes: PHYSICAL EXAMINATION: Reviewed vital signs and charting by RN GENERAL: Alert, interacts well. No acute distress. HEAD: Normocephalic, atraumatic. EYES: Pupils equal and round. Extraocular movements intact. ENT: Oral mucosa moist, tongue midline. NECK: Full range of motion. Supple. Trachea midline. LUNGS: Clear to auscultation left side, right side with inspiratory and expiratory wheezing. No respiratory distress. HEART: Regular rate and rhythm. No murmur ABDOMEN: soft, non-tender. Non-distended. Bowel sounds present. no McBurney's point tenderness, no Whiteside sign. EXTREMITIES: Moves all 4 extremities spontaneously. No edema, No cyanosis. Normal distal neurovascular exam BACK: No CVAT NEUROLOGIC: Oriented and appropriate. Normal speech. PSYCH: Normal affect, normal mood. SKIN: Warm, dry, normal turgor. No rashes or lesions noted. (KIARRA CARBAJAL) Course - Laboratory Result Diagrams: 08/04/18 11:35 08/04/18 12:30 <KIARRA CARBAJAL - Last Filed: 08/04/18 17:09> - Laboratory Result Diagrams: 08/04/18 11:35 08/04/18 12:30 <DERIAN NOLASCO - Last Filed: 08/04/18 17:45> - Re-evaluation Re-evalutation: 08/04/18 13:43 Overall well-appearing and not currently in acute respiratory distress. She is not tripoding or nasal flaring or starving for air. She received DuoNeb x1 in triage and I ordered an additional 2 duo nebs. I ordered Solu-Medrol 125 mg IV 1 time. I ordered magnesium 2 g IV. Discussed with Dr. Nolasco who agrees with plan. 08/04/18 16:33 Dr. Lopez saw the patient. Plan is to admit her to the hospital based on her history. I did call the on-call CONTINUING EDUCATION INSTRUCTOR Dr. Sorin Marte who agreed to consult the case and worst case admit her under his service if there are any issues. I then called the hospitalist who requested an ABG and is going to come and see the patient. 08/04/18 17:08 Dr. Obrien saw the patient accepted for observation to the medical floor. He requested OB consult. (KIARRA CARBAJAL) 08/04/18 17:42 I have seen and examined the patient. This is a 33-year-old female with a long history of asthma who is 13 weeks and presents with worsening shortness of breath over the last week, cough productive of sputum and subjective fever and chills. Patient was treated with several nebulizers in the emergency room, IV steroids, IV magnesium. She still feels tight. She has a good handle on her own asthmatic disease and feels that that she will only bounce back to the [facility] if discharged. Based upon the whole clinical picture, I recommended the patient come in for admission. On physical exam, she is alert and oriented x3, she is tachycardic with a heart rate of 133, she does have diffuse wheezing but she is having good air movement at this time, heart is tachycardic, abdomen is soft and nontender. Plan will be to continue the nebulizers, IV steroids, IV antibiotics. (DERIAN NOLASCO) - Vital Signs Vital signs: Temp Pulse Resp BP Pulse Ox 98.8 F 126 H 20 103/76 100 08/04/18 11:13 08/04/18 11:13 08/04/18 17:01 08/04/18 17:01 08/04/18 17:01 - Laboratory Laboratory results interpreted by me: 08/04/18 08/04/18 08/04/18 11:35 12:30 17:10 RBC 3.71 L Hct 34.1 L Eosinophils % 6.5 H Carbonic Acid 0.81 L ABG pCO2 27.0 L ABG HCO3 18.1 L ABG Total CO2 19.0 L Carbon Dioxide 19 L Creatinine 0.51 L Discharge - Discharge Admitting Provider: Eloy (Hospitalist) Unit Admitted: Medical Floor <KIARRA CARBAJAL - Last Filed: 08/04/18 17:09> <DERIAN NOLASCO - Last Filed: 08/04/18 17:45> - Discharge Clinical Impression: Asthma exacerbation Qualifiers: Asthma severity: moderate Asthma persistence: persistent Qualified Code(s): J45.41 - Moderate persistent asthma with (acute) exacerbation Condition: Stable Disposition: ADMITTED OBSERVATION
[2018-08-04] MEDS ORDERED: CEFTRIAXONE 1 GM/D5W RTU 1 GM/50 ML RTUPB IV ONE (15:59)
[2018-08-04 16:56] LABS: A TYPE INFLUENZA AG NEGATIVE (NEGATIVE); B INFLUENZA AG NEGATIVE (NEGATIVE)
[2018-08-04] MEDS ORDERED: ACETAMINOPHEN 325 MG TABLET PO PRN (17:30)
--- NOTE | 2018-08-04 17:30 | PDOC H&P ---
History of Present Illness History of Present Illness: SHERLYN GALLOWAY is a 33 year old black female with past medical history of long- standing bronchial asthma presented with chief complaint of shortness of breath and wheezing for the last 4 days. Reports no improvement despite using her albuterol nebulizer repeatedly. Notes patient has multiple hospitalization and intubation for her asthma. Her last intubation and mechanical ventilation was in July 2017 when she presented with status asthmaticus which failed to respond to several doses of DuoNeb steroid and magnesium sulfate. Her blood work is unremarkable. And her chest x-ray reported as no acute finding. Patient denies any chills, fever, chest pain, palpitation or diaphoresis. No nausea, vomiting, abdominal pain or diarrhea. No urinary complaints. Reportedly patient is 13 w eeks . 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 Past Medical History Cardiac Medical History: Reports: Myocardial Infarction Pulmonary Medical History: Reports: Asthma, Chronic Obstructive Pulmonary Disease (COPD), Intubation - 03/07/2016, Respiratory Failure Psychiatric Medical History: Denies: Depression Past Surgical History Past Surgical History: Reports: Other - Chest tube Social History Smoking Status: Never Smoker Frequency of Alcohol Use: Rare Hx Recreational Drug Use: No Drugs: None Hx Prescription Drug Abuse: No - Advance Directive Resuscitation Status: Full Code Family History Family History: Reviewed & Not Pertinent, Other - No family member available to confirm family history Parental Family History Reviewed: Yes Children Family History Reviewed: Yes Sibling(s) Family History Reviewed.: Yes Medication/Allergy Allergies/Adverse Reactions: No Known Allergies Allergy (Verified 08/04/18 11:28) Review of Systems Cardiovascular: PRESENT: as per HPI Respiratory: PRESENT: cough Gastrointestinal: PRESENT: as per HPI Neurological: PRESENT: as per HPI Psychiatric: PRESENT: as per HPI Hematologic/Lymphatic: PRESENT: as per HPI Physical Exam Vital Signs: Temp Pulse Resp BP Pulse Ox 98.8 F 126 H 22 H 107/73 99 08/04/18 11:13 08/04/18 11:13 08/04/18 15:01 08/04/18 15:01 08/04/18 15:01 Intake & Output 08/03/18 08/04/18 08/05/18 06:59 06:59 06:59 Intake Total 200 Balance 200 Weight 70 kg General appearance: PRESENT: no acute distress, well-developed, well-nourished Head exam: PRESENT: atraumatic, normocephalic Eye exam: PRESENT: conjunctiva pink, EOMI, PERRLA. ABSENT: scleral icterus Ear exam: PRESENT: normal external ear exam Mouth exam: PRESENT: moist, tongue midline Neck exam: ABSENT: carotid bruit, JVD, lymphadenopathy, thyromegaly Respiratory exam: PRESENT: wheezes Cardiovascular exam: PRESENT: RRR. ABSENT: diastolic murmur, rubs, systolic murmur Pulses: PRESENT: normal dorsalis pedis pul Vascular exam: PRESENT: normal capillary refill GI/Abdominal exam: PRESENT: normal bowel sounds, soft. ABSENT: distended, guarding, mass, organolmegaly, rebound, tenderness Rectal exam: PRESENT: deferred Extremities exam: PRESENT: full ROM. ABSENT: calf tenderness, clubbing, pedal edema Neurological exam: PRESENT: alert, awake, oriented to person, oriented to place, oriented to time, oriented to situation, CN II-XII grossly intact. ABSENT: motor sensory deficit Psychiatric exam: PRESENT: appropriate affect, normal mood. ABSENT: homicidal ideation, suicidal ideation Skin exam: PRESENT: dry, intact, warm. ABSENT: cyanosis, rash Results Laboratory Results: 08/04/18 11:35 08/04/18 12:30 08/04/18 08/04/18 08/04/18 11:35 11:35 12:30 WBC 8.4 RBC 3.71 L Hgb 12.0 Hct 34.1 L MCV 92 MCH 32.5 MCHC 35.4 RDW 11.9 Plt Count 209 Seg Neutrophils % 69.6 Lymphocytes % 15.4 Monocytes % 8.0 Eosinophils % 6.5 H Basophils % 0.5 Absolute Neutrophils 5.8 Absolute Lymphocytes 1.3 Absolute Monocytes 0.7 Absolute Eosinophils 0.5 Absolute Basophils 0.0 Sodium Cancelled 137.1 Potassium Cancelled 3.7 Chloride Cancelled 107 Carbon Dioxide Cancelled 19 L Anion Gap Cancelled 11 BUN Cancelled 8 Creatinine Cancelled 0.51 L Est GFR ( Amer) Cancelled > 60 Est GFR (Non-Af Amer) Cancelled > 60 Glucose Cancelled 88 Calcium Cancelled 9.3 Magnesium Total Bilirubin Cancelled 0.4 AST Cancelled 23 ALT Cancelled 13 Alkaline Phosphatase Cancelled 61 Total Protein Cancelled 8.2 Albumin Cancelled 4.1 08/04/18 12:30 WBC RBC Hgb Hct MCV MCH MCHC RDW Plt Count Seg Neutrophils % Lymphocytes % Monocytes % Eosinophils % Basophils % Absolute Neutrophils Absolute Lymphocytes Absolute Monocytes Absolute Eosinophils Absolute Basophils Sodium Potassium Chloride Carbon Dioxide Anion Gap BUN Creatinine Est GFR ( Amer) Est GFR (Non-Af Amer) Glucose Calcium Magnesium 1.8 Total Bilirubin AST ALT Alkaline Phosphatase Total Protein Albumin Assessment and Plan - Diagnosis (1) Acute asthma exacerbation Qualifiers: Asthma severity: moderate Is this a current diagnosis for this admission?: Yes Plan: Patient has been given a dose of Solu-Medrol, DuoNeb and magnesium sulfate. We will keep her on DuoNeb and Solu-Medrol. Since patient has history of multiple intubation I think it is appropriate to admit her for observation. 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
[2018-08-04 17:32] LABS: ARTERIAL BLOOD BASE EXCESS -4.4 mmol/L; ARTERIAL BLOOD H2CO3 0.81 mmol/L (1.05-1.35); ARTERIAL BLOOD HCO3 18.1 mmol/L (20-24); ARTERIAL BLOOD O2 SATURATION 97.2 % (94-98); ARTERIAL BLOOD PH 7.45 (7.35-7.45)
[2018-08-04 17:37] LABS: ARTERIAL BLOOD FIO2 ROOM AIR
[2018-08-04] MEDS: ENOXAPARIN SODIUM INJ 40 MG/0.4 ML DISP.SYRIN SUBCUT SCH (18:28)
[2018-08-04] MEDS: IPRATROPIUM/ALBUTEROL 0.5-2.5 MG/3 ML AMPUL NEB SCH ×2 (19:42→23:57)
[2018-08-04] MEDS: METHYLPREDNISOLONE INJ 40 MG/1 ML SDV IV SCH (22:22)
[2018-08-05] MEDS ORDERED: DIPHENHYDRAMINE HCL 25 MG/10 ML UDC PO PRN (00:57)
[2018-08-05] MEDS: IPRATROPIUM/ALBUTEROL 0.5-2.5 MG/3 ML AMPUL NEB SCH ×6 (03:27→23:48)
[2018-08-05] MEDS: METHYLPREDNISOLONE INJ 40 MG/1 ML SDV IV SCH ×3 (06:43→23:02)
[2018-08-05] MEDS: ENOXAPARIN SODIUM INJ 40 MG/0.4 ML DISP.SYRIN SUBCUT SCH (10:01)
[2018-08-05] MEDS: FLUTICASONE NASAL SPRAY 50 MCG/SPRY 120 SPRAY/16 GM NASL SCH ×2 (10:01→23:02)
--- NOTE | 2018-08-05 16:03 | RADIOLOGY REPORT (SQ) ---
EXAM DESCRIPTION: U/S [id number] TRNABD 1GES W/ODOP COMPLETED DATE/TIME: 08/05/2018 3:25 pm REASON FOR STUDY: Feeling pressure COMPARISON: None. TECHNIQUE: Transabdominal static and realtime grayscale images acquired of the pelvis. Additional se lected spectral and color Doppler images recorded. All images stored on PACs. bHCG: Not available. CLINICAL DATES: 13 weeks 5 days LIMITATIONS: None. FINDINGS: FETUS: Single Living intrauterine . ULTRASOUND EGA: 13 weeks 4 days ULTRASOUND MUSA: 02/06/2019 EFW: Not applicable less than 20 weeks. CRL: 7.4 cm FHR: 165 beats per minute. SURVEY: No visualized anomalies. AMNIOTIC FLUID: Adequate amount. PLACENTA: Not yet developed due to early gestation. SUBCHORIONIC BLEED: No. SIZE OF BLEED: Not applicable. UTERUS: 3 cm fibroid. CERVICAL LENGTH: 3.7 cm. Closed. RIGHT ADNEXA: Ovary not identified due to poor acoustical window. No adnexal free fluid. No adnexal masses. LEFT ADNEXA: Ovary not identified due to poor acoustical window. No adnexal free fluid. No adnexal masses. FREE FLUID: None. OTHER: No other significant finding. IMPRESSION: LIVING INTRAUTERINE . EGA 13 weeks 4 days. Trimester of : First - 0 to 13 weeks. TECHNICAL DOCUMENTATION: JOB ID: [id number] [employer]- All Rights Reserved Reading location - IP/workstation name: [email or web address]
--- NOTE | 2018-08-05 16:40 | PDOC PROGRESS REPORT ---
Subjective Progress Note for:: 08/05/18 Subjective:: This 33 year old with an IUP at 13 weeks presented to [facility] c/o an asthma attack. Pt states that she has dealt with asthma her whole life and was intubated in 2016. She states that she went to [place] a few days ago and started feeling as if her meds were not working. She drove home and got worse. She has a Pulmanologist and an Reflexologist managing her asthma. She states that does not make it worse. Reason For Visit: ASTHMA,EXACERBATION Physical Exam - Physical Exam Vital Signs: Temp Pulse Resp BP Pulse Ox 98.3 F 105 H 18 110/80 97 08/05/18 10:59 08/05/18 12:21 08/05/18 12:21 08/05/18 10:59 08/05/18 12:21 Intake & Output 08/04/18 08/05/18 08/06/18 06:59 06:59 06:59 Intake Total 730 680 Output Total 0 Balance 730 680 Weight 70 kg General appearance: PRESENT: no acute distress Respiratory exam: PRESENT: stridor - inhalation wheezing with speaking, wheezes Cardiovascular exam: PRESENT: RRR GI/Abdominal exam: PRESENT: normal bowel sounds, soft Extremities exam: ABSENT: calf tenderness, clubbing, full ROM, joint swelling, pedal edema, tenderness, +1 edema, +2 edema, other Result Laboratory Results: 08/04/18 11:35 08/04/18 12:30 08/04/18 17:10 Carbonic Acid 0.81 L HCO3/H2CO3 Ratio 22:1 ABG pH 7.45 ABG pCO2 27.0 L ABG pO2 89.0 ABG HCO3 18.1 L ABG O2 Saturation 97.2 ABG Base Excess -4.4 FiO2 ROOM AIR Impressions: Obstetrics Ultrasound 08/05/18 00:00 IMPRESSION: LIVING INTRAUTERINE . EGA 13 weeks 4 days. Trimester of : First - 0 to 13 weeks. Assessment & Plan - Diagnosis (1) Second trimester Is this a current diagnosis for this admission?: Yes (2) Asthma exacerbation Qualifiers: Asthma severity: moderate Asthma persistence: persistent Qualified Code(s): J45.41 - Moderate persistent asthma with (acute) exacerbation Is this a current diagnosis for this admission?: Yes (3) Asthma with status asthmaticus in adult Qualifiers: Asthma severity: severe Asthma persistence: persistent Qualified Code(s): J45.52 - Severe persistent asthma with status asthmaticus Is this a current diagnosis for this admission?: Yes - Time Time Spent with patient: 15-24 minutes - Plan Summary Plan Summary: continue current care
--- NOTE | 2018-08-05 19:28 | PDOC PROGRESS REPORT ---
Subjective Progress Note for:: 08/05/18 Subjective:: No adverse events overnight. No new complaints. Vital signs been stable. Her SPO2 on room air is been good. As long as she is at rest her breathing is fairly comfortable. She said when she gets up to go to the bathroom she gets pretty short of breath and it takes her a few minutes to recover. She has not had much of a cough. No fever. No sputum production. Reason For Visit: ACUTE ASTHMA EXACERBATION Physical Exam Vital Signs: Temp Pulse Resp BP Pulse Ox 98.3 F 102 H 18 109/71 97 08/05/18 14:44 08/05/18 14:44 08/05/18 14:44 08/05/18 14:44 08/05/18 14:44 Intake & Output 08/04/18 08/05/18 08/06/18 06:59 06:59 06:59 Intake Total 730 1568 Output Total 0 Balance 730 1568 Weight 70 kg General appearance: PRESENT: no acute distress, cooperative, disheveled Respiratory exam: PRESENT: prolonged expiratory phas, rhonchi, symmetrical, unlabored, wheezes. ABSENT: accessory muscle use, crackles, tachypnea Cardiovascular exam: PRESENT: RRR, +S1, +S2 Pulses: PRESENT: normal carotid pulses Vascular exam: PRESENT: normal capillary refill GI/Abdominal exam: PRESENT: normal bowel sounds, soft. ABSENT: distended, guarding, rebound, tenderness Extremities exam: ABSENT: clubbing, pedal edema Musculoskeletal exam: PRESENT: normal inspection. ABSENT: deformity Neurological exam: PRESENT: alert, awake, oriented to person, oriented to place, oriented to time, oriented to situation Psychiatric exam: PRESENT: appropriate affect, normal mood Skin exam: PRESENT: dry, warm Results Laboratory Results: 08/04/18 11:35 08/04/18 12:30 Impressions: Obstetrics Ultrasound 08/05/18 00:00 IMPRESSION: LIVING INTRAUTERINE . EGA 13 weeks 4 days. Trimester of : First - 0 to 13 weeks. Assessment and Plan - Diagnosis (1) Acute asthma exacerbation Qualifiers: Asthma severity: moderate Is this a current diagnosis for this admission?: Yes Plan: We will continue with current treatment regimen. She says she is feeling better. She still sounds pretty coarse. We will continue IV steroids and bronchodilators. Will taper the steroids depending on her clinical improvement. (2) First trimester Is this a current diagnosis for this admission?: Yes Plan: Follow-up with her deputy head. - Time Time Spent with patient: 15-24 minutes
[2018-08-06] MEDS: IPRATROPIUM/ALBUTEROL 0.5-2.5 MG/3 ML AMPUL NEB SCH ×3 (04:10→12:28)
[2018-08-06] MEDS: METHYLPREDNISOLONE INJ 40 MG/1 ML SDV IV SCH (06:55)
[2018-08-06] MEDS ORDERED: PRENATAL VITAMIN W DHA CAPSULE PO SCH (10:00)
[2018-08-06] MEDS ORDERED: (PENDING PHARMACY ID) (Prenatal Vits96/Iron Fum/Folic [Prenatal Tablet] 1 TAB) PO SCH (10:00)
[2018-08-06] MEDS: FLUTICASONE NASAL SPRAY 50 MCG/SPRY 120 SPRAY/16 GM NASL SCH (10:10)
[2018-08-06] MEDS ORDERED: METHYLPREDNISOLONE INJ 40 MG/1 ML SDV IV SCH (14:00)
[2018-08-06 15:26] VITALS: BP 117/80
[2018-08-06] MEDS ORDERED: SODIUM CHLORIDE NASAL SPRAY 44 ML NASL SCH (16:00)
--- NOTE | 2018-08-10 10:55 | PDOC DISCHARGE SUMMARY ---
General - Admit/Disc Date/PCP Admission Date/Primary Care Provider: 08/05/18 15:56 Discharge Date: 08/06/18 - Discharge Diagnosis (1) Acute asthma exacerbation Is this a current diagnosis for this admission?: Yes Summary: Patient was admitted to the medical floor and supported with supplemental oxygen, scheduled and as needed nebulizer treatments, and IV Solu-Medrol. Her symptoms gradually improved and steroid therapy reduced. On day of discharge, patient continued to have a lower right expiratory wheeze, which the patient reports is typical for her to have "linger" for a week or more following exacerbations. She is otherwise asymptomatic and ambulatory on room air with dyspnea. She is discharged to home in stable condition and advised to follow up with her PCP within 1 week. She is provided prescriptions for flonase, chlorphineramine, ocean nasal spray and a prednisone taper. She reports that she does not require a refill of her rescue inhaler or nebulized medications. She is instructed to return to the emergency department immediately for concerning symptoms. (2) First trimester Is this a current diagnosis for this admission?: Yes Summary: Ob U/S confirms a 13+5 IUP. Recommend continued vitamin. Follow up with OBGYN as scheduled. - Additional Information Resuscitation Status: Full Code Discharge Diet: Regular Discharge Activity: Activity As Tolerated, Balance Activity w/Rest, Slowly Increase Activity Prescriptions: Chlorpheniramine Maleate [Chlortabs] 1 tab PO Q6 #1 pkg Fluticasone Propionate [Flonase Nasal [place] 50 Mcg/[place] 16 gm] 2 spray NASL Q12 #1 spray.pump Prednisone [Deltasone 20 mg Tablet] 20 mg PO ASDIR PRN #20 tablet PRN Reason: Home Medications: Albuterol Sulfate [Proair HFA Inhalation Aerosol 8.5 gm MDI] 2 puff IH Q4HP PRN 08/04/18 Albuterol Sulfate [Ventolin 0.083% Neb 2.5 mg/3 mL Ampul] 2.5 mg NEB RTTID 08/04/18 Budesonide/Formoterol Fumarate [Symbicort HFA 160-4.5 mcg Inhaler 6 gm] 2 puff IH Q12 08/04/18 Vits96/Iron Fum/Folic [ Tablet] 1 tab PO DAILY 08/04/18 Acetaminophen [Tylenol 325 mg Tablet] 650 mg PO Q4HP PRN tablet 08/06/18 Chlorpheniramine Maleate [Chlortabs] 1 tab PO Q6 #1 pkg 08/06/18 Fluticasone Propionate [Flonase Nasal [place] 50 Mcg/[place] 16 gm] 2 spray NASL Q12 #1 spray.pump 08/06/18 Prednisone [Deltasone 20 mg Tablet] 20 mg PO ASDIR PRN #20 tablet 08/06/18 Sodium Chloride [[place] Nasal [place] 44 ml Bottle] 1 spray NASL ACHS bottle 08/06/18 History of Present Illness History of Present Illness: Per H&P by Dr. barbour: SHERLYN GALLOWAY is a 33 year old black female with past medical history of long-standing bronchial asthma presented with chief complaint of shortness of breath and wheezing for the last 4 days. Reports no improvement despite using her albuterol nebulizer repeatedly. Notes patient has multiple hospitalization and intubation for her asthma. Her last intubation and mechanical ventilation was in July 2017 when she presented with status asthmaticus which failed to respond to several doses of DuoNeb steroid and magnesium sulfate. Her blood work is unremarkable. And her chest x-ray reported as no acute finding. Patient denies any chills, fever, chest pain, palpitation or diaphoresis. No nausea, vomiting, abdominal pain or diarrhea. No urinary complaints. Reportedly patient is 13 weeks . PROGRAM [employer]ING [employer] consulted by the ER attending. Physical Exam Vital Signs: Temp Pulse Resp BP Pulse Ox 98.2 F 120 H 20 117/80 96 08/06/18 15:23 08/06/18 15:23 08/06/18 15:23 08/06/18 15:23 08/06/18 15:23 General appearance: PRESENT: no acute distress, well-developed, well-nourished Head exam: PRESENT: atraumatic, normocephalic Eye exam: PRESENT: conjunctiva pink, EOMI, PERRLA. ABSENT: scleral icterus Ear exam: PRESENT: normal external ear exam Mouth exam: PRESENT: moist, tongue midline Neck exam: ABSENT: carotid bruit, JVD, lymphadenopathy, thyromegaly Respiratory exam: PRESENT: clear to auscultation lilo, wheezes - slight Right side expiratory weeze. ABSENT: rales, rhonchi Cardiovascular exam: PRESENT: RRR. ABSENT: diastolic murmur, rubs, systolic murmur Pulses: PRESENT: normal dorsalis pedis pul Vascular exam: PRESENT: normal capillary refill GI/Abdominal exam: PRESENT: normal bowel sounds, soft. ABSENT: distended, guarding, mass, organolmegaly, rebound, tenderness Rectal exam: PRESENT: deferred Extremities exam: PRESENT: full ROM. ABSENT: calf tenderness, clubbing, pedal edema Musculoskeletal exam: PRESENT: ambulatory Neurological exam: PRESENT: alert, awake, oriented to person, oriented to place, oriented to time, oriented to situation, CN II-XII grossly intact. ABSENT: motor sensory deficit Psychiatric exam: PRESENT: appropriate affect, normal mood. ABSENT: homicidal ideation, suicidal ideation Skin exam: PRESENT: dry, intact, warm. ABSENT: cyanosis, rash Results Laboratory Results: 08/04/18 11:35 08/04/18 12:30 Impressions: Obstetrics Ultrasound 08/05/18 00:00 IMPRESSION: LIVING INTRAUTERINE . EGA 13 weeks 4 days. Trimester of : First - 0 to 13 weeks. Qualifiers - * PATIENT BEING DISCHARGED WITH ANY OF THE FOLLOWING DIAGNOSIS: No Plan Discharge Plan: Follow up with primary care provider within 1 week. Follow up with your OBGYN as scheduled. Avoid asthma triggers (pollen, dust, pet dander, smoke). Return to the emergency department as needed for concerning symptoms. Time Spent: Less than 30 Minutes
== END 2018-08-06 15:44 | disposition home or self-care (01) | DRG 832 ==
LOC: ER 11:06 → EH 17:43 → 4N 21:43 → OBSVTOIN 08-05 15:56 → 2N 08-05 19:05
PROVIDERS: ADMIT Family Medicine; ATTEND Internal Medicine
PROC: 3E0F73Z Introduction of Anti-inflammatory into Respiratory Tract, Via Natural or Artificial Opening (ICD-10-PCS; principal; 2018-08-04)
DX: O99.511 Diseases of the respiratory system complicating pregnancy, first trimester (principal); J45.41 Moderate persistent asthma with (acute) exacerbation; Z3A.13 13 weeks gestation of pregnancy
CPT/HCPCS: 36415; 76801; 80053; 82803; 83735; 85025; 87804; 94640; 96365; 96366; 96367; 96375; 99285; J0696; J1650; J2920; J2930; J3475; J3490; J7620

== ENCOUNTER 2018-09-09 15:47 | Emergency (ER) | payer MEDICAID ==
[2018-09-09] MEDS ORDERED: NORMAL SALINE 1000 ML 1,000 ML IV ONE (17:32)
--- NOTE | 2018-09-09 17:51 | ER Document Report ---
ED General - General Chief Complaint: OB Problem (<20wks) Stated Complaint: OB PROBLEM Time Seen by Provider: 09/09/18 17:30 Primary Care Provider: NAHOMI BLACK FNP-C [Primary Care Provider] - Follow up as needed Mode of Arrival: Ambulatory Information source: Patient TRAVEL OUTSIDE OF THE [place] IN LAST 30 DAYS: No - HPI Patient complains to provider of: Low abdominal tenderness and pressure and less movement Onset: Other - Past 3 days Onset/Duration: Gradual Quality of pain: Pressure Severity: Moderate Pain Level: 3 Associated symptoms: None Exacerbated by: Denies Relieved by: Denies Similar symptoms previously: No Recently seen / treated by doctor: No Notes: 33-year-old -Citizen Of [place] female who is 6 para 4 with a spontaneous here at 18 weeks +5 days gestation with low abdominal pressure and decreased movements. No vaginal bleeding. Concerned about possible miscarriage as this is the same presentation she had when she miscarried. - Related Data Allergies/Adverse Reactions: No Known Allergies Allergy (Verified 09/09/18 15:47) Past Medical History - General Information source: Patient - Social History Smoking Status: Never Smoker Family History: Reviewed & Not Pertinent, Other - No family member available to confirm family history Patient has suicidal ideation: No Patient has homicidal ideation: No - Past Medical History Cardiac Medical History: Reports: Hx Heart Attack Pulmonary Medical History: Reports: Hx Asthma, Hx COPD, Hx Intubation - 03/07/2016, Hx Respiratory Failure Renal/ Medical History: Denies: Hx Peritoneal Dialysis Psychiatric Medical History: Denies: Hx Depression Past Surgical History: Reports: Other - Chest tube - Immunizations Hx Diphtheria, Pertussis, Tetanus Vaccination: Yes Review of Systems - Review of Systems Notes: Constitutional: No fevers. No chills. EENT: No eye redness. No eye pain. No ear pain. No sore throat. Cardiovascular: No chest pain. No palpitations. Respiratory: No cough. No shortness of breath. No respiratory distress. Gastrointestinal: No abdominal pain. No nausea, vomiting, or diarrhea. Genitourinary: Lower abdomen and pelvic pressure Musculoskeletal: Atraumatic. No swelling. No deformities. Skin: No rash or lesions. Lymphatic: No swollen lymph nodes. Neurologic: No headache. No syncope. Psychiatric: No suicidal or homicidal ideation. Physical Exam - Vital signs Vitals: Temp Pulse Resp BP Pulse Ox 98.1 F 79 16 111/71 100 09/09/18 15:56 09/09/18 15:56 09/09/18 15:56 09/09/18 15:56 09/09/18 15:56 - Notes Notes: General: Well-developed, well-nourished. In no acute distress. Non-toxic appearing. Cardiac: Well-perfused. Regular rate and rhythm. No murmurs, rubs, or gallops. Pulmonary: No respiratory distress. No cyanosis. Bilateral lung fiels are clear to auscultation. Abdominal: Non-distended. Non-rigid. Bowels sounds are present in all four quadrants. No guarding or rebound. HEENT: Head is atraumatic. Conjunctivae not reddened. No tearing. PERRL. EOMI. Orbits atraumatic. No periorbital swelling or erythema. Oropharynx is without erythema, swelling, or exudates. Neck: Supple. No adenopathy. No meningismus. Dermatologic: Warm with good turgor. No rash. Atraumatic. Chest: Atraumatic. No chest wall tenderness to palpation. Musculoskeletal: Moves all extremities well. No range of motion deficits. no muscular or joint tenderness. No paraspinal muscle tenderness. no midline spinal tenderness or step-off. Genitourinary: Chaperoned by Pat. External genitalia normal. Speculum exam reveals a moderate yellow-green vaginal discharge which is cultured. No motion tenderness. Cervix is closed. No evidence of bleeding. Neurologic: No gross neurologic deficits. Psychiatric: Normal mood. Course - Re-evaluation Re-evalutation: 09/09/18 21:23 Wet prep does not show any trichomoniasis or yeast. However it is suggestive of bacterial vaginosis. Given the heavy discharge that the patient is having, I think it is appropriate to treat at least before BV. We will contact her if her gonorrhea and chlamydia comes back positive in any way. She has a happy healthy intrauterine with no further complications. - Vital Signs Vital signs: Temp Pulse Resp BP Pulse Ox 98.1 F 79 16 111/71 100 09/09/18 15:56 09/09/18 15:56 09/09/18 15:56 09/09/18 15:56 09/09/18 15:56 - Laboratory Result Diagrams: 09/09/18 20:07 09/09/18 20:07 Laboratory results interpreted by me: 09/09/18 09/09/18 20:07 20:07 RBC 3.61 L Hgb 11.4 L Hct 33.2 L Carbon Dioxide 21 L Creatinine 0.48 L Beta HCG, Quant 8827.20 H Discharge - Discharge Clinical Impression: Bacterial vaginosis Abdominal pain during Qualifiers: Trimester: second trimester Qualified Code(s): O26.892 - Other specified related conditions, second trimester; R10.9 - Unspecified abdominal pain Condition: Good Disposition: HOME, SELF-CARE Instructions: Pelvic Pain in ([facility]), Vaginosis, Bacterial ([facility]) Additional Instructions: Take the Flagyl 3 times a day for a week. We will contact you if any of your vaginal cultures test positive for any kind of bacterial infection. Otherwise you have a healthy looking at this time. Prescriptions: Metronidazole [Flagyl 500 mg Tablet] 500 mg PO TID 7 Days #21 tablet Referrals: NAHOMI BLACK FNP-C [Primary Care Provider] - Follow up as needed
--- NOTE | 2018-09-09 19:27 | RADIOLOGY REPORT (SQ) ---
EXAM DESCRIPTION: U/S OB LIMITED COMPLETED DATE/TIME: 09/09/2018 7:12 pm REASON FOR STUDY: low abd pain decreased mvmt COMPARISON: OB ultrasound 08/05/2018 TECHNIQUE: Limited transabdominal grayscale ultrasound for evaluation of specific requested obstetri sean parameters. LIMITATIONS: None. FINDINGS: CERVICAL LENGTH: 2.9 cm Closed. RADHA: Largest pocket 4.5 cm. FHR: 140 beats per minute. PRESENTATION: Breech PLACENTA: Posterior, low lying. ANATOMY: Not assessed OTHER: Peripherally calcified 3 cm uterine fibroid IMPRESSION: LIMITED OBSTETRICAL ULTRASOUND WITH MEASURED PARAMETERS DELINEATED ABOVE. Trimester of : Second trimester - 13 weeks 1 day to 27 weeks 6 days. TECHNICAL DOCUMENTATION: JOB ID: [id number] [employer]- All Rights Reserved Reading location - IP/workstation name: [email or web address]
[2018-09-09 20:22] LABS: ABSOLUTE EOSINOPHILS # (AUTO) 0.3 10^3/uL (0.0-0.6); ABSOLUTE MONOCYTES (AUTO) 0.7 10^3/uL (0.1-1.4); ABSOLUTE NEUT (AUTO) 4.4 10^3/uL (1.7-8.2); BASOPHILS % (AUTO) 0.5 % (0-2); EOSINOPHILS % (AUTO) 4.1 % (0-6); HEMATOCRIT 33.2 % (36.0-47.0); HEMOGLOBIN 11.4 g/dL (12.0-15.5); LYMPHOCYTES % (AUTO) 26.8 % (13-45); MEAN CORPUSCULAR HEMOGLOBIN 31.6 pg (27.0-33.4); MEAN CORPUSCULAR HGB CONC 34.4 g/dL (32.0-36.0); MEAN CORPUSCULAR VOLUME 92 fl (80-97); MONOCYTES % (AUTO) 8.8 % (3-13); PLATELET COUNT 189 10^3/uL (150-450); RED BLOOD COUNT 3.61 10^6/uL (3.72-5.28); RED CELL DISTRIBUTION WIDTH 12.7 % (11.5-14.0); SEGMENTED NEUTROPHILS % (AUTO) 59.8 % (42-78); TOTAL CELLS COUNTED % (AUTO) 100 %; WHITE BLOOD COUNT 7.4 10^3/uL (4.0-10.5)
[2018-09-09 20:34] LABS: APPEARANCE,URINE SLIGHTLY-CLOUDY; BILIRUBIN,URINE NEGATIVE (NEGATIVE); COLOR,URINE YELLOW; GLUCOSE, URINE NEGATIVE (NEGATIVE); KETONES,URINE NEGATIVE (NEGATIVE); LEUKOCYTE ESTERASE,URINE NEGATIVE (NEGATIVE); NITRITE,URINE NEGATIVE (NEGATIVE); PROTEIN,URINE NEGATIVE (NEGATIVE); URINE SPECIFIC GRAVITY 1.026; UROBILINOGEN,URINE NEGATIVE mg/dL (<2.0)
[2018-09-09 20:37] LABS: ALANINE AMINOTRANSFERASE 19 U/L (9-52); ALBUMIN 3.7 g/dL (3.5-5.0); ALKALINE PHOSPHATASE 47 U/L (38-126); ANION GAP 10 (5-19); ASPARTATE AMINO TRANSFERASE 14 U/L (14-36); BILIRUBIN,DIRECT 0.2 mg/dL (0.0-0.4); BILIRUBIN,TOTAL 0.2 mg/dL (0.2-1.3); BLOOD UREA NITROGEN 11 mg/dL (7-20); CALCIUM 9.7 mg/dL (8.4-10.2); CARBON DIOXIDE 21 mmol/L (22-30); CHLORIDE 107 mmol/L (98-107); GLUCOSE 80 mg/dL (75-110); POTASSIUM 4.1 mmol/L (3.6-5.0); SODIUM 138.3 mmol/L (137-145); TOTAL PROTEIN 6.8 g/dL (6.3-8.2)
[2018-09-09 21:10] LABS: BACTERIA (WET MOUNT) 3+ BACTERIA SEEN; EPITHELIALS (WET MOUNT) 3+ EPITHELIALS SEEN; T.VAGINALIS (WET MOUNT) NO TRICHOMONAS SEEN; WBCS (WET MOUNT) 1+ WBCS SEEN; YEAST (WET MOUNT) NO YEAST SEEN
[2018-09-09 21:30] VITALS: BP 121/80
[2018-09-09 22:29] LABS: CHLAM PCR NOT DETECTED (NOT DETECT); GON PCR NOT DETECTED (NOT DETECT)
== END 2018-09-09 21:53 | disposition home or self-care (01) ==
LOC: ER 15:47
DX: O23.592 Infection of other part of genital tract in pregnancy, second trimester (principal); B96.89 Other specified bacterial agents as the cause of diseases classified elsewhere; O26.892 Other specified pregnancy related conditions, second trimester; R10.9 Unspecified abdominal pain; R10.819 Abdominal tenderness, unspecified site; R19.8 Other specified symptoms and signs involving the digestive system and abdomen; O36.8120 Decreased fetal movements, second trimester, not applicable or unspecified; O99.512 Diseases of the respiratory system complicating pregnancy, second trimester; J44.9 Chronic obstructive pulmonary disease, unspecified; Z3A.18 18 weeks gestation of pregnancy; Z87.59 Personal history of other complications of pregnancy, childbirth and the puerperium
CPT/HCPCS: 36415; 76815; 80053; 81001; 84702; 85025; 87210; 87491; 87591; 99284

== ENCOUNTER 2018-11-01 20:53 | Emergency (ER) | payer MEDICAID ==
[2018-11-01] MEDS ORDERED: IPRATROPIUM/ALBUTEROL 0.5-2.5 MG/3 ML AMPUL NEB ONE (22:14)
[2018-11-01] MEDS ORDERED: ALBUTEROL SULFATE HFA (90 MCG/PUFF) 8 GM MDI (1 MDI/ER DISP) IH ONE (23:11)
--- NOTE | 2018-11-01 23:14 | ER Document Report ---
ED General - General Chief Complaint: Asthma Exacerbation Stated Complaint: DIFFICULTY BREATHING Time Seen by Provider: 11/01/18 22:10 Notes: Patient is a pleasant 33-year-old female presents with complaint of asthma exacerbation. She denies any chest pain or chest tightness. She says that she had worsening breathing throughout the day. She does have inhaler at home. She said she left her inhaler at home and forgot take with her when she was out and about today she started become short of breath and wheezing therefore came to ER. She says her wheezing is come down some since she is been will sit down and rest. She denies any fevers. No other complaints at this time. No production of cough. TRAVEL OUTSIDE OF THE [place] IN LAST 30 DAYS: No - Related Data Allergies/Adverse Reactions: No Known Allergies Allergy (Verified 09/09/18 15:47) Past Medical History - Social History Smoking Status: Never Smoker Frequency of alcohol use: None Drug Abuse: None Family History: Reviewed & Not Pertinent, Other - No family member available to confirm family history Patient has suicidal ideation: No Patient has homicidal ideation: No - Past Medical History Cardiac Medical History: Reports: Hx Heart Attack Pulmonary Medical History: Reports: Hx Asthma, Hx COPD, Hx Intubation - 03/07/2016, Hx Respiratory Failure Renal/ Medical History: Denies: Hx Peritoneal Dialysis Psychiatric Medical History: Denies: Hx Depression Past Surgical History: Reports: Other - Chest tube - Immunizations Hx Diphtheria, Pertussis, Tetanus Vaccination: Yes Review of Systems - Review of Systems Notes: My Normal Review Basic REVIEW OF SYSTEMS: CONSTITUTIONAL : Denies fever, chills, or sweats. Denies recent illness. EENT: Denies eye, ear, throat, or mouth pain or symptoms. Denies nasal or sinus congestion. RESPIRATORY: Some shortness of breath and wheezing. GASTROINTESTINAL: Denies abdominal pain. Denies nausea, vomiting, or diarrhea. MUSCULOSKELETAL: Denies neck or back pain or joint pain or swelling. SKIN: Denies rash or skin lesions. NEUROLOGICAL: Denies altered mental status or loss of consciousness. Denies headache. Denies weakness or paralysis or loss of use of either side. Denies problems with gait or speech. Denies sensory or motor loss. ALL OTHER SYSTEMS REVIEWED AND NEGATIVE. Physical Exam - Vital signs Vitals: Temp Pulse Resp BP Pulse Ox 97.9 F 92 20 114/73 100 11/01/18 21:00 11/01/18 21:00 11/01/18 21:00 11/01/18 21:00 11/01/18 21:00 - Notes Notes: General Appearance: Well nourished, alert, cooperative, no acute distress, no obvious discomfort. Well-appearing. Vitals: reviewed, See vital signs table. Head: no swelling or tenderness to the head Eyes: PERRL, EOMI, Conjuctiva clear Mouth: No decreasd moisture Throat: No tonsillar inflammation, No airway obstruction Neck: Supple, no neck tenderness, No thyromegaly Lungs: Scattered wheezing, No rales, No rhonci, No accessory muscle use, good air exchange bilaterally. Heart: Normal rate, Regular rythm, No murmur, no rub Abdomen: Normal BS, soft, No rigidity, No abdominal tenderness, No guarding, no rebound, no abdominal masses, no organomegaly Extremities: good pulses in all extremities, no swelling or tenderness in the extremities, no edema. Skin: warm, dry, appropriate color, no rash Neuro: speech clear, oriented x 3, normal affect, responds appropriately to questions. Course - Re-evaluation Re-evalutation: 11/01/18 23:13 Patient's wheezing is completely resolved with one breathing treatment. She looks and feels well. She has no tachypnea or increased work of breathing. I will discharge her home. I will give inhaler to home with as she says her home inhaler at home is almost out. I wrote a prescription for prednisone. I told her she does not have to fill it or start it now. Ice as long as her breathing and wheezing remain under control with her rescue inhaler and she is not having use her inhaler more than she usually does and she does not feel the prednisone. If she notices that she is having use inhaler more often than typical then she can fill the prescription for the prednisone and start taking it. Patient to return to ER if she has wheezing not responding to inhaler, difficulty breathing, or feels that she is worsening any way. Patient agrees with plan will be discharged home. Dictation of this chart was performed using voice recognition software; therefore, there may be some unintended grammatical errors. - Vital Signs Vital signs: Temp Pulse Resp BP Pulse Ox 97.9 F 92 23 H 125/77 99 11/01/18 21:00 11/01/18 21:00 11/01/18 23:01 11/01/18 23:00 11/01/18 23:01 Discharge - Discharge Clinical Impression: Asthma Qualifiers: Asthma severity: unspecified severity Asthma persistence: intermittent Asthma complication type: with acute exacerbation Qualified Code(s): J45.21 - Mild intermittent asthma with (acute) exacerbation Condition: Good Disposition: HOME, SELF-CARE Additional Instructions: Please continue to use your inhaler as 2 puffs every 2 hours as needed for wheezing or difficulty breathing. I have written a prescription for prednisone. You only have to fill this prescription if you noticed over the next few days that you are having to use your inhaler more often than you typically do. Please return to the ER if you continue have difficulty breathing or or having wheezing that is not being resolved with your inhaler. Prescriptions: RX: Prednisone [Deltasone 20 mg Tablet] 3 tab PO DAILY #12 tablet
[2018-11-01 23:37] VITALS: BP 125/77
== END 2018-11-01 23:42 | disposition home or self-care (01) ==
LOC: ER 20:53
DX: J45.21 Mild intermittent asthma with (acute) exacerbation (principal); J44.9 Chronic obstructive pulmonary disease, unspecified; R06.02 Shortness of breath
CPT/HCPCS: 94640; 99284; J3490; J7620

== ENCOUNTER 2018-11-07 22:39 | Outpatient (CLI) | payer MEDICAID ==
[2018-11-07 23:26] LABS: RBCS (WET MOUNT) 2+ RBCS SEEN; T.VAGINALIS (WET MOUNT) NO TRICHOMONAS SEEN; WBCS (WET MOUNT) 3+ WBCS SEEN; YEAST (WET MOUNT) NO YEAST SEEN
[2018-11-07 23:27] LABS: BACTERIA (WET MOUNT) 4+ BACTERIA SEEN; EPITHELIALS (WET MOUNT) 4+ EPITHELIALS SEEN
[2018-11-07 23:50] LABS: APPEARANCE,URINE SLIGHTLY-CLOUDY; BILIRUBIN,URINE NEGATIVE (NEGATIVE); COLOR,URINE YELLOW; GLUCOSE, URINE NEGATIVE (NEGATIVE); KETONES,URINE TRACE mg/dL (NEGATIVE); LEUKOCYTE ESTERASE,URINE TRACE (NEGATIVE); NITRITE,URINE NEGATIVE (NEGATIVE); PROTEIN,URINE 30 mg/dL (NEGATIVE); URINE SPECIFIC GRAVITY 1.032
[2018-11-08] LABS: URINE AMPHETAMINES SCREEN NEGATIVE; URINE BARBITURATES SCREEN NEGATIVE; URINE BENZODIAZEPINES SCREEN NEGATIVE; URINE COCAINE SCREEN NEGATIVE; URINE MARIJUANA (THC) SCREEN NEGATIVE; URINE METHADONE SCREEN NEGATIVE; URINE PHENCYCLIDINE SCREEN NEGATIVE
--- NOTE | 2018-11-08 00:11 | RADIOLOGY REPORT (SQ) ---
EXAM DESCRIPTION: US LIMITED COMPLETED DATE/TME: 11/07/2018 00:00 CLINICAL HISTORY: 33 years, Female, cervical length, 27 weeks feeling pressure COMPARISON: 09/09/2018 ultrasound TECHNIQUE: Limited emergent OB ultrasound LIMITATIONS: None. FINDINGS: There is a single, live intrauterine gestation in the breech presentation. Cervical length is 4.4 cm. Amniotic fluid index is 9.2 cm. The placenta is posterior and fundal in location with a grade 1 echotexture. Partial visualization of uterine fibroids. heart tones obtained at 130 bpm. Current ultrasound age is 26 weeks 5 days IMPRESSION: Single live IUP as above. Nonemergent follow-up is recommended copyright 2010 [employer]- All Rights Reserved
[2018-11-08] MEDS ORDERED: ACETAMINOPHEN 325 MG TABLET ONE (00:15)
[2018-11-08 00:53] LABS: CHLAM PCR NOT DETECTED (NOT DETECT)
[2018-11-08] MEDS: RINGERS SOLUTION,LACTATED 1,000 ML IV PRN ×2 (00:54→02:30)
[2018-11-08] MEDS ORDERED: ACETAMINOPHEN 325 MG TABLET PO ONE (01:00)
== END 2018-11-08 03:32 | disposition home or self-care (01) ==
LOC: LC 22:39
PROVIDERS: ATTEND Obstetrics & Gynecology Gynecology
DX: O47.02 False labor before 37 completed weeks of gestation, second trimester (principal); E86.0 Dehydration; Z3A.27 27 weeks gestation of pregnancy
CPT/HCPCS: 87210; 81001; 80307; 87491; 87591; 76815; J3490

== ENCOUNTER 2018-11-21 16:31 | Inpatient (IN) | payer MEDICAID ==
[2018-11-21] MEDS: MAGNESIUM SULFATE/D5W 1 GM/100 ML RTUPB IV SCH ×2 (16:51→17:17)
--- NOTE | 2018-11-21 17:02 | ER Document Report ---
ED General - General Chief Complaint: Breathing Difficulty Stated Complaint: DIFFICULTY BREATHING Time Seen by Provider: 11/21/18 16:35 Notes: Patient is a 33-year-old female 29 weeks gravid that presents to the emergency department for chief complaint of asthma exacerbation. Patient states that her wheezing started and got worse yesterday, got progressively worse through today, she is used albuterol multiple times, without any improvements, total 9 treatments since 11:00 prior to calling EMS, they gave her a DuoNeb breathing treatment, and IV Solu-Medrol 125 mg. She is still having issues with breathing, she has been intubated 3 times in the past, and is often admitted due to her severe asthma. Past Medical History: Severe asthma Past Surgical History: Denies recent or pertinent surgical history Social History: Denies tobacco, alcohol or drug use. Family History: Reviewed and noncontributory for presenting illness Allergies: Reviewed, see documented allergy list. REVIEW OF SYSTEMS: Other than noted above, the 12 point review of systems was reviewed with the patient and were negative, all pertinent findings are included in the HPI. PHYSICAL EXAMINATION: Vital signs reviewed, nursing noted reviewed. GENERAL: Patient is in moderate respiratory distress, increased work of breathing HEAD: Atraumatic, normocephalic. EYES: Eyes appear normal, extraocular movements intact, sclera anicteric, conjunctiva are normal. ENT: nares patent, oropharynx clear without exudates. Moist mucous membranes. NECK: Normal range of motion, supple without lymphadenopathy LUNGS: Patient in moderate respiratory distress, increased work of breathing, retracting, diffuse inspiratory and expiratory wheezing noted throughout all emigdio g pineda HEART: Tachycardic, regular rhythm, no audible murmur. ABDOMEN: Soft, gravid, nontender, normoactive bowel sounds. No rebound, guarding, or rigidity. No masses appreciated. EXTREMITIES: Nontender, good range of motion, no pitting or edema. NEUROLOGICAL: No focal neurological deficits. Moves all extremities spontaneously Motor and sensory grossly intact on exam. PSYCH: Appears anxious on exam SKIN: Warm, Dry, normal turgor, no rashes or lesions noted on exposed skin TRAVEL OUTSIDE OF THE [place] IN LAST 30 DAYS: No - Related Data Allergies/Adverse Reactions: No Known Allergies Allergy (Verified 11/08/18 03:46) Past Medical History - Social History Smoking Status: Never Smoker Family History: Reviewed & Not Pertinent, Other - No family member available to confirm family history - Past Medical History Cardiac Medical History: Reports: Hx Heart Attack Pulmonary Medical History: Reports: Hx Asthma, Hx COPD, Hx Intubation - 03/07/2016, Hx Respiratory Failure Renal/ Medical History: Denies: Hx Peritoneal Dialysis Psychiatric Medical History: Denies: Hx Depression Past Surgical History: Reports: Other - Chest tube - Immunizations Hx Diphtheria, Pertussis, Tetanus Vaccination: Yes Physical Exam - Vital signs Vitals: Temp 97.9 F 11/21/18 16:35 Course - Re-evaluation Re-evalutation: Patient seen and examined vital signs reviewed. Laboratory data and imaging were ordered as appropriate for the patient's presenting symptoms and complaint, with consideration of any critical or life threatening conditions that may be associated with their obtained history and exam as noted above. Patient was treated with DuoNeb breathing treatment, inhaled budesonide, IV magnesium 2 g, had already received IV Solu-Medrol 125 mg by EMS. The patient was re-evaluated and was improved, but still having expiratory wheezing, and mild increased work of breathing Evaluation was most consistent with acute exacerbation of asthma Due to the patient's persistent wheezing, and history of deterioration from an asthma standpoint, requiring intubation 3 times in the past, I feel is in the patient's best interest to be observed in the hospital, discussed this with the electrical and instrument engineer on-call Dr. Miguel who agreed, given that the patient is 29 weeks gravid, and is required multiple breathing treatments prior to ED arrival. I discussed this case with the lead hospitalist, Dr. White, who refused to admit the patient until she had blood work, delaying her admission to the hospital, I do not feel the patient does need blood work, given she is an asthma exacerbation has not had fever, nor she had any change in her urinary patterns, nausea or vomiting, however these labs were ordered, to get the patient admitted to the hospital, the hospitalist request, they also request a chest x-ray, which I felt was unnecessary, given that she is I do not want to expose her to radiation, they choose to do this, I will allow them to order after discussing the risks and benefits with the patient themselves. After blood work was obtained and reviewed, discussed the case with Dr. Richards, who graciously except the patient under his service for further evaluation and management. Patient was given potassium replacement p.o., given additional breathing treatment. *Note is created using voice recognition software and may contain spelling, syntax or grammatical errors. Laboratory 11/21/18 11/21/18 18:27 18:27 WBC 8.2 RBC 3.80 Hgb 11.4 L Hct 33.0 L MCV 87 MCH 29.9 MCHC 34.4 RDW 12.8 Plt Count 204 Sodium 138.5 Potassium 3.5 L Chloride 108 H Carbon Dioxide 21 L Anion Gap 10 BUN 5 L Creatinine 0.39 L Est GFR ( Amer) > 60 Est GFR (Non-Af Amer) > 60 Glucose 107 Calcium 9.1 - Vital Signs Vital signs: Temp Pulse Resp BP Pulse Ox 97.9 F 17 127/86 H 96 11/21/18 16:35 11/21/18 19:01 11/21/18 19:01 11/21/18 19:01 - Laboratory Result Diagrams: 11/21/18 18:27 11/21/18 18:27 Laboratory results interpreted by me: 11/21/18 11/21/18 18:27 18:27 Hgb 11.4 L Hct 33.0 L Potassium 3.5 L Chloride 108 H Carbon Dioxide 21 L BUN 5 L Creatinine 0.39 L - EKG Interpretation by Me Additional EKG results interpreted by me: EKG demonstrates sinus tachycardia with a ventricular rate of 110 bpm, normal axis, QTC 477 ms, nonspecific T wave inversion in leads III and aVF, this is compared to prior EKG from 02/20/2018. Critical Care Note - Critical Care Note Total time excluding time spent on procedures (mins): 38 Comments: Critical care time 38 minutes exclusive from separate billable procedures for a patient requiring complex medical decision making, and high potential for clinical deterioration. In a patient with status asthmaticus. Time spent obtaining history from patient or surrogate, discussions with consultants, development of treatment plan with patient or surrogate, evaluation of patient's response to treatment, examination of patient, ordering and performing treatments and interventions, ordering and review of laboratory studies, re-evaluation of patient's condition, ordering and review of radiographic studies and review of old charts Discharge - Discharge Clinical Impression: Hypokalemia, Third trimester at less than 36 weeks Asthma with status asthmaticus in adult Qualifiers: Asthma severity: severe Asthma persistence: persistent Qualified Code(s): J45 .52 - Severe persistent asthma with status asthmaticus Condition: Serious Disposition: ADMITTED INPATIENT Admitting Provider: Susie (Hospitalist) Unit Admitted: [facility]
[2018-11-21] MEDS ORDERED: BUDESONIDE NEB 0.5 MG/2 ML AMPUL NEB ONE (17:21)
[2018-11-21 18:50] LABS: HEMOGLOBIN 11.4 g/dL (12.0-15.5); MEAN CORPUSCULAR HEMOGLOBIN 29.9 pg (27.0-33.4); MEAN CORPUSCULAR HGB CONC 34.4 g/dL (32.0-36.0); MEAN CORPUSCULAR VOLUME 87 fl (80-97); PLATELET COUNT 204 10^3/uL (150-450); RED CELL DISTRIBUTION WIDTH 12.8 % (11.5-14.0); WHITE BLOOD COUNT 8.2 10^3/uL (4.0-10.5)
[2018-11-21 19:00] LABS: ANION GAP 10 (5-19); BLOOD UREA NITROGEN 5 mg/dL (7-20); CALCIUM 9.1 mg/dL (8.4-10.2); CARBON DIOXIDE 21 mmol/L (22-30); CHLORIDE 108 mmol/L (98-107); GLUCOSE 107 mg/dL (75-110); POTASSIUM 3.5 mmol/L (3.6-5.0)
[2018-11-21] MEDS ORDERED: IPRATROPIUM/ALBUTEROL 0.5-2.5 MG/3 ML AMPUL NEB ONE (19:17)
[2018-11-21] MEDS ORDERED: POTASSIUM CHLORIDE 10 MEQ CAPSULE.ER PO ONE (19:24)
[2018-11-21] MEDS ORDERED: MAGNESIUM HYDROXIDE SUSP 30 ML UDCUP PO PRN (20:28)
[2018-11-21] MEDS ORDERED: MAG HYDROX/AL HYDROX/SIMETH SUSP 30 ML UDCUP PO PRN (20:28)
[2018-11-21] MEDS ORDERED: ONDANSETRON HCL INJ/PF 4 MG/2 ML SDV IV PRN (20:28)
[2018-11-21] MEDS ORDERED: LEVALBUTEROL HCL NEB 0.63 MG/3 ML AMPUL NEB PRN (20:28)
[2018-11-21] MEDS ORDERED: ACETAMINOPHEN 325 MG TABLET PO PRN (20:34)
--- NOTE | 2018-11-21 21:32 | EKG REPORT ---
SEVERITY:- ABNORMAL ECG - SINUS TACHYCARDIA NONSPECIFIC T ABNORMALITIES, INFERIOR LEADS BORDERLINE PROLONGED QT INTERVAL : Confirmed by: Kevin Huff 21-Nov-2018 21:31:56
[2018-11-21] MEDS ORDERED: RINGERS SOLUTION,LACTATED 1,000 ML IV PRN (23:42)
[2018-11-21] MEDS: IPRATROPIUM BROMIDE 0.02% NEB 0.5 MG/2.5 ML AMPUL NEB SCH (23:47)
[2018-11-21] MEDS: LEVALBUTEROL HCL NEB 1.25 MG/3 ML AMPUL NEB SCH (23:47)
[2018-11-22] MEDS: FLUTICASONE NASAL SPRAY 50 MCG/SPRY 120 SPRAY/16 GM NASL SCH ×2 (00:52→11:01)
[2018-11-22] MEDS: HEPARIN SOD (PORCINE) 5,000 UNIT/ML 1 ML VIAL SUBCUT SCH ×3 (00:52→14:20)
[2018-11-22] MEDS: METHYLPREDNISOLONE INJ 40 MG/1 ML SDV IV SCH ×3 (00:56→14:55)
[2018-11-22 06:23] LABS: VENOUS BLOOD BASE EXCESS -6.5 mmol/L; VENOUS BLOOD HCO3 17.1 mmol/L (20-32); VENOUS BLOOD PCO2 28.7 mmHg (35-63); VENOUS BLOOD PH 7.39 (7.30-7.42)
[2018-11-22 06:24] LABS: HEMATOCRIT 31.2 % (36.0-47.0); HEMOGLOBIN 10.7 g/dL (12.0-15.5); MEAN CORPUSCULAR HEMOGLOBIN 30.1 pg (27.0-33.4); MEAN CORPUSCULAR HGB CONC 34.2 g/dL (32.0-36.0); MEAN CORPUSCULAR VOLUME 88 fl (80-97); PLATELET COUNT 212 10^3/uL (150-450); RED BLOOD COUNT 3.55 10^6/uL (3.72-5.28); RED CELL DISTRIBUTION WIDTH 12.8 % (11.5-14.0); WHITE BLOOD COUNT 9.8 10^3/uL (4.0-10.5)
[2018-11-22 06:47] LABS: ANION GAP 11 (5-19); BLOOD UREA NITROGEN 3 mg/dL (7-20); CALCIUM 9.4 mg/dL (8.4-10.2); CARBON DIOXIDE 17 mmol/L (22-30); CHLORIDE 109 mmol/L (98-107); GLUCOSE 134 mg/dL (75-110)
[2018-11-22 07:01] LABS: POTASSIUM 4.8 mmol/L (3.6-5.0)
[2018-11-22] MEDS ORDERED: BUDESONIDE NEB 0.5 MG/2 ML AMPUL NEB SCH (08:00)
[2018-11-22] MEDS: LEVALBUTEROL HCL NEB 1.25 MG/3 ML AMPUL NEB SCH (08:13)
[2018-11-22] MEDS: IPRATROPIUM BROMIDE 0.02% NEB 0.5 MG/2.5 ML AMPUL NEB SCH (08:14)
[2018-11-22] MEDS ORDERED: PRENATAL VITAMIN W DHA CAPSULE PO SCH (10:00)
--- NOTE | 2018-11-22 10:45 | PDOC CONSULTATION ---
Consultation Consult Date: 11/22/18 Provider Consulted: MIGUEL OSPINA Consult reason:: History of Present Illness Admission Date/PCP: 11/21/18 19:47 ANDREA MAK Patient complains of: Asthma History of Present Illness: SHERLYN GALLOWAY is a 33 year old female She is currently and has an asthma exacerbation. Past Medical History Cardiac Medical History: Reports: Myocardial Infarction Denies: Hyperlipidema, Hypertension Pulmonary Medical History: Reports: Asthma, Chronic Obstructive Pulmonary Disease (COPD), Intubation - 03/07/2016, Respiratory Failure EENT Medical History: Denies: Cataracts, Ears - Hearing aids Neurological Medical History: Denies: Multiple Sclerosis, Seizures Endocrine Medical History: Denies: Diabetes Mellitus Type 1, Diabetes Mellitus Type 2, Hyperthyroidism, Hypothyroidism Renal/ Medical History: Reports: Other - Currently at 29 weeks intrauterine gestation Denies: Chronic Kidney Disease, Nephrolithiasis Malignancy Medical History: Reports: None GI Medical History: Denies: Cirrhosis, Hepatitis Musculoskeltal Medical History: Denies: Arthritis, Gout Skin Medical History: Denies: Eczema, Psoriasis Psychiatric Medical History: Denies: Alcohol Dependency, Depression, Substance Abuse, Tobacco Dependency Traumatic Medical History: Reports: None Infectious Medical History: Reports: None Social History Lives with: Spouse/Significant other Smoking Status: Never Smoker Frequency of Alcohol Use: None Hx Recreational Drug Use: No Drugs: None Hx Prescription Drug Abuse: No - Advance Directive Resuscitation Status: Full Code Family History Family History: Reviewed & Not Pertinent, Other - No family member available to confirm family history Parental Family History Reviewed: Yes Children Family History Reviewed: Yes Sibling(s) Family History Reviewed.: Yes Medication/Allergy Home Medications: Albuterol Sulfate [Proair HFA Inhalation Aerosol 8.5 gm MDI] 2 puff IH Q6HP PRN 08/04/18 Budesonide/Formoterol Fumarate [Symbicort HFA 160-4.5 mcg Inhaler 6 gm] 2 puff IH Q12 08/04/18 Albuterol Sulfate [Proventil 0.5% Neb 2.5 mg/0.5 ml Vial.neb] 1 vial NEB RTTIDP PRN 11/22/18 Tiotropium [place] [Spiriva Handihaler 5 Cap/Kit (18 Mcg/Cap)] 1 cap IH DAILY 11/22/18 Allergies/Adverse Reactions: No Known Allergies Allergy (Verified 11/08/18 03:46) Physical Exam - Physical Exam Vital Signs: Temp Pulse Resp BP Pulse Ox 97.7 F 91 20 118/77 96 11/22/18 07:40 11/22/18 08:59 11/22/18 08:59 11/22/18 07:40 11/22/18 08:59 Intake & Output 11/21/18 11/22/18 11/23/18 06:59 06:59 06:59 Intake Total 410 Output Total 1 Balance 409 Weight 81.2 kg General appearance: PRESENT: no acute distress, well-developed, well-nourished Respiratory exam: PRESENT: clear to auscultation lilo Cardiovascular exam: PRESENT: RRR. ABSENT: diastolic murmur, rubs, systolic murmur Result Laboratory Results: 11/22/18 06:07 11/22/18 06:07 11/21/18 11/21/18 11/22/18 18:27 18:27 06:07 WBC 8.2 9.8 RBC 3.80 3.55 L Hgb 11.4 L 10.7 L Hct 33.0 L 31.2 L MCV 87 88 MCH 29.9 30.1 MCHC 34.4 34.2 RDW 12.8 12.8 Plt Count 204 212 VBG pH VBG pCO2 VBG HCO3 VBG Base Excess Sodium 138.5 Potassium 3.5 L Chloride 108 H Carbon Dioxide 21 L Anion Gap 10 BUN 5 L Creatinine 0.39 L Est GFR ( Amer) > 60 Est GFR (Non-Af Amer) > 60 Glucose 107 Calcium 9.1 Magnesium 11/22/18 11/22/18 06:07 06:07 WBC RBC Hgb Hct MCV MCH MCHC RDW Plt Count VBG pH 7.39 VBG pCO2 28.7 L VBG HCO3 17.1 L VBG Base Excess -6.5 Sodium 137.1 Potassium 4.8 D Chloride 109 H Carbon Dioxide 17 L Anion Gap 11 BUN 3 L Creatinine 0.37 L Est GFR ( Amer) > 60 Est GFR (Non-Af Amer) > 60 Glucose 134 H Calcium 9.4 Magnesium 2.0 Assessment & Plan - Diagnosis (1) Third trimester at less than 36 weeks Is this a current diagnosis for this admission?: Yes (2) Acute asthma exacerbation Qualifiers: Asthma severity: moderate Is this a current diagnosis for this admission?: Yes Plan: Continue with medical management of asthma. No changes from regular asthma Tx in . - Time Time Spent: 30 to 50 Minutes Anticipated discharge: Home Within: within 36 hours
--- NOTE | 2018-11-22 12:51 | PDOC DISCHARGE SUMMARY ---
General - Admit/Disc Date/PCP Admission Date/Primary Care Provider: 11/21/18 19:47 ANDREA MAK Discharge Date: 11/22/18 - Additional Information Resuscitation Status: Full Code Discharge Diet: As Tolerated Discharge Activity: Activity As Tolerated Prescriptions: Albuterol Sulfate [Proair HFA Inhalation Aerosol 8.5 gm MDI] 2 puff IH Q6HP PRN #1 hfa.[email or web address] PRN Reason: Shortness Of Breath Albuterol Sulfate [Proventil 0.5% Neb 2.5 mg/0.5 ml Vial.neb] 1 vial NEB RTTIDP PRN #90 vial.neb PRN Reason: Budesonide/Formoterol Fumarate [Symbicort HFA 160-4.5 mcg Inhaler 6 gm] 2 puff IH Q12 #1 inhaler Ipratropium [place] [Atrovent 0.02% Neb 0.5 mg/2.5 ml Ampul] 0.5 mg NEB RTQ8 #90 vial.neb Home Medications: Albuterol Sulfate [Proair HFA Inhalation Aerosol 8.5 gm MDI] 2 puff IH Q6HP PRN #1 hfa.aer.ad 11/22/18 Albuterol Sulfate [Proventil 0.5% Neb 2.5 mg/0.5 ml Vial.neb] 1 vial NEB RTTIDP PRN #90 vial.neb 11/22/18 Budesonide/Formoterol Fumarate [Symbicort HFA 160-4.5 mcg Inhaler 6 gm] 2 puff IH Q12 #1 inhaler 11/22/18 Ipratropium [place] [Atrovent 0.02% Neb 0.5 mg/2.5 ml Ampul] 0.5 mg NEB RTQ8 #90 vial.neb 11/22/18 Vit/Dha [ Multi + Dha Capsule] 1 cap PO DAILY capsule 11/22/18 Tiotropium [place] [Spiriva Handihaler 5 Cap/Kit (18 Mcg/Cap)] 1 cap IH DAILY 11/22/18 History of Present Illness History of Present Illness: SHERLYN GALLOWAY is a 33 year old female with long history of asthma who was admitted last night for acute exacerbation of chronic asthma attack. Hospital Course Hospital Course: Patient was admitted overnight given albuterol nebs her home medication include budesonide and Spiriva and shows market improvement this morning. Patient states she is feeling much better return home. Patient states she had ran out of albuterol at home as she was using more often. At this time patient has clear lung sounds no wheezing whatsoever and able to return home and follow-up with her primary care practitioner in at this week of her snacks. Physical Exam Vital Signs: Temp Pulse Resp BP Pulse Ox 98.0 F 100 18 123/73 98 11/22/18 11:51 11/22/18 11:51 11/22/18 11:51 11/22/18 11:51 11/22/18 11:51 Intake & Output 11/21/18 11/22/18 11/23/18 06:59 06:59 06:59 Intake Total 410 Output Total 1 Balance 409 Weight 81.2 kg General appearance: PRESENT: no acute distress, well-developed, well-nourished Head exam: PRESENT: atraumatic, normocephalic Eye exam: PRESENT: conjunctiva pink, EOMI, PERRLA. ABSENT: scleral icterus Ear exam: PRESENT: normal external ear exam Mouth exam: PRESENT: moist, tongue midline Neck exam: ABSENT: carotid bruit, JVD, lymphadenopathy, thyromegaly Respiratory exam: PRESENT: clear to auscultation lilo. ABSENT: rales, rhonchi, wheezes Cardiovascular exam: PRESENT: RRR. ABSENT: diastolic murmur, rubs, systolic murmur Pulses: PRESENT: normal dorsalis pedis pul Vascular exam: PRESENT: normal capillary refill GI/Abdominal exam: PRESENT: normal bowel sounds, soft, other - 33 weeks . ABSENT: distended, guarding, mass, organolmegaly, rebound, tenderness Rectal exam: PRESENT: deferred Extremities exam: PRESENT: full ROM. ABSENT: calf tenderness, clubbing, pedal edema Neurological exam: PRESENT: alert, awake, oriented to person, oriented to place, oriented to time, oriented to situation, CN II-XII grossly intact. ABSENT: motor sensory deficit Psychiatric exam: PRESENT: appropriate affect, normal mood. ABSENT: homicidal ideation, suicidal ideation Skin exam: PRESENT: dry, intact, warm. ABSENT: cyanosis, rash Results Laboratory Results: 11/22/18 06:07 11/22/18 06:07 11/21/18 11/21/18 11/22/18 18:27 18:27 06:07 WBC 8.2 9.8 RBC 3.80 3.55 L Hgb 11.4 L 10.7 L Hct 33.0 L 31.2 L MCV 87 88 MCH 29.9 30.1 MCHC 34.4 34.2 RDW 12.8 12.8 Plt Count 204 212 VBG pH VBG pCO2 VBG HCO3 VBG Base Excess Sodium 138.5 Potassium 3.5 L Chloride 108 H Carbon Dioxide 21 L Anion Gap 10 BUN 5 L Creatinine 0.39 L Est GFR ( Amer) > 60 Est GFR (Non-Af Amer) > 60 Glucose 107 Calcium 9.1 Magnesium 11/22/18 11/22/18 06:07 06:07 WBC RBC Hgb Hct MCV MCH MCHC RDW Plt Count VBG pH 7.39 VBG pCO2 28.7 L VBG HCO3 17.1 L VBG Base Excess -6.5 Sodium 137.1 Potassium 4.8 D Chloride 109 H Carbon Dioxide 17 L Anion Gap 11 BUN 3 L Creatinine 0.37 L Est GFR ( Amer) > 60 Est GFR (Non-Af Amer) > 60 Glucose 134 H Calcium 9.4 Magnesium 2.0 Qualifiers - * PATIENT BEING DISCHARGED WITH ANY OF THE FOLLOWING DIAGNOSIS: No Acute Heart Failure - Is this a Heart Failure Patient?: No Plan Time Spent: Greater than 30 Minutes
--- NOTE | 2018-11-22 13:16 | PDOC H&P ---
History of Present Illness Admission Date/PCP: 11/21/2018 21:29 ANDREA MAK Patient complains of: Asthma History of Present Illness: SHERLYN GALLOWAY is a 33 year old female who presented to the emergency room with a 1 day history of worsening asthma. She admits the gradual onset of increased wheezing and dyspnea beginning yesterday and progressively worsening throughout the day today. Her wheezing and dyspnea became severe and did not not respond to multiple nebulizer treatments which she self administered at home. Her symptoms were also accompanied by markedly increased work of breathing. Her symptoms were worsened by exertion. She denies other associated or accompanying symptoms. She admits numerous prior similar episodes some requiring intubation due to severe asthma. She has not identified any additional aggravating or ameliorating factors for her asthma. She summoned EMS and they treated her with DuoNeb and intravenous Solu-Medrol 125 mg. On her arrival in the emergency room she was found to have significant work of breathing and to have very poor air mo tion and prominent wheezing. She responded to multiple nebulizer therapies and intravenous magnesium sulfate with a moderate degree of improvement however she is still laboring to breathe and will subsequently be admitted to the hospital for further evaluation and treatment. Past Medical History Cardiac Medical History: Reports: Myocardial Infarction - Vague history of 2 myocardial infarctions while intubated many years ago. Denies: Hyperlipidema, Hypertension Pulmonary Medical History: Reports: Asthma, Chronic Obstructive Pulmonary Disease (COPD), Intubation - 03/07/2016, Respiratory Failure EENT Medical History: Denies: Cataracts, Ears - Hearing aids Neurological Medical History: Denies: Multiple Sclerosis, Seizures Endocrine Medical History: Denies: Diabetes Mellitus Type 1, Diabetes Mellitus Type 2, Hyperthyroidism, Hypothyroidism Renal/ Medical History: Reports: Other - Currently at 29 weeks intrauterine ge station Denies: Chronic Kidney Disease, Nephrolithiasis Malignancy Medical History: Reports: None GI Medical History: Denies: Cirrhosis, Hepatitis Musculoskeltal Medical History: Denies: Arthritis, Gout Skin Medical History: Denies: Eczema, Psoriasis Psychiatric Medical History: Denies: Alcohol Dependency, Depression, Substance Abuse, Tobacco Dependency Traumatic Medical History: Reports: None Hematology: Denies: Anemia, Bleeding Tendencies Infectious Medical History: Reports: None Past Surgical History Past Surgical History: Reports: Other - Chest tube Social History Information Source: Patient Lives with: Spouse/Significant other Smoking Status: Never Smoker Frequency of Alcohol Use: Rare Hx Recreational Drug Use: No Drugs: None Hx Prescription Drug Abuse: No - Advance Directive Resuscitation Status: Full Code Surrogate healthcare decision maker:: Daniela Solorzano Family History Family History: DM, Hypertension, Other - Asthma, hepatitis C Parental Family History Reviewed: Yes Children Family History Reviewed: No Sibling(s) Family History Reviewed.: Yes Medication/Allergy Home Medications: Albuterol Sulfate [Proair HFA Inhalation Aerosol 8.5 gm MDI] 2 puff IH Q4HP PRN 08/04/18 Albuterol Sulfate [Ventolin 0.083% Neb 2.5 mg/3 mL Ampul] 2.5 mg NEB RTTID 08/04/18 Budesonide/Formoterol Fumarate [Symbicort HFA 160-4.5 mcg Inhaler 6 gm] 2 puff IH Q12 08/04/18 Vits96/Iron Fum/Folic [ Tablet] 1 tab PO DAILY 08/04/18 Fluticasone Propionate [Flonase Nasal [place] 50 Mcg/[place] 16 gm] 2 spray NASL Q12 #1 spray.pump 08/06/18 Allergies/Adverse Reactions: No Known Allergies Allergy (Verified 11/08/18 03:46) Review of Systems Constitutional: ABSENT: chills, fever(s) Eyes: ABSENT: visual disturbances, other - Eye pain Ears: ABSENT: hearing changes, other - Ear pain Nose, Mouth, and Throat: ABSENT: mouth pain, sore throat Cardiovascular: PRESENT: dyspnea on exertion. ABSENT: chest pain, edema, orthropnea, palpitations Respiratory: PRESENT: dyspnea, other - Wheezes. ABSENT: cough Gastrointestinal: ABSENT: abdominal pain, constipation, diarrhea, nausea, vomiting Genitourinary: ABSENT: dysuria, hematuria Musculoskeletal: ABSENT: back pain, joint swelling, muscle weakness Integumentary: ABSENT: pruritus, rash Neurological: ABSENT: confusion, convulsions, focal weakness, memory loss, syncope Psychiatric: ABSENT: anxiety, depression Endocrine: ABSENT: cold intolerance, heat intolerance Hematologic/Lymphatic: ABSENT: easy bleeding, easy bruising Physical Exam Vital Signs: Temp Pulse Resp BP Pulse Ox 97.9 F 17 127/86 H 96 11/21/18 16:35 11/21/18 19:01 11/21/18 19:01 11/21/18 19:01 Intake & Output 11/19/18 11/20/18 11/21/18 23:59 23:59 23:59 Intake Total 200 Balance 200 Weight 81.2 kg General appearance: PRESENT: cooperative, mild distress - Secondary to asthma Head exam: PRESENT: atraumatic, normocephalic Eye exam: PRESENT: conjunctiva pink. ABSENT: conjunctival injection, scleral icterus Ear exam: PRESENT: normal external ear exam. ABSENT: drainage Mouth exam: PRESENT: dry mucosa, neck supple Neck exam: ABSENT: thyromegaly, tracheal deviation Respiratory exam: PRESENT: accessory muscle use - Mild to moderate accessory muscle use with labored breathing, prolonged expiratory phas - Mildly prolonged expiratory phase throughout all pineda, retraction - Supraclavicular and infraclavicular as well as subcostal retractions bilaterally, symmetrical, tachypnea - Mild tachypnea at the time of my exam RR 22, wheezes - Moderate expiratory wheezes present throughout all pineda Cardiovascular exam: PRESENT: RRR, tachycardia - Mild tachycardia 110's. ABSENT: clicks, gallop, rubs Pulses: PRESENT: normal radial pulses, normal dorsalis pedis pul Vascular exam: PRESENT: normal capillary refill. ABSENT: pallor GI/Abdominal exam: PRESENT: normal bowel sounds, organolmegaly - Uterus consistent with 29 weeks gestation. heart tones present., soft Rectal exam: PRESENT: deferred Extremities exam: ABSENT: joint swelling, pedal edema Musculoskeletal exam: PRESENT: full ROM, normal inspection. ABSENT: tenderness Neurological exam: PRESENT: alert, oriented to person, oriented to place, oriented to time, oriented to situation, CN II-XII grossly intact. ABSENT: motor sensory deficit Psychiatric exam: PRESENT: appropriate affect, normal mood Skin exam: PRESENT: dry, intact, warm. ABSENT: jaundice, rash, urticaria Results Laboratory Results: 11/21/18 18:27 11/21/18 18:27 11/21/18 11/21/18 18: 18:27 WBC 8.2 RBC 3.80 Hgb 11.4 L Hct 33.0 L MCV 87 MCH 29.9 MCHC 34.4 RDW 12.8 Plt Count 204 Sodium 138.5 Potassium 3.5 L Chloride 108 H Carbon Dioxide 21 L Anion Gap 10 BUN 5 L Creatinine 0.39 L Est GFR ( Amer) > 60 Est GFR (Non-Af Amer) > 60 Glucose 107 Calcium 9.1 Assessment and Plan - Diagnosis (1) Asthma with status asthmaticus in adult Qualifiers: Asthma severity: severe Asthma persistence: persistent Qualified Code(s): J45.52 - Severe persistent asthma with status asthmaticus Is this a current diagnosis for this admission?: Yes Plan: Patient will be admitted to [facility] with supportive and symptomatic cares. She will receive an aggressive pulmonary toilet with Xopenex, Atrovent and Pulmicort via nebulizer. She will receive IV Solu-Medrol and supplemental oxygen as required to maintain an adequate O2 saturation which will be monitored frequently. Noninvasive airway pressure support devices will be used as required to assist respiration and maintain adequate oxygenation. (2) Acute respiratory failure with hypoxia Is this a current diagnosis for this admission?: Yes Plan: She will receive supplemental oxygen as required to maintain an adequate O2 saturation which will be monitored frequently. Noninvasive airway pressure support devices will be used as required to assist respiration and maintain adequate oxygenation. (3) Third trimester at less than 36 weeks Is this a current diagnosis for this admission?: Yes Plan: heart tones be monitored on a regular basis. An BILLING CLINICIAN consult may be obtained should any problems arise. (4) DVT prophylaxis Is this a current diagnosis for this admission?: Yes Plan: Patient will be treated with heparin 5000 units subcu every 8 hours and JET hose. Activity will be encouraged. - Time Time Spent with patient: 25-34 minutes Medications reviewed and adjusted accordingly: Yes Anticipated discharge: Home - Inpatient Certification Based on my medical assessment, after consideration of the patient's comorbidities, presenting symptoms, or acuity I expect that the services needed warrant INPATIENT care.: Yes I certify that my determination is in accordance with my understanding of Medicare's requirements for reasonable and necessary INPATIENT services [42 CFR 412.3e].: Yes Medical Necessity: Significant Comorbidiites Make Outpatient Treatment Too Risk y, Need Close Monitoring Due to Risk of Patient Decompensation, Need For Continuous Telemetry Monitoring, Need for Nebulizer Therapy and Monitoring of Response, Risk of Complication if Not Cared For in Hospital
[2018-11-22] MEDS ORDERED: METHYLPREDNISOLONE INJ 40 MG/1 ML SDV IV ONE (14:30)
[2018-11-22 14:59] VITALS: BP 124/80
== END 2018-11-22 15:30 | disposition home or self-care (01) | DRG 832 ==
LOC: ER 16:31 → EH 19:47 → 3N 22:50
PROVIDERS: ADMIT Emergency Medicine; ATTEND Emergency Medicine
PROC: 5A09357 Assistance with Respiratory Ventilation, Less than 24 Consecutive Hours, Continuous Positive Airway Pressure (ICD-10-PCS; principal; 2018-11-22)
DX: O99.513 Diseases of the respiratory system complicating pregnancy, third trimester (principal); J45.52 Severe persistent asthma with status asthmaticus; J44.9 Chronic obstructive pulmonary disease, unspecified; O99.283 Endocrine, nutritional and metabolic diseases complicating pregnancy, third trimester; E87.6 Hypokalemia; Z3A.29 29 weeks gestation of pregnancy; I25.2 Old myocardial infarction; Z82.5 Family history of asthma and other chronic lower respiratory diseases; Z83.3 Family history of diabetes mellitus; Z82.49 Family history of ischemic heart disease and other diseases of the circulatory system; Z79.51 Long term (current) use of inhaled steroids
CPT/HCPCS: 36415; 80048; 82803; 83735; 85027; 93005; 93010; 99291; J2920; J3475; J3490; J7120; J7620

== ENCOUNTER 2018-12-01 09:32 | Inpatient (IN) | payer MEDICAID ==
[2018-12-01] MEDS ORDERED: MAGNESIUM SULFATE/D5W 2 GM/200 ML RTUPB IV ONE (09:36)
[2018-12-01] MEDS ORDERED: ACETAMINOPHEN 325 MG TABLET PO ONE (09:50)
--- NOTE | 2018-12-01 09:54 | ER Document Report ---
ED Respiratory Problem - General Stated Complaint: TROUBLE BREATHING Time Seen by Provider: 12/01/18 09:45 Primary Care Provider: NAHOMI BLACK FNP-C [Primary Care Provider] - Follow up as needed Notes: Patient is complaining of an asthma attack. Says she is been wheezing for the past couple of days. Worsened last night. She is used 17 home nebulizer treatments with albuterol Atrovent at home this morning. She was brought in by EMS and they gave her 125 mg of Solu-Medrol IV. And 2 g of magnesium IV on the way to the hospital. Patient says she has had a cough for the past few days and getting up some phlegm. Has not running any fever. Patient has been intubated for her asthma previously about 3 or 4 years ago. Patient is slightly more than 30 weeks . Bland the baby moving last night, but not this morning. Excellent heart beat by Doppler here at this time. TRAVEL OUTSIDE OF THE [place] IN LAST 30 DAYS: No - Related Data Allergies/Adverse Reactions: No Known Allergies Allergy (Verified 11/08/18 03:46) Past Medical History - Social History Smoking Status: Unknown if Ever Smoked Cigarette use (# per day): No Family History: Reviewed & Not Pertinent, DM, Hypertension, Other - Asthma, hepatitis C - Past Medical History Cardiac Medical History: Reports: Hx Heart Attack - Vague history of 2 myocardial infarctions while intubated many years ago. Pulmonary Medical History: Reports: Hx Asthma, Hx COPD, Hx Intubation - 03/07/2016, Hx Respiratory Failure Psychiatric Medical History: Denies: Hx Depression Infectious Medical History: Denies: Hx Hepatitis Past Surgical History: Reports: Other - Chest tube - Immunizations Hx Diphtheria, Pertussis, Tetanus Vaccination: Yes Review of Systems - Review of Systems -: Yes ROS unobtainable due to patient's medical condition - Patient is to short of breath and too tight wheezing to answer questions Physical Exam - Vital signs Vitals: Resp Pulse Ox 27 H 99 12/01/18 09:35 12/01/18 09:35 Interpretation: Tachycardic, Tachypneic Notes: PHYSICAL EXAMINATION: GENERAL: Moderately severe respiratory distress. Very tachycardic. Very tachypneic. Afebrile and O2 sat in the 90s. HEAD: Atraumatic, normocephalic. EYES: Pupils equal round and reactive to light, extraocular movements intact. ENT: oropharynx clear without exudates. Moist mucous membranes. NECK: Normal range of motion, supple. LUNGS: Labored respirations with diffuse expiratory wheezes throughout both lung pineda. HEART: Regular rate and rhythm without murmurs. Heart rate 120 at bedside. ABDOMEN: Soft, nontender. No guarding or rebound. No masses. BACK: No tenderness throughout entire back. EXTREMITIES: Normal range of motion without pain. No swelling or pain. Negative Homans bilaterally. NEUROLOGICAL: Normal speech, normal gait. Normal sensory, motor, and reflex exams. Awake, alert, and oriented x3. Cranial nerves normal. PSYCH: Unable to assess. SKIN: Warm, dry, no rashes. Course - Re-evaluation Re-evalutation: 12/01/18 10:35 Patient says she does not feel any better, although her lungs sounds seem to have less wheezes to me. Chest x-ray was read as normal. She does have some hyper aeration of the upper lung pineda bilaterally. Heart rate still about 120. Otherwise, vital signs are normal. 12/01/18 11:22 Patient appears to be feeling better. Heart rate is dropped down to about 110. She says that she is feeling better now. Still has diffuse expiratory wheezes bilaterally. Spoke with hospitalist about admission and he wishes to talk with EQUINE SCIENCE INSTRUCTOR first. 12/01/18 12:25 Patient has been seen by the hospitalist and will be admitted to [facility]. - Vital Signs Vital signs: Temp Pulse Resp BP Pulse Ox 24 H 134/78 H 100 12/01/18 10:45 12/01/18 10:45 12/01/18 10:45 - Laboratory Result Diagrams: 12/01/18 09:38 12/01/18 09:38 Laboratory results interpreted by me: 12/01/18 12/01/18 12/01/18 09:38 09:38 10:03 WBC 11.6 H RBC 3.66 L Hgb 10.8 L Hct 32.1 L Eosinophils % 8.8 H Absolute Eosinophils 1.0 H BUN 4 L Creatinine 0.43 L Urine Blood SMALL H Ur Leukocyte Esterase LARGE H - Diagnostic Test Radiology results interpreted by me: 12/01/18 12:26 Chest x-ray shows hyper aeration of the upper lungs bilaterally. No other significant findings. Otherwise normal chest x-ray. Critical Care Note - Critical Care Note Total time excluding time spent on procedures (mins): 45 Discharge - Discharge Clinical Impression: Status asthmaticus Condition: Stable Disposition: ADMITTED INPATIENT Admitting Provider: Luisa Davila Unit Admitted: IMCU Referrals: NAHOMI BLACK FNP-C [Primary Care Provider] - Follow up as needed
[2018-12-01 10:05] LABS: ABSOLUTE BASOPHILS # (AUTO) 0.1 10^3/uL (0.0-0.2); ABSOLUTE LYMPHOCYTES (AUTO) 2.1 10^3/uL (0.5-4.7); ABSOLUTE NEUT (AUTO) 7.4 10^3/uL (1.7-8.2); BASOPHILS % (AUTO) 0.8 % (0-2); EOSINOPHILS % (AUTO) 8.8 % (0-6); HEMATOCRIT 32.1 % (36.0-47.0); HEMOGLOBIN 10.8 g/dL (12.0-15.5); LYMPHOCYTES % (AUTO) 17.9 % (13-45); MEAN CORPUSCULAR HEMOGLOBIN 29.4 pg (27.0-33.4); MEAN CORPUSCULAR HGB CONC 33.6 g/dL (32.0-36.0); MEAN CORPUSCULAR VOLUME 88 fl (80-97); MONOCYTES % (AUTO) 8.8 % (3-13); PLATELET COUNT 211 10^3/uL (150-450); RED BLOOD COUNT 3.66 10^6/uL (3.72-5.28); SEGMENTED NEUTROPHILS % (AUTO) 63.7 % (42-78); TOTAL CELLS COUNTED % (AUTO) 100 %; WHITE BLOOD COUNT 11.6 10^3/uL (4.0-10.5)
--- NOTE | 2018-12-01 10:10 | RADIOLOGY REPORT (SQ) ---
EXAM DESCRIPTION: CHEST SINGLE VIEW COMPLETED DATE/TIME: 12/01/2018 9:54 am REASON FOR STUDY: Severe asthma, distress COMPARISON: 02/20/2018 EXAM PARAMETERS: NUMBER OF VIEWS: One view. TECHNIQUE: Single frontal radiographic view of the chest acquired. RADIATION DOSE: NA LIMITATIONS: None. FINDINGS: LUNGS AND PLEURA: No opacities, masses or pneumothorax. No pleural effusion. MEDIASTINUM AND HILAR STRUCTURES: No masses. Contour normal. HEART AND VASCULAR STRUCTURES: Heart normal in size. Normal vasculature. BONES: Dextroconvex thoracic curvature. HARDWARE: Bilateral nipple piercings. OTHER: No other significant finding. IMPRESSION: NO ACUTE RADIOGRAPHIC FINDING IN THE CHEST. TECHNICAL DOCUMENTATION: JOB ID: [id number] [email or web address] All Rights Reserved Reading location - IP/workstation name: [email or web address]
[2018-12-01 10:19] LABS: ALBUMIN 4.3 g/dL (3.5-5.0); ALKALINE PHOSPHATASE 98 U/L (38-126); ANION GAP 10 (5-19); ASPARTATE AMINO TRANSFERASE 26 U/L (14-36); BILIRUBIN,DIRECT 0.1 mg/dL (0.0-0.4); BILIRUBIN,TOTAL 0.2 mg/dL (0.2-1.3); BLOOD UREA NITROGEN 4 mg/dL (7-20); CALCIUM 8.8 mg/dL (8.4-10.2); CARBON DIOXIDE 24 mmol/L (22-30); CHLORIDE 106 mmol/L (98-107); GLUCOSE 102 mg/dL (75-110); POTASSIUM 3.9 mmol/L (3.6-5.0)
[2018-12-01 10:25] LABS: APPEARANCE,URINE SLIGHTLY-CLOUDY; BILIRUBIN,URINE NEGATIVE (NEGATIVE); COLOR,URINE YELLOW; GLUCOSE, URINE NEGATIVE (NEGATIVE); KETONES,URINE NEGATIVE (NEGATIVE); LEUKOCYTE ESTERASE,URINE LARGE (NEGATIVE); NITRITE,URINE NEGATIVE (NEGATIVE); PROTEIN,URINE NEGATIVE (NEGATIVE); URINE SPECIFIC GRAVITY 1.005; UROBILINOGEN,URINE NEGATIVE mg/dL (<2.0)
[2018-12-01] MEDS ORDERED: OXYCODONE HCL IR 5 MG TABLET PO PRN (12:29)
[2018-12-01] MEDS ORDERED: ALBUTEROL SULFATE 0.083% NEB 2.5 MG/3 ML AMPUL NEB PRN (12:30)
--- NOTE | 2018-12-01 12:40 | Progress Note Acknowledgement ---
Progress Note Acknowledgement Progess Note Acknowledgement: I, the undersigned member of the medical staff with appropriate privileges and with supervisory authority over [Waldo Davila], a dependent practice allied health professional, acknowledge that I have reviewed the progress notes entered on this patient, and in my professional judgment believe that the assessment made and/or any care evidenced was appropriate
--- NOTE | 2018-12-01 12:50 | PDOC H&P ---
History of Present Illness Admission Date/PCP: December 01, 2018 REGINA MAKP-C Patient complains of: Shortness of breath cough wheeze History of Present Illness: SHERLYN GALLOWAY is a 33 year old female Past Medical History Cardiac Medical History: Reports: Myocardial Infarction - Vague history of 2 myocardial infarctions while intubated many years ago. Denies: Hyperlipidema, Hypertension Pulmonary Medical History: Reports: Asthma, Chronic Obstructive Pulmonary Disease (COPD), Intubation - 03/07/2016, Respiratory Failure Neurological Medical History: Denies: Seizures Endocrine Medical History: Denies: Diabetes Mellitus Type 1, Diabetes Mellitus Type 2, Hyperthyroidism, Hypothyroidism GI Medical History: Denies: Cirrhosis, Hepatitis Musculoskeltal Medical History: Denies: Arthritis, Gout Skin Medical History: Denies: Eczema, Psoriasis Psychiatric Medical History: Denies: Depression Hematology: Denies: Anemia, Bleeding Tendencies Past Surgical History Past Surgical History: Reports: Other - Chest tube Social History Information Source: Patient Lives with: Family Smoking Status: Never Smoker Frequency of Alcohol Use: Rare Hx Recreational Drug Use: No Drugs: None Hx Prescription Drug Abuse: No - Advance Directive Resuscitation Status: Full Code Family History Family History: DM, Hypertension, Other - Asthma, hepatitis C Parental Family History Reviewed: Yes Children Family History Reviewed: Yes Sibling(s) Family History Reviewed.: Yes Medication/Allergy Home Medications: Albuterol Sulfate [Proair HFA Inhalation Aerosol 8.5 gm MDI] 2 puff IH Q6HP PRN #1 hfa.aer.ad 11/22/18 Albuterol Sulfate [Proventil 0.5% Neb 2.5 mg/0.5 ml Vial.neb] 1 vial NEB RTTIDP PRN #90 vial.neb 11/22/18 Budesonide/Formoterol Fumarate [Symbicort HFA 160-4.5 mcg Inhaler 6 gm] 2 puff IH Q12 #1 inhaler 11/22/18 Ipratropium [place] [Atrovent 0.02% Neb 0.5 mg/2.5 ml Ampul] 0.5 mg NEB RTQ8 #90 vial.neb 11/22/18 Vit/Dha [ Multi + Dha Capsule] 1 cap PO DAILY capsule 11/22/18 Tiotropium [place] [Spiriva Handihaler 5 Cap/Kit (18 Mcg/Cap)] 1 cap IH DAILY 11/22/18 Allergies/Adverse Reactions: No Known Allergies Allergy (Verified 11/08/18 03:46) Review of Systems Constitutional: ABSENT: chills, fever(s), headache(s), weight gain, weight loss Eyes: ABSENT: visual disturbances Ears: ABSENT: hearing changes Cardiovascular: ABSENT: chest pain, dyspnea on exertion, edema, orthropnea, palpitations Respiratory: PRESENT: cough, other - Wheeze. ABSENT: hemoptysis Gastrointestinal: ABSENT: abdominal pain, constipation, diarrhea, hematemesis, hematochezia, nausea, vomiting Genitourinary: ABSENT: dysuria, hematuria Musculoskeletal: ABSENT: joint swelling Integumentary: ABSENT: rash, wounds Neurological: ABSENT: abnormal gait, abnormal speech, confusion, dizziness, focal weakness, syncope Psychiatric: ABSENT: anxiety, depression, homidical ideation, suicidal ideation Endocrine: ABSENT: cold intolerance, heat intolerance, polydipsia, polyuria Hematologic/Lymphatic: ABSENT: easy bleeding, easy bruising Physical Exam Vital Signs: Temp Pulse Resp BP Pulse Ox 24 H 134/78 H 100 12/01/18 10:45 12/01/18 10:45 12/01/18 10:45 Intake & Output 11/30/18 12/01/18 12/02/18 06:59 06:59 06:59 Intake Total 200 Balance 200 Weight 80 kg General appearance: PRESENT: no acute distress, well-developed, well-nourished Head exam: PRESENT: atraumatic, normocephalic Eye exam: PRESENT: conjunctiva pink, EOMI, PERRLA. ABSENT: scleral icterus Ear exam: PRESENT: normal external ear exam Mouth exam: PRESENT: moist, tongue midline Neck exam: ABSENT: carotid bruit, JVD, lymphadenopathy, thyromegaly Respiratory exam: PRESENT: decreased breath sounds, wheezes Cardiovascular exam: PRESENT: RRR. ABSENT: diastolic murmur, rubs, systolic murmur Pulses: PRESENT: normal dorsalis pedis pul Vascular exam: PRESENT: normal capillary refill GI/Abdominal exam: PRESENT: normal bowel sounds, soft. ABSENT: distended, guard ing, mass, organolmegaly, rebound, tenderness Rectal exam: PRESENT: deferred Extremities exam: PRESENT: full ROM. ABSENT: calf tenderness, clubbing, pedal edema Neurological exam: PRESENT: alert, awake, oriented to person, oriented to place, oriented to time, oriented to situation, CN II-XII grossly intact. ABSENT: motor sensory deficit Psychiatric exam: PRESENT: appropriate affect, normal mood. ABSENT: homicidal ideation, suicidal ideation Skin exam: PRESENT: dry, intact, warm. ABSENT: cyanosis, rash Results Laboratory Results: 12/01/18 09:38 12/01/18 09:38 12/01/18 12/01/18 12/01/18 09:38 09:38 10:03 WBC 11.6 H RBC 3.66 L Hgb 10.8 L Hct 32.1 L MCV 88 MCH 29.4 MCHC 33.6 RDW 13.0 Plt Count 211 Seg Neutrophils % 63.7 Lymphocytes % 17.9 Monocytes % 8.8 Eosinophils % 8.8 H Basophils % 0.8 Absolute Neutrophils 7.4 Absolute Lymphocytes 2.1 Absolute Monocytes 1.0 Absolute Eosinophils 1.0 H Absolute Basophils 0.1 Sodium 139.6 Potassium 3.9 Chloride 106 Carbon Dioxide 24 Anion Gap 10 BUN 4 L Creatinine 0.43 L Est GFR ( Amer) > 60 Est GFR (Non-Af Amer) > 60 Glucose 102 Calcium 8.8 Total Bilirubin 0.2 AST 26 Alkaline Phosphatase 98 Total Protein 8.0 Albumin 4.3 Urine Color YELLOW Urine Appearance SLIGHTLY-CLOUDY Urine pH 6.0 Ur Specific [place] 1.005 Urine Protein NEGATIVE Urine Glucose (UA) NEGATIVE Urine Ketones NEGATIVE Urine Blood SMALL H Urine Nitrite NEGATIVE Ur Leukocyte Esterase LARGE H Urine WBC (Auto) 2 Urine RBC (Auto) 7 Impressions: Chest X-Ray 12/01/18 09:45 IMPRESSION: NO ACUTE RADIOGRAPHIC FINDING IN THE CHEST. Assessment and Plan - Diagnosis (1) Status asthmaticus Qualifiers: Asthma severity: severe Is this a current diagnosis for this admission?: Yes Plan: December 11, 2018-at this time patient patient IMCU. Albuterol nebs every 4 and every 2 as needed. Pulmicort inhaled twice daily. Singulair 10 mg p.o. daily. Continue to monitor to make change plan of care as appropriate. Continue BiPAP as needed. Patient moving much more air at this time she did receive 4 g of magnesium prior to my arrival. Hold systemic steroids at this time. Continue to monitor patient needs that I discussed this with pharmacy we will give if appropriate. (2) Third trimester at less than 36 weeks Is this a current diagnosis for this admission?: Yes Plan: 12/01/2018-consult Dr. loo HAND SCRAPER for monitoring . (3) Anemia Is this a current diagnosis for this admission?: Yes Plan: December 01, 2018-chronic stable (4) UTI (urinary tract infection) Is this a current diagnosis for this admission?: Yes Plan: 12/01/2018-await urine culture Place patient Rocephin 1 g IV daily. Once cultures are may change plan of care as appropriate. - Time Time Spent with patient: 35 or more minutes - Inpatient Certification Based on my medical assessment, after consideration of the patient's comorbidities, presenting symptoms, or acuity I expect that the services needed warrant INPATIENT care.: Yes I certify that my determination is in accordance with my understanding of Medicare's requirements for reasonable and necessary INPATIENT services [42 CFR 412.3e].: Yes Medical Necessity: Other - IV antibiotics, duo nebs, BiPAP
--- NOTE | 2018-12-01 12:52 | ADVANCED CARE ---
- Diagnosis (1) Status asthmaticus Diagnosis Current: Yes (2) Third trimester at less than 36 weeks Diagnosis Current: Yes (3) Anemia Diagnosis Current: Yes (4) UTI (urinary tract infection) Diagnosis Current: Yes Attendance: Myself, patient and her significant other Resuscitation Status: Full Code Discussion: Discussed with patient and her significant other plan of care. Will consult Dr. loo BRANCH MAKER to follow her . Place patient on albuterol nebs, Pulmicort, Singulair, and continue BiPAP. I discussed this case with pharmacy as well and we will hold systemic steroids as they are category C for although if she has another attack we will give her steroids appropriate. Both patient and her significant other are in agreement with plan of care. Care Planning Goals: 1-consult BRANCH MAKER 2-status asthmaticus treatment including BiPAP, albuterol, Singulair, and P ulmicort, Time Spent: 20 minutes
[2018-12-01] MEDS ORDERED: MONTELUKAST SODIUM 10 MG TABLET PO ONE (13:00)
[2018-12-01] MEDS ORDERED: CEFTRIAXONE 1 GM/D5W RTU 1 GM/50 ML RTUPB IV SCH (13:00)
[2018-12-01] MEDS: BUDESONIDE NEB 0.5 MG/2 ML AMPUL NEB SCH ×2 (13:09→19:49)
[2018-12-01] MEDS: ALBUTEROL SULFATE 0.083% NEB 2.5 MG/3 ML AMPUL NEB SCH ×3 (13:09→19:49)
--- NOTE | 2018-12-01 21:40 | PDOC CONSULTATION ---
Consultation Consult Date: 12/01/18 Provider Consulted: CAMILA MAYORGA History of Present Illness Admission Date/PCP: 12/01/18 12:35 ANDREA MAK Patient complains of: Persistant Asthma Attack History of Present Illness: SHERLYN GALLOWAY is a 33 year old -0-1-4 presented to the emergency department complaining of a persistent asthma attack. Patient stated that she had given herself several nebulizer treatments without relief. She has an intrauterine at 30-4/7 weeks. She reports good movement and has no complaints of contractions. Past Medical History LMP: 02/05/19 Gynecological Infection: No Obstetrical History: none - -0-1-4; IUP at 30-4/7 weeks Cardiac Medical History: Reports: Myocardial Infarction - Vague history of 2 myocardial infarctions while intubated many years ago. Denies: Hyperlipidema, Hypertension Pulmonary Medical History: Reports: Asthma, Chronic Obstructive Pulmonary Disease (COPD), Intubation - 03/07/2016, Respiratory Failure Neurological Medical History: Denies: Seizures Endocrine Medical History: Denies: Diabetes Mellitus Type 1, Diabetes Mellitus Type 2, Hyperthyroidism, Hypothyroidism GI Medical History: Denies: Cirrhosis, Hepatitis Musculoskeltal Medical History: Denies: Arthritis, Gout Skin Medical History: Denies: Eczema, Psoriasis Psychiatric Medical History: Denies: Depression Social History Information Source: Patient Lives with: Family Smoking Status: Never Smoker Frequency of Alcohol Use: Rare Hx Recreational Drug Use: No Drugs: None Hx Prescription Drug Abuse: No - Advance Directive Resuscitation Status: Full Code Family History Family History: DM, Hypertension, Other - Asthma, hepatitis C Parental Family History Reviewed: Yes Children Family History Reviewed: NA Sibling(s) Family History Reviewed.: NA Medication/Allergy Home Medications: Albuterol Sulfate [Proair Hfa Inhalation Aerosol 8.5 gm Mdi] 2 puff IH Q6HP PRN 12/01/18 Albuterol Sulfate [Ventolin 0.083% Neb 2.5 mg/3 ml Ampul] 1 vial NEB RTTID 11/12 Budesonide/Formoterol Fumarate [Symbicort Hfa 160-4.5 Mcg Inhaler 6 gm] 2 puff IH RTBID 12/01/18 Ipratropium [place] [Atrovent 0.02% Neb 0.5 mg/2.5 ml Ampul] 0.5 mg NEB RTQ8 12/01/18 Vit/Dha [ Multi + Dha Capsule] 1 cap PO DAILY 12/01/18 Ranitidine HCl [Zantac] 150 mg PO BID 12/01/18 Allergies/Adverse Reactions: No Known Allergies Allergy (Verified 11/08/18 03:46) Review of Systems Constitutional: PRESENT: as per HPI Cardiovascular: ABSENT: as per HPI, chest pain, dyspnea on exertion, edema, orthropnea, palpitations, other Respiratory: PRESENT: cough, other - Wheezing Gastrointestinal: ABSENT: as per HPI, abdominal pain, bloating, coffee ground emesis, constipation, diarrhea, dysphagia, heartburn, hematemesis, hematochezia, melena, nausea, vomiting, other Physical Exam - Physical Exam Vital Signs: Temp Pulse Resp BP Pulse Ox 98.3 F 102 H 18 121/70 95 12/01/18 19:08 12/01/18 19:49 12/01/18 19:49 12/01/18 19:08 12/01/18 19:49 Intake & Output 11/30/18 12/01/18 12/02/18 06:59 06:59 06:59 Intake Total 250 Balance 250 Weight 80 kg General appearance: PRESENT: severe distress Respiratory exam: PRESENT: decreased breath sounds, wheezes Cardiovascular exam: PRESENT: RRR GI/Abdominal exam: PRESENT: normal bowel sounds, soft Extremities exam: ABSENT: calf tenderness, clubbing, full ROM, joint swelling, pedal edema, tenderness, +1 edema, +2 edema, other Result Laboratory Results: 12/01/18 09:38 12/01/18 09:38 12/01/18 12/01/18 12/01/18 09:38 09:38 10:03 WBC 11.6 H RBC 3.66 L Hgb 10.8 L Hct 32.1 L MCV 88 MCH 29.4 MCHC 33.6 RDW 13.0 Plt Count 211 Seg Neutrophils % 63.7 Lymphocytes % 17.9 Monocytes % 8.8 Eosinophils % 8.8 H Basophils % 0.8 Absolute Neutrophils 7.4 Absolute Lymphocytes 2.1 Absolute Monocytes 1.0 Absolute Eosinophils 1.0 H Absolute Basophils 0.1 Sodium 139.6 Potassium 3.9 Chloride 106 Carbon Dioxide 24 Anion Gap 10 BUN 4 L Creatinine 0.43 L Est GFR ( Amer) > 60 Est GFR (Non-Af Amer) > 60 Glucose 102 Calcium 8.8 Total Bilirubin 0.2 AST 26 Alkaline Phosphatase 98 Total Protein 8.0 Albumin 4.3 Urine Color YELLOW Urine Appearance SLIGHTLY-CLOUDY Urine pH 6.0 Ur Specific [place] 1.005 Urine Protein NEGATIVE Urine Glucose (UA) NEGATIVE Urine Ketones NEGATIVE Urine Blood SMALL H Urine Nitrite NEGATIVE Ur Leukocyte Esterase LARGE H Urine WBC (Auto) 2 Urine RBC (Auto) 7 Impressions: Chest X-Ray 12/01/18 09:45 IMPRESSION: NO ACUTE RADIOGRAPHIC FINDING IN THE CHEST. Assessment & Plan - Diagnosis (1) Asthma complicating , antepartum Is this a current diagnosis for this admission?: Yes (2) Anemia Qualifiers: Anemia type: iron deficiency Is this a current diagnosis for this admission?: Yes (3) Status asthmaticus Qualifiers: Asthma severity: severe Is this a current diagnosis for this admission?: Yes (4) UTI (urinary tract infection) Is this a current diagnosis for this admission?: Yes (6) Acute asthma exacerbation Qualifiers: Asthma severity: moderate (7) Acute respiratory failure Qualifiers: Respiratory failure complication: hypoxia Qualified Code(s): J96.01 - Acute respiratory failure with hypoxia (9) Anxiety Is this a current diagnosis for this admission?: Yes (10) Severe persistent asthma with exacerbation Is this a current diagnosis for this admission?: Yes (11) Third trimester at less than 36 weeks Is this a current diagnosis for this admission?: Yes - Time Critical Time spent with patient: 15-24 minutes - Plan Summary Plan Summary: 1. Continue current care as per hospitalist 2. NST every shift
[2018-12-02] MEDS: ALBUTEROL SULFATE 0.083% NEB 2.5 MG/3 ML AMPUL NEB SCH ×6 (00:10→20:05)
[2018-12-02 05:29] LABS: ABSOLUTE EOSINOPHILS # (AUTO) 0.2 10^3/uL (0.0-0.6); ABSOLUTE MONOCYTES (AUTO) 1.1 10^3/uL (0.1-1.4); ABSOLUTE NEUT (AUTO) 8.9 10^3/uL (1.7-8.2); BASOPHILS % (AUTO) 0.1 % (0-2); EOSINOPHILS % (AUTO) 1.7 % (0-6); HEMATOCRIT 28.9 % (36.0-47.0); HEMOGLOBIN 9.8 g/dL (12.0-15.5); LYMPHOCYTES % (AUTO) 16.5 % (13-45); MEAN CORPUSCULAR HEMOGLOBIN 29.6 pg (27.0-33.4); MEAN CORPUSCULAR VOLUME 87 fl (80-97); PLATELET COUNT 186 10^3/uL (150-450); RED BLOOD COUNT 3.32 10^6/uL (3.72-5.28); RED CELL DISTRIBUTION WIDTH 13.2 % (11.5-14.0); SEGMENTED NEUTROPHILS % (AUTO) 72.7 % (42-78); TOTAL CELLS COUNTED % (AUTO) 100 %; WHITE BLOOD COUNT 12.3 10^3/uL (4.0-10.5)
[2018-12-02 05:40] LABS: ANION GAP 9 (5-19); BLOOD UREA NITROGEN 6 mg/dL (7-20); CALCIUM 8.7 mg/dL (8.4-10.2); CARBON DIOXIDE 19 mmol/L (22-30); CHLORIDE 107 mmol/L (98-107); GLUCOSE 93 mg/dL (75-110); POTASSIUM 4.1 mmol/L (3.6-5.0)
[2018-12-02] MEDS: BUDESONIDE NEB 0.5 MG/2 ML AMPUL NEB SCH ×2 (08:24→20:05)
[2018-12-02] MEDS: CEFTRIAXONE SODIUM 1,000 MG in DEXTROSE 5%-WATER 50 ML IV SCH (09:36)
[2018-12-02] MEDS: PRENATAL VITAMIN W DHA CAPSULE PO SCH (09:36)
--- NOTE | 2018-12-02 11:07 | PDOC PROGRESS REPORT ---
Subjective Progress Note for:: 12/02/18 Subjective:: Patient is resting comfortably on room air. No audible wheezes. Reason For Visit: STATUS ASTHMATICUS Physical Exam Vital Signs: Temp Pulse Resp BP Pulse Ox 98.3 F 93 16 93/62 L 98 12/02/18 07:46 12/02/18 08:26 12/02/18 08:26 12/02/18 07:46 12/02/18 08:26 Intake & Output 12/01/18 12/02/18 12/03/18 06:59 06:59 06:59 Intake Total 500 Balance 500 Weight 80 kg General appearance: PRESENT: no acute distress, cooperative, well-developed Head exam: PRESENT: atraumatic, normocephalic Ear exam: ABSENT: normal external ear exam - Large polypoid skin tag on right ear Mouth exam: PRESENT: moist, tongue midline Respiratory exam: PRESENT: clear to auscultation lilo, symmetrical, unlabored. ABSENT: accessory muscle use, rales, rhonchi, tachypnea, wheezes Cardiovascular exam: PRESENT: RRR, +S1, +S2, systolic murmur - 3/6 GI/Abdominal exam: PRESENT: distended - Consistent with , soft. ABSENT: tenderness Musculoskeletal exam: PRESENT: normal inspection Neurological exam: PRESENT: alert, awake, oriented to person, oriented to place, oriented to time, oriented to situation, CN II-XII grossly intact Psychiatric exam: PRESENT: appropriate affect. ABSENT: agitated, anxious Focused psych exam: ABSENT: delusional, restlessness Results Laboratory Results: 12/02/18 04:32 12/02/18 04:32 12/02/18 12/02/18 04:32 04:32 WBC 12.3 H RBC 3.32 L Hgb 9.8 L Hct 28.9 L MCV 87 MCH 29.6 MCHC 34.0 RDW 13.2 Plt Count 186 Seg Neutrophils % 72.7 Lymphocytes % 16.5 Monocytes % 9.0 Eosinophils % 1.7 Basophils % 0.1 Absolute Neutrophils 8.9 H Absolute Lymphocytes 2.0 Absolute Monocytes 1.1 Absolute Eosinophils 0.2 Absolute Basophils 0.0 Sodium 135.0 L Potassium 4.1 Chloride 107 Carbon Dioxide 19 L Anion Gap 9 BUN 6 L Creatinine 0.51 L Est GFR ( Amer) > 60 Est GFR (Non-Af Amer) > 60 Glucose 93 Calcium 8.7 Magnesium 2.4 H 12/01/18 10:03 Clean Catch Midstream Urine Culture - Final Mixed Urogenital Jody Impressions: Chest X-Ray 12/01/18 09:45 IMPRESSION: NO ACUTE RADIOGRAPHIC FINDING IN THE CHEST. Assessment and Plan - Diagnosis (1) Asthma complicating , antepartum Is this a current diagnosis for this admission?: Yes Plan: Patient is doing much better. After a coughing spasm last night she went on BiPAP but this was for less than 20 minutes. She has no audible wheezes today and is breathing comfortably. I did have her machine maintenance, Dr. Rothman, see the patient as well. The plan is to resume her Spiriva that she is at home. She is on Pulmicort and albuterol. She will continue her Symbicort when a family member brings it in. (2) Hypermagnesemia Is this a current diagnosis for this admission?: Yes Plan: Iatrogenic from multiple doses of magnesium sulfate given yesterday. We will r echeck tomorrow. (3) Third trimester at less than 36 weeks Is this a current diagnosis for this admission?: Yes Plan: 12/01/2018-consult Dr. loo BIOMEDICAL ENGINEERING TECHNICIAN for monitoring . 12/02/2018-discussed the case with Dr. Jaimes earlier today. The patient is significantly improved and therefore unlikely to need transfer. - Time Time Spent with patient: 15-24 minutes Medications reviewed and adjusted accordingly: Yes Anticipated discharge: Home Within: within 24 hours
[2018-12-02] MEDS: MONTELUKAST SODIUM 10 MG TABLET PO SCH (12:16)
--- NOTE | 2018-12-02 22:14 | PDOC PROGRESS REPORT ---
Subjective Progress Note for:: 12/02/18 Subjective:: status asthmaticus Reason For Visit: STATUS ASTHMATICUS Physical Exam - Physical Exam Vital Signs: Temp Pulse Resp BP Pulse Ox 98.7 F 80 20 109/71 100 12/02/18 19:38 12/02/18 20:05 12/02/18 20:05 12/02/18 19:38 12/02/18 20:05 Intake & Output 12/01/18 12/02/18 12/03/18 06:59 06:59 06:59 Intake Total 500 770 Balance 500 770 Weight 80 kg General appearance: PRESENT: no acute distress, well-developed, well-nourished Head exam: PRESENT: atraumatic, normocephalic Respiratory exam: PRESENT: other - per primary team Cardiovascular exam: PRESENT: other - per primary team Pulses: PRESENT: normal dorsalis pedis pul, +2 pedal pulses bilateral GI/Abdominal exam: PRESENT: normal bowel sounds, soft. ABSENT: distended, guarding, mass, organolmegaly, rebound, tenderness Rectal exam: PRESENT: deferred Musculoskeletal exam: PRESENT: ambulatory Neurological exam: PRESENT: alert, awake, oriented to person, oriented to place, oriented to time, oriented to situation, CN II-XII grossly intact. ABSENT: motor sensory deficit Psychiatric exam: PRESENT: appropriate affect, normal mood. ABSENT: homicidal ideation, suicidal ideation Skin exam: PRESENT: dry, intact, warm. ABSENT: cyanosis, rash Result Laboratory Results: 12/02/18 04:32 12/02/18 04:32 12/02/18 12/02/18 04:32 04:32 WBC 12.3 H RBC 3.32 L Hgb 9.8 L Hct 28.9 L MCV 87 MCH 29.6 MCHC 34.0 RDW 13.2 Plt Count 186 Seg Neutrophils % 72.7 Lymphocytes % 16.5 Monocytes % 9.0 Eosinophils % 1.7 Basophils % 0.1 Absolute Neutrophils 8.9 H Absolute Lymphocytes 2.0 Absolute Monocytes 1.1 Absolute Eosinophils 0.2 Absolute Basophils 0.0 Sodium 135.0 L Potassium 4.1 Chloride 107 Carbon Dioxide 19 L Anion Gap 9 BUN 6 L Creatinine 0.51 L Est GFR ( Amer) > 60 Est GFR (Non-Af Amer) > 60 Glucose 93 Calcium 8.7 Magnesium 2.4 H 12/01/18 10:03 Clean Catch Midstream Urine Culture - Final Mixed Urogenital Jody Impressions: Chest X-Ray 12/01/18 09:45 IMPRESSION: NO ACUTE RADIOGRAPHIC FINDING IN THE CHEST. Status: Imported from PACS Assessment & Plan - Diagnosis (1) Third trimester Is this a current diagnosis for this admission?: Yes Plan: cont NSTs per consult. NST pending for today. 2nd floor notified. patient with h/o 34wks delivery after PPROM. Needs prometrium (declined prometrium and 17OHP in prev preg) however, desires progesterone this . Prometrium rx send to Pharmacy on file at [facility]. Progesterone (prometrium and crinone) not available at this hospital Pt will f/u with me in office next week. Needs 3rd trimester PFTs - consult sent to Dr Rothman for PFTs for outpatient Concerns re: recent multiple admissions for asthma reviewed with patient and family. Anesthesia consult placed for outpatient eval. F/u with me on Thursday in office to review again re: possible need to transfer to tertiary care facility for delivery. Reviewed possible need for if need for intubation and need for delivery during She reports that she usually delivers fast. (2) Acute asthma exacerbation Qualifiers: Asthma severity: moderate Is this a current diagnosis for this admission?: Yes Plan: per primary team - Time Time Spent with patient: 25-34 minutes Medications reviewed and adjusted accordingly: Yes Anticipated discharge: Home Within: within 48 hours - Inpatient Certification Medical Necessity: Need Close Monitoring Due to Risk of Patient Decompensation, Need For IV Fluids, Need for Nebulizer Therapy and Monitoring of Response
[2018-12-02] MEDS ORDERED: LEVALBUTEROL HCL NEB 1.25 MG/3 ML AMPUL NEB PRN (23:56)
[2018-12-03] MEDS ORDERED: LEVALBUTEROL HCL NEB 0.63 MG/3 ML AMPUL NEB PRN (00:01)
[2018-12-03] MEDS: ALBUTEROL SULFATE 0.083% NEB 2.5 MG/3 ML AMPUL NEB SCH (01:58)
[2018-12-03] MEDS: LEVALBUTEROL HCL NEB 1.25 MG/3 ML AMPUL NEB SCH ×3 (02:06→14:07)
[2018-12-03] MEDS: BUDESONIDE NEB 0.5 MG/2 ML AMPUL NEB SCH ×3 (02:06→14:07)
[2018-12-03] MEDS ORDERED: TIOTROPIUM BROMIDE DPI 5 CAP/KIT (18 MCG/CAP) IH SCH (10:00)
[2018-12-03] MEDS: CEFTRIAXONE SODIUM 1,000 MG in DEXTROSE 5%-WATER 50 ML IV SCH (10:11)
[2018-12-03] MEDS: MONTELUKAST SODIUM 10 MG TABLET PO SCH (10:11)
[2018-12-03] MEDS: PRENATAL VITAMIN W DHA CAPSULE PO SCH (10:11)
--- NOTE | 2018-12-03 10:44 | PDOC DISCHARGE SUMMARY ---
General - Admit/Disc Date/PCP Admission Date/Primary Care Provider: 12/01/18 12:35 NAHOMI BLACK, ALGEBRAIST-C Discharge Date: 12/03/18 - Discharge Diagnosis (1) Asthma complicating , antepartum Is this a current diagnosis for this admission?: Yes Summary: The patient presented in status asthmaticus. She was turned around quite quickly. She was seen by Dr. Rothman. She will continue Symbicort and Spiriva at home. She has rescue inhalers and nebulizers at home. In addition she performed spirometry daily and is very familiar with her volumes as indicators of her status. She will be following up with Dr. Rothman as well. Dr. Jaimes requested pulmonary function studies as requested by anesthesiology. The patient showed clear response to bronchodilator therapy. I do not have old PFTs to compare. I am sure Dr. Rothman has previous studies. (2) Hypermagnesemia Is this a current diagnosis for this admission?: Yes Summary: Iatrogenic from magnesium therapy for asthma. (3) Third trimester at less than 36 weeks Is this a current diagnosis for this admission?: Yes Summary: Has follow-up with Dr. Jaimes scheduled. - Additional Information Resuscitation Status: Full Code Discharge Diet: As Tolerated Discharge Activity: Activity As Tolerated, Balance Activity w/Rest Prescriptions: Montelukast Sodium [Singulair 10 mg Tablet] 10 mg PO DAILY #30 tablet Pharmacy Communication [Medication Communication Order] 1 each .NOTICE #1 each Home Medications: Albuterol Sulfate [Proair HFA Inhalation Aerosol 8.5 gm MDI] 2 puff IH Q6HP PRN 12/01/18 Albuterol Sulfate [Ventolin 0.083% Neb 2.5 mg/3 mL Ampul] 1 vial NEB RTTID 12/01/18 Budesonide/Formoterol Fumarate [Symbicort HFA 160-4.5 mcg Inhaler 6 gm] 2 puff IH RTBID 12/01/18 Ipratropium [place] [Atrovent 0.02% Neb 0.5 mg/2.5 ml Ampul] 0.5 mg NEB RTQ8 12/01/18 Vit/Dha [ Multi + Dha Capsule] 1 cap PO DAILY 12/01/18 Ranitidine HCl [Zantac] 150 mg PO BID 12/01/18 Pharmacy Communication [Medication Communication Order] 1 each MC .NOTICE #1 each 12/02/18 Montelukast Sodium [Singulair 10 mg Tablet] 10 mg PO DAILY #30 tablet 12/03/18 Tiotropium [place] [Spiriva Handihaler 5 Cap/Kit (18 Mcg/Cap)] 1 cap IH DAILY kit 12/03/18 History of Present Illness Patient complains of: Shortness of breath History of Present Illness: SHERLYN GALLOWAY is a 33 year old female who is 30 weeks . She has very fragile asthma. She presented in status asthmaticus. She was given maximum therapy in the emergency department and referred to the hospital service for admission. Obstetrics will be consulted. Hospital Course Hospital Course: The patient had a fairly unremarkable hospital course. Within 24 hours she was off of oxygen and resting comfortably on room air. After 48 hours she is stable for discharge. Anesthesia requested pulmonary function studies to assess patient in the event that she was in status asthmaticus and required section. Patient is also going to see Dr. Rothman in follow-up as well as Dr. Jaimes. She is stable for discharge. Physical Exam Vital Signs: Temp Pulse Resp BP Pulse Ox 98.4 F 99 20 95/56 L 95 12/03/18 07:30 12/03/18 09:10 12/03/18 09:10 12/03/18 07:30 12/03/18 09:10 Intake & Output 12/02/18 12/03/18 12/04/18 06:59 06:59 06:59 Intake Total 500 1470 Balance 500 1470 Weight 80 kg 81.5 kg General appearance: PRESENT: no acute distress, cooperative, well-developed Head exam: PRESENT: atraumatic, normocephalic Respiratory exam: PRESENT: clear to auscultation lilo, symmetrical, unlabored. ABSENT: rales, rhonchi, tachypnea, wheezes Cardiovascular exam: PRESENT: RRR, +S1, +S2, systolic murmur - 2/6 GI/Abdominal exam: PRESENT: distended - Consistent with her , soft. ABSENT: tenderness Musculoskeletal exam: PRESENT: ambulatory, normal inspection Neurological exam: PRESENT: alert, awake, oriented to person, oriented to place, oriented to time, oriented to situation, CN II-XII grossly intact. ABSENT: motor sensory deficit Psychiatric exam: PRESENT: appropriate affect, normal mood. ABSENT: agitated, anxious Focused psych exam: ABSENT: delusional, restlessness Results Laboratory Results: 12/02/18 04:32 12/02/18 04:32 12/01/18 10:03 Clean Catch Midstream Urine Culture - Final Mixed Urogenital Jody Impressions: Chest X-Ray 12/01/18 09:45 IMPRESSION: NO ACUTE RADIOGRAPHIC FINDING IN THE CHEST. Qualifiers - * PATIENT BEING DISCHARGED WITH ANY OF THE FOLLOWING DIAGNOSIS: No Acute Heart Failure - Is this a Heart Failure Patient?: No Plan Discharge Plan: Discharged home on the regimen suggested by Dr. Rothman. I do not feel that the patient needs antibiotic therapy. She might consider wearing a mask in the areas of the home where there is mold. Montelukast has been added to her regimen. Prednisone is a category D and therefore I will not discharge her on oral prednisone therapy. She will return to her Symbicort. In addition I do not believe this is an infectious process so I am not discharging the patient on antibiotic therapy. Time Spent: Greater than 30 Minutes
[2018-12-03 12:37] VITALS: BP 123/70
--- NOTE | 2018-12-07 12:34 | Pulmonary Function Test ---
Pulmonary Function Test Date of Procedure:: 12/03/18 INDICATION:: Dyspnea Referring Provider: Dr. Richards Records Analyst: Meghann Gupta ACOUSTIC ENGINEER, [employer] HR DEVELOPER - Report Spirometry: Spirometry: pre-FVC: 2.84 L 72% post-FVC 2.98 L 76% pre-FEV:1 1.96 L 60% post-FEV1; 2.30 L 70% pre-FEV1/FVC % 69 post-FEV1/FVC% 77 predicted 85 [id number] 1.27 L 34% [id number]% 2.00 L 53% Lung Volume: Total lung capacity: 3.23 L 55% Vital capacity: 2.84 L 72% Inspiratory capacity: 1.70 L FRC N2: 1.53 L 50% ERV: RV: 0.40 L 21% RV/TLC %: 12 predicted 30 Diffusion Capactity: DLCO: 15.3 57% DLCO/VA: 5.14 114% Impression: Mild obstructive ventilatory defect. Good response to bronchodilator therapy. Moderate restrictive ventilatory defect. (Restrictive defect may mask the degree of obstruction.). No hyperinflation or air trapping. Moderate decrease in diffusion capacity.
== END 2018-12-03 13:30 | disposition home or self-care (01) | DRG 831 ==
LOC: ER 09:32 → EH 12:35 → 3N 16:45
PROVIDERS: ADMIT Internal Medicine; ATTEND Internal Medicine
PROC: 5A09357 Assistance with Respiratory Ventilation, Less than 24 Consecutive Hours, Continuous Positive Airway Pressure (ICD-10-PCS; principal; 2018-12-01)
DX: O99.513 Diseases of the respiratory system complicating pregnancy, third trimester (principal); J96.01 Acute respiratory failure with hypoxia; J45.52 Severe persistent asthma with status asthmaticus; Z37.0 Single live birth; E83.41 Hypermagnesemia; O26.893 Other specified pregnancy related conditions, third trimester; J44.9 Chronic obstructive pulmonary disease, unspecified; O99.013 Anemia complicating pregnancy, third trimester; D50.9 Iron deficiency anemia, unspecified; O23.43 Unspecified infection of urinary tract in pregnancy, third trimester; O99.343 Other mental disorders complicating pregnancy, third trimester; F41.9 Anxiety disorder, unspecified; I25.2 Old myocardial infarction; Z79.899 Other long term (current) drug therapy; Z3A.30 30 weeks gestation of pregnancy; Z82.5 Family history of asthma and other chronic lower respiratory diseases
CPT/HCPCS: 36415; 71045; 80048; 80053; 81001; 83735; 85025; 87040; 87086; 94060; 94660; 94727; 94729; 96365; 99291; J0696; J3475; J3490; J7060

== ENCOUNTER 2018-12-14 15:45 | Observation (INO) | payer MEDICAID ==
[2018-12-14 16:40] LABS: APPEARANCE,URINE CLEAR; BILIRUBIN,URINE NEGATIVE (NEGATIVE); COLOR,URINE YELLOW; GLUCOSE, URINE NEGATIVE (NEGATIVE); KETONES,URINE NEGATIVE (NEGATIVE); LEUKOCYTE ESTERASE,URINE NEGATIVE (NEGATIVE); NITRITE,URINE NEGATIVE (NEGATIVE); PROTEIN,URINE NEGATIVE (NEGATIVE); URINE SPECIFIC GRAVITY 1.017; UROBILINOGEN,URINE NEGATIVE mg/dL (<2.0)
[2018-12-14 16:48] LABS: URINE AMPHETAMINES SCREEN NEGATIVE; URINE BARBITURATES SCREEN NEGATIVE; URINE BENZODIAZEPINES SCREEN NEGATIVE; URINE COCAINE SCREEN NEGATIVE; URINE MARIJUANA (THC) SCREEN NEGATIVE; URINE METHADONE SCREEN NEGATIVE; URINE PHENCYCLIDINE SCREEN NEGATIVE
[2018-12-14] MEDS ORDERED: RINGERS SOLUTION,LACTATED 1,000 ML IV PRN (17:02)
[2018-12-14] MEDS ORDERED: HYDROXYZINE PAMOATE 50 MG CAPSULE PO ONE (17:03)
[2018-12-14] MEDS ORDERED: HYDROXYZINE PAMOATE 50 MG CAPSULE ONE (17:06)
[2018-12-14] MEDS ORDERED: BETAMET ACET/BETAMET NA INJ 6 MG/1 ML IM ONE (18:47)
[2018-12-14] MEDS ORDERED: NIFEDIPINE 10 MG CAPSULE PO ONE (18:49)
[2018-12-14] MEDS ORDERED: NIFEDIPINE 10 MG CAPSULE ONE (18:54)
[2018-12-14] MEDS ORDERED: BETAMET ACET/BETAMET NA INJ 6 MG/1 ML ONE (18:54)
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
--- NOTE | 2018-12-14 19:08 | RADIOLOGY REPORT (SQ) ---
EXAM DESCRIPTION: U/S OB LIMITED COMPLETED DATE/TIME: 12/14/2018 6:37 pm REASON FOR STUDY: TRANSVAGINAL CERVICAL LENGTH COMPARISON: None. TECHNIQUE: Limited transvaginal grayscale ultrasound for evaluation of specific requested obstetrica l parameters. LIMITATIONS: None. FINDINGS: CERVICAL LENGTH: 2.0 cm. Open. RADHA: 12.6 cm. FHR: 127 beats per minute. PRESENTATION: Not documented. PLACENTA: Posterior ANATOMY: Not assessed OTHER: No other significant findings. IMPRESSION: LIMITED OBSTETRICAL ULTRASOUND WITH MEASURED PARAMETERS DELINEATED ABOVE. Trimester of : Third trimester - 28 weeks to delivery. TECHNICAL DOCUMENTATION: JOB ID: [id number] [employer]- All Rights Reserved Reading location - IP/workstation name: [email or web address]
[2018-12-15] MEDS ORDERED: HYDROXYZINE PAMOATE 50 MG CAPSULE ONE (02:00)
[2018-12-15 09:06] LABS: BACTERIA (WET MOUNT) 3+ BACTERIA SEEN; EPITHELIALS (WET MOUNT) 4+ EPITHELIALS SEEN; RBCS (WET MOUNT) NO RBCS SEEN; T.VAGINALIS (WET MOUNT) NO TRICHOMONAS SEEN; WBCS (WET MOUNT) FEW WBCS SEEN; YEAST (WET MOUNT) NO YEAST SEEN
[2018-12-15 10:30] LABS: CHLAM PCR NOT DETECTED (NOT DETECT)
[2018-12-15] MEDS ORDERED: ALBUTEROL SULFATE HFA (90 MCG/PUFF) 200 PUFF/8.5 GM MDI IH PRN (17:01)
[2018-12-15] MEDS ORDERED: NIFEDIPINE 10 MG CAPSULE ONE (17:15)
[2018-12-15] MEDS ORDERED: TIOTROPIUM BROMIDE DPI 5 CAP/KIT (18 MCG/CAP) IH SCH (18:00)
[2018-12-15] MEDS ORDERED: IPRATROPIUM BROMIDE 0.02% NEB 0.5 MG/2.5 ML AMPUL NEB SCH (18:00)
[2018-12-15] MEDS ORDERED: NIFEDIPINE 10 MG CAPSULE PO SCH (18:00)
[2018-12-15] MEDS ORDERED: BETAMET ACET/BETAMET NA INJ 6 MG/1 ML IM ONE (18:16)
[2018-12-15] MEDS ORDERED: BETAMET ACET/BETAMET NA INJ 6 MG/1 ML ONE (18:34)
--- NOTE | 2018-12-15 19:00 | PDOC DISCHARGE SUMMARY ---
General - Admit/Disc Date/PCP Admission Date/Primary Care Provider: 12/14/18 19:13 ANDREA MAK Discharge Date: 12/15/18 - Additional Information Resuscitation Status: Full Code Discharge Diet: As Tolerated Discharge Activity: Activity As Tolerated, No Lifting Over 10 Pounds, Pelvic Rest Prescriptions: Metronidazole [Flagyl 500 mg Tablet] 500 mg PO BID #14 tablet Nifedipine [Procardia 10 mg Capsule] 10 mg PO Q6 #120 capsule Home Medications: Albuterol Sulfate [Proair HFA Inhalation Aerosol 8.5 gm MDI] 2 puff IH Q6HP PRN 12/01/18 Albuterol Sulfate [Ventolin 0.083% Neb 2.5 mg/3 mL Ampul] 1 vial NEB RTTID 12/01/18 Budesonide/Formoterol Fumarate [Symbicort HFA 160-4.5 mcg Inhaler 6 gm] 2 puff IH RTBID 12/01/[address] [place] [Atrovent 0.02% Neb 0.5 mg/2.5 ml Ampul] 0.5 mg NEB RTQ8 12/01/18 Vit/Dha [ Multi + Dha Capsule] 1 cap PO DAILY 12/01/[address] T[address] [place] [Spiriva Handihaler 5 Cap/Kit (18 Mcg/Cap)] 1 cap IH DAILY kit 12/03/18 Metronidazole [Flagyl 500 mg Tablet] 500 mg PO BID #14 tablet 12/15/18 Nifedipine [Procardia 10 mg Capsule] 10 mg PO Q6 #120 capsule 12/15/18 History of Present Illness Patient complains of: contractions History of Present Illness: SHERLYN GALLOWAY is a 33 year old female at 32+4ega presented yesterday from the office with complaint of contractions. Hospital Course Hospital Course: 33 year old female at 32+4ega presented yesterday from the office with complaint of contractions. She was reportedly 2/50/-2 in office. Wet prep and GC/CT negative upon evaluation yesterday. Urine culture sent for eval for UTI. History of PTD at 33wks then delivery at 37wks 2005 and at 40wks 2009. She has been admitted several times for asthma and was initiated on prometrium due to history of PTD and too late to start 17OHP. She had previously refused 17OHP/Prometrium with in 2017. She was given dose of BMZ yesterday then repeated today. She was given dose of procardia yesterday with symptom relief and no cervical change in 24 hours - 1.5/50/-1. Plan for discharge on procardia for symptom management and f/u in office tomorrow. Physical Exam - Physical Exam Vital Signs: Intake & Output 12/14/18 12/15/18 12/16/18 06:59 06:59 06:59 Weight 79.2 kg General appearance: PRESENT: no acute distress, well-developed, well-nourished Head exam: PRESENT: atraumatic, normocephalic Neck exam: PRESENT: full ROM. ABSENT: carotid bruit, JVD, lymphadenopathy, thyromegaly Respiratory exam: PRESENT: clear to auscultation lilo, symmetrical, unlabored Cardiovascular exam: PRESENT: RRR. ABSENT: diastolic murmur, rubs, systolic murmur Pulses: PRESENT: normal dorsalis pedis pul, +2 pedal pulses bilateral Vascular exam: PRESENT: normal capillary refill GI/Abdominal exam: PRESENT: normal bowel sounds, soft. ABSENT: distended, guarding, mass, organolmegaly, rebound, tenderness Rectal exam: PRESENT: deferred Extremities exam: PRESENT: full ROM. ABSENT: calf tenderness, clubbing, pedal edema Musculoskeletal exam: PRESENT: ambulatory Neurological exam: PRESENT: alert, awake, oriented to person, oriented to place, oriented to time, oriented to situation, CN II-XII grossly intact. ABSENT: motor sensory deficit Psychiatric exam: PRESENT: appropriate affect, normal mood. ABSENT: homicidal ideation, suicidal ideation Skin exam: PRESENT: dry, intact, warm. ABSENT: cyanosis, rash - Obstetrical Exam External Genitalia: normal Vagina: normal Effacement (%): 50 Station: -1 Tender: No Adhexa: normal Result Impressions: Obstetrics Ultrasound 12/14/18 00:00 IMPRESSION: LIMITED OBSTETRICAL ULTRASOUND WITH MEASURED PARAMETERS DELINEATED ABOVE. Trimester of : Third trimester - 28 weeks to delivery. Status: Imported from PACS Plan Discharge Plan: to home with close f/u in the office Time Spent: Greater than 30 Minutes Acute Heart Failure - Is this a Heart Failure Patient?: No
--- NOTE | 2018-12-15 19:17 | Non Stress Test Report ---
Non Stress Test Datetime Report Generated by CPN: 12/15/2018 19:17 DEMOGRAPHIC EGA NST: 32.4 INDICATION Indication for Study: Ordered by Provider; Other VITAL SIGNS Temperature - NST: 98.1 Pulse - NST: 69 RESP - NST: 22 NBPSYS NST: 113 NBPDIA NST: 68 MONITORING Monitor Explained: Monitor Explained; Test Explained; Patient Verbalized Understanding Time on Monitor: 12/15/2018 17:50 Time off Monitor: 12/15/2018 18:31 NST Duration: 41 NST INTERVENTIONS NST Interventions: PO Hydration; IV Fluids Physician Notified NST: Dr. Jaimes BABY A: [id number] BABY A Movement : Present Contraction Frequency : irregular FHR Baseline : 130 Accelerations : 15X15 Decelerations : None Variability : Moderate 6-25bpm NST Review: Meets Criteria for Reactive NST NST Review and Verified By : D Bellavance RN NST Results: Reactive NST COMMENTS NST Comments: MD on unit NST REPORT Report Trigger: Send Report
== END 2018-12-15 19:40 | disposition home or self-care (01) ==
LOC: LC 15:45 → LR 19:13
PROVIDERS: ADMIT Obstetrics & Gynecology; ATTEND Obstetrics & Gynecology
DX: O60.03 Preterm labor without delivery, third trimester (principal); O99.513 Diseases of the respiratory system complicating pregnancy, third trimester; J45.909 Unspecified asthma, uncomplicated; Z79.899 Other long term (current) drug therapy; Z3A.32 32 weeks gestation of pregnancy; O09.213 Supervision of pregnancy with history of pre-term labor, third trimester; Z86.19 Personal history of other infectious and parasitic diseases
CPT/HCPCS: 59025; 87086; 87210; 81001; 87081; 80307; 87491; 87591; 76815; J3490 ×6; J0702 ×2; G0378

== ENCOUNTER 2019-01-28 02:00 | Inpatient (IN) | payer MEDICAID ==
[2019-01-28] MEDS ORDERED: MAG HYDROX/AL HYDROX/SIMETH SUSP 30 ML UDCUP ONE (02:58)
[2019-01-28 03:13] LABS: APPEARANCE,URINE CLEAR; BILIRUBIN,URINE NEGATIVE (NEGATIVE); COLOR,URINE YELLOW; GLUCOSE, URINE NEGATIVE (NEGATIVE); KETONES,URINE NEGATIVE (NEGATIVE); LEUKOCYTE ESTERASE,URINE TRACE (NEGATIVE); NITRITE,URINE NEGATIVE (NEGATIVE); PROTEIN,URINE NEGATIVE (NEGATIVE); URINE SPECIFIC GRAVITY 1.011; UROBILINOGEN,URINE NEGATIVE mg/dL (<2.0)
[2019-01-28 03:28] LABS: URINE AMPHETAMINES SCREEN NEGATIVE; URINE BARBITURATES SCREEN NEGATIVE; URINE BENZODIAZEPINES SCREEN NEGATIVE; URINE COCAINE SCREEN NEGATIVE; URINE MARIJUANA (THC) SCREEN NEGATIVE; URINE METHADONE SCREEN NEGATIVE; URINE PHENCYCLIDINE SCREEN NEGATIVE
[2019-01-28] MEDS ORDERED: RINGERS SOLUTION,LACTATED 1,000 ML IV PRN (03:40)
[2019-01-28 04:25] LABS: ABSOLUTE BASOPHILS # (AUTO) 0.1 10^3/uL (0.0-0.2); ABSOLUTE EOSINOPHILS # (AUTO) 0.7 10^3/uL (0.0-0.6); ABSOLUTE LYMPHOCYTES (AUTO) 1.8 10^3/uL (0.5-4.7); ABSOLUTE MONOCYTES (AUTO) 0.9 10^3/uL (0.1-1.4); ABSOLUTE NEUT (AUTO) 6.2 10^3/uL (1.7-8.2); BASOPHILS % (AUTO) 0.6 % (0-2); EOSINOPHILS % (AUTO) 7.7 % (0-6); HEMATOCRIT 31.5 % (36.0-47.0); HEMOGLOBIN 10.6 g/dL (12.0-15.5); LYMPHOCYTES % (AUTO) 18.2 % (13-45); MEAN CORPUSCULAR HEMOGLOBIN 28.4 pg (27.0-33.4); MEAN CORPUSCULAR HGB CONC 33.7 g/dL (32.0-36.0); MEAN CORPUSCULAR VOLUME 84 fl (80-97); MONOCYTES % (AUTO) 9.6 % (3-13); PLATELET COUNT 182 10^3/uL (150-450); RED BLOOD COUNT 3.74 10^6/uL (3.72-5.28); RED CELL DISTRIBUTION WIDTH 15.2 % (11.5-14.0); SEGMENTED NEUTROPHILS % (AUTO) 63.9 % (42-78); TOTAL CELLS COUNTED % (AUTO) 100 %; WHITE BLOOD COUNT 9.7 10^3/uL (4.0-10.5)
[2019-01-28] MEDS ORDERED: RINGERS SOLUTION,LACTATED 300 ML IV ONE (05:00)
[2019-01-28] MEDS ORDERED: OXYTOCIN/NORMAL SALINE 20 UNIT/1,000 ML RTUINJ IV PRN ×2 (06:06→08:47)
[2019-01-28] MEDS ORDERED: MISOPROSTOL 0.2 MG TABLET ONE (06:09)
[2019-01-28] MEDS ORDERED: LIDOCAINE 1% INJ-PF (10 MG/ML) 30 ML SDV ONE (06:09)
[2019-01-28] MEDS ORDERED: OXYTOCIN/NORMAL SALINE 20 UNIT/1,000 ML RTUINJ ONE (06:09)
[2019-01-28] MEDS ORDERED: OXYTOCIN 10 UNIT/ML VIAL ONE (06:09)
[2019-01-28] MEDS ORDERED: NALBUPHINE HCL INJ 10 MG/1 ML AMPULE ONE (06:56)
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
[2019-01-28] MEDS ORDERED: NALBUPHINE HCL INJ 10 MG/1 ML AMPULE INJ ONE (07:45)
[2019-01-28] MEDS ORDERED: DIPH/PERTUSS(ACELL)/TETANUS VAC/PF 0.5 ML SYR (>=10YO) IM PRN (08:47)
[2019-01-28] MEDS ORDERED: MEASLES,MUMPS&RUBELLA VACC/PF 0.5 ML VIAL SUBCUT PRN (08:47)
[2019-01-28] MEDS ORDERED: ACETAMINOPHEN WITH CODEINE #3 TABLET PO PRN (08:47)
[2019-01-28] MEDS ORDERED: ZOLPIDEM TARTRATE 5 MG TABLET PO PRN (08:47)
[2019-01-28] MEDS ORDERED: BENZOCAINE/MENTHOL AEROSOL SPRAY 56 ML TOP PRN (08:47)
[2019-01-28] MEDS ORDERED: DIBUCAINE 1% OINTMENT 56 GM TP PRN (08:47)
[2019-01-28] MEDS ORDERED: IBUPROFEN 800 MG TABLET ONE (08:48)
--- NOTE | 2019-01-28 09:00 | Warning Signs in Babies ---
VOD Warning Signs Datetime Report Generated by N: 01/28/2019 08:58 VOD#608 -Warning Signs in Babies: Viewed with Parent(s)/Family (01/28/2019 08:53:Sheila Herndon RN)
[2019-01-28] MEDS: IBUPROFEN 800 MG TABLET PO SCH ×3 (09:02→21:18)
[2019-01-28] MEDS ORDERED: FERROUS SULFATE 325 MG TABLET PO ONE (10:38)
[2019-01-28] MEDS ORDERED: SENNOSIDES/DOCUSATE 8.6-50 MG 1 EACH TABLET ONE (10:38)
[2019-01-28] MEDS ORDERED: PRENATAL VITAMIN W DHA CAPSULE PO ONE (10:38)
[2019-01-28] MEDS ORDERED: DOCUSATE SODIUM 100 MG CAPSULE ONE (10:38)
[2019-01-28] MEDS: DOCUSATE SODIUM 100 MG CAPSULE PO SCH ×2 (10:41→17:59)
[2019-01-28] MEDS: PRENATAL VITAMIN W DHA CAPSULE PO SCH (10:41)
[2019-01-28] MEDS: FERROUS SULFATE 325 MG TABLET PO SCH ×2 (10:41→17:59)
[2019-01-28] MEDS: SENNOSIDES/DOCUSATE 8.6-50 MG 1 EACH TABLET PO SCH (10:41)
--- NOTE | 2019-01-28 10:58 | Delivery Summary ---
Del Sum A-C Datetime Report Generated by CPN: 01/28/2019 10:57 DELIVERY PERSONNEL DELIVERY PERSONNEL: [id number] Delivery Doctor:: Meghann Wharton CNM Labor and Delivery Nurse:: Sheila Herndon RNanimal physiologist Nurse:: Kiarra Zapata RN Nursery Nurse:: Caren Roberto RN Food Counter Attendant/TOE TRIMMER: Manuela Scanlon, ST Additional Personnel: : Inga Joyner, RN MATERNAL INFORMATION Delivery Anesthesia: None Medications After Delivery: Pitocin Drip 20 Units/1000ml NSS Delivery QBL: 50 Maternal Complications: None Provider Comments: of a VMI, GAUTAM position, umbilical cord tucked over shoulder and chin area. Baby delivered, vigorous and crying, placed on pts abdoman in stable condition. Cord clamped after one minute. Cord blood collected. PLacenta S/C/I, FF w/ decreased lochia, IV Pitocin infusing. Perineum intact. QBL 50 ml. Apgars 9,9. Pt plans to breast and bottle feed. LABOR SUMMARY EDC: 02/05/2019 00:00 No. Babies in Womb: 1 Attempted: No Labor Anesthesia: None LABOR INFORMATION Reason for Induction: Not Applicable Onset of Labor: 01/28/2019 02:54 Complete Dilatation: 01/28/2019 08:30 Group B Beta Strep: 1 NO GROUP B STREPTOCOCCUS RECOVERED Steroids Given: None Reason Steroids Not Administered: Not Applicable MEMBRANES Membranes Rupture Method: Spontaneous Rupture of Membranes: 01/28/2019 02:54 Length of Rupture (hr): 5.67 Amniotic Fluid Color: Clear STAGES OF LABOR Stage 1 hr: 5 Stage 1 min: 36 Stage 2 hr: 0 Stage 2 min: 4 Stage 3 hr: 0 Stage 3 min: 5 Total Time in Labor hr: 5 Total Time in Labor min: 45 VAGINAL DELIVERY Episiotomy: None Laceration #1: None Laceration Extension #1: N/A Laceration Repair: Not Applicable Sponge Count Correct: N/A Sharps Count Correct: N/A CSECTION DELIVERY Primary Indication: N/A Secondary Indication: N/A CSection Incidence: N/A Labor: N/A Elective: N/A CSection Incision: N/A BABY A INFORMATION Infant Delivery Date/Time: 01/28/2019 08:34 Method of Delivery: Vaginal Born in Route : No : N/A Forceps: N/A Vacuum Extraction: N/A Shoulder Dystocia : No PRESENTATION/POSITION BABY A Presentation: Cephalic Cephalic Presentation: Vertex Breech Presentation: N/A PLACENTA INFORMATION BABY A Placenta Delivery Time : 01/28/2019 08:39 Placenta Method of Delivery: Spontaneous Placenta Status: Delivered SCORES BABY A Heart Rate 1 min: >100 bpm Resp Effort 1 min: Good Cry Reflex Irritability 1 min: Cough or Sneeze or Pulls Away Muscle Tone 1 min: Active Motion Color 1 min: Body [place], Extremities Blue Resuscitation Effort 1 min: Tactile Stimulation SCORE 1 MIN: 9 Heart Rate 5 min: >100 bpm Resp Effort 5 min: Good Cry Reflex Irritability 5 min: Cough or Sneeze or Pulls Away Muscle Tone 5 min: Active Motion Color 5 min: Body [place], Extremities Blue Resuscitation Effort 5 min: N/A SCORE 5 MIN: 9 INFORMATION BABY A Gestational Age at Delivery: 38.6 Gestational Status: Early Term- 37- 38.6 Weeks Outcome : Liveborn Condition : Stable Sex: Male IDENTIFICATION BABY A Verification Date/Time: 01/28/2019 09:06 ID Band Number: [id number] Mother's Name Verified: Yes RN Verifying Infant: Sheila Herndon RN Additional Verifying Personnel: Tracie Zapata RN WEIGHT/LENGTH BABY A Infant Birthweight (gm): 2658 Weight (lb): 5 Infant Weight (oz): 14 Length (in): 19.25 Length (cm): 48.90 CORD INFORMATION BABY A No. Cord Vessels: 3 Nuchal Cord : N/A Cord Blood Taken: Yes-For Eval (Mom's Blood Type - or O+) ASSESSMENT BABY A Complications: None Physical Findings at Delivery: Within Normal Limits Infant Respirations: Appears Normal Skin to Skin: Yes Application Integration Engineer/ALS Called : No Care By: K Pardeep RN Transferred To: Remains with Mother BABY B INFORMATION : N/A SIGNATURES Assignment: Ron Nelson MD Signature: with User ID: [email or web address] : with User ID: [email or web address]
[2019-01-29] MEDS ORDERED: GLYCERIN/WITCH HAZEL LEAF 1 EACH MED..WIPE TP PRN (00:02)
[2019-01-29] MEDS: IBUPROFEN 800 MG TABLET PO SCH ×3 (05:58→21:38)
[2019-01-29 07:27] LABS: HEMATOCRIT 26.7 % (36.0-47.0); MEAN CORPUSCULAR HEMOGLOBIN 28.5 pg (27.0-33.4); MEAN CORPUSCULAR HGB CONC 33.5 g/dL (32.0-36.0); MEAN CORPUSCULAR VOLUME 85 fl (80-97); PLATELET COUNT 155 10^3/uL (150-450); RED BLOOD COUNT 3.14 10^6/uL (3.72-5.28); RED CELL DISTRIBUTION WIDTH 15.7 % (11.5-14.0); WHITE BLOOD COUNT 9.4 10^3/uL (4.0-10.5)
[2019-01-29] MEDS: SENNOSIDES/DOCUSATE 8.6-50 MG 1 EACH TABLET PO SCH (10:16)
[2019-01-29] MEDS: FERROUS SULFATE 325 MG TABLET PO SCH ×2 (10:16→17:03)
[2019-01-29] MEDS: DOCUSATE SODIUM 100 MG CAPSULE PO SCH ×2 (10:16→17:09)
[2019-01-29] MEDS: PRENATAL VITAMIN W DHA CAPSULE PO SCH (10:16)
--- NOTE | 2019-01-29 10:48 | PDOC PROGRESS REPORT ---
Subjective-OB Progress Note for:: 01/29/19 - PP Day #1, doing well, O+, Rubella Immune, Physical Exam (OB) Vital Signs: Temp Pulse Resp BP Pulse Ox 98.0 F 62 14 102/61 100 01/29/19 07:27 01/29/19 07:27 01/29/19 07:27 01/29/19 07:27 01/29/19 07:27 Intake & Output 01/28/19 01/29/19 01/30/19 06:59 06:59 06:59 Intake Total 300 1000 Balance 300 1000 Weight 82.1 kg - General General Appearance: Appears well, Alert In distress: None - PIH/Pre-Eclampsia Clonus: Negative Headache: Absent Epigastric Pain: No Visual Changes: No - Lochia Lochia Amount: Small 10-25 ml Lochia Color: Rubra/Red - Abdomen Description: Soft, Round Hernia Present: No Fundal Description: Firm, Midline Fundal Height: u/u - u/2 - Respiratory Respiratory Status: No respiratory distress - Abdominal Inspection: Normal Distension: No distension Tenderness: Nontender - Genitourinary Genitourinary Note: voiding - Extremities Upper extremity: Normal inspection Lower extremities: Normal inspection - Neurological Cognition: Normal Orientation: AAOx4 - Psychological Associated symptoms: Normal affect, Normal mood - Skin Skin Temperature: Warm Skin Moisture: Dry Objective-Diagnostic Laboratory: 01/29/19 06:46 01/29/19 06:46 WBC 9.4 RBC 3.14 L Hgb 9.0 L Hct 26.7 L MCV 85 MCH 28.5 MCHC 33.5 RDW 15.7 H Plt Count 155 Assessment and Plan(PN) - Assessment and Plan (1) (normal spontaneous vaginal delivery) Is this a current diagnosis for this admission?: Yes (2) anemia Is this a current diagnosis for this admission?: Yes - Time Spent with Patient Time with patient: Less than 15 minutes Medications reviewed and adjusted accordingly: Yes - Disposition Anticipated Discharge: Home Within: within 24 hours
[2019-01-29] MEDS: HYDROCORTISONE ACETATE 25 MG SUPP.RECT PR PRN ×2 (17:03→23:23)
[2019-01-30] MEDS: IBUPROFEN 800 MG TABLET PO SCH (05:19)
[2019-01-30 07:38] VITALS: BP 118/78
[2019-01-30] MEDS: HYDROCORTISONE ACETATE 25 MG SUPP.RECT PR PRN (08:18)
[2019-01-30] MEDS: FERROUS SULFATE 325 MG TABLET PO SCH (09:35)
[2019-01-30] MEDS: PRENATAL VITAMIN W DHA CAPSULE PO SCH (09:35)
[2019-01-30] MEDS: DOCUSATE SODIUM 100 MG CAPSULE PO SCH (09:36)
[2019-01-30] MEDS: SENNOSIDES/DOCUSATE 8.6-50 MG 1 EACH TABLET PO SCH (09:36)
--- NOTE | 2019-01-30 09:40 | PDOC DISCHARGE SUMMARY ---
Impression - Admit/DC Date/PCP Admission Date/Primary Care Provider: 01/28/19 02:36 NAHOMI LITTLEMILLI TAVAREZ-Juan Discharge Date: 01/30/19 - PP Day #2, doing well, c/o rectal itching, otherwise doing well, , O+, Rubella Immune - Discharge Diagnosis (1) (normal spontaneous vaginal delivery) Is this a current diagnosis for this admission?: Yes (2) anemia Is this a current diagnosis for this admission?: Yes - Additional Information Resuscitation Status: Full Code Discharge Diet: As Tolerated, Regular Discharge Activity: Activity As Tolerated, No Lifting Over 10 Pounds, Pelvic Rest Referrals: [facility] [Provider Group] Prescriptions: Hydrocortisone Acetate [Anusol Hc 25 mg Supp.rect] 25 mg ME QIDP PRN #14 supp.rect PRN Reason: Ferrous Sulfate [Feosol 325 mg Tablet] 325 mg PO DAILY #30 tablet Ibuprofen [Motrin 800 mg Tablet] 800 mg PO Q8 #60 tablet Home Medications: Albuterol Sulfate [Proair HFA Inhalation Aerosol 8.5 gm MDI] 2 puff IH Q6HP PRN 12/01/18 Albuterol Sulfate [Ventolin 0.083% Neb 2.5 mg/3 mL Ampul] 1 vial NEB RTTID 12/01/18 Ipratropium [place] [Atrovent 0.02% Neb 0.5 mg/2.5 ml Ampul] 0.5 mg NEB RTQ8 12/01/18 Tiotropium [place] [Spiriva Handihaler 5 Cap/Kit (18 Mcg/Cap)] 1 cap IH DAILY kit 12/03/18 Ferrous Sulfate [Feosol 325 mg Tablet] 325 mg PO DAILY #30 tablet 01/30/19 Hydrocortisone Acetate [Anusol Hc 25 mg Supp.rect] 25 mg ME QIDP PRN #14 supp.rect 01/30/19 Ibuprofen [Motrin 800 mg Tablet] 800 mg PO Q8 #60 tablet 01/30/19 Vit/Dha [ Multi + Dha Capsule] 1 cap PO DAILY capsule 01/30/19 HPI Reason(s) for Admission: Onset of Labor Procedures: Ultrasound Intrapartum Procedure(s): Spontaneous Vaginal Delivery Hospital Course Hospital Course: routine Results Laboratory Results: WBC 9.4 10^3/uL (4.0-10.5) 10/05/19 06:46 RBC 3.14 10^6/uL (3.72-5.28) L 01/29/19 06:46 Hgb 9.0 g/dL (12.0-15.5) L 01/29/19 06:46 Hct 26.7 % (36.0-47.0) L 01/29/19 06:46 MCV 85 fl (80-97) 01/29/19 06:46 MCH 28.5 pg (27.0-33.4) 01/29/19 06:46 MCHC 33.5 g/dL (32.0-36.0) 01/29/19 06:46 RDW 15.7 % (11.5-14.0) H 01/29/19 06:46 Plt Count 155 10^3/uL (150-450) 01/29/19 06:46 Lymph % (Auto) 18.2 % (13-45) 01/28/19 04:17 [place] % (Auto) 9.6 % (3-13) 01/28/19 04:17 Eos % (Auto) 7.7 % (0-6) H 01/28/19 04:17 Baso % (Auto) 0.6 % (0-2) 01/28/19 04:17 Absolute Neuts (auto) 6.2 10^3/uL (1.7-8.2) 01/28/19 04:17 Absolute Lymphs (auto) 1.8 10^3/uL (0.5-4.7) 01/28/19 04:17 Absolute Monos (auto) 0.9 10^3/uL (0.1-1.4) 01/28/19 04:17 Absolute Eos (auto) 0.7 10^3/uL (0.0-0.6) H 01/28/19 04:17 Absolute Basos (auto) 0.1 10^3/uL (0.0-0.2) 01/28/19 04:17 Seg Neutrophils % 63.9 % (42-78) 01/28/19 04:17 Urine Color YELLOW 01/28/19 02:15 Urine Appearance CLEAR 01/28/19 02:15 Urine pH 7.0 (5.0-9.0) 01/28/19 02:15 Ur Specific [place] 1.011 01/28/19 02:15 Urine Protein NEGATIVE mg/dL (NEGATIVE) 01/28/19 02:15 Urine Glucose (UA) NEGATIVE mg/dL (NEGATIVE) 01/28/19 02:15 Urine Ketones NEGATIVE mg/dL (NEGATIVE) 01/28/19 02:15 Urine Blood SMALL (NEGATIVE) H 01/28/19 02:15 Urine Nitrite NEGATIVE (NEGATIVE) 01/28/19 02:15 Urine Bilirubin NEGATIVE (NEGATIVE) 01/28/19 02:15 Urine Urobilinogen NEGATIVE mg/dL (<2.0) 01/28/19 02:15 Ur Leukocyte Esterase TRACE (NEGATIVE) H 01/28/19 02:15 Urine Ascorbic Acid NEGATIVE (NEGATIVE) 01/28/19 02:15 Urine Opiates Screen NEGATIVE 01/28/19 02:15 Urine Methadone Screen NEGATIVE 01/28/19 02:15 Ur Barbiturates Screen NEGATIVE 01/28/19 02:15 Ur Phencyclidine Scrn NEGATIVE 01/28/19 02:15 Ur Amphetamines Screen NEGATIVE 01/28/19 02:15 U Benzodiazepines Scrn NEGATIVE 01/28/19 02:15 Urine Cocaine Screen NEGATIVE 01/28/19 02:15 U Marijuana (THC) Screen NEGATIVE 01/28/19 02:15 RPR NONREACTIVE (NONREACTIVE) 01/28/19 04:17 Blood Type O POSITIVE 01/28/19 04:17 Antibody Screen NEGATIVE 01/28/19 04:17 Plan Plan of Treatment: will d/c home today, pt to f/u with [facility] in 4 wks for check
== END 2019-01-30 11:17 | disposition home or self-care (01) | DRG 807 ==
LOC: LC 02:00 → LR 02:36 → 2S 10:45
PROVIDERS: ADMIT Obstetrics & Gynecology; ATTEND Obstetrics & Gynecology
PROC: 10E0XZZ Delivery of Products of Conception, External Approach (ICD-10-PCS; principal; 2019-01-28)
DX: O69.81X0 Labor and delivery complicated by cord around neck, without compression, not applicable or unspecified (principal); Z37.0 Single live birth; D64.9 Anemia, unspecified; O90.81 Anemia of the puerperium; Z3A.38 38 weeks gestation of pregnancy
CPT/HCPCS: 36415; 80307; 81005; 85025; 85027; 86592; 86850; 86900; 86901; J2300; J2590; J3490

== ENCOUNTER 2019-02-24 00:49 | Emergency (ER) | payer MEDICAID ==
[2019-02-24 01:07] LABS: ABSOLUTE BASOPHILS # (AUTO) 0.1 10^3/uL (0.0-0.2); ABSOLUTE EOSINOPHILS # (AUTO) 0.9 10^3/uL (0.0-0.6); ABSOLUTE LYMPHOCYTES (AUTO) 3.2 10^3/uL (0.5-4.7); ABSOLUTE MONOCYTES (AUTO) 0.5 10^3/uL (0.1-1.4); ABSOLUTE NEUT (AUTO) 1.7 10^3/uL (1.7-8.2); BASOPHILS % (AUTO) 0.8 % (0-2); HEMATOCRIT 38.3 % (36.0-47.0); HEMOGLOBIN 12.5 g/dL (12.0-15.5); LYMPHOCYTES % (AUTO) 50.3 % (13-45); MEAN CORPUSCULAR HEMOGLOBIN 28.7 pg (27.0-33.4); MEAN CORPUSCULAR HGB CONC 32.6 g/dL (32.0-36.0); MEAN CORPUSCULAR VOLUME 88 fl (80-97); MONOCYTES % (AUTO) 7.6 % (3-13); PLATELET COUNT 179 10^3/uL (150-450); RED BLOOD COUNT 4.35 10^6/uL (3.72-5.28); RED CELL DISTRIBUTION WIDTH 16.1 % (11.5-14.0); SEGMENTED NEUTROPHILS % (AUTO) 27.3 % (42-78); TOTAL CELLS COUNTED % (AUTO) 100 %; WHITE BLOOD COUNT 6.4 10^3/uL (4.0-10.5)
--- NOTE | 2019-02-24 01:11 | ER Document Report ---
ED Respiratory Problem - General Chief Complaint: Shortness Of Breath Stated Complaint: SHORTNESS OF BREATH Time Seen by Provider: 02/24/19 01:10 Primary Care Provider: NAHOMI BLACK FNP-C [Primary Care Provider] - Follow up as needed Mode of Arrival: Ambulatory Information source: Patient Notes: HISTORY OF PRESENT ILLNESS: Patient is a 34-year-old female 4 weeks with a past medical history of asthma who presents with nonproductive cough and wheezing with shortness of breath for the past 4 days. Patient reports that she has been more short of breath recently despite using home albuterol treatments, she also takes Symbicort without relief. She reports she has had to be intubated in the past and did not want her symptoms to progress to that point. Location: Chest Onset: 4 days ago Alleviation: None Provocation: Coughing Quality: Tightness Radiation: None Severity: Mild to moderate Timing: Persistent History of CAD: None Associated symptoms: Denies fevers or chills, no swelling of the extremities REVIEW OF SYSTEMS: CONSTITUTIONAL : Denies fever or chills, no sweats. Denies recent illness. EENT: Denies eye, ear, throat, or mouth pain or symptoms. Denies nasal or sinus congestion. CARDIOVASCULAR: Denies chest pain. Denies swelling of the legs. RESPIRATORY: Positive for cough and congestion along with mild wheezing. Denies shortness of breath or difficulty breathing. GASTROINTESTINAL: Denies abdominal pain. Denies nausea, vomiting, or diarrhea. Denies constipation. GENITOURINARY: Denies difficulty urinating, painful urination, burning, frequency, or blood in urine. FEMALE GENITOURINARY: Denies vaginal bleeding, abnormal or irregular periods. Last menstrual period was MUSCULOSKELETAL: Denies neck or back pain or joint pain or swelling. SKIN: Denies rash or skin lesions. HEMATOLOGIC : Denies easy bruising or bleeding. LYMPHATIC: Denies swollen, enlarged glands. NEUROLOGICAL: Denies altered mental status or loss of consciousness. Denies headache. Denies weakness or paralysis or loss of use of either side. Denies problems with gait or speech. Denies sensory or motor loss. PSYCHIATRIC: Denies anxiety or stress or depression. All other systems reviewed and negative. PHYSICAL EXAMINATION: GENERAL: Well-appearing, well-nourished and in no acute distress. HEAD: Atraumatic, normocephalic. No scalp deformity, depression, or crepitance. EYES: Pupils are 3 mm and equal/round/reactive to light, extraocular movements intact, sclera anicteric, conjunctiva are normal. ENT: Nares patent bilaterally, oropharynx. Moist mucous membranes. No tonsil hypertrophy. NECK: Normal range of motion, supple without lymphadenopathy. LUNGS: Breath sounds present and equal bilaterally with faint occasional wheezes. No rales or rhonchi. HEART: Regular rate and rhythm without murmurs, rubs, or gallops. 2+ peripheral pulses. Normal capillary refill. ABDOMEN: Soft, nontender, nondistended. Normoactive bowel sounds. No guarding, no rebound. No masses appreciated. BACK: Normal contour, no midline tenderness. Rectal exam deferred. GENITAL/PELVIC: Deferred. EXTREMITIES: Normal range of motion, no pitting or edema. No cyanosis. NEUROLOGICAL: No focal neurological deficits. Moves all extremities spo ntaneously and on command. PSYCH: Normal mood, normal affect. No suicidal thoughts/ideations. No h omicidal thoughts/ideations. No hallucinations. SKIN: Warm, dry, normal turgor, no rashes or lesions noted. ASSESSMENT AND PLAN: This patient is a 34-year-old female who presents with cough and congestion with wheezing for the past 4 days. Could represent acute bronchitis versus pneumonia versus asthma exacerbation versus viral syndrome. 1. Will obtain labs, chest x-ray, and reassess after steroids and DuoNeb breathing treatments. 2. Will consider antibiotics if appropriate and indicated. TRAVEL OUTSIDE OF THE [place] IN LAST 30 DAYS: No - HPI Patient complains to provider of: Asthma Onset: This afternoon Duration: Continuous Initiating Event: URI Quality of pain: No pain Severity: Moderate Pain Level: Denies Context: Hx asthma Short of Breath: Mild Cough: Nonproductive At home treatment: Bronchodilators Associated symptoms: Congestion, Cough Similar symptoms previously: Yes Recently seen / treated by doctor: No - Related Data Allergies/Adverse Reactions: No Known Allergies Allergy (Verified 01/28/19 02:27) Past Medical History - General Information source: Patient, Relative - Social History Smoking Status: Never Smoker Chew tobacco use (# tins/day): No Frequency of alcohol use: None Drug Abuse: None Lives with: Family Family History: DM, Hypertension, Other - Asthma, hepatitis C Patient has suicidal ideation: No Patient has homicidal ideation: No - Past Medical History Cardiac Medical History: Reports: Hx Heart Attack - Vague history of 2 myocardial infarctions while intubated many years ago. Denies: Hx Hypercholesterolemia, Hx Hypertension Pulmonary Medical History: Reports: Hx Asthma, Hx COPD, Hx Intubation - 03/07/2016, Hx Respiratory Failure EENT Medical History: Reports: None Neurological Medical History: Reports: None. Denies: Hx Seizures Endocrine Medical History: Reports: None. Denies: Hx Diabetes Mellitus Type 1, Hx Diabetes Mellitus Type 2, Hx Hyperthyroidism, Hx Hypothyroidism Renal/ Medical History: Reports: None. Denies: Hx Peritoneal Dialysis Malignancy Medical History: Reports: None GI Medical History: Reports: None. Denies: Hx Cirrhosis, Hx Hepatitis Musculoskeletal Medical History: Reports None, Denies Hx Arthritis, Denies Hx Gout Skin Medical History: Reports None, Denies Hx Eczema, Denies Hx Psoriasis Psychiatric Medical History: Reports: None Denies: Hx Depression Traumatic Medical History: Reports: None Infectious Medical History: Reports: None. Denies: Hx Hepatitis Past Surgical History: Reports: Other - Chest tube - Immunizations Hx Diphtheria, Pertussis, Tetanus Vaccination: Yes Review of Systems - Review of Systems Constitutional: No symptoms reported EENT: No symptoms reported Cardiovascular: No symptoms reported Respiratory: See HPI, Cough, Wheezing Gastrointestinal: No symptoms reported Genitourinary: No symptoms reported Female Genitourinary: No symptoms reported Musculoskeletal: No symptoms reported Skin: No symptoms reported Hematologic/Lymphatic: No symptoms reported Neurological/Psychological: No symptoms reported -: Yes All other systems reviewed and negative Physical Exam - Vital signs Vitals: Temp Resp BP Pulse Ox 97.4 F 11 L 148/103 H 97 02/24/19 00:53 02/24/19 00:53 02/24/19 00:53 02/24/19 00:53 Interpretation: Normal Course - Re-evaluation Re-evalutation: 02/24/19 03:07 Patient has decided to leave AGAINST MEDICAL ADVICE. - Vital Signs Vital signs: Temp Pulse Resp BP Pulse Ox 97.4 F 16 149/97 H 98 02/24/19 00:53 02/24/19 02:00 02/24/19 01:01 02/24/19 02:00 - Laboratory Result Diagrams: 02/24/19 01:00 02/24/19 01:00 Laboratory results interpreted by me: 02/24/19 02/24/19 01:00 01:00 RDW 16.1 H Lymph % (Auto) 50.3 H Eos % (Auto) 14.0 H Absolute Eos (auto) 0.9 H Seg Neutrophils % 27.3 L Chloride 111 H Carbon Dioxide 16 L AST 38 H - Diagnostic Test Radiology reviewed: Image reviewed, Reports reviewed Discharge - Discharge Clinical Impression: Asthma exacerbation Qualifiers: Asthma severity: mild Asthma persistence: unspecified Qualified Code(s): J45.901 - Unspecified asthma with (acute) exacerbation Condition: Good Disposition: HOME, SELF-CARE Referrals: NAHOMI BLACK FNP-C [Primary Care Provider] - Follow up as needed
[2019-02-24 01:24] LABS: ALBUMIN 4.4 g/dL (3.5-5.0); ALKALINE PHOSPHATASE 73 U/L (38-126); ANION GAP 17 (5-19); ASPARTATE AMINO TRANSFERASE 38 U/L (14-36); BILIRUBIN,DIRECT 0.2 mg/dL (0.0-0.4); BILIRUBIN,TOTAL 0.3 mg/dL (0.2-1.3); BLOOD UREA NITROGEN 10 mg/dL (7-20); CARBON DIOXIDE 16 mmol/L (22-30); CHLORIDE 111 mmol/L (98-107); GLUCOSE 92 mg/dL (75-110); POTASSIUM 3.7 mmol/L (3.6-5.0); TOTAL PROTEIN 7.8 g/dL (6.3-8.2)
[2019-02-24 01:25] VITALS: BP 149/97
[2019-02-24 01:50] LABS: NT PRO BNP 89 pg/mL (<125)
[2019-02-24 01:52] LABS: TROPONIN I < 0.012 ng/mL
--- NOTE | 2019-02-24 01:57 | RADIOLOGY REPORT (SQ) ---
EXAM DESCRIPTION: XR CHEST 2 VIEWS COMPLETED DATE/TME: 02/24/2019 01:12 CLINICAL HISTORY: 34 years, Female, Shortness of breath COMPARISON: 12/01/2018 chest NUMBER OF VIEWS: 2 TECHNIQUE: Frontal and lateral views of the chest LIMITATIONS: None. FINDINGS: The heart size is normal. Equivocal atelectasis or infiltrate seen in the retrocardiac region. Lungs otherwise clear. No pneumothorax IMPRESSION: Equivocal retrocardiac atelectasis or infiltrate copyright 2010 [employer]- All Rights Reserved
[2019-02-24] MEDS ORDERED: IPRATROPIUM/ALBUTEROL 0.5-2.5 MG/3 ML AMPUL NEB ONE (02:06)
[2019-02-24] MEDS ORDERED: PREDNISONE 20 MG TABLET PO ONE (02:06)
--- NOTE | 2019-02-24 07:18 | EKG REPORT ---
SEVERITY:- ABNORMAL ECG - SINUS RHYTHM FIRST DEGREE AV BLOCK ST ELEVATION, UNCHANGED FROM PREVIOUS EKG. LA ABNORMALITY : Confirmed by: Jose Zafar MD 24-Feb-2019 07:18:07
== END 2019-02-24 03:08 | disposition home or self-care (01) ==
LOC: ER 00:49
DX: J44.9 Chronic obstructive pulmonary disease, unspecified (principal); R06.02 Shortness of breath; R05 Cough
CPT/HCPCS: 93005; 36415; 82550; 85025; 80053; 84484; 83880; 71046; 93010; J7620

== ENCOUNTER 2019-03-08 13:30 | Observation (INO) | payer MEDICAID ==
[2019-03-08 13:55] LABS: ABSOLUTE BASOPHILS # (AUTO) 0.1 10^3/uL (0.0-0.2); ABSOLUTE EOSINOPHILS # (AUTO) 1.1 10^3/uL (0.0-0.6); ABSOLUTE LYMPHOCYTES (AUTO) 1.7 10^3/uL (0.5-4.7); ABSOLUTE MONOCYTES (AUTO) 0.6 10^3/uL (0.1-1.4); ABSOLUTE NEUT (AUTO) 4.2 10^3/uL (1.7-8.2); BASOPHILS % (AUTO) 0.9 % (0-2); EOSINOPHILS % (AUTO) 13.9 % (0-6); HEMATOCRIT 41.5 % (36.0-47.0); HEMOGLOBIN 14.1 g/dL (12.0-15.5); MEAN CORPUSCULAR HEMOGLOBIN 28.9 pg (27.0-33.4); MEAN CORPUSCULAR VOLUME 85 fl (80-97); MONOCYTES % (AUTO) 8.5 % (3-13); PLATELET COUNT 184 10^3/uL (150-450); RED BLOOD COUNT 4.88 10^6/uL (3.72-5.28); RED CELL DISTRIBUTION WIDTH 16.1 % (11.5-14.0); SEGMENTED NEUTROPHILS % (AUTO) 54.7 % (42-78); TOTAL CELLS COUNTED % (AUTO) 100 %; WHITE BLOOD COUNT 7.6 10^3/uL (4.0-10.5)
[2019-03-08 14:09] LABS: INTERNATIONAL RATION (INR) 0.99; PROTHROMBIN TIME 13.1 SEC (11.4-15.4)
--- NOTE | 2019-03-08 14:09 | ER Document Report ---
ED Respiratory Problem - General Chief Complaint: Shortness Of Breath Stated Complaint: RESPIRATORY DISTRESS Time Seen by Provider: 03/08/19 13:57 Primary Care Provider: NAHOMI BLACK FNP-C [Primary Care Provider] - Follow up as needed TRAVEL OUTSIDE OF THE [place] IN LAST 30 DAYS: No - HPI Patient complains to provider of: Asthma Onset: Yesterday Duration: Better Quality of pain: No pain Severity: Moderate Pain Level: 3 Short of Breath: Moderate Cough: Nonproductive Sputum amount: None At home treatment: Bronchodilators EMS treatments: Bronchodilators, Oxygen, Solumedrol Associated symptoms: None Notes: 34 year old female post about 5 weeks presents with cough - n onproductive, wheeze and sob that is similar to her previous asthma exacerabations. No fever or chills. She had last steroids in 12/13 and has been intubated >once in the past with last time about 1 year ago. - Related Data Allergies/Adverse Reactions: No Known Allergies Allergy (Verified 03/08/19 13:36) Past Medical History - General Information source: Patient - Social History Smoking Status: Never Smoker Family History: DM, Hypertension, Other - Asthma, hepatitis C Patient has suicidal ideation: No Patient has homicidal ideation: No - Past Medical History Cardiac Medical History: Reports: Hx Heart Attack Denies: Hx Hypercholesterolemia, Hx Hypertension Pulmonary Medical History: Reports: Hx Asthma, Hx COPD, Hx Intubation - 03/07/2016, Hx Respiratory Failure Neurological Medical History: Denies: Hx Seizures Endocrine Medical History: Denies: Hx Diabetes Mellitus Type 1, Hx Diabetes Mellitus Type 2, Hx Hyperthyroidism, Hx Hypothyroidism Renal/ Medical History: Denies: Hx Peritoneal Dialysis GI Medical History: Denies: Hx Cirrhosis, Hx Hepatitis Musculoskeletal Medical History: Denies Hx Arthritis, Denies Hx Gout Skin Medical History: Denies Hx Eczema, Denies Hx Psoriasis Psychiatric Medical History: Denies: Hx Depression Infectious Medical History: Denies: Hx Hepatitis Past Surgical History: Reports: Other - Chest tube - Immunizations Hx Diphtheria, Pertussis, Tetanus Vaccination: Yes Review of Systems - Review of Systems Constitutional: No symptoms reported EENT: No symptoms reported Cardiovascular: No symptoms reported Respiratory: See HPI, Cough, Wheezing Gastrointestinal: No symptoms reported Genitourinary: No symptoms reported Female Genitourinary: No symptoms reported Musculoskeletal: No symptoms reported Skin: No symptoms reported Hematologic/Lymphatic: No symptoms reported Neurological/Psychological: No symptoms reported Physical Exam - Vital signs Vitals: Resp BP Pulse Ox 21 H 141/100 H 99 03/08/19 13:36 03/08/19 13:36 03/08/19 13:36 Interpretation: Normal - General General appearance: Appears well, Alert - HEENT Head: Normocephalic, Atraumatic Eyes: Normal Pupils: PERRL - Respiratory Respiratory status: No respiratory distress Chest status: Nontender Breath sounds: Decreased air movement, Wheezing Chest palpation: Normal - Cardiovascular Rhythm: Regular, Tachycardia Heart sounds: Normal auscultation Murmur: No - Abdominal Inspection: Normal Distension: No distension Bowel sounds: Normal Tenderness: Nontender Organomegaly: No organomegaly - Back Back: Normal, Nontender - Extremities General upper extremity: Normal inspection, Nontender, Normal color, Normal ROM, Normal temperature General lower extremity: Normal inspection, Nontender, Normal color, Normal ROM, Normal temperature, Normal weight bearing. No: Ramya's sign - Neurological Neuro grossly intact: Yes Cognition: Normal Orientation: AAOx4 [place] Coma Scale Eye Opening: Spontaneous [place] Coma Scale Verbal: Oriented [place] Coma Scale Motor: Obeys Commands [place] Coma Scale Total: 15 Speech: Normal Motor strength normal: LUE, RUE, LLE, RLE Sensory: Normal - Psychological Associated symptoms: Normal affect, Normal mood - Skin Skin Temperature: Warm Skin Moisture: Dry Skin Color: Normal Course - Re-evaluation Re-evalutation: 03/08/19 14:08 MDM 34 year old with h/o persistent asthma is here via EMS with SOB and consistent with asthma exacerbation/ status asthmaticus. No fever, but cough for 3-4 days. 03/08/19 15:09 Pt rechecked and resting. Heart rate 97. Sats 98% room air. Resp rate 22. Lung exam insp and exp wheezes with good air movement. 03/08/19 16:09 Still with wheezes even though air movement is better. Discussed with Dr. Bey and he will see and evaluate for admission. - Vital Signs Vital signs: Temp Pulse Resp BP Pulse Ox 98.4 F 21 H 141/100 H 95 03/08/19 13:51 03/08/19 13:36 03/08/19 13:36 03/08/19 13:52 - Laboratory Result Diagrams: 03/08/19 12:58 03/08/19 12:58 Laboratory results interpreted by me: 03/08/19 03/08/19 12:58 12:58 RDW 16.1 H Eos % (Auto) 13.9 H Absolute Eos (auto) 1.1 H AST 46 H Total Protein 8.6 H - Diagnostic Test Radiology reviewed: Image reviewed, Reports reviewed Critical Care Note - Critical Care Note Total time excluding time spent on procedures (mins): 30 Discharge - Discharge Clinical Impression: Status asthmaticus Qualifiers: Asthma severity: severe Asthma persistence: persistent Qualified Code(s): J45.52 - Severe persistent asthma with status asthmaticus Condition: Fair Disposition: ADMITTED INPATIENT Admitting Provider: Sotero (Hospitalist) Unit Admitted: Telemetry Referrals: NAHOMI BLACK FNP-C [Primary Care Provider] - Follow up as needed
[2019-03-08 14:18] LABS: ALBUMIN 4.9 g/dL (3.5-5.0); ALKALINE PHOSPHATASE 80 U/L (38-126); ANION GAP 12 (5-19); ASPARTATE AMINO TRANSFERASE 46 U/L (14-36); BILIRUBIN,DIRECT 0.1 mg/dL (0.0-0.4); BILIRUBIN,TOTAL 0.4 mg/dL (0.2-1.3); BLOOD UREA NITROGEN 7 mg/dL (7-20); CALCIUM 9.5 mg/dL (8.4-10.2); CARBON DIOXIDE 24 mmol/L (22-30); CHLORIDE 107 mmol/L (98-107); GLUCOSE 93 mg/dL (75-110); POTASSIUM 3.9 mmol/L (3.6-5.0); TOTAL PROTEIN 8.6 g/dL (6.3-8.2)
[2019-03-08 14:33] LABS: VENOUS BLOOD BASE EXCESS -0.7 mmol/L; VENOUS BLOOD HCO3 23.8 mmol/L (20-32); VENOUS BLOOD PCO2 38.6 mmHg (35-63); VENOUS BLOOD PH 7.41 (7.30-7.42)
--- NOTE | 2019-03-08 15:03 | RADIOLOGY REPORT (SQ) ---
EXAM DESCRIPTION: CHEST SINGLE VIEW COMPLETED DATE/TIME: 03/08/2019 2:38 pm REASON FOR STUDY: bed 8 sepsis protocol COMPARISON: PA and lateral views of the chest from 02/24/2019. EXAM PARAMETERS: NUMBER OF VIEWS: One view. TECHNIQUE: Single frontal radiographic view of the chest acquired. RADIATION DOSE: NA LIMITATIONS: None. FINDINGS: LUNGS AND PLEURA: No consolidation, pleural effusion or pneumothorax. MEDIASTINUM AND HILAR STRUCTURES: No mediastinal or hilar contour abnormality. HEART AND VASCULAR STRUCTURES: The cardiac silhouette and pulmonary vasculature are within normal montalvo its. BONES: No acute findings. HARDWARE: None in the chest. OTHER: No other finding. IMPRESSION: No acute cardiopulmonary process. TECHNICAL DOCUMENTATION: JOB ID: [id number] [employer]- All Rights Reserved Reading location - IP/workstation name: [email or web address]
[2019-03-08] MEDS ORDERED: ALBUTEROL SULFATE 0.083% NEB 2.5 MG/3 ML AMPUL NEB ONE (15:10)
--- NOTE | 2019-03-08 16:17 | EKG REPORT ---
SEVERITY:- OTHERWISE NORMAL ECG - SINUS TACHYCARDIA : Confirmed by: Hien Kemp MD 08-Mar-2019 16:16:30
[2019-03-08] MEDS ORDERED: LEVALBUTEROL HCL NEB 1.25 MG/3 ML AMPUL NEB PRN (17:05)
[2019-03-08] MEDS ORDERED: ACETAMINOPHEN 325 MG TABLET PO PRN (17:05)
[2019-03-08] MEDS ORDERED: MAG HYDROX/AL HYDROX/SIMETH SUSP 30 ML UDCUP PO PRN (17:05)
[2019-03-08] MEDS ORDERED: GUAIFENESIN SYRP 200 MG/10 ML UDC PO PRN (17:30)
--- NOTE | 2019-03-08 17:40 | PDOC H&P ---
History of Present Illness Admission Date/PCP: 03/08/19 16:31 ANDREA MAK Patient complains of: Difficulty breathing History of Present Illness: SHERLYN GALLOWAY is a 34 year old female was admitted to the hospital in the latter stages of her with status asthmaticus in November. Since then she has been asymptomatic. She went through a normal vaginal delivery without difficulty. She states that over the last 2 days she has noticed a cough and t hen increasing shortness of breath. Today she was wheezy and felt that she could not catch her breath. She reports a nonproductive cough. She denies fever or chills. She has had no problems with her breast-feeding and no other issues. She has cleared partly but not enough to discharge home safely and so she will be admitted to the hospitalist service for observation. Past Medical History Cardiac Medical History: Reports: Myocardial Infarction Denies: Hyperlipidema, Hypertension Pulmonary Medical History: Reports: Asthma, Chronic Obstructive Pulmonary Disease (COPD), Intubation - 03/07/2016, Respiratory Failure Neurological Medical History: Denies: Seizures Endocrine Medical History: Denies: Diabetes Mellitus Type 1, Diabetes Mellitus Type 2, Hyperthyroidism, Hypothyroidism Renal/ Medical History: Denies: Chronic Kidney Disease Malignancy Medical History: Reports: None GI Medical History: Denies: Cirrhosis, Hepatitis Musculoskeltal Medical History: Denies: Arthritis, Gout Skin Medical History: Denies: Eczema, Psoriasis Psychiatric Medical History: Denies: Depression Hematology: Denies: Anemia, Bleeding Tendencies Past Surgical History Past Surgical History: Reports: Other - Chest tube Social History Information Source: Patient Lives with: Family Smoking Status: Never Smoker Electronic Cigarette use?: No Frequency of Alcohol Use: Rare Hx Recreational Drug Use: No Drugs: None Hx Prescription Drug Abuse: No - Advance Directive Resuscitation Status: Full Code Family History Family History: DM, Hypertension, Other - Asthma, hepatitis C Parental Family History Reviewed: Yes Children Family History Reviewed: Yes Sibling(s) Family History Reviewed.: Yes Medication/Allergy Home Medications: Albuterol Sulfate [Proair HFA Inhalation Aerosol 8.5 gm MDI] 2 puff IH Q6HP PRN 12/01/18 Albuterol Sulfate [Ventolin 0.083% Neb 2.5 mg/3 mL Ampul] 1 vial NEB RTTID 12/01/18 Ipratropium [place] [Atrovent 0.02% Neb 0.5 mg/2.5 ml Ampul] 0.5 mg NEB RTQ8 12/01/18 Tiotropium [place] [Spiriva Handihaler 5 Cap/Kit (18 Mcg/Cap)] 1 cap IH DAILY kit 12/03/18 Ferrous Sulfate [Feosol 325 mg Tablet] 325 mg PO DAILY #30 tablet 01/30/19 Hydrocortisone Acetate [Anusol Hc 25 mg Supp.rect] 25 mg VT QIDP PRN #14 supp.rect 01/30/19 Ibuprofen [Motrin 800 mg Tablet] 800 mg PO Q8 #60 tablet 01/30/19 Vit/Dha [ Multi + Dha Capsule] 1 cap PO DAILY capsule 01/30/19 Allergies/Adverse Reactions: No Known Allergies Allergy (Verified 03/08/19 13:36) Review of Systems All systems: reviewed and no additional remarkable complaints except as stated Respiratory: PRESENT: cough, dyspnea, sputum Physical Exam Vital Signs: Temp Pulse Resp BP Pulse Ox 98.4 F 21 H 141/100 H 95 03/08/19 13:51 03/08/19 13:36 03/08/19 13:36 03/08/19 13:52 Intake & Output 03/07/19 03/08/19 03/09/19 06:59 06:59 06:59 Weight 72.575 kg General appearance: PRESENT: cooperative, mild distress, well-developed Head exam: PRESENT: atraumatic, normocephalic Eye exam: PRESENT: conjunctiva pink, EOMI. ABSENT: scleral icterus Ear exam: PRESENT: normal external ear exam. ABSENT: bleeding, drainage Mouth exam: PRESENT: moist, tongue midline Respiratory exam: PRESENT: symmetrical, unlabored, wheezes - Occasional faint expiratory wheeze. ABSENT: accessory muscle use, rales, rhonchi, tachypnea Cardiovascular exam: PRESENT: RRR, +S1, +S2 GI/Abdominal exam: PRESENT: normal bowel sounds, soft. ABSENT: guarding, tenderness Rectal exam: PRESENT: deferred Extremities exam: ABSENT: pedal edema Musculoskeletal exam: PRESENT: normal inspection Neurological exam: PRESENT: alert, awake, oriented to person, oriented to place, oriented to time, oriented to situation, CN II-XII grossly intact. ABSENT: motor sensory deficit Psychiatric exam: PRESENT: appropriate affect, normal mood. ABSENT: agitated, anxious Focused psych exam: ABSENT: delusional, restlessness Skin exam: PRESENT: dry, normal color, warm. ABSENT: rash Results Laboratory Results: 03/08/19 12:58 03/08/19 12:58 03/08/19 03/08/19 03/08/19 12:58 12:58 14:10 WBC 7.6 RBC 4.88 Hgb 14.1 Hct 41.5 MCV 85 MCH 28.9 MCHC 34.0 RDW 16.1 H Plt Count 184 Seg Neutrophils % 54.7 VBG pH VBG pCO2 VBG HCO3 VBG Base Excess Sodium 142.9 Potassium 3.9 Chloride 107 Carbon Dioxide 24 Anion Gap 12 BUN 7 Creatinine 0.69 Est GFR ( Amer) > 60 Glucose 93 Lactic Acid 0.9 Calcium 9.5 Total Bilirubin 0.4 AST 46 H Alkaline Phosphatase 80 Total Protein 8.6 H Albumin 4.9 03/08/19 14:10 WBC RBC Hgb Hct MCV MCH MCHC RDW Plt Count Seg Neutrophils % VBG pH 7.41 VBG pCO2 38.6 VBG HCO3 23.8 VBG Base Excess -0.7 Sodium Potassium Chloride Carbon Dioxide Anion Gap BUN Creatinine Est GFR ( Amer) Glucose Lactic Acid Calcium Total Bilirubin AST Alkaline Phosphatase Total Protein Albumin 03/08/19 12:58 Troponin I < 0.012 Impressions: Chest X-Ray 03/08/19 13:41 IMPRESSION: No acute cardiopulmonary process. Assessment and Plan - Diagnosis (1) Status asthmaticus Qualifiers: Asthma severity: severe Asthma persistence: persistent Qualified Code(s): J45.52 - Severe persistent asthma with status asthmaticus Is this a current diagnosis for this admission?: Yes Plan: 03/08/2019-we will use aggressive nebulizer treatments. We will use inhaled s teroids and try to avoid systemic steroids as she is breast-feeding. We will start with every 6 hour Xopenex treatments and have treatments available every 3 hours if needed. The budesonide will be every 12 hours. She has benefited from montelukast in the past and so I will continue this medication. Tomorrow we will convert her over to her Symbicort and Spiriva. She is not aware of history of COPD but she was exposed to significant secondhand smoke in the household growing up. She does see Dr. Rothman. If she is no better in the morning I will reach out for consultation. (2) Acute respiratory failure with hypoxia Is this a current diagnosis for this admission?: Yes Plan: 03/08/2019-we will use supplemental oxygen to keep her oxygen saturations greater than or equal to 92%. - Time Time Spent with patient: 35 or more minutes Medications reviewed and adjusted accordingly: Yes Anticipated discharge: Home Within: within 24 hours
[2019-03-08] MEDS: BUDESONIDE NEB 0.5 MG/2 ML AMPUL NEB SCH (20:39)
[2019-03-08] MEDS: LEVALBUTEROL HCL NEB 1.25 MG/3 ML AMPUL NEB SCH (20:42)
[2019-03-08] MEDS ORDERED: MONTELUKAST SODIUM 10 MG TABLET PO SCH (22:00)
[2019-03-09] MEDS: LEVALBUTEROL HCL NEB 1.25 MG/3 ML AMPUL NEB SCH ×2 (02:37→08:43)
--- NOTE | 2019-03-09 08:37 | PDOC DISCHARGE SUMMARY ---
Impression - Admit/DC Date/PCP Admission Date/Primary Care Provider: 03/08/19 16:31 ANDREA MAK Discharge Date: 03/09/19 - Discharge Diagnosis (1) Status asthmaticus Is this a current diagnosis for this admission?: Yes (2) Acute respiratory failure with hypoxia Is this a current diagnosis for this admission?: Yes - Additional Information Resuscitation Status: Full Code Discharge Diet: Regular Discharge Activity: Activity As Tolerated Referrals: NAHOMI BLACK FNP-C [Primary Care Provider] - Follow up as needed Prescriptions: Albuterol Sulfate [Proair HFA Inhalation Aerosol 8.5 gm MDI] 2 puff IH Q6HP PRN #1 inhaler PRN Reason: Shortness Of Breath Montelukast Sodium [Singulair 10 mg Tablet] 10 mg PO QHS #30 tablet Budesonide/Formoterol Fumarate [Symbicort HFA 160-4.5 mcg Inhaler 6 gm] 2 puff IH Q12 #1 inhaler Home Medications: Albuterol Sulfate [Ventolin 0.083% Neb 2.5 mg/3 mL Ampul] 1 vial NEB RTTID 12/01/18 Tiotropium [place] [Spiriva Handihaler 5 Cap/Kit (18 Mcg/Cap)] 1 cap IH DAILY kit 12/03/18 Vit/Dha [ Multi + Dha Capsule] 1 cap PO DAILY capsule 01/30/19 Albuterol Sulfate [Proair HFA Inhalation Aerosol 8.5 gm MDI] 2 puff IH Q6HP PRN #1 inhaler 03/09/19 Budesonide/Formoterol Fumarate [Symbicort HFA 160-4.5 mcg Inhaler 6 gm] 2 puff IH Q12 #1 inhaler 03/09/19 Montelukast Sodium [Singulair 10 mg Tablet] 10 mg PO QHS #30 tablet 03/09/19 History of Present Illiness History of Present Illness: SHERLYN GALLOWAY is a 34 year old female was admitted to the hospital in the latter stages of her with status asthmaticus in November. Since then she has been asymptomatic. She went through a normal vaginal delivery without difficulty. She states that over the last 2 days she has noticed a cough and then increasing shortness of breath. Today she was wheezy and felt that she could not catch her breath. She reports a nonproductive cough. She denies fever or chills. She has had no problems with her breast-feeding and no other issues. She has cleared partly but not enough to discharge home safely and so she will be admitted to the hospitalist service for observation. Hospital Course Hospital Course: Patient had an unremarkable hospital course. With aggressive nebulized treatments she was turned around and is no longer in status asthmaticus. She has an occasional faint expiratory wheeze but the risk of steroids during breast-feeding outweighs any benefit in my opinion. She will maximize her Symbicort inhaler at home. She does have Spiriva left and in addition to refilling her Symbicort I will refill her pro-air. She also assures me that the nebulizer unit dose is are not aspirated and she does have some at home. Navya montelukast has helped we will continue that as well. Physical Exam Vital Signs: Temp Pulse Resp BP Pulse Ox 98.0 F 72 16 168/100 H 98 03/09/19 02:36 03/09/19 02:37 03/09/19 02:37 03/09/19 02:36 03/09/19 02:37 Intake & Output 03/08/19 03/09/19 03/10/19 06:59 06:59 06:59 Output Total 780 Balance -780 Weight 73.4 kg General appearance: PRESENT: no acute distress, cooperative, well-developed Head exam: PRESENT: atraumatic, normocephalic Respiratory exam: PRESENT: symmetrical, unlabored, wheezes - Faint occasional expiratory wheeze on the left otherwise lungs are clear. ABSENT: rales, rhonchi, tachypnea Cardiovascular exam: PRESENT: RRR, +S1, +S2 GI/Abdominal exam: PRESENT: normal bowel sounds, soft. ABSENT: distended, tenderness Rectal exam: PRESENT: deferred Extremities exam: ABSENT: pedal edema Musculoskeletal exam: PRESENT: normal inspection Neurological exam: PRESENT: alert, awake, oriented to person, oriented to place, oriented to time, oriented to situation, CN II-XII grossly intact. ABSENT: motor sensory deficit Psychiatric exam: PRESENT: appropriate affect, normal mood. ABSENT: agitated, anxious Focused psych exam: ABSENT: delusional, restlessness Skin exam: PRESENT: dry, normal color, warm. ABSENT: rash Results Laboratory Results: WBC 7.6 10^3/uL (4.0-10.5) 03/08/19 12:58 RBC 4.88 10^6/uL (3.72-5.28) 03/08/19 12:58 Hgb 14.1 g/dL (12.0-15.5) 03/08/19 12:58 Hct 41.5 % (36.0-47.0) 03/08/19 12:58 MCV 85 fl (80-97) 03/08/19 12:58 MCH 28.9 pg (27.0-33.4) 03/08/19 12:58 MCHC 34.0 g/dL (32.0-36.0) 03/08/19 12:58 RDW 16.1 % (11.5-14.0) H 03/08/19 12:58 Plt Count 184 10^3/uL (150-450) 03/08/19 12:58 Lymph % (Auto) 22.0 % (13-45) 03/08/19 12:58 [place] % (Auto) 8.5 % (3-13) 03/08/19 12:58 Eos % (Auto) 13.9 % (0-6) H 03/08/19 12:58 Baso % (Auto) 0.9 % (0-2) 03/08/19 12:58 Absolute Neuts (auto) 4.2 10^3/uL (1.7-8.2) 03/08/19 12:58 Absolute Lymphs (auto) 1.7 10^3/uL (0.5-4.7) 03/08/19 12:58 Absolute Monos (auto) 0.6 10^3/uL (0.1-1.4) 03/08/19 12:58 Absolute Eos (auto) 1.1 10^3/uL (0.0-0.6) H 03/08/19 12:58 Absolute Basos (auto) 0.1 10^3/uL (0.0-0.2) 03/08/19 12:58 Seg Neutrophils % 54.7 % (42-78) 03/08/19 12:58 PT 13.1 SEC (11.4-15.4) 03/08/19 12:58 INR 0.99 03/08/19 12:58 VBG pH 7.41 (7.30-7.42) 03/08/19 14:10 VBG pCO2 38.6 mmHg (35-63) 03/08/19 14:10 VBG HCO3 23.8 mmol/L (20-32) 03/08/19 14:10 VBG Base Excess -0.7 mmol/L 03/08/19 14:10 Sodium 142.9 mmol/L (137-145) 03/08/19 12:58 Potassium 3.9 mmol/L (3.6-5.0) 03/08/19 12:58 Chloride 107 mmol/L (98-107) 03/08/19 12:58 Carbon Dioxide 24 mmol/L (22-30) 03/08/19 12:58 Anion Gap 12 (5-19) 03/08/19 12:58 BUN 7 mg/dL (7-20) 03/08/19 12:58 Creatinine 0.69 mg/dL (0.52-1.25) 03/08/19 12:58 Est GFR ( Amer) > 60 (>60) 03/08/19 12:58 Est GFR (MDRD) Non-Af > 60 (>60) 03/08/19 12:58 Glucose 93 mg/dL (75-110) 03/08/19 12:58 Lactic Acid 0.9 mmol/L (0.7-2.1) 03/08/19 14:10 Calcium 9.5 mg/dL (8.4-10.2) 03/08/19 12:58 Total Bilirubin 0.4 mg/dL (0.2-1.3) 03/08/19 12:58 Direct Bilirubin 0.1 mg/dL (0.0-0.4) 03/08/19 12:58 Neonat Total Bilirubin Not Reportable 03/08/19 12:58 Neonat Direct Bilirubin Not Reportable 03/08/19 12:58 Neonat Indirect Bili Not Reportable 03/08/19 12:58 AST 46 U/L (14-36) H 03/08/19 12:58 ALT 38 U/L (<35) 03/08/19 12:58 Alkaline Phosphatase 80 U/L (38-126) 03/08/19 12:58 Troponin I < 0.012 ng/mL 03/08/19 12:58 Total Protein 8.6 g/dL (6.3-8.2) H 03/08/19 12:58 Albumin 4.9 g/dL (3.5-5.0) 03/08/19 12:58 03/08/19 12:58 Troponin I < 0.012 Impressions: Chest X-Ray 03/08/19 13:41 IMPRESSION: No acute cardiopulmonary process. Plan Health Concerns: Stability of asthma Plan of Treatment: Continue aggressive inhaler regimen with as needed nebulizers. No systemic steroids at this point due to potential risk during breast-feeding. Goals: Reduce or eliminate asthma exacerbations Time Spent: Greater than 30 Minutes Stroke Is this a Stroke Patient?: No Acute Heart Failure - Is this a Heart Failure Patient?: No
[2019-03-09] MEDS: BUDESONIDE NEB 0.5 MG/2 ML AMPUL NEB SCH (08:43)
[2019-03-09 11:00] VITALS: BP 130/88
== END 2019-03-09 11:23 | disposition home or self-care (01) ==
LOC: ER 13:30 → EH 16:31 → INTOOBSV 16:31 → 5 19:05
PROVIDERS: ADMIT Hospitalist; ATTEND Hospitalist
DX: J45.52 Severe persistent asthma with status asthmaticus (principal); J96.01 Acute respiratory failure with hypoxia; I25.2 Old myocardial infarction; Z79.899 Other long term (current) drug therapy; Z79.51 Long term (current) use of inhaled steroids; Z82.49 Family history of ischemic heart disease and other diseases of the circulatory system; Z82.5 Family history of asthma and other chronic lower respiratory diseases; Z77.22 Contact with and (suspected) exposure to environmental tobacco smoke (acute) (chronic)
CPT/HCPCS: 93005; 94640 ×3; 99291; 36415; 87040; 85025; 85610; 80053; 84484; 82803; 83605; 71045; 93010; G0378 ×3; J3490 ×6

== ENCOUNTER 2019-07-14 05:43 | Emergency (ER) | payer MEDICAID ==
[2019-07-14 06:09] VITALS: BP 141/106
[2019-07-14] MEDS ORDERED: ALBUTEROL SULFATE 0.083% NEB 2.5 MG/3 ML AMPUL NEB ONE (06:53)
[2019-07-14] MEDS ORDERED: NORMAL SALINE 1000 ML 1,000 ML IV ONE (06:53)
[2019-07-14] MEDS ORDERED: METHYLPREDNISOLONE INJ 125 MG/2 ML SDV IV ONE (06:53)
[2019-07-14] MEDS ORDERED: IPRATROPIUM/ALBUTEROL 0.5-2.5 MG/3 ML AMPUL NEB ONE (06:53)
[2019-07-14] MEDS ORDERED: MAGNESIUM SULFATE/D5W 1 GM/100 ML RTUPB IV SCH (07:00)
--- NOTE | 2019-07-14 07:02 | ER Document Report ---
Entered by SULEMA HILARIO SCRIBE 07/14/19 0653 Acting as scribe for:LIAT KITCHEN MD ED Respiratory Problem - General Chief Complaint: Asthma Exacerbation Stated Complaint: TROUBLE BREATHING/COUGH Time Seen by Provider: 07/14/19 06:38 Primary Care Provider: NAHOMI BLACK FNP-C [Primary Care Provider] - Follow up as needed Information source: Patient Notes: This 34 year old female patient presents to the emergency department today with complaints of an asthma exacerbation. Patient states her asthma has been "acting up" for the last four days. Patient was last on oral prednisone about x1 week ago. Patient states that she has been using her nebulizer at home and it provides some minor relief but it doesn't last long. Patient states she has a slight cough with minimal clear/yellow sputum production. Patient denies fevers or body aches. Patient received 2 DuoNeb treatments and 1 Solu-Medrol in route to this facility via EMS. Patient has not seen her primary care physician or her computer systems security analyst since her symptoms began four days ago. TRAVEL OUTSIDE OF THE [place] IN LAST 30 DAYS: No - Related Data Allergies/Adverse Reactions: No Known Allergies Allergy (Verified 07/14/19 05:58) Home Medications: prednisone, alb Past Medical History - General Information source: Patient - Social History Smoking Status: Never Smoker Cigarette use (# per day): No Frequency of alcohol use: Occasional Drug Abuse: None Lives with: Family Family History: Reviewed & Not Pertinent, DM, Hypertension, Other - Asthma, hepatitis C Patient has suicidal ideation: No Patient has homicidal ideation: No - Past Medical History Cardiac Medical History: Reports: Hx Heart Attack Pulmonary Medical History: Reports: Hx Asthma, Hx COPD, Hx Intubation - Multiple times, last time being July 2017, Hx Respiratory Failure Past Surgical History: Reports: Other - Chest tube - Immunizations Hx Diphtheria, Pertussis, Tetanus Vaccination: Yes Review of Systems - Review of Systems Constitutional: denies: Fever EENT: No symptoms reported Cardiovascular: No symptoms reported Respiratory: See HPI, Cough, Short of breath, Sputum, Wheezing Gastrointestinal: No symptoms reported Genitourinary: No symptoms reported Female Genitourinary: No symptoms reported Musculoskeletal: denies: Muscle pain Skin: No symptoms reported Hematologic/Lymphatic: No symptoms reported Neurological/Psychological: No symptoms reported -: Yes All other systems reviewed and negative Physical Exam - Vital signs Vitals: Temp Pulse Resp BP Pulse Ox 97.5 F 75 20 141/106 H 100 07/14/19 06:00 07/14/19 06:00 07/14/19 06:00 07/14/19 06:00 07/14/19 06:00 - Notes Notes: Physical Exam: General: Alert, appears well. HEENT: Normocephalic. Atraumatic. PERRL. Extraocular movements intact. Oropharynx clear. Neck: Supple. Non-tender. Respiratory: No respiratory distress, Inspiratory and expiratory wheezing, slight rhonchi with forced cough. No retractions. Cardiovascular: Regular rate and rhythm. Abdominal: Normal Inspection. Non-tender. No distension. Normal Bowel Sounds. Back: No gross abnormalities. Extremities: Moves all four extremities. Upper extremities: Normal inspection. Normal ROM. Lower extremities: Normal inspection. No edema. Normal ROM. Neurological: Normal cognition. AAOx4. Normal speech. Psychological: Normal affect. Normal Mood. Skin: Warm. Dry. Normal color. Course - Re-evaluation Re-evalutation: 07/14/19 07:36 The nurses came to tell me the patient was signing out AMA because they would not allow her to have her 5-month-old baby back in the room. At this time due to the Covid-19 pandemic, there are visitor restrictions implemented at this facility. This was explained to the patient but she elected to leave AMA. - Vital Signs Vital signs: Temp Pulse Resp BP Pulse Ox 97.5 F 75 20 141/106 H 100 07/14/19 06:00 07/14/19 06:00 07/14/19 06:00 07/14/19 06:00 07/14/19 06:00 - Laboratory Result Diagrams: 07/14/19 07:30 07/14/19 07:30 - Diagnostic Test Radiology reviewed: Image reviewed, Reports reviewed - Chest x-ray does not show infiltrates or any other acute abnormality. Discharge - Discharge Clinical Impression: Viral upper respiratory tract infection with cough, Acute exacerbation of extrinsic asthma Condition: Stable Disposition: AGAINST MEDICAL ADVICE Referrals: NAHOMI BLACK FNP-C [Primary Care Provider] - Follow up as needed I personally performed the services described in the documentation, reviewed and edited the documentation which was dictated to the scribe in my presence, and it accurately records my words and actions.
--- NOTE | 2019-07-14 07:28 | RADIOLOGY REPORT (SQ) ---
PA and lateral chest radiograph: 07/14/2019 6:26 AM CDT History: 34-year old patient with difficulty breathing, asthma. Comparison: Chest radiograph performed 02/24/2019 Findings: The cardiomediastinal silhouette is normal in size. No pneumothorax is seen. No discrete pleural effusion is apparent. No acute airspace opacities are seen. There is a scoliotic curvature of the thoracic spine, convex to the right side. Impression: No acute airspace opacities are seen.
[2019-07-14 07:37] LABS: ABSOLUTE EOSINOPHILS # (AUTO) 0.5 10^3/uL (0.0-0.6); ABSOLUTE LYMPHOCYTES (AUTO) 0.8 10^3/uL (0.5-4.7); ABSOLUTE MONOCYTES (AUTO) 0.2 10^3/uL (0.1-1.4); ABSOLUTE NEUT (AUTO) 4.6 10^3/uL (1.7-8.2); BASOPHILS % (AUTO) 0.6 % (0-2); EOSINOPHILS % (AUTO) 8.1 % (0-6); HEMATOCRIT 41.1 % (36.0-47.0); HEMOGLOBIN 14.4 g/dL (12.0-15.5); LYMPHOCYTES % (AUTO) 13.7 % (13-45); MEAN CORPUSCULAR HEMOGLOBIN 31.8 pg (27.0-33.4); MEAN CORPUSCULAR HGB CONC 35.1 g/dL (32.0-36.0); MEAN CORPUSCULAR VOLUME 91 fl (80-97); MONOCYTES % (AUTO) 2.5 % (3-13); PLATELET COUNT 218 10^3/uL (150-450); RED BLOOD COUNT 4.53 10^6/uL (3.72-5.28); RED CELL DISTRIBUTION WIDTH 14.5 % (11.5-14.0); SEGMENTED NEUTROPHILS % (AUTO) 75.1 % (42-78); TOTAL CELLS COUNTED % (AUTO) 100 %; WHITE BLOOD COUNT 6.1 10^3/uL (4.0-10.5)
[2019-07-14 08:02] LABS: ALBUMIN 4.5 g/dL (3.5-5.0); ALKALINE PHOSPHATASE 92 U/L (38-126); ANION GAP 10 (5-19); ASPARTATE AMINO TRANSFERASE 27 U/L (14-36); BILIRUBIN,DIRECT 0.3 mg/dL (0.0-0.4); BILIRUBIN,TOTAL 0.4 mg/dL (0.2-1.3); BLOOD UREA NITROGEN 7 mg/dL (7-20); CALCIUM 8.8 mg/dL (8.4-10.2); CARBON DIOXIDE 24 mmol/L (22-30); CHLORIDE 108 mmol/L (98-107); GLUCOSE 89 mg/dL (75-110); POTASSIUM 3.5 mmol/L (3.6-5.0); TOTAL PROTEIN 8.4 g/dL (6.3-8.2)
== END 2019-07-14 07:40 | disposition left against medical advice (07) ==
LOC: ER 05:43
DX: J06.9 Acute upper respiratory infection, unspecified (principal); B97.89 Other viral agents as the cause of diseases classified elsewhere; J45.901 Unspecified asthma with (acute) exacerbation; J44.9 Chronic obstructive pulmonary disease, unspecified; R05 Cough; Z79.899 Other long term (current) drug therapy; Z53.29 Procedure and treatment not carried out because of patient's decision for other reasons
CPT/HCPCS: 36415; 71046; 80053; 84703; 85025; 99285

== ENCOUNTER 2020-03-01 03:15 | Emergency (ER) | payer MEDICAID ==
[2020-03-01] MEDS ORDERED: IPRATROPIUM/ALBUTEROL 0.5-2.5 MG/3 ML AMPUL NEB ONE (05:54)
[2020-03-01 06:46] LABS: A TYPE INFLUENZA AG NEGATIVE (NEGATIVE); B INFLUENZA AG NEGATIVE (NEGATIVE)
[2020-03-01 07:00] VITALS: BP 135/99
--- NOTE | 2020-03-01 07:13 | ER Document Report ---
ED General - General Chief Complaint: Shortness Of Breath Stated Complaint: BREATHING TROUBLE Primary Care Provider: NAHOMI BLACK FNP-C [Primary Care Provider] - Follow up in 3-5 days Notes: 35-year-old female history of mild intermittent asthma presents with approximately 2 days of dry cough and shortness of breath similar to prior asthma exacerbations. Patient says she has been using her albuterol several times a day with only transient relief in her symptoms so she came to the ED because she was told that if her albuterol does not work that she needs to see a doctor. Patient says that she usually has cough symptoms with her asthma and does not know what her usual asthma triggers or what triggered this current symptoms. Patient denies any chest pain, dizziness, syncope, confusion, fever, productive cough, immune compromise history, diabetes, HIV, sick contacts, recent travel, rashes, vomiting, diarrhea, abdominal pain TRAVEL OUTSIDE OF THE [place] IN LAST 30 DAYS: No - Related Data Allergies/Adverse Reactions: No Known Allergies Allergy (Verified 07/14/19 05:58) Past Medical History - General Information source: Patient - Social History Smoking Status: Never Smoker Chew tobacco use (# tins/day): No Frequency of alcohol use: None Drug Abuse: None Family History: Reviewed & Not Pertinent, DM, Hypertension, Other - Asthma, hepatitis C Patient has homicidal ideation: No - Past Medical History Cardiac Medical History: Reports: Hx Heart Attack Denies: Hx Hypercholesterolemia, Hx Hypertension Pulmonary Medical History: Reports: Hx Asthma, Hx COPD, Hx Intubation - Multiple times, last time being July 2017, Hx Respiratory Failure Neurological Medical History: Denies: Hx Seizures Endocrine Medical History: Denies: Hx Diabetes Mellitus Type 1, Hx Diabetes Mellitus Type 2, Hx Hyperthyroidism, Hx Hypothyroidism Renal/ Medical History: Denies: Hx Peritoneal Dialysis GI Medical History: Denies: Hx Cirrhosis, Hx Hepatitis Musculoskeletal Medical History: Denies Hx Arthritis, Denies Hx Gout Skin Medical History: Denies Hx Eczema, Denies Hx Psoriasis Psychiatric Medical History: Denies: Hx Depression Infectious Medical History: Denies: Hx Hepatitis Past Surgical History: Reports: Other - Chest tube - Immunizations Hx Diphtheria, Pertussis, Tetanus Vaccination: Yes Review of Systems - Review of Systems Notes: REVIEW OF SYSTEMS: CONSTITUTIONAL : Denies fever, chills, or sweats. EENT: Denies recent cold/sinus symptoms, denies throat pain CARDIOVASCULAR: Denies chest pain, CRESENCIO RESPIRATORY: + cough, +shortness of breath. GASTROINTESTINAL: Denies abdominal pain, nausea/vomiting. GENITOURINARY: Denies difficulty urinating, painful urination. MUSCULOSKELETAL: Denies neck pain, back pain. SKIN: Denies rash or skin lesions. HEMATOLOGIC : Denies easy bruising or bleeding. LYMPHATIC: Denies swollen, enlarged glands. NEUROLOGICAL: Denies headache, denies change in gait. PSYCHIATRIC: Denies anxiety or stress or depression. Physical Exam - Vital signs Vitals: Temp Resp BP 98.0 F 20 150/107 H 03/01/20 03:18 03/01/20 03:18 03/01/20 03:18 - Notes Notes: PHYSICAL EXAMINATION: GENERAL: Well-appearing, well-nourished and in no acute distress. Sleeping with comfortable appearance prior to my entering the room and then easily awakened. HEAD: Atraumatic, normocephalic. EYES: Pupils equal round and appropriate constriction, sclera anicteric, conjunctiva are normal. ENT: nares patent, moist mucous membranes. NECK: Normal range of motion, supple without lymphadenopathy LUNGS: Normal respiratory rate and effort, slightly decreased air movement with bilateral expiratory wheezing, speaking in full sentences, no tripoding, managing secretions HEART: Regular rate and rhythm without murmurs ABDOMEN: Soft, nontender, no guarding, no masses, no CVAT EXTREMITIES: Normal range of motion, no pitting or edema. No cyanosis. NEUROLOGICAL: Awake, alert, conversing appropriately, moves all extremities spontaneously. PSYCH: Normal mood, normal affect. SKIN: Warm, Dry, normal turgor, no rashes or lesions noted. Course - Re-evaluation Re-evalutation: 03/01/20 08:21 Patient's presentation consistent with asthma exacerbation. Patient without any cardiac risk factors and no suggestions of cardiac etiology of current symptoms. Patient's respiratory status stable in ED, slightly decreased air movement but normal respiratory rate and effort, normal vitals, no signs of impending respiratory failure. Patient given nebs and steroids prior to arrival in the ED. Give additional neb which further improved patient's symptoms and she was eager to be discharged. Patient able to ambulate and tolerating p.o. Patient sent Covid and flu swabs in case these had precipitated her current symptoms and instructed patient to quarantine. Gave patient extensive return to ED precautions which she demonstrated understanding of. Patient did not need albuterol refill because she had at home already. Discharged with prescriptions of prednisone, PCP follow-up, and return precautions. No indication for x-ray given short duration of symptoms, no fever, no productive cough, and the outpatient with risk of radiation greater than the likely benefit of obtaining x-ray during this visit. - Vital Signs Vital signs: Temp Pulse Resp BP Pulse Ox 98.0 F 16 135/99 H 97 03/01/20 03:18 03/01/20 06:01 03/01/20 06:31 03/01/20 06:31 Discharge - Discharge Clinical Impression: Asthma Qualifiers: Asthma severity: unspecified severity Asthma persistence: unspecified Asthma complication type: with acute exacerbation Qualified Code(s): J45.901 - Unspecified asthma with (acute) exacerbation Disposition: HOME, SELF-CARE Additional Instructions: Patient was provided with discharge information including: As a person under investigation for Covid 19, the [place] department of Health and Human Services, division of public health advises you to adhere to the following guidance until your test results are reported to you. If your test result is positive, you will receive additional information from your provider and your local health department at that time. Remain at home until you are cleared by the health provider or public health authorities. Keep a log of visitors to your home, notify any visitors to your home of your isolation status. If you plan to move to a new address or leave the critical access hospital, notify the local health department in your County. Call your doctor or seek care if you have an urgent medical need. Before seeking medical care, call ahead to get instructions from the provider before arriving at the medical office clinic or hospital. Notify them that you are being tested for the virus that causes Covid 19 so that arrangements can be made, as necessary, to prevent transmission to others in the healthcare setting. Next, notify the local health department in your county. If a medical emergency arises and you need to call 911, inform the first responders that you are being tested for the virus that causes Covid 19. Next, notify the local health department in your county. Take albuterol 2 puffs inhalation every 4 hours for the next 4 days. Take all prednisone as prescribed. Follow-up with your primary doctor within 3 days. If you have any worsening shortness of breath, chest pain, dizziness, fainting, confusion, fever, productive cough, any other worsening or alarming symptoms return to the emergency department immediately. Prescriptions: Prednisone [Deltasone 20 mg Tablet] 2 tab PO DAILY 4 Days #8 tablet Referrals: NAHOMI BLACK FNP-C [Primary Care Provider] - Follow up in 3-5 days
== END 2020-03-01 07:17 | disposition home or self-care (01) ==
LOC: ER 03:15
DX: J44.9 Chronic obstructive pulmonary disease, unspecified (principal); R06.02 Shortness of breath; R05 Cough; I25.2 Old myocardial infarction; Z20.828 Contact with and (suspected) exposure to other viral communicable diseases
CPT/HCPCS: 94640; 99283; 87635; 87804; C9803

== ENCOUNTER 2020-05-07 23:24 | Emergency (ER) | payer MEDICAID ==
--- NOTE | 2020-05-08 00:16 | ER Document Report ---
ED General - General Stated Complaint: DIFFICULTY BREATHING Time Seen by Provider: 05/08/20 00:15 Primary Care Provider: NAHOMI BLACK FNP-C [Primary Care Provider] - Follow up as needed TRAVEL OUTSIDE OF THE [place] IN LAST 30 DAYS: No - HPI Notes: 35-year-old female presents with asthma attack. Patient has been having asthma exacerbation for the past 3 days. She is frequently coughing. She reports a history of severe asthma. She was administered nebulized treatment, 2 g magnesium and 125 Cymetra via EMS. She was also started on CPAP via EMS. HPI is limited at this time. - Related Data Allergies/Adverse Reactions: No Known Allergies Allergy (Verified 07/14/19 05:58) Past Medical History - General Information source: Patient - Social History Smoking Status: Unknown if Ever Smoked Drug Abuse: Cocaine Family History: DM, Hypertension, Other - Asthma, hepatitis C - Past Medical History Cardiac Medical History: Reports: Hx Heart Attack Denies: Hx Hypercholesterolemia, Hx Hypertension Pulmonary Medical History: Reports: Hx Asthma, Hx COPD, Hx Intubation - Multiple times, last time being July 2017, Hx Respiratory Failure Neurological Medical History: Denies: Hx Seizures Endocrine Medical History: Denies: Hx Diabetes Mellitus Type 1, Hx Diabetes Mellitus Type 2, Hx Hyperthyroidism, Hx Hypothyroidism Renal/ Medical History: Denies: Hx Peritoneal Dialysis GI Medical History: Denies: Hx Cirrhosis, Hx Hepatitis Musculoskeletal Medical History: Denies Hx Arthritis, Denies Hx Gout Skin Medical History: Denies Hx Eczema, Denies Hx Psoriasis Psychiatric Medical History: Denies: Hx Depression Infectious Medical History: Denies: Hx Hepatitis Past Surgical History: Reports: Other - Chest tube - Immunizations Hx Diphtheria, Pertussis, Tetanus Vaccination: Yes Review of Systems - Review of Systems Constitutional: denies: Fever EENT: No symptoms reported Cardiovascular: No symptoms reported Respiratory: Cough, Short of breath Gastrointestinal: No symptoms reported Genitourinary: No symptoms reported Female Genitourinary: No symptoms reported Musculoskeletal: No symptoms reported Skin: No symptoms reported Hematologic/Lymphatic: No symptoms reported Neurological/Psychological: No symptoms reported Physical Exam - Vital signs Vitals: Temp 98.7 F 05/07/20 23:25 - General General appearance: Appears well, Alert - HEENT Head: Normocephalic, Atraumatic Extraocular movements intact: Yes Pupils: PERRL - Respiratory Respiratory status: Tachypnea Breath sounds: Nonproductive cough - Multiple short frequent coughs in a row, patient is able to control and answer questions, then will restart again, Wheezing - Faint expiratory, Other - Overall very good air movement - Cardiovascular Rhythm: Tachycardia Heart sounds: Normal auscultation - Abdominal Tenderness: Nontender - Extremities General lower extremity: No: Edema - Neurological Neuro grossly intact: Yes Cognition: Normal Orientation: AAOx4 - Psychological Associated symptoms: Anxious - Skin Skin Temperature: Warm Course - Re-evaluation Re-evalutation: 35-year-old female history of asthma with frequent exacerbations here with asthma exacerbations, treatment initiated via EMS and she was also started on CPAP. On exam patient is tachypneic, however she has fairly good air movement in all pineda, some slight expiratory wheezing. She is coughing quite frequently which she does appear to have some control over. She is afebrile, tachycardic, hemodynamically stable. Will continue her on a BiPAP at this time, give another nebulized treatment. Check labs and chest x-ray. We will also obtain respiratory panel to see if any viral process is present. Past medical history indicates cocaine use, I have ordered a drug test to see if any drugs are present as this could be exacerbating her asthma. 05/08/20 01:21 Into reassess patient. She has great movement in all lung pineda. She appears to be more comfortable. Will trial another breathing treatment and then attempt to take her off BiPAP. 05/08/20 01:49 Patient does not feel that she needs BiPAP any longer Chest x-ray without consolidation. Labs grossly unremarkable. 05/08/20 02:25 Patient refused her additional neb treatment. I went into reassess, she is resting comfortably in bed. No tachypnea or labored breathing. She is 98% on room air. She states she feels comfortable going home. I discussed with her respiratory panel is still in progress, she will be called if anything abnormal results. I additionally advised her to stop use of cocaine as this can be very irritating to the lungs. Will prescribe prednisone burst. Return precautions given, stable at time of discharge. - Vital Signs Vital signs: Temp Pulse Resp BP Pulse Ox 98.6 F 30 H 151/107 H 97 05/07/20 23:26 05/08/20 02:00 05/08/20 02:00 05/08/20 02:00 - Laboratory Results Result Diagrams: 05/07/20 23:31 05/07/20 23:31 Laboratory Results Interpreted: 05/07/20 05/07/20 05/08/20 23:31 23:31 01:12 Eos % (Auto) 13.7 H Absolute Eos (auto) 0.9 H Seg Neutrophils % 40.3 L Carbon Dioxide 19 L Glucose 117 H Urine Blood SMALL H Ur Leukocyte Esterase TRACE H Critical Laboratory Results Reviewed: No Critical Results - Radiology Results Critical Radiology Results Reviewed: No Critical Results Discharge - Discharge Clinical Impression: Cocaine use Asthma with acute exacerbation Qualifiers: Asthma severity: unspecified severity Asthma persistence: persistent Qualified Code(s): J45.901 - Unspecified asthma with (acute) exacerbation Disposition: HOME, SELF-CARE Additional Instructions: Please begin steroid burst. Continue your inhalers as prescribed. Return to the emergency department for any concerning worsening symptoms. Prescriptions: Prednisone [Deltasone 20 mg Tablet] 2 tab PO DAILY 5 Days #10 tablet Referrals: NAHOMI BLACK FNP-C [Primary Care Provider] - Follow up as needed
[2020-05-08] MEDS ORDERED: IPRATROPIUM/ALBUTEROL 0.5-2.5 MG/3 ML AMPUL NEB ONE ×2 (00:23→01:48)
[2020-05-08] MEDS ORDERED: GUAIFENESIN/D-METHORPHAN (200-20 MG) SYRUP 10 ML PO ONE (00:23)
[2020-05-08] MEDS ORDERED: RINGERS SOLUTION,LACTATED 1,000 ML IV ONE (00:24)
[2020-05-08 00:40] LABS: ABSOLUTE BASOPHILS # (AUTO) 0.1 10^3/uL (0.0-0.2); ABSOLUTE EOSINOPHILS # (AUTO) 0.9 10^3/uL (0.0-0.6); ABSOLUTE LYMPHOCYTES (AUTO) 2.6 10^3/uL (0.5-4.7); ABSOLUTE MONOCYTES (AUTO) 0.6 10^3/uL (0.1-1.4); ABSOLUTE NEUT (AUTO) 2.8 10^3/uL (1.7-8.2); EOSINOPHILS % (AUTO) 13.7 % (0-6); HEMATOCRIT 39.7 % (36.0-47.0); HEMOGLOBIN 13.5 g/dL (12.0-15.5); LYMPHOCYTES % (AUTO) 36.8 % (13-45); MEAN CORPUSCULAR HEMOGLOBIN 31.4 pg (27.0-33.4); MEAN CORPUSCULAR HGB CONC 33.9 g/dL (32.0-36.0); MEAN CORPUSCULAR VOLUME 93 fl (80-97); MONOCYTES % (AUTO) 8.2 % (3-13); PLATELET COUNT 256 10^3/uL (150-450); RED BLOOD COUNT 4.29 10^6/uL (3.72-5.28); RED CELL DISTRIBUTION WIDTH 12.4 % (11.5-14.0); SEGMENTED NEUTROPHILS % (AUTO) 40.3 % (42-78); TOTAL CELLS COUNTED % (AUTO) 100 %; WHITE BLOOD COUNT 6.9 10^3/uL (4.0-10.5)
--- NOTE | 2020-05-08 01:03 | RADIOLOGY REPORT (SQ) ---
EXAM DESCRIPTION: XR CHEST 1 VIEW COMPLETED DATE/TME: 05/08/2020 00:41 CLINICAL HISTORY: 35 years Female, SOB COMPARISON:Mar 08 2019 NUMBER OF VIEWS/TECHNIQUE: 1/AP FINDINGS: Increased lung volume, clear parenchyma, normal cardiac silhouette, and intact bony thorax. IMPRESSION: No acute cardiopulmonary findings.
[2020-05-08 01:29] LABS: APPEARANCE,URINE CLEAR; BILIRUBIN,URINE NEGATIVE (NEGATIVE); COLOR,URINE YELLOW; GLUCOSE, URINE NEGATIVE (NEGATIVE); KETONES,URINE NEGATIVE (NEGATIVE); LEUKOCYTE ESTERASE,URINE TRACE (NEGATIVE); NITRITE,URINE NEGATIVE (NEGATIVE); PROTEIN,URINE NEGATIVE (NEGATIVE); URINE SPECIFIC GRAVITY 1.017; UROBILINOGEN,URINE NEGATIVE mg/dL (<2.0)
[2020-05-08 01:57] LABS: URINE AMPHETAMINES SCREEN NEGATIVE; URINE BARBITURATES SCREEN NEGATIVE; URINE BENZODIAZEPINES SCREEN NEGATIVE; URINE MARIJUANA (THC) SCREEN NEGATIVE; URINE METHADONE SCREEN NEGATIVE; URINE PHENCYCLIDINE SCREEN NEGATIVE
[2020-05-08 01:59] LABS: URINE COCAINE SCREEN UNCONFIRMED POSITIVE
[2020-05-08 02:04] LABS: ANION GAP 16 (5-19); BLOOD UREA NITROGEN 9 mg/dL (7-20); CARBON DIOXIDE 19 mmol/L (22-30); CHLORIDE 107 mmol/L (98-107); GLUCOSE 117 mg/dL (75-110); POTASSIUM 3.7 mmol/L (3.6-5.0)
[2020-05-08 02:48] VITALS: BP 157/114
== END 2020-05-08 02:48 | disposition home or self-care (01) ==
LOC: ER 23:24
DX: J45.901 Unspecified asthma with (acute) exacerbation (principal); F14.10 Cocaine abuse, uncomplicated; R00.0 Tachycardia, unspecified; R05 Cough; I25.2 Old myocardial infarction; J44.9 Chronic obstructive pulmonary disease, unspecified; Z20.822 Contact with and (suspected) exposure to COVID-19
CPT/HCPCS: 94640; 99284; 96360; 36415; 85025; 0202U ×23; 81025; 80048; 81001; 80307; 71045; J3490; J7120

== ENCOUNTER 2020-05-13 02:20 | Emergency (ER) | payer MEDICAID ==
[2020-05-13 02:40] LABS: ABSOLUTE BASOPHILS # (AUTO) 0.1 10^3/uL (0.0-0.2); ABSOLUTE EOSINOPHILS # (AUTO) 1.8 10^3/uL (0.0-0.6); ABSOLUTE LYMPHOCYTES (AUTO) 2.8 10^3/uL (0.5-4.7); ABSOLUTE MONOCYTES (AUTO) 1.1 10^3/uL (0.1-1.4); ABSOLUTE NEUT (AUTO) 4.6 10^3/uL (1.7-8.2); BASOPHILS % (AUTO) 0.9 % (0-2); EOSINOPHILS % (AUTO) 17.3 % (0-6); HEMATOCRIT 41.8 % (36.0-47.0); HEMOGLOBIN 14.5 g/dL (12.0-15.5); LYMPHOCYTES % (AUTO) 26.9 % (13-45); MEAN CORPUSCULAR HEMOGLOBIN 32.2 pg (27.0-33.4); MEAN CORPUSCULAR HGB CONC 34.7 g/dL (32.0-36.0); MEAN CORPUSCULAR VOLUME 93 fl (80-97); MONOCYTES % (AUTO) 10.6 % (3-13); PLATELET COUNT 249 10^3/uL (150-450); RED BLOOD COUNT 4.49 10^6/uL (3.72-5.28); RED CELL DISTRIBUTION WIDTH 12.7 % (11.5-14.0); SEGMENTED NEUTROPHILS % (AUTO) 44.3 % (42-78); TOTAL CELLS COUNTED % (AUTO) 100 %; WHITE BLOOD COUNT 10.3 10^3/uL (4.0-10.5)
[2020-05-13 02:50] LABS: ALBUMIN 4.2 g/dL (3.5-5.0); ALKALINE PHOSPHATASE 70 U/L (38-126); ANION GAP 10 (5-19); ASPARTATE AMINO TRANSFERASE 28 U/L (14-36); BILIRUBIN,DIRECT 0.2 mg/dL (0.0-0.4); BILIRUBIN,TOTAL 0.4 mg/dL (0.2-1.3); BLOOD UREA NITROGEN 8 mg/dL (7-20); CALCIUM 8.4 mg/dL (8.4-10.2); CARBON DIOXIDE 23 mmol/L (22-30); CHLORIDE 109 mmol/L (98-107); GLUCOSE 122 mg/dL (75-110); POTASSIUM 3.6 mmol/L (3.6-5.0); TOTAL PROTEIN 7.7 g/dL (6.3-8.2)
[2020-05-13] MEDS ORDERED: ALBUTEROL SULFATE 0.083% NEB 2.5 MG/3 ML AMPUL NEB ONE (02:59)
--- NOTE | 2020-05-13 03:05 | ER Document Report ---
ED General - General Chief Complaint: Breathing Difficulty Stated Complaint: DIFFICULTY BREATHING Time Seen by Provider: 05/13/20 02:54 Primary Care Provider: NAHOMI BLACK FNP-C [Primary Care Provider] - Follow up as needed TRAVEL OUTSIDE OF THE [place] IN LAST 30 DAYS: No - HPI Context: Chief Complaint: [Shortness of breath] [35-year-old female with a reported history of COPD and asthma presents to the emergency department complaint of shortness of breath. Patient states that her symptoms have been present on and off for almost a week. Patient states that she was seen in this emergency department approximately 6 days ago for the same symptoms. Patient states that she was told that she was found to have cocaine in her system. Patient states that she does not know how it got there because she "does not smoke anything." Patient denies fever, chills, history of COVID- 19 infection, known exposure to COVID-19 positive persons, known exposure to persons under investigation for COVID-19, loss of sense of taste or loss of sense of smell. Patient was given 2 g of magnesium IV and 125 Solu-Medrol in route by EMS. Patient has already done 3 home albuterol nebulizer treatments prior to presentation. ] History obtained from [patient] Symptoms began:[6 days ago] Onset: [Gradual] Timing: [Gradual] Quality: [Sensation of dyspnea and chest tightness] Intensity: [Severe per patient] Location: [Lungs] Radiation: [Denies] [The pain does not migrate to a new location.] Aggravating factors: [Exertion] Relieving factors: [none] Positive SOB [Denies] nausea [Denies] vomiting [Denies] sweats [Denies] fever [Denies] cough [Denies] calf or leg swelling or pain - Related Data Allergies/Adverse Reactions: No Known Allergies Allergy (Verified 07/14/19 05:58) Home Medications: albuterol Past Medical History - General Information source: Patient - Social History Smoking Status: Never Smoker Frequency of alcohol use: daily Drug Abuse: None Family History: DM, Hypertension, Other - Asthma, hepatitis C Patient has homicidal ideation: No - Past Medical History Cardiac Medical History: Reports: Hx Heart Attack Denies: Hx Hypercholesterolemia, Hx Hypertension Pulmonary Medical History: Reports: Hx Asthma, Hx COPD, Hx Intubation - Multiple times, last time being July 2017, Hx Respiratory Failure Neurological Medical History: Denies: Hx Seizures Endocrine Medical History: Denies: Hx Diabetes Mellitus Type 1, Hx Diabetes Mellitus Type 2, Hx Hyperthyroidism, Hx Hypothyroidism Renal/ Medical History: Denies: Hx Peritoneal Dialysis GI Medical History: Denies: Hx Cirrhosis, Hx Hepatitis Musculoskeletal Medical History: Denies Hx Arthritis, Denies Hx Gout Skin Medical History: Denies Hx Eczema, Denies Hx Psoriasis Psychiatric Medical History: Denies: Hx Depression Infectious Medical History: Denies: Hx Hepatitis Past Surgical History: Reports: Other - Chest tube - Immunizations Hx Diphtheria, Pertussis, Tetanus Vaccination: Yes Review of Systems - Review of Systems Notes: Review of systems as below unless otherwise stated in HPI. CONSTITUTIONAL [No] fever, [No] chills. EYES [No] eye pain. ENT [No] URI symptoms, [No] sore throat, [No] ear pain. CARDIOVASCULAR [No] chest pain, [No] palpitations, [No] edema. RESPIRATORY [No] Cough, positive SOB, positive wheezing. GASTROINTESTINAL [No] abdominal pain, [No] nausea, [No] Diarrhea, [No] Vomiting, [No] consti pation, [No] melena, [No] rectal bleeding. GENITOURINARY [No] dysuria, [No] urinary frequency, [No] hematuria, [No] urinary urgency, [No] vaginal discharge, [No] vaginal bleeding. MUSCULOSKELETAL [No] Back pain. SKIN [No] Rash. NEUROLOGIC [No] Headache, [No] recent seizures, [No] paralysis,[No] parathesias. ENDOCRINE [No] polyuria. HEMO/LYMPATIC [No] easy brusing PSYCHIATRIC [No] depression. Physical Exam - Vital signs Vitals: Pulse Ox 100 05/13/20 02:18 - Notes Notes: CONSTITUTIONAL [Vital signs reviewed, Patient appears mildly uncomfortable with increased work of breathing but does not appear to be in acute respiratory distress, alert and oriented X 3, Normal stature.] HEAD [Atraumatic, Normocephalic.] EYES [Eyes are normal to inspection, No discharge from eyes, Extraocular muscles intact, Sclera are normal, Conjunctiva are normal.] ENT [External ears normal to inspection, Nose examination normal, Mouth normal to inspection.] NECK [Normal ROM, No jugular venous distention, No meningeal signs, ] RESPIRATORY CHEST [Chest is nontender, wheezing is present throughout all lung pineda, positive tachypnea] CARDIOVASCULAR Tachycardia no murmurs, Normal S1 S2, No rub, No gallop.] ABDOMEN [Abdomen is nontender, No pulsatile masses, No other masses, Bowel sounds normal, No distension, No peritoneal signs, No hernias.] BACK [There is no CVA Tenderness, There is no tenderness to palpation, Normal inspection.] UPPER EXTREMITY [Inspection normal, No cyanosis, No clubbing, No edema, LOWER EXTREMITY [Inspection normal, No cyanosis, No clubbing, No edema, No calf tenderness, NEURO [No focal motor deficits, No focal sensory deficits, Speech normal.] SKIN [Skin is warm, Skin is dry, Skin is normal color.] PSYCHIATRIC [Normal affect. ] Course - Re-evaluation Re-evalutation: 05/13/20 03:07 Differential diagnosis: Asthma exacerbation, COPD exacerbation, pneumonia, smok ing illegal or illicit substances, COPD or asthma flare from secondary smoke exposure 05/13/20 04:40 Medical decision making: Patient's wheezing has almost completely resolved after receiving 3 rounds of continuous albuterol nebs here in the emergency department. Given the patient's positive response to Solu-Medrol, magnesium and continuous albuterol nebs, patient symptoms seem most consistent consistent with an asthma exacerbation. Patient's chest x-ray is clear so I do not think the patient needs any antibiotic therapy. Patient breast-feeds; prednisone is considered safe during breast-feeding so I will write patient prescription for 4 days of prednisone, 60 mg a day. I will also send the patient home with a albuterol MDI and a prescription to excelsior picker another one at her pharmacy with her prednisone. 05/13/20 04:41 Results of ED MSE discussed with patient. All questions were answered prior to discharge. Emergency signs and symptoms, reasons to return to the emergency department discussed with patient. - Vital Signs Vital signs: Temp Pulse Resp BP Pulse Ox 98.2 F 126 H 21 H 147/103 H 98 05/13/20 05:22 05/13/20 02:31 05/13/20 05:01 05/13/20 05:00 05/13/20 05:01 - Laboratory Results Result Diagrams: 05/13/20 02:26 05/13/20 02:26 Laboratory Results Interpreted: 05/13/20 05/13/20 05/13/20 02:26 02:26 03:29 Eos % (Auto) 17.3 H Absolute Eos (auto) 1.8 H Chloride 109 H Creatinine 0.51 L Glucose 122 H Urine Blood MODERATE H Critical Laboratory Results Reviewed: No Critical Results Attending or Supervising Physician who Reviewed Labs: DERIAN REARDON IV - Radiology Results Critical Radiology Results Reviewed: No Critical Results Attending or Supervising Physician who Reviewed Radiology: DERIAN REARDON IV - EKG Interpretation by Me Additional EKG results interpreted by me: 05/13/20 04:54 EKG obtained on 05/13/2020 and 0 to 44 hours was interpreted by this MD. Findings: Sinus tachycardia, rate 133, normal axis, OR interval appears to be within normal limits, P waves preceding QRS complexes, QRS complexes appear narrow, QTC is 459, there are no obvious patterns of ST segment elevation, depression or reciprocal changes seen to suggest acute myocardial ischemia or infarction. There is no prior EKG available for comparison. Impression: Sinus tachycardia with nonspecific ST segments. Discharge - Discharge Clinical Impression: Acute asthma exacerbation Qualifiers: Asthma severity: unspecified severity Asthma persistence: unspecified Qualified Code(s): J45.901 - Unspecified asthma with (acute) exacerbation Condition: Stable Disposition: HOME, SELF-CARE Instructions: Asthma ([facility]) Additional Instructions: Return to the Emergency Department without delay if any worse. HOME CARE INSTRUCTIONS & INFORMATION: Thank you for choosing us for your medical needs. We hope you're satisfied with the care you received. After you leave, you must properly care for your problem and, at the same time, observe its progress. Any condition can change. Some illnesses can change rapidly over hours or days. If your condition worsens, return to the Emergency Department or see your physician promptly. ABOUT YOUR X-RAYS AND EKG'S: If you had an EKG or X-rays taken, they have been read by the Emergency Physician. The X-rays and EKG's will also be read by a Radiologist or Analytical Clerk within 24 hours. If discrepancies are noted, you will be notified by telephone. Please be certain the ED has a correct telephone number & address where you can be reached. Also, realize that some fractures or abnormalities do not show up on initial X-rays. If your symptoms continue, see your physician. ABOUT YOUR LABORATORY TEST: If you had laboratory tests, the results have been reviewed by the Emergency Physician. Some test results (for example cultures) may not be available for several days. You will be contacted if any test result shows you need additional treatment. Please be certain the ED has a correct telephone number and address where you can be reached. ABOUT YOUR MEDICATIONS: You will receive instructions on how to take your medicine on the prescription label you receive. Additional information may be provided by the Pharmacy. If you have questions afterwards, call the ED for clarification or further instructions. Some prescribed medications may cause drowsiness. Do not perform tasks such as driving a car or operating machinery without consulting your Pharmacist. If you feel you need a refill of pain medication, your condition will need re-evaluation. Please do not call for a refill of any medication. ABOUT YOUR SIGNATURE: Signature of this document acknowledges to followin. Understanding that you received emergency treatment and that you may be re leased before al medical problems are known or treated. Please be certain the ED has a correct phone number & address where you can be reached. 2. Acknowledgement that you will arrange for follow-up care as recommended. 3. Authorization for the Emergency Physician to provide information to your follow-up Physician in order to maximize your care. AT ANY TIME, IF YOUR SYMPTOMS CHANGE SIGNIFICANTLY OR WORSEN OR YOU DEVELOP NEW SYMPTOMS, RETURN TO THE EMERGENCY DEPARTMENT IMMEDIATELY FOR RE-EVALUATION. OUR GOAL IS TO PROVIDE EXCELLENT MEDICAL CARE! WE HOPE THAT WE HAVE MET YOUR EXPECTATIONS DURING YOUR EMERGENCY DEPARTMENT VISIT AND THAT YOU FEEL YOU HAVE RECEIVED EXCELLENT CARE! Prescriptions: Prednisone [Deltasone 20 mg Tablet] 3 tab PO DAILY 4 Days #12 tablet Referrals: NAHOMI BLACK FNP-C [Primary Care Provider] - Follow up as needed
--- NOTE | 2020-05-13 03:40 | RADIOLOGY REPORT (SQ) ---
CLINICAL HISTORY: SOB COMPARISON: 05/08/2020. 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 Lungs are clear without consolidation, atelectasis, mass or edema. There is no pleural effusion. There is no pneumothorax. There are no acute osseous findings. IMPRESSION: Clear lungs.
[2020-05-13 03:42] LABS: APPEARANCE,URINE CLEAR; BILIRUBIN,URINE NEGATIVE (NEGATIVE); COLOR,URINE STRAW; GLUCOSE, URINE NEGATIVE (NEGATIVE); KETONES,URINE NEGATIVE (NEGATIVE); LEUKOCYTE ESTERASE,URINE NEGATIVE (NEGATIVE); NITRITE,URINE NEGATIVE (NEGATIVE); PROTEIN,URINE NEGATIVE (NEGATIVE); URINE SPECIFIC GRAVITY 1.012; UROBILINOGEN,URINE NEGATIVE mg/dL (<2.0)
[2020-05-13] MEDS ORDERED: ALBUTEROL SULFATE HFA (90 MCG/PUFF) 8 GM MDI (1 MDI/ER DISP) IH PRN (04:46)
[2020-05-13 05:07] VITALS: BP 147/103
--- NOTE | 2020-05-13 20:31 | EKG REPORT ---
SEVERITY:- BORDERLINE ECG - SINUS TACHYCARDIA PROBABLE LEFT ATRIAL ABNORMALITY : Confirmed by: Hien Kemp MD 13-May-2020 20:30:56
== END 2020-05-13 05:23 | disposition home or self-care (01) ==
LOC: ER 02:20
DX: J45.901 Unspecified asthma with (acute) exacerbation (principal); J44.9 Chronic obstructive pulmonary disease, unspecified; R06.02 Shortness of breath; R00.0 Tachycardia, unspecified; I25.2 Old myocardial infarction; Z79.899 Other long term (current) drug therapy
CPT/HCPCS: 93005; 94640; 99285; 36415; 85025; 81025; 80053; 81001; 71045; 93010; J7613; J3490

== ENCOUNTER 2020-05-15 21:11 | Inpatient (IN) | payer MEDICAID ==
[2020-05-15] MEDS ORDERED: ALBUTEROL SULFATE 0.083% NEB 2.5 MG/3 ML AMPUL NEB ONE ×2 (21:18)
[2020-05-15] MEDS ORDERED: EPINEPHRINE INJ/PF 1 MG/1 ML AMPULE IM ONE (21:19)
[2020-05-15] MEDS ORDERED: NORMAL SALINE 1000 ML 1,000 ML IV ONE (21:19)
--- NOTE | 2020-05-15 21:25 | ER Document Report ---
ED Respiratory Problem - General Chief Complaint: Shortness Of Breath Stated Complaint: RESPIRATORY DISTRESS Time Seen by Provider: 05/15/20 21:18 Notes: Patient is a 35-year-old female who comes emergency department for chief complaint of difficulty breathing, cough, wheezing, asthma exacerbation. She comes by EMS. Patient did not have a fever and was not hypoxic but was noted to be in respiratory distress, patient has been given 3 DuoNeb's, 2 g of magnesium, 125 mg of Solu-Medrol. Patient was transitioned from CPAP to BiPAP on arrival. Patient initially with difficulty speaking in full sentences or answering questions. Patient denies recent COVID-19 exposures, she denies recent hospitalizations although she has had 2 visits to the emergency department for asthma exacerbation within the past week. She has been intubated in the past for asthma exacerbations. She denies smoking. She denies any recent COVID-19 exposures, she has not been tested for it. TRAVEL OUTSIDE OF THE [place] IN LAST 30 DAYS: No - Related Data Allergies/Adverse Reactions: No Known Allergies Allergy (Verified 07/14/19 05:58) Past Medical History - General Information source: Patient - Social History Smoking Status: Never Smoker Drug Abuse: Cocaine Lives with: Family Family History: DM, Hypertension, Other - Asthma, hepatitis C - Past Medical History Cardiac Medical History: Reports: Hx Heart Attack Denies: Hx Hypercholesterolemia, Hx Hypertension Pulmonary Medical History: Reports: Hx Asthma, Hx COPD, Hx Intubation - Multiple times, last time being July 2017, Hx Respiratory Failure Neurological Medical History: Denies: Hx Seizures Endocrine Medical History: Denies: Hx Diabetes Mellitus Type 1, Hx Diabetes Mellitus Type 2, Hx Hyperthyroidism, Hx Hypothyroidism Renal/ Medical History: Denies: Hx Peritoneal Dialysis GI Medical History: Denies: Hx Cirrhosis, Hx Hepatitis Musculoskeletal Medical History: Denies Hx Arthritis, Denies Hx Gout Skin Medical History: Denies Hx Eczema, Denies Hx Psoriasis Psychiatric Medical History: Denies: Hx Depression Infectious Medical History: Denies: Hx Hepatitis Past Surgical History: Reports: Other - Chest tube - Immunizations Hx Diphtheria, Pertussis, Tetanus Vaccination: Yes Review of Systems - Review of Systems Constitutional: No symptoms reported EENT: No symptoms reported Cardiovascular: No symptoms reported Respiratory: See HPI Gastrointestinal: No symptoms reported Genitourinary: No symptoms reported Female Genitourinary: No symptoms reported Musculoskeletal: No symptoms reported Skin: No symptoms reported Hematologic/Lymphatic: No symptoms reported Neurological/Psychological: No symptoms reported Physical Exam - Vital signs Vitals: Resp Pulse Ox 24 H 100 05/15/20 21:15 05/15/20 21:15 - Notes Notes: GENERAL: Alert and cooperative but appears to be in obvious distress HEAD: Normocephalic, atraumatic. EYES: Pupils equal, round, and reactive to light. Extraocular movements intact. ENT: Oral mucosa moist, tongue midline. Oropharynx unremarkable. Airway patent. NECK: Full range of motion. Supple. Trachea midline. No lymphadenopathy. LUNGS: Expiratory and expiratory wheezes throughout, tachypnea, labored breathing, unable to speak in full sentences. No signs of trauma to the chest wall. HEART: Tachycardia, normal rhythm, no murmur ABDOMEN: Soft, non-tender. Non-distended. EXTREMITIES: Moves all 4 extremities spontaneously. No edema, normal radial and dorsalis pedis pulses bilaterally. No cyanosis. BACK: no cervical, thoracic, lumbar midline tenderness. No saddle anesthesia, normal distal neurovascular exam. Moves all extremities in full range of motion. NEUROLOGICAL: Alert and oriented x3. Normal speech. Cranial nerves II through XII grossly intact. Strength 5/5 in all extremities. PSYCH: Slightly agitated but cooperative SKIN: Warm, dry, normal turgor. No rashes or lesions noted. Course - Re-evaluation Re-evalutation: Initial evaluation patient in respiratory distress, transition to BiPAP, placed on continuous nebs, given IV fluids. She is tachycardic but not hypoxic. She has obvious infiltrate and expiratory wheezing throughout with frequent bronchospasm apparent. I offered to give patient ketamine but she states she hates how this makes her feel and she would prefer to try without. She will be closely monitored. 05/15/20 22:05 Patient is significantly improved on reevaluation after continuous nebs and BiPAP. Respiratory rate significantly reduced, respiratory distress resolved, patient still has inspiratory and expiratory wheezes but is able to speak in full sentences. Wheezing has reduced and she does have clearer lung sounds. Chest x-ray unremarkable, CBC shows elevation of neutrophils but otherwise unremarkable, chemistry nonspecific, test negative, troponin is not elevated, EKG shows tachycardia but otherwise unremarkable. Patient is persistently hypertensive and slightly anxious, giving Ativan, drug screen performed. On evaluation patient without significant change from prior, still has a lot of wheezing. This is her third visit for asthma exacerbation within a week and she does not appear to have good resolution at this time. Will discuss with hospitalist for admission, patient states understanding and agreement with plan. Patient has been discussed with Dr. Elizondo. 05/15/[address] Stone, patient accepted to [facility] full admission. - Vital Signs Vital signs: Temp Pulse Resp BP Pulse Ox 21 H 196/133 H 100 05/15/20 21:45 05/15/20 21:45 05/15/20 21:45 - Laboratory Results Result Diagrams: 05/15/20 21:18 05/15/20 21:18 Laboratory Results Interpreted: 05/15/20 05/15/20 05/15/20 21:18 21:18 21:18 Eos % (Auto) 17.4 H Absolute Eos (auto) 1.4 H Seg Neutrophils % 36.6 L VBG pH 7.24 L Glucose 118 H Total Protein 8.4 H Critical Laboratory Results Reviewed: No Critical Results - Radiology Results Critical Radiology Results Reviewed: No Critical Results - EKG Interpretation by Me Additional EKG results interpreted by me: EKG shows sinus tachycardia at a rate of 116, QTc 451, normal axis, no T wave inversions or ST segment changes in consecutive leads Discharge - Discharge Clinical Impression: Respiratory distress, Wheezing Asthma exacerbation Qualifiers: Asthma severity: severe Asthma persistence: persistent Qualified Code(s): J45.51 - Severe persistent asthma with (acute) exacerbation Condition: Stable Disposition: ADMITTED INPATIENT Admitting Provider: Unit Admitted: [facility]
[2020-05-15 21:39] LABS: ABSOLUTE BASOPHILS # (AUTO) 0.1 10^3/uL (0.0-0.2); ABSOLUTE EOSINOPHILS # (AUTO) 1.4 10^3/uL (0.0-0.6); ABSOLUTE LYMPHOCYTES (AUTO) 2.7 10^3/uL (0.5-4.7); ABSOLUTE MONOCYTES (AUTO) 0.9 10^3/uL (0.1-1.4); ABSOLUTE NEUT (AUTO) 2.9 10^3/uL (1.7-8.2); BASOPHILS % (AUTO) 0.8 % (0-2); EOSINOPHILS % (AUTO) 17.4 % (0-6); HEMATOCRIT 40.3 % (36.0-47.0); MEAN CORPUSCULAR HEMOGLOBIN 32.4 pg (27.0-33.4); MEAN CORPUSCULAR HGB CONC 34.8 g/dL (32.0-36.0); MEAN CORPUSCULAR VOLUME 93 fl (80-97); MONOCYTES % (AUTO) 11.2 % (3-13); PLATELET COUNT 242 10^3/uL (150-450); RED BLOOD COUNT 4.32 10^6/uL (3.72-5.28); RED CELL DISTRIBUTION WIDTH 12.6 % (11.5-14.0); SEGMENTED NEUTROPHILS % (AUTO) 36.6 % (42-78); TOTAL CELLS COUNTED % (AUTO) 100 %; WHITE BLOOD COUNT 7.9 10^3/uL (4.0-10.5)
[2020-05-15 21:40] LABS: VENOUS BLOOD BASE EXCESS -4.9 mmol/L; VENOUS BLOOD HCO3 23.4 mmol/L (20-32); VENOUS BLOOD PCO2 56.4 mmHg (35-63); VENOUS BLOOD PH 7.24 (7.30-7.42)
--- NOTE | 2020-05-15 21:53 | EKG REPORT ---
SEVERITY:- ABNORMAL ECG - SINUS TACHYCARDIA BIATRIAL ABNORMALITIES : Confirmed by: Jose Zafar MD 15-May-2020 21:52:23
[2020-05-15 21:59] LABS: ALBUMIN 4.7 g/dL (3.5-5.0); ALKALINE PHOSPHATASE 77 U/L (38-126); ANION GAP 11 (5-19); ASPARTATE AMINO TRANSFERASE 28 U/L (14-36); BILIRUBIN,DIRECT 0.3 mg/dL (0.0-0.4); BILIRUBIN,TOTAL 0.3 mg/dL (0.2-1.3); BLOOD UREA NITROGEN 10 mg/dL (7-20); CALCIUM 9.2 mg/dL (8.4-10.2); CARBON DIOXIDE 27 mmol/L (22-30); CHLORIDE 106 mmol/L (98-107); GLUCOSE 118 mg/dL (75-110); TOTAL PROTEIN 8.4 g/dL (6.3-8.2)
--- NOTE | 2020-05-15 22:21 | RADIOLOGY REPORT (SQ) ---
EXAM DESCRIPTION: XR CHEST 1 VIEW COMPLETED DATE/TME: 05/15/2020 22:03 CLINICAL HISTORY: 35 years, Female, difficulty breathing COMPARISON: 05/13/2020 chest NUMBER OF VIEWS: 1 TECHNIQUE: Portable chest LIMITATIONS: None. FINDINGS: The heart size is normal. The lungs are clear. No pneumothorax IMPRESSION: Negative chest copyright 2010 [employer] [facility]- All Rights Reserved
[2020-05-15] MEDS ORDERED: LORAZEPAM INJ 2 MG/1 ML VIAL IV ONE (22:36)
[2020-05-16] MEDS ORDERED: METHYLPREDNISOLONE INJ 125 MG/2 ML SDV IV SCH ×2 (00:30→14:00)
[2020-05-16] MEDS ORDERED: ACETAMINOPHEN 325 MG TABLET PO PRN (00:32)
[2020-05-16 00:54] LABS: URINE AMPHETAMINES SCREEN NEGATIVE; URINE BARBITURATES SCREEN NEGATIVE; URINE BENZODIAZEPINES SCREEN NEGATIVE; URINE COCAINE SCREEN NEGATIVE; URINE MARIJUANA (THC) SCREEN NEGATIVE; URINE METHADONE SCREEN NEGATIVE; URINE PHENCYCLIDINE SCREEN NEGATIVE
--- NOTE | 2020-05-16 02:42 | PDOC H&P ---
History of Present Illness Admission Date/PCP: 05/15/20 23:00 Patient complains of: Shortness of breath History of Present Illness: SHERLYN GALLOWAY is a 35 year old femal patient has history of asthma for several years. She is being intubated in the past. She has a history of pneumothorax which required a chest tube in the past. She is not fully compliant with her asthma medications. She has frequent emergency department visits. She came to the emergency department because of increasing shortness of breath and wheezing. She called ambulance. She received nebulizer treatment and Solu-Medrol. In the emergency department she received more bronchodilators. She had significant wheezing. She was placed on BiPAP. She was improving with BiPAP. The patient does not want to be intubated, she would agree only as a last resort. When I saw her she was on the BiPAP and she was started feeling better. She maintained oxygen saturation 100% on BiPAP. She denies any additional complaints beside wheezing and shortness of breath. She had no fever. No sore throat. No sputum production. Past Medical History Cardiac Medical History: Denies: Hyperlipidema, Hypertension Pulmonary Medical History: Reports: Asthma, Chronic Obstructive Pulmonary Disease (COPD), Intubation - Multiple times, last time being July 2017, Respiratory Failure Neurological Medical History: Denies: Seizures Endocrine Medical History: Denies: Diabetes Mellitus Type 1, Diabetes Mellitus Type 2, Hyperthyroidism, Hypothyroidism GI Medical History: Denies: Cirrhosis, Hepatitis Musculoskeltal Medical History: Denies: Arthritis, Gout Skin Medical History: Denies: Eczema, Psoriasis Psychiatric Medical History: Denies: Depression Hematology: Denies: Anemia, Bleeding Tendencies Past Surgical History Past Surgical History: Reports: Other - Chest tube Social History Lives with: Family Smoking Status: Never Smoker Frequency of Alcohol Use: Rare Hx Recreational Drug Use: No Drugs: None Hx Prescription Drug Abuse: No Family History Family History: DM, Hypertension, Other - Asthma, hepatitis C Parental Family History Reviewed: Yes Children Family History Reviewed: Yes Sibling(s) Family History Reviewed.: Yes Medication/Allergy Home Medications: Albuterol Sulfate [Ventolin 0.083% Neb 2.5 mg/3 mL Ampul] 1 vial NEB RTTID 12/01/18 Tiotropium [place] [Spiriva Handihaler 5 Cap/Kit (18 Mcg/Cap)] 1 cap IH DAILY kit 12/03/18 Vit/Dha [ Multi + Dha Capsule] 1 cap PO DAILY capsule 01/30/19 Albuterol Sulfate [Proair HFA Inhalation Aerosol 8.5 gm MDI] 2 puff IH Q6HP PRN #1 inhaler 03/09/19 Budesonide/Formoterol Fumarate [Symbicort HFA 160-4.5 mcg Inhaler 6 gm] 2 puff IH Q12 #1 inhaler 03/09/19 Montelukast Sodium [Singulair 10 mg Tablet] 10 mg PO QHS #30 tablet 03/09/19 Prednisone [Deltasone 20 mg Tablet] 2 tab PO DAILY 4 Days #8 tablet 03/01/20 Prednisone [Deltasone 20 mg Tablet] 2 tab PO DAILY 5 Days #10 tablet 05/08/20 Prednisone [Deltasone 20 mg Tablet] 3 tab PO DAILY 4 Days #12 tablet 05/13/20 Allergies/Adverse Reactions: No Known Allergies Allergy (Verified 07/14/19 05:58) Review of Systems Constitutional: ABSENT: chills, fever(s), headache(s), weight gain, weight loss Eyes: ABSENT: visual disturbances Ears: ABSENT: hearing changes Cardiovascular: ABSENT: chest pain, dyspnea on exertion, edema, orthropnea, palpitations Respiratory: PRESENT: cough - I, dyspnea, other - Wheezing Gastrointestinal: ABSENT: abdominal pain, constipation, diarrhea, hematemesis, hematochezia, nausea, vomiting Integumentary: ABSENT: rash, wounds Psychiatric: ABSENT: depression Physical Exam Vital Signs: Temp Pulse Resp BP Pulse Ox 20 155/106 H 100 05/16/20 01:00 05/16/20 01:00 05/16/20 01:00 Intake & Output 05/14/20 05/15/20 05/16/20 06:59 06:59 06:59 Intake Total 1000 Balance 1000 Weight 56.699 kg General appearance: PRESENT: other - Moderate distress Head exam: PRESENT: atraumatic, normocephalic Eye exam: PRESENT: conjunctiva pink, EOMI, PERRLA. ABSENT: scleral icterus Ear exam: PRESENT: normal external ear exam Neck exam: ABSENT: carotid bruit, JVD, lymphadenopathy, thyromegaly Respiratory exam: PRESENT: prolonged expiratory phas, rhonchi, wheezes Cardiovascular exam: PRESENT: tachycardia - Around 110/min Pulses: PRESENT: normal dorsalis pedis pul Vascular exam: PRESENT: normal capillary refill GI/Abdominal exam: PRESENT: normal bowel sounds, soft. ABSENT: distended, guarding, mass, organolmegaly, rebound, tenderness Rectal exam: PRESENT: deferred Extremities exam: PRESENT: full ROM. ABSENT: calf tenderness, clubbing, pedal edema Neurological exam: PRESENT: alert, oriented to person, oriented to place, oriented to time, oriented to situation Skin exam: ABSENT: rash Results Laboratory Results: 05/15/20 21:18 05/15/20 21:18 05/15/20 05/15/20 05/15/20 21:18 21:18 21:18 WBC 7.9 RBC 4.32 Hgb 14.0 Hct 40.3 MCV 93 MCH 32.4 MCHC 34.8 RDW 12.6 Plt Count 242 Seg Neutrophils % 36.6 L VBG pH VBG pCO2 VBG HCO3 VBG Base Excess Sodium 144.0 Potassium 4.0 Chloride 106 Carbon Dioxide 27 Anion Gap 11 BUN 10 Creatinine 0.78 Est GFR ( Amer) > 60 Glucose 118 H Calcium 9.2 Total Bilirubin 0.3 AST 28 Alkaline Phosphatase 77 Total Protein 8.4 H Albumin 4.7 Serum HCG, Qual NEGATIVE 05/15/20 21:18 WBC RBC Hgb Hct MCV MCH MCHC RDW Plt Count Seg Neutrophils % VBG pH 7.24 L VBG pCO2 56.4 VBG HCO3 23.4 VBG Base Excess -4.9 Sodium Potassium Chloride Carbon Dioxide Anion Gap BUN Creatinine Est GFR ( Amer) Glucose Calcium Total Bilirubin AST Alkaline Phosphatase Total Protein Albumin Serum HCG, Qual 05/15/20 21:18 Troponin I < 0.012 EKG Comments: Sinus tachycardia with a rate of 116/min. Impressions: Chest X-Ray 05/15/20 21:22 IMPRESSION: Negative chest copyright 2010 [employer]- All Rights Reserved Assessment and Plan - Diagnosis (1) Acute respiratory failure with hypoxia Is this a current diagnosis for this admission?: Yes Plan: Secondary to asthma exacerbation. The patient is on BiPAP. Her respiratory status is improving, oxygen saturation 100%. Hopefully she can be weaned off BiPAP in the morning. She does not wish to be intubated only as a last resort. (2) Asthma exacerbation Qualifiers: Asthma severity: severe Asthma persistence: persistent Qualified Code(s): J45.51 - Severe persistent asthma with (acute) exacerbation Is this a current diagnosis for this admission?: Yes Plan: Continue intravenous Solu-Medrol. Continue albuterol regularly scheduled and as needed. Continue respiratory support. DVT prophylaxis. No sign of bacterial infection, antibiotic therapy is not indicated at this point. - Plan Summary Summary: Patient was admitted to intermediate care unit with acute hypoxic respiratory failure secondary to asthma exacerbation. - Time Time Spent with patient: 35 or more minutes Medications reviewed and adjusted accordingly: Yes Anticipated Discharge Disposition: Home, Self Care Anticipated Discharge Timeframe: within 72 hours - Inpatient Certification Based on my medical assessment, after consideration of the patient's comorbidities, presenting symptoms, or acuity I expect that the services needed warrant INPATIENT care.: Yes I certify that my determination is in accordance with my understanding of Medicare's requirements for reasonable and necessary INPATIENT services [42 CFR 412.3e].: Yes Medical Necessity: Failure to Improve With Outpatient Therapy, Need Close Monitoring Due to Risk of Patient Decompensation, Need for Nebulizer Therapy and Monitoring of Response
[2020-05-16] MEDS: ALBUTEROL SULFATE 0.083% NEB 2.5 MG/3 ML AMPUL NEB SCH ×3 (02:45→14:25)
[2020-05-16] MEDS ORDERED: METHYLPREDNISOLONE INJ 125 MG/2 ML SDV IV ONE (03:00)
[2020-05-16 05:40] LABS: ABSOLUTE LYMPHOCYTES (AUTO) 0.3 10^3/uL (0.5-4.7); ABSOLUTE NEUT (AUTO) 5.3 10^3/uL (1.7-8.2); BASOPHILS % (AUTO) 0.2 % (0-2); EOSINOPHILS % (AUTO) 0.1 % (0-6); HEMATOCRIT 38.7 % (36.0-47.0); LYMPHOCYTES % (AUTO) 5.9 % (13-45); MEAN CORPUSCULAR HEMOGLOBIN 31.6 pg (27.0-33.4); MEAN CORPUSCULAR HGB CONC 33.7 g/dL (32.0-36.0); MEAN CORPUSCULAR VOLUME 94 fl (80-97); MONOCYTES % (AUTO) 0.7 % (3-13); PLATELET COUNT 186 10^3/uL (150-450); RED BLOOD COUNT 4.13 10^6/uL (3.72-5.28); RED CELL DISTRIBUTION WIDTH 12.9 % (11.5-14.0); SEGMENTED NEUTROPHILS % (AUTO) 93.1 % (42-78); TOTAL CELLS COUNTED % (AUTO) 100 %; WHITE BLOOD COUNT 5.7 10^3/uL (4.0-10.5)
[2020-05-16 05:48] LABS: ANION GAP 11 (5-19); BLOOD UREA NITROGEN 8 mg/dL (7-20); CALCIUM 8.8 mg/dL (8.4-10.2); CARBON DIOXIDE 21 mmol/L (22-30); CHLORIDE 106 mmol/L (98-107); GLUCOSE 215 mg/dL (75-110)
[2020-05-16 07:07] LABS: ARTERIAL BLOOD BASE EXCESS -3.2 mmol/L; ARTERIAL BLOOD FIO2 28%; ARTERIAL BLOOD H2CO3 1.18 mmol/L (1.05-1.35); ARTERIAL BLOOD HCO3 21.8 mmol/L (20-24); ARTERIAL BLOOD O2 SATURATION 96.4 % (94-98); ARTERIAL BLOOD PCO2 39.1 mmHg (35-45); ARTERIAL BLOOD PH 7.37 (7.35-7.45); ARTERIAL BLOOD PO2 87.3 mmHg (80-100)
[2020-05-16] MEDS ORDERED: ENOXAPARIN SODIUM INJ 40 MG/0.4 ML DISP.SYRIN SUBCUT SCH (10:00)
--- NOTE | 2020-05-16 15:56 | PDOC DISCHARGE SUMMARY ---
Impression - Admit/DC Date/PCP Admission Date/Primary Care Provider: 05/15/20 23:00 Discharge Date: 05/16/20 - Assessment Summary: Patient is a known asthmatic with poor medication compliance, prior history of intubation 2/2 Asthma who was admitted due to asthma exacerbation. Chest XR did not show any acute process and she improved with IV steroids and neb treatments. She was eventually weaned off O2 after a few hours with sats 98% on room air wit minimal wheezing. Patient apparently was prescribed oral prednisone a few days ago but she was unable to fill this until she came to the ED. On discharge, I advised her to resume her singulair and oral prednisone and to follow up with her oracle software engineer - Additional Information Discharge Diet: As Tolerated Discharge Activity: Activity As Tolerated Prescriptions: Prednisone [Deltasone 20 mg Tablet] 40 mg PO DAILY 10 Days #10 tablet Tiotropium [place] [Spiriva Respimat] 4 gm IH DAILY 30 Days #1 mist.inhal Home Medications: Albuterol Sulfate [Ventolin 0.083% Neb 2.5 mg/3 mL Ampul] 1 vial NEB RTTID 12/01/18 Albuterol Sulfate [Proair HFA Inhalation Aerosol 8.5 gm MDI] 2 puff IH Q6HP PRN #1 inhaler 03/09/19 Budesonide/Formoterol Fumarate [Symbicort HFA 160-4.5 mcg Inhaler 6 gm] 2 puff IH Q12 #1 inhaler 03/09/19 Montelukast Sodium [Singulair 10 mg Tablet] 10 mg PO QHS #30 tablet 03/09/19 Albuterol Sulfate [Ventolin 0.083% Neb 2.5 mg/3 mL Ampul] 2.5 mg IH TID 05/16/20 Prednisone [Deltasone 20 mg Tablet] 40 mg PO DAILY 10 Days #10 tablet 05/16/20 Tiotropium [place] [Spiriva Respimat] 4 gm IH DAILY 30 Days #1 mist.inhal 05/16/20 History of Present Illiness History of Present Illness: SHERLYN GALLOWAY is a 35 year old female has history of asthma for several years. She is being intubated in the past. She has a history of pneumothorax which required a chest tube in the past. She is not fully compliant with her asthma medications. She has frequent emergency department visits. She came to the emergency department because of increasing shortness of breath and wheezing. She called ambulance. She received nebulizer treatment and Solu-Medrol. In the emergency department she received more bronchodilators. She had significant wheezing. She was placed on BiPAP. She was improving with BiPAP. The patient does not want to be intubated, she would agree only as a last resort. When I saw her she was on the BiPAP and she was started feeling better. She maintained oxygen saturation 100% on BiPAP. She denies any additional complaints beside wheezing and shortness of breath. She had no fever. No sore throat. No sputum production. Hospital Course Hospital Course: Patient is a known asthmatic with poor medication compliance, prior history of intubation 2/2 Asthma who was admitted due to asthma exacerbation. Chest XR did not show any acute process and she improved with IV steroids and neb treatments. She was eventually weaned off O2 after a few hours with sats 98% on room air wit minimal wheezing. Patient apparently was prescribed oral prednisone a few days ago but she was unable to fill this until she came to the ED. On discharge, I advised her to resume her singulair and oral prednisone and to follow up with her oracle software engineer Physical Exam Vital Signs: Temp Pulse Resp BP Pulse Ox 98.1 F 92 16 146/92 H 96 05/16/20 11:57 05/16/20 14:25 05/16/20 14:25 05/16/20 11:57 05/16/20 14:25 Intake & Output 05/15/20 05/16/20 05/17/20 06:59 06:59 06:59 Intake Total 1622 380 Balance 1622 380 Weight 62.7 kg General appearance: PRESENT: no acute distress, cooperative Head exam: PRESENT: atraumatic, normocephalic Eye exam: PRESENT: EOMI, PERRLA Mouth exam: PRESENT: moist Neck exam: PRESENT: full ROM Respiratory exam: PRESENT: clear to auscultation lilo, symmetrical, unlabored Cardiovascular exam: PRESENT: RRR, +S1, +S2 GI/Abdominal exam: PRESENT: normal bowel sounds, soft. ABSENT: rebound, tenderness Extremities exam: PRESENT: full ROM Musculoskeletal exam: PRESENT: full ROM Neurological exam: PRESENT: alert, awake, oriented to person, oriented to place, oriented to time, oriented to situation Psychiatric exam: PRESENT: normal mood Skin exam: PRESENT: normal color Results Laboratory Results: WBC 5.7 10^3/uL (4.0-10.5) 05/16/20 05:09 RBC 4.13 10^6/uL (3.72-5.28) 05/16/20 05:09 Hgb 13.0 g/dL (12.0-15.5) 05/16/20 05:09 Hct 38.7 % (36.0-47.0) 05/16/20 05:09 MCV 94 fl (80-97) 05/16/20 05:09 MCH 31.6 pg (27.0-33.4) 05/16/20 05:09 MCHC 33.7 g/dL (32.0-36.0) 05/16/20 05:09 RDW 12.9 % (11.5-14.0) 05/16/20 05:09 Plt Count 186 10^3/uL (150-450) 05/16/20 05:09 Lymph % (Auto) 5.9 % (13-45) L 05/16/20 05:09 [place] % (Auto) 0.7 % (3-13) L 05/16/20 05:09 Eos % (Auto) 0.1 % (0-6) 05/16/20 05:09 Baso % (Auto) 0.2 % (0-2) 05/16/20 05:09 Absolute Neuts (auto) 5.3 10^3/uL (1.7-8.2) 05/16/20 05:09 Absolute Lymphs (auto) 0.3 10^3/uL (0.5-4.7) L 05/16/20 05:09 Absolute Monos (auto) 0.0 10^3/uL (0.1-1.4) L 05/16/20 05:09 Absolute Eos (auto) 0.0 10^3/uL (0.0-0.6) 05/16/20 05:09 Absolute Basos (auto) 0.0 10^3/uL (0.0-0.2) 05/16/20 05:09 Seg Neutrophils % 93.1 % (42-78) H 05/16/20 05:09 Carbonic Acid 1.18 mmol/L (1.05-1.35) 05/16/20 06:30 HCO3/H2CO3 Ratio 18:1 05/16/20 06:30 ABG pH 7.37 (7.35-7.45) 05/16/20 06:30 ABG pCO2 39.1 mmHg (35-45) 05/16/20 06:30 ABG pO2 87.3 mmHg (80-100) 05/16/20 06:30 ABG HCO3 21.8 mmol/L (20-24) 05/16/20 06:30 ABG Total CO2 23.0 mmol/L (21-25) 05/16/20 06:30 ABG O2 Saturation 96.4 % (94-98) 05/16/20 06:30 ABG Base Excess -3.2 mmol/L 05/16/20 06:30 VBG pH 7.24 (7.30-7.42) L 05/15/20 21:18 VBG pCO2 56.4 mmHg (35-63) 05/15/20 21:18 VBG HCO3 23.4 mmol/L (20-32) 05/15/20 21:18 VBG Base Excess -4.9 mmol/L 05/15/20 21:18 FiO2 28% 05/16/20 06:30 Sodium 137.9 mmol/L (137-145) 05/16/20 05:09 Potassium 4.0 mmol/L (3.6-5.0) 05/16/20 05:09 Chloride 106 mmol/L (98-107) 05/16/20 05:09 Carbon Dioxide 21 mmol/L (22-30) L 05/16/20 05:09 Anion Gap 11 (5-19) 05/16/20 05:09 BUN 8 mg/dL (7-20) 05/16/20 05:09 Creatinine 0.53 mg/dL (0.52-1.25) 05/16/20 05:09 Est GFR ( Amer) > 60 (>60) 05/16/20 05:09 Est GFR (MDRD) Non-Af > 60 (>60) 05/16/20 05:09 Glucose 215 mg/dL (75-110) H 05/16/20 05:09 Hemoglobin A1c % 5.0 % (4.7-6.0) 05/16/20 05:09 Calcium 8.8 mg/dL (8.4-10.2) 05/16/20 05:09 Magnesium 1.9 mg/dL (1.6-2.3) 05/16/20 05:09 Total Bilirubin 0.3 mg/dL (0.2-1.3) 05/15/20 21:18 Direct Bilirubin 0.3 mg/dL (0.0-0.4) 05/15/20 21:18 Neonat Total Bilirubin Not Reportable 05/15/20 21:18 Neonat Direct Bilirubin Not Reportable 05/15/20 21:18 Neonat Indirect Bili Not Reportable 05/15/20 21:18 AST 28 U/L (14-36) 05/15/20 21:18 ALT 19 U/L (<35) 05/15/20 21:18 Alkaline Phosphatase 77 U/L (38-126) 05/15/20 21:18 Troponin I < 0.012 ng/mL 05/15/20 21:18 Total Protein 8.4 g/dL (6.3-8.2) H 05/15/20 21:18 Albumin 4.7 g/dL (3.5-5.0) 05/15/20 21:18 TSH 0.13 uIU/mL (0.47-4.68) L 05/16/20 05:09 Serum HCG, Qual NEGATIVE (NEGATIVE) 05/15/20 21:18 Urine Opiates Screen NEGATIVE 05/15/20 21:18 Urine Methadone Screen NEGATIVE 05/15/20 21:18 Ur Barbiturates Screen NEGATIVE 05/15/20 21:18 Ur Phencyclidine Scrn NEGATIVE 05/15/20 21:18 Ur Amphetamines Screen NEGATIVE 05/15/20 21:18 U Benzodiazepines Scrn NEGATIVE 05/15/20 21:18 Urine Cocaine Screen NEGATIVE 05/15/20 21:18 U Marijuana (THC) Screen NEGATIVE 05/15/20 21:18 Influenza A (RT-PCR) NEGATIVE (NEGATIVE) 05/16/20 00:06 Influenza B (RT-PCR) NEGATIVE (NEGATIVE) 05/16/20 00:06 RSV (RT-PCR) NEGATIVE (NEGATIVE) 05/16/20 00:06 SARS-CoV-2 Rap RNA(RT-PCR) NEGATIVE (NEGATIVE) 05/16/20 00:06 05/15/20 21:18 Troponin I < 0.012 Impressions: Chest X-Ray 05/15/20 21:22 IMPRESSION: Negative chest copyright 2010 [employer]- All Rights Reserved Plan Plan of Treatment: Asthma You have been diagnosed as having asthma. This is a condition where there is episodic tightness in the bronchial tubes. Allergies, infections, and polluted or cold air may be contributing factors. Emergency treatment of a severe asthma attack may include adrenaline shots, or bronchodilator aerosol. You may feel lightheaded, have a decreased exercise tolerance and a rapid pulse for an hour or two. Rest and get plenty of fluids. Home treatment of asthma requires bronchodilator drugs. These can be administered by injection, inhalation, or by mouth. Antibiotics and corticosteroids may be required for some patients. You should avoid chemical fumes, dusts, pollens, and exercising in very cold or dry air. If you smoke, stop!! If you develop a fever, increased wheezing, chest pain, or severe shortness of breath, you should contact the doctor immediately Time Spent: Less than 30 Minutes Stroke Is this a Stroke Patient?: No Acute Heart Failure Is this a Heart Failure Patient?: No
[2020-05-16 16:21] VITALS: BP 133/88
== END 2020-05-16 17:04 | disposition home or self-care (01) | DRG 202 ==
LOC: ER 21:11 → EH 23:00 → 3W 05-16 03:09
PROVIDERS: ADMIT Internal Medicine; ATTEND Internal Medicine
PROC: 5A09457 Assistance with Respiratory Ventilation, 24-96 Consecutive Hours, Continuous Positive Airway Pressure (ICD-10-PCS; principal; 2020-05-15)
DX: J45.51 Severe persistent asthma with (acute) exacerbation (principal); J96.01 Acute respiratory failure with hypoxia; Z20.822 Contact with and (suspected) exposure to COVID-19; Z91.14 Patient's other noncompliance with medication regimen; Z79.899 Other long term (current) drug therapy; Z83.3 Family history of diabetes mellitus; Z82.49 Family history of ischemic heart disease and other diseases of the circulatory system; Z82.5 Family history of asthma and other chronic lower respiratory diseases; Z79.52 Long term (current) use of systemic steroids; Z79.51 Long term (current) use of inhaled steroids
CPT/HCPCS: 36415; 36600; 71045; 80048; 80053; 80307; 82803; 83036; 83735; 84443; 84484; 84703; 85025; 93005; 93010; 94640; 94660; 96361; 96374; 99285; 0241U; C9803; J1650; J2060; J2930; J7030; J7613

== ENCOUNTER 2020-05-16 22:43 | Emergency (ER) | payer MEDICAID ==
--- NOTE | 2020-05-16 23:39 | ER Document Report ---
ED General - General Chief Complaint: Shortness Of Breath Stated Complaint: DIFFICULTY BREATHING Time Seen by Provider: 05/16/20 23:36 TRAVEL OUTSIDE OF THE [place] IN LAST 30 DAYS: No - HPI Notes: 35-year-old female presents via EMS from home for reported shortness of breath. Patient states "I'm back". She essentially refuses to answer all other questions. Upon questioning, patient does state that she has not picked up the prednisone that was prescribed to her because she has not had time to go to the pharmacy because she was just discharged. She received 2 breathing treatments with EMS. Per EMS/nursing report, patient's boyfriend said that he was leaving, which caused patient to hyperventilate and go into an asthma flare. - Related Data Allergies/Adverse Reactions: No Known Allergies Allergy (Verified 05/16/20 22:54) Home Medications: ALBUTEROL Past Medical History - General Information source: Patient - Social History Smoking Status: Never Smoker Frequency of alcohol use: Occasional Drug Abuse: Cocaine Family History: DM, Hypertension, Other - Asthma, hepatitis C - Past Medical History Cardiac Medical History: Reports: Hx Heart Attack Denies: Hx Hypercholesterolemia, Hx Hypertension Pulmonary Medical History: Reports: Hx Asthma, Hx COPD, Hx Intubation - Multiple times, last time being July 2017, Hx Respiratory Failure Neurological Medical History: Denies: Hx Seizures Endocrine Medical History: Denies: Hx Diabetes Mellitus Type 1, Hx Diabetes Mellitus Type 2, Hx Hyperthyroidism, Hx Hypothyroidism Renal/ Medical History: Denies: Hx Peritoneal Dialysis GI Medical History: Denies: Hx Cirrhosis, Hx Hepatitis Musculoskeletal Medical History: Denies Hx Arthritis, Denies Hx Gout Skin Medical History: Denies Hx Eczema, Denies Hx Psoriasis Psychiatric Medical History: Denies: Hx Depression Infectious Medical History: Denies: Hx Hepatitis Past Surgical History: Reports: Other - Chest tube - Immunizations Hx Diphtheria, Pertussis, Tetanus Vaccination: Yes Review of Systems - Review of Systems Notes: Patient refusing to answer questions Physical Exam - Vital signs Vitals: Temp Pulse Resp BP Pulse Ox 98.7 F 84 16 120/72 99 05/17/20 00:35 05/17/20 00:35 05/17/20 00:35 05/17/20 00:35 05/17/20 00:35 - General General appearance: Appears well, Alert In distress: None - HEENT Head: Normocephalic, Atraumatic Pupils: PERRL - Respiratory Respiratory status: No respiratory distress. No: Labored, Tachypnea Breath sounds: Normal. No: Wheezing - Cardiovascular Rhythm: Regular Heart sounds: Normal auscultation - Abdominal Inspection: No: Obese - Extremities General upper extremity: Normal ROM General lower extremity: Normal ROM - Neurological Neuro grossly intact: Yes Cognition: Normal Orientation: AAOx4 - Psychological Associated symptoms: Flat affect - Skin Skin Temperature: Warm Course - Re-evaluation Re-evalutation: 35-year-old female with history of asthma with multiple ED visits for asthma exacerbation. She was seen in the emergency department last night and admitted inpatient, she was discharged this afternoon. Per EMS/nursing report, patient began hyperventilating after her boyfriend said that he was leaving. She did receive treatment the EMS. On exam patient has clear lungs, there is no signs of respiratory distress, no tachypnea. No oxygen requirement. Given her presentation, I do have a low suspicion that her symptoms today are due to a new acute exacerbation of her asthma, possibly situational given the reported issue at home. I discussed with patient the importance of filling the prednisone that has been previously prescribed to her. She was discharged in stable condition. Return precautions given. - Vital Signs Vital signs: Temp Pulse Resp BP Pulse Ox 98.7 F 84 16 120/72 99 05/17/20 00:35 05/17/20 00:35 05/17/20 00:35 05/17/20 00:35 05/17/20 00:35 - Laboratory Results Critical Laboratory Results Reviewed: No Critical Results - Radiology Results Critical Radiology Results Reviewed: No Critical Results Discharge - Discharge Clinical Impression: Asthma in adult Qualifiers: Asthma severity: unspecified severity Asthma complication type: unspecified Condition: Good Disposition: HOME, SELF-CARE Additional Instructions: Please be sure to fill the prednisone prescription that has been prescribed to you as this was the recommended treatment course from your asthma exacerbation/discharge earlier today. Return to the emergency department for any concerning worsening symptoms.
--- OUTSIDE RECORDS SUMMARY | 2020-05-16 23:45 | XMS REPORT ---
:1985 Author Organization [facility] Address [facility] [address] [place] [id number] Care Team Providers Name Role Phone Qi Bowman Attending Clinician Unavailable Qi Bowman Attending Clinician Unavailable Allergies, Adverse Reactions, Alerts This patient has no known allergies or adverse reactions. Medications This patient has no known medications. Problems This patient has no known problems. Procedures Procedure Date / Time Performed Performing Clinician Devic e OFFICE/OUTPATIENT VISIT EST 2018-07-06 08:15:00 OFFICE/OUTPATIENT VISIT EST 2018-06-03 10:30:00 Results Test Description Test Time Test Comments Text Results Atomic Results Result Comments SARS-CoV-2 RNA Resp Ql ELICIA+probe 2020-03-02 00:00:00 Test Item Value Reference Range Comments SARS-CoV-2 RNA Resp Ql ELICIA+probe Not detected [facility] Case ID: (test code = 44873-5) [id number] Urine \S\2018-06-03 10:30:00 Test Item Value Reference Range Comments Urine (test code = URINEPREG) positive N/A THINPREP TIS PAP AND HPV mRNA E6/E7, CHLAMYDIA/N.[id number] 14:29:00 Test Item Value Reference Range Comments HPV mRNA E6/E7 (test code = Detected Not Detected 92630236) LMP: (test code = 30215840) 20170913 INTERPRETATION/RESULT: (test Atypical Squamous Cells of code = 89118601) Undetermined Significance (ASC-US) NEISSERIA GONORRHOEAE RNA, NOT DETECTED NOT DETECTED TMA, UROGENITAL (test code = 40822591) CHLAMYDIA TRACHOMATIS RNA, NOT DETECTED NOT DETECTED TMA, UROGENITAL (test code = 15785021) SOURCE: (test code = 11620666) Cervix, Endocervix GENERAL CATEGORIZATION: (test EPITHELIAL CELL ABNORMALITY code = 18938689) PREV. PAP: (test code = UNKNOWN 17731423) PREV. BX: (test code = UNKNOWN 56780331) BV/VAGINITIS PANEL DNA [id number] 14:26:00SEE NOTE Assessments Condition Name Status Diagnosis Date Treating Clinici an Other atopic dermatitis Active Hypertrophic scar Active Body mass index (BMI) 23.0-23.9, adult Active Moderate persistent asthma, uncomplicated Active Amenorrhea, unspecified Active Moderate persistent asthma, uncomplicated Active Encounter for test, result Active positive Body mass index (BMI) 23.0-23.9, adult Active Encounters Start End Encounter Admission Attending Care Care Encounter Date/Time Date/Time Type Type Clinicians Facility Department ID 2018-07-06 2018-07-06 Outpatient [facility] 1 [id number] 08:15:00 08:15:00 [facility] [id number] s [id number] and [id number] [facility], 2018-06-03 2018-06-03 Outpatient [facility] 0 [id number] 10:30:00 10:30:00 [facility] [id number] s [id number] and [id number] [facility], [place] Social History This patient has no known social history. Vital Signs This patient has no known vital signs.
[2020-05-17 00:36] VITALS: BP 120/72
== END 2020-05-17 00:35 | disposition home or self-care (01) ==
LOC: ER 22:43
DX: J44.9 Chronic obstructive pulmonary disease, unspecified (principal); F14.10 Cocaine abuse, uncomplicated; Z79.899 Other long term (current) drug therapy
CPT/HCPCS: 99283

== ENCOUNTER 2020-05-20 19:55 | Emergency (ER) | payer MEDICAID ==
[2020-05-20 20:57] LABS: ABSOLUTE EOSINOPHILS # (AUTO) 0.3 10^3/uL (0.0-0.6); ABSOLUTE LYMPHOCYTES (AUTO) 0.6 10^3/uL (0.5-4.7); ABSOLUTE MONOCYTES (AUTO) 0.3 10^3/uL (0.1-1.4); ABSOLUTE NEUT (AUTO) 9.8 10^3/uL (1.7-8.2); BASOPHILS % (AUTO) 0.3 % (0-2); EOSINOPHILS % (AUTO) 3.1 % (0-6); HEMATOCRIT 44.9 % (36.0-47.0); LYMPHOCYTES % (AUTO) 5.1 % (13-45); MEAN CORPUSCULAR HEMOGLOBIN 31.6 pg (27.0-33.4); MEAN CORPUSCULAR HGB CONC 33.4 g/dL (32.0-36.0); MEAN CORPUSCULAR VOLUME 94 fl (80-97); MONOCYTES % (AUTO) 2.5 % (3-13); PLATELET COUNT 214 10^3/uL (150-450); RED BLOOD COUNT 4.76 10^6/uL (3.72-5.28); TOTAL CELLS COUNTED % (AUTO) 100 %
[2020-05-20 21:15] LABS: ALBUMIN 4.8 g/dL (3.5-5.0); ALKALINE PHOSPHATASE 83 U/L (38-126); ANION GAP 10 (5-19); ASPARTATE AMINO TRANSFERASE 30 U/L (14-36); BILIRUBIN,DIRECT 0.2 mg/dL (0.0-0.4); BILIRUBIN,TOTAL 0.3 mg/dL (0.2-1.3); BLOOD UREA NITROGEN 7 mg/dL (7-20); CALCIUM 9.8 mg/dL (8.4-10.2); CARBON DIOXIDE 25 mmol/L (22-30); CHLORIDE 104 mmol/L (98-107); GLUCOSE 127 mg/dL (75-110); POTASSIUM 4.7 mmol/L (3.6-5.0); TOTAL PROTEIN 8.8 g/dL (6.3-8.2)
--- NOTE | 2020-05-20 21:45 | RADIOLOGY REPORT (SQ) ---
CLINICAL INDICATION: SOB. TECHNIQUE: A single portable AP view was obtained of the chest at 2115 hours. COMPARISON: May 15, 2020. FINDINGS: The cardiomediastinal silhouette is normal. The lungs demonstrate chronic changes. Hyperlucency the apices and crowding at the bases. No acute process. No evidence of effusion or pneumothorax. The visualized bones are unremarkable. IMPRESSION: No evidence of active intrathoracic disease. Chronic emphysematous change
[2020-05-21] MEDS ORDERED: NORMAL SALINE 1000 ML 1,000 ML IV ONE (02:42)
[2020-05-21] MEDS ORDERED: ALBUTEROL SULFATE 0.083% NEB 2.5 MG/3 ML AMPUL NEB ONE (02:42)
[2020-05-21] MEDS: MAGNESIUM SULFATE/D5W 1 GM/100 ML RTUPB IV SCH ×2 (03:05→03:53)
--- NOTE | 2020-05-21 03:57 | ER Document Report ---
Entered by SULEMA HILARIO SCRIBE 05/21/20 0241 Acting as scribe for:DERIAN REARDON IV, MD ED Respiratory Problem - General Chief Complaint: Shortness Of Breath Stated Complaint: SOB Primary Care Provider: CAMRYN ESPINOZA MD [Primary Care Provider] - Follow up as needed Mode of Arrival: Medic Information source: Patient Notes: This 35-year-old female patient presents to the emergency department today with complaints of an asthma exacerbation. This is the patient's fifth visit in the last 9 days for similar complaints. Patient was discharged home on steroids x2 days ago and she has not yet filled this prescription. Patient is requesting prescriptions for an inhaler as well as nebulizer medication. She denies any fevers, cough, or chills. TRAVEL OUTSIDE OF THE [place] IN LAST 30 DAYS: No - Related Data Allergies/Adverse Reactions: No Known Allergies Allergy (Verified 05/16/20 22:54) Past Medical History - General Information source: Patient - Social History Smoking Status: Unknown if Ever Smoked Cigarette use (# per day): No Frequency of alcohol use: None Drug Abuse: None Lives with: Family Family History: DM, Hypertension, Other - Asthma, hepatitis C - Past Medical History Cardiac Medical History: Reports: Hx Heart Attack Pulmonary Medical History: Reports: Hx Asthma, Hx COPD, Hx Intubation - Multiple times, last time being July 2017, Hx Respiratory Failure Past Surgical History: Reports: Other - Chest tube - Immunizations Hx Diphtheria, Pertussis, Tetanus Vaccination: Yes Review of Systems - Review of Systems Constitutional: No symptoms reported EENT: No symptoms reported Cardiovascular: No symptoms reported Respiratory: See HPI, Short of breath, Wheezing Gastrointestinal: No symptoms reported Genitourinary: No symptoms reported Female Genitourinary: No symptoms reported Musculoskeletal: No symptoms reported Skin: No symptoms reported Hematologic/Lymphatic: No symptoms reported Neurological/Psychological: No symptoms reported -: Yes All other systems reviewed and negative Physical Exam - Vital signs Vitals: Resp 29 H 05/20/20 19:58 - Notes Notes: Physical Exam: General: Alert, appears well. HEENT: Normocephalic. Atraumatic. PERRL. Extraocular movements intact. Oropharynx clear. Neck: Supple. Non-tender. Respiratory: No respiratory distress. Minimal wheezing bilaterally. Cardiovascular: Regular rate and rhythm. Abdominal: Normal Inspection. Non-tender. No distension. Normal Bowel Sounds. Back: No gross abnormalities. Extremities: Moves all four extremities. Upper extremities: Normal inspection. Normal ROM. Lower extremities: Normal inspection. No edema. Normal ROM. Neurological: Normal cognition. AAOx4. Normal speech. Psychological: Normal affect. Normal Mood. Skin: Warm. Dry. Normal color. Course - Re-evaluation Re-evalutation: 05/21/20 02:43 Differential diagnosis: Asthma exacerbation, viral syndrome, bronchitis, pneu monia, medication noncompliance, inhaled substance abuse 05/21/20 03:59 MDM: Patient's O2 sats are currently 98% on room air. Patient has some residual scant wheezing but no tachypnea and no increased work of breathing. Based on patient's clinical exam, response to treatment and chest x-ray as well as labs, I believe this is a acute asthma exacerbation. I and running the patient for prescriptions for prednisone albuterol nebs and now butyryl inhaler and have strongly recommended that the patient get these prescriptions filled. Results of ED MSE discussed with patient. Diagnosis, discharge prescriptions, follow-up all discussed with patient. All questions were answered prior to discharge. Emergency signs and symptoms, reasons to return to the emergency department discussed with patient. - Vital Signs Vital signs: Temp Pulse Resp BP Pulse Ox 15 135/91 H 97 05/21/20 02:30 05/21/20 02:30 05/21/20 02:30 - Laboratory Results Result Diagrams: 05/20/20 20:50 05/20/20 20:50 Laboratory Results Interpreted: 05/20/20 05/20/20 20:50 20:50 WBC 11.0 H Lymph % (Auto) 5.1 L [place] % (Auto) 2.5 L Absolute Neuts (auto) 9.8 H Seg Neutrophils % 89.0 H Glucose 127 H Total Protein 8.8 H Critical Laboratory Results Reviewed: No Critical Results - Radiology Results Critical Radiology Results Reviewed: No Critical Results Discharge - Discharge Clinical Impression: Acute asthma exacerbation Qualifiers: Asthma severity: unspecified severity Asthma persistence: unspecified Qualified Code(s): J45.901 - Unspecified asthma with (acute) exacerbation Condition: Stable Disposition: HOME, SELF-CARE Additional Instructions: Return to the Emergency Department without delay if any worse. HOME CARE INSTRUCTIONS & INFORMATION: Thank you for choosing us for your medical needs. We hope you're satisfied with the care you received. After you leave, you must properly care for your problem and, at the same time, observe its progress. Any condition can change. Some illnesses can change rapidly over hours or days. If your condition worsens, return to the Emergency Department or see your physician promptly. ABOUT YOUR X-RAYS AND EKG'S: If you had an EKG or X-rays taken, they have been read by the Emergency Physician. The X-rays and EKG's will also be read by a Radiologist or X Ray Equipment Tester within 24 hours. If discrepancies are noted, you will be notified by telephone. Please be certain the ED has a correct telephone number & address where you can be reached. Also, realize that some fractures or abnormalities do not show up on initial X-rays. If your symptoms continue, see your physician. ABOUT YOUR LABORATORY TEST: If you had laboratory tests, the results have been reviewed by the Emergency Physician. Some test results (for example cultures) may not be available for several days. You will be contacted if any test result shows you need additional treatment. Please be certain the ED has a correct telephone number and address where you can be reached. ABOUT YOUR MEDICATIONS: You will receive instructions on how to take your medicine on the prescription label you receive. Additional information may be provided by the Pharmacy. If you have questions afterwards, call the ED for clarification or further instructions. Some prescribed medications may cause drowsiness. Do not perform tasks such as driving a car or operating machinery without consulting your Pharmacist. If you feel you need a refill of pain medication, your condition will need re-evaluation. Please do not call for a refill of any medication. ABOUT YOUR SIGNATURE: Signature of this document acknowledges to followin. Understanding that you received emergency treatment and that you may be released before al medical problems are known or treated. Please be certain the ED has a correct phone number & address where you can be reached. 2. Acknowledgement that you will arrange for follow-up care as recommended. 3. Authorization for the Emergency Physician to provide information to your follow-up Physician in order to maximize your care. AT ANY TIME, IF YOUR SYMPTOMS CHANGE SIGNIFICANTLY OR WORSEN OR YOU DEVELOP NEW SYMPTOMS, RETURN TO THE EMERGENCY DEPARTMENT IMMEDIATELY FOR RE-EVALUATION. OUR GOAL IS TO PROVIDE EXCELLENT MEDICAL CARE! WE HOPE THAT WE HAVE MET YOUR EXPECTATIONS DURING YOUR EMERGENCY DEPARTMENT VISIT AND THAT YOU FEEL YOU HAVE RECEIVED EXCELLENT CARE! Prescriptions: Albuterol Sulfate [Proventil 0.5% Neb 2.5 mg/0.5 ml Vial.neb] 2.5 mg NEB Q4HP PRN #100 vial.neb PRN Reason: wheeze Prednisone 50 mg PO DAILY 5 Days #25 tablet Albuterol Sulfate [Proair HFA Inhalation Aerosol 8.5 gm MDI] 2 puff IH Q4H PRN #1 mdi PRN Reason: Referrals: MAXX JOHSNON MD [HONORARY] - Follow up as needed I personally performed the services described in the documentation, reviewed and edited the documentation which was dictated to the scribe in my presence, and it accurately records my words and actions.
[2020-05-21 06:54] VITALS: BP 135/97
--- OUTSIDE RECORDS SUMMARY | 2020-05-23 09:15 | XMS REPORT ---
:1985 Author Organization [facility] Address [facility] [address] [place] [address] Care Team Providers Name Role Phone Qi [...] SARS-CoV-2 RNA Resp Ql ELICIA+probe Not detected [facility] Case ID: (test code = 17639-7) [id number] Urine \S\2018-06-03 10:30:00 Test Item Value Reference Range Comments Urine (test code = URINEPREG) positive N/A THINPREP TIS PAP AND HPV mRNA E6/E7, CHLAMYDIA/N.[id number] 14:29:00 Test Item Value Reference Range Comments HPV mRNA E6/E7 (test code = Detected Not Detected 08123475) LMP: (test code = 26342262) 20170913 INTERPRETATION/RESULT: (test Atypical Squamous Cells of code = 68499433) Undetermined Significance (ASC-US) NEISSERIA GONORRHOEAE RNA, NOT DETECTED NOT DETECTED TMA, UROGENITAL (test code = 99994406) CHLAMYDIA TRACHOMATIS RNA, NOT DETECTED NOT DETECTED TMA, UROGENITAL (test code = 68759211) SOURCE: (test code = 88915889) Cervix, Endocervix GENERAL CATEGORIZATION: (test EPITHELIAL CELL ABNORMALITY code = 63967295) PREV. PAP: (test code = UNKNOWN 65349578) PREV. BX: (test code = UNKNOWN 94672588) BV/VAGINITIS PANEL DNA [id number] 14:26:00SEE NOTE Assessments Condition Name Status Diagnosis [...] Facility Department ID 2018-07-06 2018-07-06 Outpatient [facility] 1 [id number] 08:15:00 08:15:00 [facility] [id number] s [id number] and [id number] [facility], 2018-06-03 2018-06-03 Outpatient [facility] 0 [id number] 10:30:00 10:30:00 [facility] [id number] s [id number] and [id number] [facility], [place] Social History This patient has no known social history. Vital Signs This patient has no known vital signs.
== END 2020-05-21 06:45 | disposition home or self-care (01) ==
LOC: ER 19:55
DX: J45.901 Unspecified asthma with (acute) exacerbation (principal); J44.9 Chronic obstructive pulmonary disease, unspecified; T38.0X6A Underdosing of glucocorticoids and synthetic analogues, initial encounter; Z91.128 Patient's intentional underdosing of medication regimen for other reason; Z91.14 Patient's other noncompliance with medication regimen
CPT/HCPCS: 94640; 99284; 96361; 96365; 36415; 85025; 80053; 71045; J3475; J7030; J7613